=== PATIENT | male | born 1935 | race Caucasian/White ===

== ENCOUNTER → 2017-10-31 09:50 | Outpatient (CLI) | payer MEDICARE, OTHER, SELFPAY ==
[2017-10-31 12:06] LABS: Color, Urine Yellow (Yellow); Glucose, Dipstick Normal (Normal); Ketone-Dipstick 5 mg/dl (Negative); Leukocyte Esterase-Dipstick 25 /ul (Negative); Nitrite-Dipstick Negative (Negative); Occult Blood-Urine 10 /ul (Negative); Protein-Dipstick 30 mg/dl (Negative); Urine Clarity Clear (Clear); Urine Urobilinogen 1 mg/dl (Normal)
[2017-10-31 12:08] LABS: Urine Bilirubin Dipstick 1 mg/dL (Negative)
[2017-10-31 12:15] LABS: Protein, Urine (Random) 39.7 mg/dL (<11.9); Protein:Creat Ratio 133 mg/g CRE (0-200)
[2017-10-31 12:22] LABS: Absolute Lymphocyte Count 1.19 X10^3/ul (0.83-4.51); Absolute Neutrophil Count 6.4 X10^3/uL (2.0-7.7); Basophil# 0.05 X10^3/uL; Basophil% 0.5 % (0-1); Eosinophil# 0.28 X10^3/uL; Hematocrit 43.3 % (40-54); Hemoglobin 13.6 g/dl (13.0-16.5); Lymphocyte # 1.19 X10^3/ul (4.0); Lymphocyte % 12.9 % (19-41); Mean Corp Hgb Conc 31.4 g/gl (32-36); Mean Corpuscular Hgb 31.4 pg (27.0-32.0); Mean Platelet Vol. 11.6 fl (6.2-12.0); Monocyte# 1.24 X10^3/uL; Monocyte% 13.5 % (0-10); Neutrophil # 6.43 X10^3/uL (2.7-7.7); Neutrophil % 69.9 % (47-70); Platelet Count 221 K/mm3 (150-450); RBC Distribution Width SD 47.2 fl (35.1-43.9); Red Blood Count 4.33 M/mm3 (4.6-6.2); White Blood Count 9.2 K/mm3 (4.4-11.0)
[2017-10-31 12:32] LABS: POSITIVE COUNT NO; POSITIVE DIFFERENTIAL NO; POSITIVE MORPHOLOGY NO
[2017-10-31 12:40] LABS: AST(SGOT) 20 U/L (15-37); Alanine Aminotransfer ALT/SGPT 20 U/L (16-61); Albumin, Serum 3.8 g/dL (3.2-5.0); Alkaline Phosphatase 159 U/L (45-117); Anion Gap 9 (5-15); BUN 30 mg/dL (7-18); BUN/Creat Ratio 16.8 RATIO (10-20); CRP 5.75 mg/L (0.0-3.0); Calcium,Total 8.9 mg/dL (8.5-10.1); Chloride 111 mmol/L (98-107); Creatinine, Serum 1.79 mg/dL (0.70-1.30); EST Glomerular Filtration Rate 39 mL/min (>60); Est Glom Filt Rate - Afr Amer 47 mL/min (>60); Globulin 3.8 g/dL (2.2-4.2); Glucose 99 mg/dL (74-106); Potassium 4.1 mmol/L (3.5-5.1); Protein, Total 7.6 g/dL (6.4-8.2); Sodium Level 146 mmol/L (136-145)
[2017-11-01 04:09] LABS: Complement C3 133 mg/dL (82-167)
[2017-11-01 11:16] LABS: HEPATITIS B SURFACE AG Negative (Negative); Hep B Surface Antibodies Non Reactive (.); Hep C Antibodies <0.1 s/co ratio (0.0-0.9)
[2017-11-01 14:07] LABS: Anti-Centromere B Ab <0.2 AI (0.0-0.9); Anti-Jo <0.2 AI (0.0-0.9); Anti-Scleroderma-70 AB <0.2 AI (0.0-0.9); RNP Ab <0.2 AI (0.0-0.9); SJOGREN'S Anti-SS-A test 0.5 AI (0.0-0.9); SJOGREN'S Anti-SS-B test < 0.2 AI (0.0-0.9); Smith Ab 0.2 AI (0.0-0.9)
[2017-11-02 12:36] LABS: ANTINUCLEAR ANTIBODIES DIRECT Negative (Negative); Anti-dsDNA Ab 1 IU/mL (0-9)
== END ==
PROVIDERS: Family Provider Family Medicine; PCP Family Medicine; Visit Provider Internal Medicine Rheumatology
DX: M06.4 Inflammatory polyarthropathy (principal); R76.8 Other specified abnormal immunological findings in serum; K21.9 Gastro-esophageal reflux disease without esophagitis; M51.37 Other intervertebral disc degeneration, lumbosacral region; I10 Essential (primary) hypertension; E78.5 Hyperlipidemia, unspecified; I25.10 Atherosclerotic heart disease of native coronary artery without angina pectoris; N40.1 Benign prostatic hyperplasia with lower urinary tract symptoms; C61 Malignant neoplasm of prostate
CPT/HCPCS: 36415; 80053; 81002; 82570; 84156; 85025; 86038; 86140; 86160; 86225; 86235; 86706; 86803; 87340

== ENCOUNTER → 2018-06-24 15:38 | Outpatient (CLI) | payer MEDICARE, OTHER, SELFPAY ==
[2018-06-24 18:00] LABS: Absolute Lymphocyte Count 1.83 X10^3/ul (0.83-4.51); Absolute Neutrophil Count 7.7 X10^3/uL (2.0-7.7); Basophil# 0.06 X10^3/uL; Basophil% 0.5 % (0-1); Eosinophil# 0.35 X10^3/uL; Hematocrit 41.8 % (40-54); Hemoglobin 13.1 g/dl (13.0-16.5); Lymphocyte # 1.83 X10^3/ul (4.0); Lymphocyte % 15.9 % (19-41); Mean Corp Hgb Conc 31.3 g/gl (32-36); Mean Corpuscular Hgb 31.4 pg (27.0-32.0); Mean Corpuscular Volume 100.2 fL (80-94); Mean Platelet Vol. 11.9 fl (6.2-12.0); Monocyte# 1.58 X10^3/uL; Monocyte% 13.7 % (0-10); Neutrophil # 7.65 X10^3/uL (2.7-7.7); Neutrophil % 66.6 % (47-70); Platelet Count 208 K/mm3 (150-450); RBC Distribution Width CV 12.4 % (11.6-14.6); RBC Distribution Width SD 44.9 fl (35.1-43.9); Red Blood Count 4.17 M/mm3 (4.6-6.2); White Blood Count 11.5 K/mm3 (4.4-11.0)
[2018-06-24 18:01] LABS: Differential Indicated SCAN CRITERIA MET; POSITIVE COUNT NO; POSITIVE DIFFERENTIAL YES; POSITIVE MORPHOLOGY NO
[2018-06-24 18:23] LABS: Differential Comment SCANNED
[2018-06-24 18:30] LABS: ALB/GLOB Ratio 1.1 RATIO (0.9-2.4); AST(SGOT) 17 U/L (15-37); Alanine Aminotransfer ALT/SGPT 22 U/L (16-61); Albumin, Serum 3.8 g/dL (3.2-5.0); Alkaline Phosphatase 162 U/L (45-117); Anion Gap 8 (5-15); BUN 40 mg/dL (7-18); BUN/Creat Ratio 21.4 RATIO (10-20); Calcium,Total 8.9 mg/dL (8.5-10.1); Chloride 111 mmol/L (98-107); Creatinine, Serum 1.87 mg/dL (0.70-1.30); EST Glomerular Filtration Rate 37 mL/min (>60); Est Glom Filt Rate - Afr Amer 45 mL/min (>60); Globulin 3.6 g/dL (2.2-4.2); Glucose 105 mg/dL (74-106); Potassium 4.5 mmol/L (3.5-5.1); Protein, Total 7.4 g/dL (6.4-8.2); Sodium Level 146 mmol/L (136-145)
--- OUTSIDE RECORDS SUMMARY | 2018-08-27 03:47 | XMS RPT_ITS | Summary of Care ---
:1935 Author Organization [facility] Address [address] [id number] Care Team Providers Name Role Phone Kolton Graham MD Primary Care Provider Reason for Referral Evaluate and Treat (Routine) Status Reason Specialty Diagnoses / Referred By Referred To Procedures Contact Contact Closed Specialty Neurosurgery Diagnoses Back pain, unspecified back location, unspecified back pain laterality, unspecified chronicity Kolton Graham Services David, MD Dionysios, MD Required/Patient [address] [phone] Phone: Fax: Reason for Visit Reason Comments Back Pain Had lumbar surgery a year ago in August. States that his lower back pain does cause issues with pain in bilateral feet. States that the issues with his feet started after his surgery. Rates his current back pain at a 4/10. Evaluate and Treat (Routine) Status Reason Specialty Diagnoses / Referred By Referred To Procedures Contact Contact Closed Specialty Neurosurgery Diagnoses Back pain, unspecified back location, unspecified back pain laterality, unspecified chronicity Kolton Graham Services David, MD Dionysios, MD Required/Patient [address] [place] [phone] Phone: Fax: Encounter Details Date Type Department Care Team Description 06/12/2018 Office Visit [facility] Klironomos, Back pain, Neurological MD Lani unspecified back Physicians [address] location, unspecified [address] [place], [place] back pain laterality, Medical Office [id number] unspecified Building [phone] [place] [address] Allergies Active Allergy Reactions Severity Noted Date Comments Chlorhexidine Gluconate as of this encounter Medications Prescription Sig. Disp. Refills Start Date End Date Status metoprolol succinate Take 50 mg by Active (TOPROL-XL) 50 MG 24 mouth. hr tablet atorvastatin Take 40 mg by Active (LIPITOR) 40 MG mouth daily . tablet lisinopril-hydrochlor Take 1 tablet Active othiazide by mouth daily. (PRINZIDE,ZESTORETIC) 20-12.5 mg per tablet aspirin 81 MG EC Take 81 mg by Active tablet mouth daily . omeprazole (PRILOSEC) Take 20 mg by Active 20 MG capsule mouth. gabapentin Take 300 mg by Active (NEURONTIN) 300 MG mouth 2 (two) capsule times a day . lisinopril Take 40 mg by Active (PRINIVIL,ZESTRIL) 20 mouth daily . MG tablet amLODIPine (NORVASC) Take 10 mg by Active 5 MG tablet mouth daily . furosemide (LASIX) 40 Take 40 mg by Active MG tablet mouth daily . predniSONE Take 5 mg by 11 09/22/2017 06/12/2018 Discontinued (DELTASONE) 1 MG mouth 5 (five) tablet times a day. as of this encounter Active Problems Problem Noted Date Coronary artery disease involving coronary bypass graft of [place] heart 11/21/2015 without angina pectoris Last Assessment & Plan: Saphenous vein graft to the OM, saphenous vein graft to the right coronary, LAD with only mild disease so not grafted October 2008. Recent stress test negative (June 2017), no ischemia, no complaints of chest pain, continue aspirin, atorvastatin and blood pressure control. Essential hypertension with goal blood pressure less than 130/80 11/21/2015 Last Assessment & Plan: Mildly elevated today but he states typically it is well-controlled on Toprol-XL 50 mg, lisinopril Hydrochlorothiazide 20/12.5 daily Dyslipidemia 11/21/2015 Last Assessment & Plan: Continue atorvastatin with target LDL of 70. Social History Tobacco Use Types Packs/Day Years Used Date Never Smoker Smokeless Tobacco: Never Used Alcohol Use Drinks/Week oz/Week Comments No 0 Standard drinks or equivalent 0.0 Sex Assigned at Date Recorded Not on file as of this encounter Last Filed Vital Signs Vital Sign Reading Time Taken Blood Pressure 151/76 06/12/2018 1:31 PM EST Pulse 75 06/12/2018 1:31 PM EST Temperature 36.5 ??C (97.7 ??F) 06/12/2018 1:31 PM EST Respiratory Rate 16 06/12/2018 1:31 PM EST Oxygen Saturation - - Inhaled Oxygen Concentration - - Weight 76.2 kg (168 lb) 06/12/2018 1:31 PM EST Height 172.7 cm (5' 8) 06/12/2018 1:31 PM EST Body Mass Index 25.54 06/12/2018 1:31 PM EST in this encounter Progress Notes Lani Cook MD - 06/12/2018 2:53 PM ESTFormatting of this note may be different from the original. Subjective Merrill King is a 82 y.o. male. HPI: He had a lumbar fusion surgery a year ago in [place] with Dr. Malone, who he mentions has now moved to [place]. The patient is here for follow up after his surgery and he has had a lumbar xray. He mentions that he has much less pain now when compared with preop. He does mention some foot pains/numbness. He rates his pain level at a 4/10. PAST MEDICAL HISTORY: Past Medical History: Diagnosis Date ??? Arthritis ??? GERD (gastroesophageal reflux disease) ??? Heart disease ??? Hyperlipidemia ??? Hypertension SURGICAL HISTORY: Past Surgical History: Procedure Laterality Date ??? BACK SURGERY ??? CARDIAC CATHETERIZATION Left 10/22/2008 EF 60%, PTCA of RCA Mid, IABP Inserted ??? CORONARY ARTERY BYPASS GRAFT SOCIAL HISTORY : Social History Social History ??? Marital status: Spouse name: N/A ??? Number of children: N/A ??? Years of education: N/A Occupational History ??? Not on file. Social History Main Topics ??? Smoking status: Never Smoker ??? Smokeless tobacco: Never Used ??? Alcohol use No ??? Drug use: No ??? Sexual activity: Not on file Other Topics Concern ??? Not on file Social History Narrative ??? No narrative on file MEDICATIONS: Current Outpatient Prescriptions Medication Sig Dispense Refill ??? amLODIPine (NORVASC) 5 MG tablet Take 10 mg by mouth daily . ??? aspirin 81 MG EC tablet Take 81 mg by mouth daily . ??? atorvastatin (LIPITOR) 40 MG tablet Take 40 mg by mouth daily . ??? furosemide (LASIX) 40 MG tablet Take 40 mg by mouth daily . ??? gabapentin (NEURONTIN) 300 MG capsule Take 300 mg by mouth 2 (two) times a day . ??? lisinopril (PRINIVIL,ZESTRIL) 20 MG tablet Take 40 mg by mouth daily . ??? metoprolol succinate (TOPROL-XL) 50 MG 24 hr tablet Take 50 mg by mouth. ??? omeprazole (PRILOSEC) 20 MG capsule Take 20 mg by mouth. ??? lisinopril-hydrochlorothiazide (PRINZIDE,ZESTORETIC) 20-12.5 mg per tablet Take 1 tablet by mouth daily. No current facility-administered medications for this visit. ALLERGIES: Allergies Allergen Reactions ??? Chlorhexidine Gluconate REVIEW of SYSTEMS: Genitourinary: Positive for frequency. Musculoskeletal: Positive for back pain. Neurological: Positive for headaches. 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, he has normal lumbar flexion, his incision is well-healed, he has only a mild tenderness to lumbar palpation, normal motor, sensory and reflex exam, straight leg raising sign negative, gait is normal, no abnormal reflexes STUDY REVIEW: DATA REVIEW: Lumbar xray shows that he's had an L3-5 fusion done Assessment/Plan: MEDICAL DECISION-MAKING AND SUMMARY: He is doing well since his surgery, will f/u as needed Diagnoses and all orders for this visit: Back pain, unspecified back location, unspecified back pain laterality, unspecified chronicity Johanna Sheppard MA - 06/12/2018 1:53 PM ESTReview of Systems Genitourinary: Positive for frequency. Musculoskeletal: Positive for back pain. Neurological: Positive for headaches. in this encounter Plan of Treatment Health Maintenance Due Date Last Done Comments TETANUS EVERY 10 YR 1935 ZOSTER VACCINES (1 of 2) 08/15/1987 PNEUMOCOCCAL VACCINE AGE 65+ (1 of 2 - PCV13) 2002 Kae Fall Risk Assessment 2002 SEQUENTIAL INFLUENZA VACCINE (#1) 2018 as of this encounter Visit Diagnoses Diagnosis Back pain, unspecified back location, unspecified back pain laterality, unspecified chronicity
--- OUTSIDE RECORDS SUMMARY | 2018-08-27 03:48 | XMS RPT_ITS ---
:1935 Author Organization [facility] Support Name Relationship Address Phone RICHARD KING JR Unavailable Unavailable + R Unavailable Unavailable Unavailable VIOLET, GARDUNO Unavailable Unavailable + JR Unavailable Unavailable + RICHARD KING Unavailable Unavailable + KING KEILALexi Unavailable Unavailable + ANNALISA Unavailable Unavailable + KING BARREN Unavailable Unavailable + VIOLET, GARDUNO Unavailable Unavailable + JR Unavailable Unavailable + VIOLET, GARDUNO Unavailable Unavailable + JR, Unavailable Unavailable + VIOLET, GARDUNO Unavailable Unavailable + JR, Unavailable Unavailable + VIOLET, GARDUNO Unavailable Unavailable + JR, Unavailable Unavailable + VIOLET, GARDUNO Unavailable Unavailable + JR, Unavailable Unavailable + VIOLET, GARDUNO Unavailable Unavailable + JR, Unavailable Unavailable + VIOLET, GARDUNO Unavailable Unavailable + JR, Unavailable Unavailable + VIOLET, GARDUNO Unavailable Unavailable + JR, Unavailable Unavailable + VIOLET, GARDUNO Unavailable Unavailable + JR, Unavailable Unavailable + KING Unavailable Unavailable + ANNALISA KEILALexi Unavailable Unavailable + VIOLET, GARDUNO Unavailable Unavailable + JR, Unavailable Unavailable + RICHARD KING JR Unavailable Unavailable + [place] [address] R Unavailable Unavailable Unavailable RICHARD KING JR Unavailable Unavailable + RICHARD KING JR Unavailable Unavailable + RICHARD KING Unavailable Unavailable + GRACY KING Unavailable Unavailable + Care Team Providers Name Role Phone Sonia Caal Attending Unavailable Sonia Caal Referring Unavailable GLADYS, CALVIN Primary Care Unavailable Sonia Caal Attending Unavailable Sonia Caal Referring Unavailable STENRUBIO, CALVIN Primary Care Unavailable CHERRY RAMOS Attending Unavailable CALVIN DUMONT Referring Unavailable KURT ROMERO (OD) Attending Unavailable KURT ROMERO (OD) Referring Unavailable CHERRY RAMOS Attending Unavailable CALVIN DUMONT Referring Unavailable CHERRY RAMOS Attending Unavailable CALVIN DUMONT Referring Unavailable CHERRY RAMOS Attending Unavailable CHERRY RAMOS Referring Unavailable RYLEE HOOD Attending Unavailable KURT ROMERO (OD) Referring Unavailable KURT ROMERO (OD) Attending Unavailable KURT ROMERO (OD) Referring Unavailable KURT ROMERO (OD) Attending Unavailable KURT ROMERO (OD) Referring Unavailable MD Cherry Ramos Admitting Unavailable MD Cherry Ramos Attending Unavailable MD Cherry Ramos Referring Unavailable STENCELCALVIN Primary Care Unavailable MD Cherry Ramos Admitting Unavailable MD Cherry Ramos Attending Unavailable MD Cherry Ramos Referring Unavailable Viktor, Jaelyn Consulting Unavailable STENCEL, CALVIN D Primary Care Unavailable Viktor, AGPCNP Jaelyn Consulting Unavailable Viktor, Jaelyn Consulting Unavailable Viktor, Jaelyn Consulting Unavailable Viktor, Jaelyn Consulting Unavailable Viktor, Jaelyn Consulting Unavailable Viktor, Jaelyn Consulting Unavailable Viktor, Jaelyn Consulting Unavailable Viktor, Jaelyn Consulting Unavailable Viktor, Jaelyn Consulting Unavailable Cherry Ramos Admitting Unavailable Cherry Ramos Attending Unavailable Stencel, Calvin Primary Care Unavailable StencelCalvin Attending Unavailable Stencel, Calvin Primary Care Unavailable Danis Gutierrez Admitting Unavailable Danis Gutierrez Attending Unavailable [place], Nayan Consulting Unavailable Stencel, Calvin Primary Care Unavailable Danis Gutierrez Admitting Unavailable GutierrezDanis Attending Unavailable [place], Care Consulting Unavailable Stencel, Calvin Primary Care Unavailable Max, Charlie Garcia Attending Unavailable Stencel, Calvin Primary Care Unavailable Max, Charlie W Admitting Unavailable Max, Charlie W Attending Unavailable Stencel, Calvin Primary Care Unavailable Stencel, Calvin Admitting Unavailable Stencel, Calvin Attending Unavailable Stencel, Calvin Primary Care Unavailable Dowell, Dmitri Admitting Unavailable Dowell, Dmitri Attending Unavailable Dowell, Dmitri Referring Unavailable Stencel, Calvin Primary Care Unavailable Max, Charlie Garcia Attending Unavailable Stencel, Calvin Primary Care Unavailable Stencel, Calvin Admitting Unavailable Stencel, Calvin Attending Unavailable Stencel, Calvin Primary Care Unavailable Stencel, Calvin Attending Unavailable Stencel, Calvin Primary Care Unavailable Stencel, Calvin Attending Unavailable Stencel, Calvin Primary Care Unavailable Newbill, Manjinder Iqbal Admitting Unavailable Newbill, Manjinder Iqbal Attending Unavailable Stencel, Calvin Primary Care Unavailable Stencel, Calvin Attending Unavailable Stencel, Calvin Primary Care Unavailable Li, Theo Admitting Unavailable Li, Theo Attending Unavailable Stencel, Calvin Primary Care Unavailable Jeremy LokeshAlton Admitting Unavailable Jeremy LokeshAlton Attending Unavailable Stencel, Calvin Primary Care Unavailable Gutierrez, Danis Admitting Unavailable Gutierrez, Danis Attending Unavailable [facility], [facility] Unavailable Gutierrez, Danis Admitting Unavailable Gutierrez, Danis Attending Unavailable Gutierrez, [facility] Unavailable Max, Charlie Garcia Attending Unavailable Gutierrez, [facility] Unavailable Gutierrez, Danis Admitting Unavailable Gutierrez, Danis Attending Unavailable Gutierrez, [place] Primary Care Unavailable Stencel, Calvin Admitting Unavailable Stencel, Calvin Attending Unavailable Gutierrez, [facility] [place] Primary Care Unavailable Max, Charlie Garcia Admitting Unavailable Max, Charlie Garcia Attending Unavailable Stencel, Calvin Primary Care Unavailable Stencel, Calvin Admitting Unavailable Stencel, Calvin Attending Unavailable Stencel, Calvin Primary Care Unavailable Stencel, Calvin Attending Unavailable Stencel, Calvin Primary Care Unavailable Max, Charlie Garcia Admitting Unavailable Max, Charlie Garcia Attending Unavailable Stencel, Calvin Primary Care Unavailable Stencel, Calvin Attending Unavailable Stencel, Calvin Primary Care Unavailable Newbill, Manjinder Iqbal Admitting Unavailable Newbill, Manjinder Iqbal Attending Unavailable Stencel, Calvin Primary Care Unavailable Vellanki, Sonia Admitting Unavailable Vellanki, Sonia Attending Unavailable Stencel, Calvin Consulting Unavailable Stencel, Calvin Primary Care Unavailable Stencel, Calvin Attending Unavailable Stencel, Calvin Primary Care Unavailable Vellanki, Sonia Admitting Unavailable Vellanki, Sonia Attending Unavailable Stencel, Calvin Primary Care Unavailable Stencel, Calvin Admitting Unavailable Stencel, Calvin Attending Unavailable Stencel, Calvin Primary Care Unavailable Stencel, Calvin Attending Unavailable Stencel, Calvin Primary Care Unavailable Max, Charlie Garcia Attending Unavailable Gutierrez, Danis Primary Care Unavailable Max, Charlie Garcia Admitting Unavailable Max, Charlie Garcia Attending Unavailable Stencel, Calvin Primary Care Unavailable Stencel, Calvin Attending Unavailable Stencel, Calvin Primary Care Unavailable Stencel, Calvin Attending Unavailable Stencel, Calvin Primary Care Unavailable Stencel, Calvin Admitting Unavailable Stencel, Calvin Attending Unavailable Stencel, Calvin Primary Care Unavailable Stencel, Calvin Attending Unavailable Stencel, Calvin Primary Care Unavailable Stencel, Calvin Attending Unavailable Stencel, Calvin Primary Care Unavailable Stencel, Calvin Attending Unavailable Stencel, Calvin Primary Care Unavailable Max, Charlie Garcia Attending Unavailable Stencel, Calvin Primary Care Unavailable Stencel, Calvin Attending Unavailable Stencel, Calvin Primary Care Unavailable DOWELLDMITRI Admitting Unavailable STENCEL, CALVIN DELACRUZ Referring Unavailable STENCEL, CALVIN DELACRUZ Primary Care Unavailable DOWELLDMITRI Castellon Attending Unavailable STENCEL, CALVIN DELACRUZ Primary Care Unavailable KLIRONOMOS, DIONYSIOS Attending Unavailable STENCEL, CALVIN DELACRUZ Primary Care Unavailable KLIRONOMOS, TUYETNYALYSSIA Attending Unavailable STENCEL, CALVIN DELACRUZ Referring Unavailable STENCEL, CALVIN DELACRUZ Primary Care Unavailable PROBLEMS PROBLEMS DATE TYPE CONDITION / CODE ATTENDING STATUS SOURCE 06/24/2018 Unknown M06.4 - Inflammatory Vellanki, Active [place] polyarthropathy / [facility] M06.4(ICD-10) Hospital Repository 06/24/2018 Unknown R76.8 - Other Vellanki, Active [place] specified abnormal [facility] immunological Hospital findings in serum / Repository R76.8(ICD-10) 06/24/2018 Unknown K21.9 - Vellanki, Active [place] Gastro-esophageal [facility] reflux disease Hospital without esophagitis Repository / K21.9(ICD-10) 06/24/2018 Unknown 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, 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, Hospital lumbosacral region / Repository M51.37(ICD-10) 06/24/2018 Unknown I10 - Essential Vellanki, Active [place] (primary) [facility] hypertension / Hospital I10(ICD-10) Repository 06/24/2018 Unknown E78.5 - Vellanki, Active [place] Hyperlipidemia, [facility] unspecified / Hospital E78.5(ICD-10) Repository 06/24/2018 Unknown 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, 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 / I25.10(ICD-10) 06/24/2018 Unknown N40.1 - Benign Vellanki, Active [place] prostatic [facility] hyperplasia with Hospital lower urinary tract Repository symptoms / N40.1(ICD-10) 06/24/2018 Unknown Z79.899 - Other long Vellanki, Active [place] term (current) drug [facility] therapy / Hospital Z79.899(ICD-10) Repository 06/24/2018 Unknown C61 - Malignant Vellanki, 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 [facility] / C61(ICD-10) Hospital Repository 06/12/2018 Admitting Dorsalgia, KLIRONOMOS, Active [facility] diagnosis unspecified / DIONYSIOS Three M54.9(ICD-10) Repository 11/28/2017 Admitting Unknown / DOWELL, DMITRI [facility] diagnosis UNK(Unknown) CIERA Three Repository 07/04/2017 Admitting 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 / I25.810(ICD-10) 07/04/2017 Admitting Encounter for NA [facility] diagnosis preprocedural Three cardiovascular Repository examination / Z01.810(ICD-10) PROCEDURES PROCEDURES No Procedure Records FoundRESULTS RESULTS CBC W/DIFF, AUTOMATED Collected: 06/24/2018 Status: F Source: [facility] TYPE CODE TESTS RESULT OUT OF RANGE REFERENCE UNITS LAB L100.1000 4.4-11.0 K/mm3 High WBC 11.5 LAB L100.1200 4.6-6.2 M/mm3 Low RBC 4.17 LAB L100.1300 13.0-16.5 g/dl Normal HGB 13.1 LAB L100.1400 40-54 % Normal HCT 41.8 LAB L100.1500 80-94 fL High MCV 100.2 LAB L100.1600 27.0-32.0 pg Normal MCH 31.4 LAB L100.1700 32-36 g/gl Low MCHC 31.3 LAB L100.1810 11.6-14.6 % Normal RDW CV 12.4 LAB L100.1820 35.1-43.9 fl High RDW SD 44.9 LAB L100.1900 150-450 K/mm3 Normal PLT 208 LAB L100.2000 6.2-12.0 fl Normal MPV 11.9 LAB L100.2100 47-70 % Normal NEUT% 66.6 LAB L100.2200 19-41 % Low LY% 15.9 LAB L100.2300 0-10 % High MONO% 13.7 LAB L100.2400 0-5 % Normal EO% 3.0 LAB L100.2500 0-1 % Normal BASO% 0.5 LAB L100.2550 0.0-0.9 % Normal IM GRAN % 0.300 Result Comment: IG% - Immature Granulocytes (promyelocytes, myelocytes and metamyelocytes) > 1% indicates that a LEFT SHIFT is Present. LAB L100.2620 2.0-7.7 X10 3/uL Normal Absolute Neut 7.7 LAB L100.2720 0.83-4.51 X10 3/ul Normal Absolute Lymph 1.83 LAB L100.4500 Normal SMEAR COMMENT SCANNED Result Comment: AUTO DIFF OK Performed By: #### L100.0100 #### [facility] [address] [place], [address] COMPREHENSIVE METABOLIC Collected: 06/24/2018 Status: F [facility] REPOSITORY TYPE CODE TESTS RESULT OUT OF RANGE REFERENCE UNITS LAB L501.0100 74-106 mg/dL Normal GLU 105 Result Comment: Fasting Glucose result from 100 to 125 mg/dL suggests IMPAIRED HOMEOSTASIS per A.D.A. criteria. Please note revised GLUCOSE reference range effective 2017. LAB L501.1000 7-18 mg/dL High BUN 40 LAB L501.1100 0.70-1.30 mg/dL High CREAT,SERUM 1.87 Result Comment: The validity of the calculated GFR AND GFRAA in patients over 70 years has not been determined. Clinical correlation is essential. LAB L501.1110 >60 mL/min Low EST GFR 37 Result Comment: Non- GFR Calc LAB L501.1115 >60 mL/min Low EST GFR - AA 45 Result Comment: GFR Calc LAB L501.1300 10-20 RATIO High BUN/CRE 21.4 LAB L501.1500 6.4-8.2 g/dL T Normal PROT 7.4 LAB L501.1800 3.2-5.0 g/dL Normal ALB 3.8 LAB L501.1950 2.2-4.2 g/dL Normal GLOB 3.6 LAB L501.2000 0.9-2.4 RATIO Normal A/G 1.1 LAB L501.2200 8.5-10.1 mg/dL CA Normal 8.9 LAB L501.4100 15-37 U/L Normal AST 17 LAB L501.4305 45-117 U/L High ALK P 162 LAB L501.4405 16-61 U/L Normal ALT 22 LAB L501.4600 0.20-1.00 mg/dL High T BILI 1.10 LAB L501.5300 136-145 mmol/L High NA 146 LAB L501.5600 3.5-5.1 mmol/L K Normal 4.5 LAB L501.5900 98-107 mmol/L High CL 111 LAB L501.6100 21.0-32.0 mmol/L Normal CO2 27.0 LAB L501.6200 5-15 Normal GAP 8 Performed By: #### L500.4050 #### [facility] [place], [address] [facility] Collected: 06/19/2018 Status: F Source: [place] 8:26 AM [facility] REPOSITORY TYPE CODE TESTS RESULT OUT OF RANGE REFERENCE UNITS LAB 97479510(L 70-99 mg/dL OINC) High Glucose Lvl 134 LAB 60132063(L 6-23 mg/dL OINC) High BUN 35 LAB 8424232(LO 0.5-1.3 mg/dL INC) High Creatinine 1.9 LAB 76881067(L 5.4-30.0 ratio OINC) Normal BUN/Creat Ratio 18.4 LAB 76878445(L 8.6-10.3 mg/dL OINC) Calcium Normal Lvl 9.5 LAB 32035983(L 136-145 mEq/L OINC) Sodium Normal Lvl 143 LAB 95714067(L 3.5-5.3 mEq/L OINC) Normal Potassium Lvl 4.7 LAB 16097180(L 98-107 mEq/L OINC) Chloride Normal 107 LAB 58601085(L 21.0-32.0 mEq/L OINC) CO2 Normal 29.0 LAB 44145183(L 10-20 mEq/L OINC) AGAP Normal 12 Performed By: #### [id number] #### [facility] [employer] [address] [id number] EGFR Collected: 06/19/2018 Status: F Source: [place] 8:26 AM [facility] REPOSITORY Order Comment: Order added by Discern Expert. TYPE CODE TESTS RESULT OUT OF RANGE REFERENCE UNITS LAB 60193754(LO mL/min/1.73 INC) m2 Normal eGFR 34 LAB 02472775(LO mL/min/1.73 INC) m2 Normal eGFR AA 42 Performed By: #### [id number] #### [facility] [employer] [address] [id number] CBC W/ AUTO DIFF Collected: 05/29/2018 Status: F Source: [place] 5:20 AM [facility] REPOSITORY TYPE CODE TESTS RESULT OUT OF RANGE REFERENCE UNITS LAB 96638762(L 3.6-11.0 E3/mcL OINC) Normal WBC 8.2 LAB 92327884(L 3.90-6.10 E6/mcL OINC) Normal RBC 4.22 LAB 54210623(L 13.5-18.0 G/DL OINC) Normal Hgb 13.7 LAB 31137059(L 42.0-52.0 % OINC) Low Hct 41.6 LAB 18394153(L 11.5-14.5 % OINC) Normal RDW 14.0 LAB 14639700(L 27.0-31.0 pg OINC) High MCH 32.4 LAB 27563331(L 33.0-37.0 G/DL OINC) Low MCHC 32.9 LAB 99575158(L 78.0-100.0 fL OINC) Normal MCV 98.5 LAB 98159188(L 7.4-11.0 fL OINC) Normal MPV 9.3 LAB 34417309(L 130-400 E3/mcL OINC) Normal Platelet 208 Performed By: #### [id number] #### [facility] [employer] [address] [place] [address] AUTO DIFF Collected: 05/29/2018 Status: F Source: [place] 5:20 AM [facility] REPOSITORY Order Comment: Order Added by Discern Expert. TYPE CODE TESTS RESULT OUT OF RANGE REFERENCE UNITS LAB 71045828(L 37.0-75.0 % OINC) Normal Neutro Auto 67.1 LAB 08913237(L 20.0-55.0 % OINC) Low Lymph Auto 16.4 LAB 01491511(L 0.0-10.0 % OINC) High [place] Auto 12.8 LAB 33458521(L 0.0-11.0 % OINC) Normal Eos Auto 2.6 LAB 41089592(L 0.0-2.0 % OINC) Normal Basophil Auto 1.1 LAB 53612865(L 1.4-6.5 E3/mcL OINC) Normal Neutro 5.5 Absolute LAB 44089087(L 1.2-3.4 E3/mcL OINC) Normal Lymph Absolute 1.3 LAB 80451381(L 0.0-0.7 E3/mcL OINC) High [place] Absolute 1.0 LAB 43943792(L 0.0-0.7 E3/mcL OINC) Normal Eos Absolute 0.2 LAB 30479280(L 0.0-0.2 E3/mcL OINC) Normal Basophil 0.1 Absolute Performed By: #### [id number] #### [facility] [id number] BMP Collected: 05/29/2018 Status: F Source: [place] 5:20 AM [facility] REPOSITORY TYPE CODE TESTS RESULT OUT OF RANGE REFERENCE UNITS LAB 09801564(L 70-99 mg/dL OINC) High Glucose Lvl 158 LAB 57076880(L 6-23 mg/dL OINC) BUN Normal 17 LAB 7530679(LO 0.5-1.3 mg/dL INC) High Creatinine 1.5 LAB 67538071(L 5.4-30.0 ratio OINC) Normal BUN/Creat Ratio 11.3 LAB 69696758(L 8.6-10.3 mg/dL OINC) Low Calcium Lvl 8.5 LAB 69625280(L 136-145 mEq/L OINC) Sodium Normal Lvl 141 LAB 10950170(L 3.5-5.3 mEq/L OINC) Normal Potassium Lvl 4.3 LAB 53291371(L 98-107 mEq/L OINC) High Chloride 108 LAB 51658900(L 21.0-32.0 mEq/L OINC) CO2 Normal 28.0 LAB 22322569(L 10-20 mEq/L OINC) AGAP Normal 10 Performed By: #### [id number] #### [facility] [place] [address] EGFR Collected: 05/29/2018 Status: F Source: [place] 5:20 AM [facility] REPOSITORY Order Comment: Order added by Discern Expert. TYPE CODE TESTS RESULT OUT OF RANGE REFERENCE UNITS LAB 63843196(LO mL/min/1.73 INC) m2 Normal eGFR 44 LAB 69785599(LO mL/min/1.73 INC) m2 Normal eGFR AA 53 Performed By: #### [id number] #### [facility] [employer] [address] [place], [place] [id number] CT SOFT TISSUE NECK Observed: 05/28/2018 Status: F Source: [place] W/ CONTRAST 8:07 AM [facility] REPOSITORY Exam Date/Time: 05/28/2018 08:46 EST Reason for Exam: Other (please specify) Report STUDY: CT Soft Tissue Neck w/ Contrast; 05/28/2018 8:46 am INDICATION: Other (please specify). COMPARISON: None. ACCESSION NUMBER(S): [id number] ORDERING CLINICIAN: Freddy Lynn TECHNIQUE: Following intravenous injection 90 cc Omnipaque [address] was performed from the skullbase to the thoracic inlet and multiplanar reconstructions were made. FINDINGS: *There is a bilobed structure in the left parapharyngeal space which measures approximately 2 cm by approximately 5 cm in size. There is layering of hyperdense fluid in the more medial component of the mass that measures approximately 1.5 cm in size best appreciated on axial 44/129. This may represent contrast material in a varix or pseudoaneurysm as well as hyperdense fluid containing protein or calcium. There is little or no enhancement to suggest neoplasm. Site of origin is unclear but does not appear to arise from carotid or jugular veins. *The visualized paranasal sinuses nasopharynx and oropharynx are unremarkable. *The major salivary glands are normal. *There is no measurable cervical lymphadenopathy. *The larynx and related cartilages are normal. *The thyroid gland is normal. *The thoracic inlet is normal. IMPRESSION: *There is a bilobed mass or cyst in the left parapharyngeal space. Consider pseudoaneurysm, varix, lymphangioma schwannoma. THIS EXAMINATION WAS INTERPRETED AT [facility] FINAL REPORT Dictated: 05/28/2018 9:12 am Suleiman Dillon MD Signed (Electronic Signature): 05/28/2018 9:12 am Signed by: Suleiman Dillon MD Technologist: ALYSE CBC W/ AUTO DIFF Collected: 05/28/2018 Status: F Source: [place] 4:30 AM [facility] REPOSITORY TYPE CODE TESTS RESULT OUT OF RANGE REFERENCE UNITS LAB 16722402(L 3.6-11.0 E3/mcL OINC) Normal WBC 8.4 LAB 73231733(L 3.90-6.10 E6/mcL OINC) Normal RBC 4.15 LAB 39397581(L 13.5-18.0 G/DL OINC) Normal Hgb 13.5 LAB 48048381(L 42.0-52.0 % OINC) Low Hct 40.8 LAB 92580419(L 11.5-14.5 % OINC) Normal RDW 13.8 LAB 10899081(L 27.0-31.0 pg OINC) High MCH 32.5 LAB 30708768(L 33.0-37.0 G/DL OINC) Normal MCHC 33.1 LAB 97215162(L 78.0-100.0 fL OINC) Normal MCV 98.2 LAB 08679203(L 7.4-11.0 fL OINC) Normal MPV 9.2 LAB 96780216(L 130-400 E3/mcL OINC) Normal Platelet 201 Performed By: #### [id number] #### [facility] [employer] [address] [place] [address] AUTO DIFF Collected: 05/28/2018 Status: F Source: [place] 4:30 AM [facility] REPOSITORY Order Comment: Order Added by Discern Expert. TYPE CODE TESTS RESULT OUT OF RANGE REFERENCE UNITS LAB 48700036(L 37.0-75.0 % OINC) Normal Neutro Auto 68.8 LAB 15417090(L 20.0-55.0 % OINC) Low Lymph Auto 17.0 LAB 11348298(L 0.0-10.0 % OINC) High [place] Auto 10.8 LAB 55060547(L 0.0-11.0 % OINC) Normal Eos Auto 2.6 LAB 12877467(L 0.0-2.0 % OINC) Normal Basophil Auto 0.8 LAB 67411697(L 1.4-6.5 E3/mcL OINC) Normal Neutro 5.7 Absolute LAB 78352281(L 1.2-3.4 E3/mcL OINC) Normal Lymph Absolute 1.4 LAB 52259749(L 0.0-0.7 E3/mcL OINC) High [place] Absolute 0.9 LAB 87373171(L 0.0-0.7 E3/mcL OINC) Normal Eos Absolute 0.2 LAB 69379404(L 0.0-0.2 E3/mcL OINC) Normal Basophil 0.1 Absolute Performed By: #### [id number] #### [facility] [address] [place] [address] BMP Collected: 05/28/2018 Status: F Source: [place] 4:30 AM [facility] REPOSITORY TYPE CODE TESTS RESULT OUT OF RANGE REFERENCE UNITS LAB 13205308(L 70-99 mg/dL OINC) High Glucose Lvl 115 LAB 18629192(L 6-23 mg/dL OINC) BUN Normal 17 LAB 1540116(LO 0.5-1.3 mg/dL INC) High Creatinine 1.5 LAB 95852251(L 5.4-30.0 ratio OINC) Normal BUN/Creat Ratio 11.3 LAB 89184991(L 8.6-10.3 mg/dL OINC) Calcium Normal Lvl 8.7 LAB 01617654(L 136-145 mEq/L OINC) Sodium Normal Lvl 142 LAB 32457286(L 3.5-5.3 mEq/L OINC) Normal Potassium Lvl 4.2 LAB 94602864(L 98-107 mEq/L OINC) High Chloride 109 LAB 34448647(L 21.0-32.0 mEq/L OINC) CO2 Normal 27.0 LAB 91893445(L 10-20 mEq/L OINC) AGAP Normal 10 Performed By: #### [id number] #### [facility] [address] [place] [address] EGFR Collected: 05/28/2018 Status: F Source: [place] 4:30 AM [facility] REPOSITORY Order Comment: Order added by Discern Expert. TYPE CODE TESTS RESULT OUT OF RANGE REFERENCE UNITS LAB 97422090(LO mL/min/1.73 INC) m2 Normal eGFR 46 LAB 95782777(LO mL/min/1.73 INC) m2 Normal eGFR AA 55 Performed By: #### [id number] #### [facility] [employer] [address] [place] [address] MRA HEAD W/O CONTRAST Observed: 05/27/2018 Status: F Source: [place] 10:05 AM [facility] REPOSITORY Exam Date/Time: 05/27/2018 10:24 EST Reason for Exam: Headache Report STUDY: MRI Brain w/o Contrast; MRA Head w/o Contrast; 05/27/2018 10:08 am; 05/27/2018 10:24 am INDICATION: Headache. Confusion, history of hypertension and prostate cancer. COMPARISON: CT head from 05/23/2018 ACCESSION NUMBER(S): [id number]; [id number] ORDERING CLINICIAN: Freddy Lynn TECHNIQUE: Axial T2, FLAIR, DWI and sagittal and coronal T1 weighted images of brain were acquired. Time of flight MRA images of the intracranial vasculature were obtained and reformatted into multiple projections. FINDINGS: MR BRAIN: Parenchyma: There is no diffusion restriction abnormality to suggest acute ischemia. There are several patchy and focal scattered areas of T2 and FLAIR hyperintense signal within bilateral periventricular and subcortical white matter which given patient's age likely reflect sequela of chronic small vessel ischemic change. There is no mass effect or midline shift. There is a punctate focus of hypointense signal with minimal blooming artifact within the right centrum semiovale region seen on gradient echo imaging which may reflect a punctate focus of calcification/mineralization versus a remote microhemorrhage with hemosiderin deposition. CSF Spaces: The ventricles, sulci and basal cisterns are diffusely prominent indicating mild diffuse cerebral volume loss. Paranasal Sinuses and Mastoids: Mild mucosal thickening is seen within bilateral maxillary sinuses. There is a superimposed small retention cyst within the right maxillary sinus with inspissated intrinsic contents. Small polypoidal foci of mucosal thickening are seen along the floor of left maxillary sinus. Minimal mucosal thickening is seen in scattered ethmoid air cells. There is a small amount of fluid signal within peripheral right mastoid air cells. There is a partially visualized lobulated mass within the left parapharyngeal space which demonstrates intrinsic fluid fluid levels with dependent hematocrit effect. The lesion measures 3.8 x 1.9 cm in cross-sectional dimension and approximately 3.2 cm in craniocaudal dimension. 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 There are degenerative changes within the cervical spine with hypertrophic changes at C1-C2 causing partial effacement of the ventral subarachnoid space without significant overall central canal stenosis. There is suggestion of severe narrowing of the spinal canal at C3-C4 with effacement of ventral and dorsal subarachnoid space on sagittal imaging with mild deformity of the cord contour. If clinically warranted, further evaluation with a dedicated MRI of cervical spine may be considered. MRA BRAIN: Anterior Circulation: There is mild narrowing of the supraclinoid left internal carotid artery as compared to contralateral side. There is narrowing of the left carotid terminus as compared to contralateral side which may be secondary to artifact versus atherosclerotic involvement. Bilateral A1 and A2 segments are diminutive in caliber. There is attenuation of flow signal within this region which is probably secondary to superimposed artifacts, however underlying atherosclerotic narrowing cannot be excluded. There is expected flow signal within bilateral proximal M1 segments. There is attenuation of flow signal within distal M1, M2 and M3 segments likely secondary to tortuosity of the vessels as seen on source images. Again superimposed areas of atherosclerotic narrowing cannot be excluded. Posterior Circulation: Bilateral intracranial vertebral arteries demonstrate expected flow signal as seen on source images. The basilar artery and proximal posterior cerebral arteries are unremarkable. IMPRESSION: MR BRAIN: No evidence of acute infarct, intracranial mass effect or may midline shift. Mild diffuse cerebral volume loss with nonspecific white matter changes, likely reflecting sequela of chronic small vessel ischemic disease. Partially visualized hemorrhagic neoplasm within the left parapharyngeal space may reflect a left parapharyngeal mass versus a neoplasm arising from the deep lobe of the parotid gland. Further evaluation with a contrast enhanced CT neck may be considered as clinically warranted. MRA HEAD: Mild narrowing of the supraclinoid left internal carotid artery as compared to contralateral side may be secondary to atherosclerotic involvement versus an artifact. There are several segmental areas of flow attenuation within the anterior circulation vessels as discussed which may be secondary to artifact although superimposed areas of atherosclerotic involvement are not excluded. The study was interpreted at [facility]. FINAL REPORT Dictated: 05/27/2018 11:18 am Cha Spears MD Signed (Electronic Signature): 05/27/2018 11:18 am Signed by: Cha Spears MD Technologist: [facility] MRI BRAIN W/O Observed: 05/27/2018 Status: F Source: [place] CONTRAST 9:35 AM [facility] REPOSITORY Exam Date/Time: 05/27/2018 10:08 EST Reason for Exam: Headache Report STUDY: MRI Brain w/o Contrast; MRA Head w/o Contrast; 05/27/2018 10:08 am; 05/27/2018 10:24 am INDICATION: Headache. Confusion, history of hypertension and prostate cancer. COMPARISON: CT head from 05/23/2018 ACCESSION NUMBER(S): [id number]; [id number] ORDERING CLINICIAN: Freddy Lynn TECHNIQUE: Axial T2, FLAIR, DWI and sagittal and coronal T1 weighted images of brain were acquired. Time of flight MRA images of the intracranial vasculature were obtained and reformatted into multiple projections. FINDINGS: MR BRAIN: Parenchyma: There is no diffusion restriction abnormality to suggest acute ischemia. There are several patchy and focal scattered areas of T2 and FLAIR hyperintense signal within bilateral periventricular and subcortical white matter which given patient's age likely reflect sequela of chronic small vessel ischemic change. There is no mass effect or midline shift. There is a punctate focus of hypointense signal with minimal blooming artifact within the right centrum semiovale region seen on gradient echo imaging which may reflect a punctate focus of calcification/mineralization versus a remote microhemorrhage with hemosiderin deposition. CSF Spaces: The ventricles, sulci and basal cisterns are diffusely prominent indicating mild diffuse cerebral volume loss. Paranasal Sinuses and Mastoids: Mild mucosal thickening is seen within bilateral maxillary sinuses. There is a superimposed small retention cyst within the right maxillary sinus with inspissated intrinsic contents. Small polypoidal foci of mucosal thickening are seen along the floor of left maxillary sinus. Minimal mucosal thickening is seen in scattered ethmoid air cells. There is a small amount of fluid signal within peripheral right mastoid air cells. There is a partially visualized lobulated mass within the left parapharyngeal space which demonstrates intrinsic fluid fluid levels with dependent hematocrit effect. The lesion measures 3.8 x 1.9 cm in cross-sectional dimension and approximately 3.2 cm in craniocaudal dimension. Exam Date/Time: 05/27/2018 10:08 EST Report The findings are concerning for a hemorrhagic neoplastic lesion within the parapharyngeal space or arising from the deep lobe of the parotid gland. There are degenerative changes within the cervical spine with hypertrophic changes at C1-C2 causing partial effacement of the ventral subarachnoid space without significant overall central canal stenosis. There is suggestion of severe narrowing of the spinal canal at C3-C4 with effacement of ventral and dorsal subarachnoid space on sagittal imaging with mild deformity of the cord contour. If clinically warranted, further evaluation with a dedicated MRI of cervical spine may be considered. MRA BRAIN: Anterior Circulation: There is mild narrowing of the supraclinoid left internal carotid artery as compared to contralateral side. There is narrowing of the left carotid terminus as compared to contralateral side which may be secondary to artifact versus atherosclerotic involvement. Bilateral A1 and A2 segments are diminutive in caliber. There is attenuation of flow signal within this region which is probably secondary to superimposed artifacts, however underlying atherosclerotic narrowing cannot be excluded. There is expected flow signal within bilateral proximal M1 segments. There is attenuation of flow signal within distal M1, M2 and M3 segments likely secondary to tortuosity of the vessels as seen on source images. Again superimposed areas of atherosclerotic narrowing cannot be excluded. Posterior Circulation: Bilateral intracranial vertebral arteries demonstrate expected flow signal as seen on source images. The basilar artery and proximal posterior cerebral arteries are unremarkable. IMPRESSION: MR BRAIN: No evidence of acute infarct, intracranial mass effect or may midline shift. Mild diffuse cerebral volume loss with nonspecific white matter changes, likely reflecting sequela of chronic small vessel ischemic disease. Partially visualized hemorrhagic neoplasm within the left parapharyngeal space may reflect a left parapharyngeal mass versus a neoplasm arising from the deep lobe of the parotid gland. Further evaluation with a contrast enhanced CT neck may be considered as clinically warranted. MRA HEAD: Mild narrowing of the supraclinoid left internal carotid artery as compared to contralateral side may be secondary to atherosclerotic involvement versus an artifact. There are several segmental areas of flow attenuation within the anterior circulation vessels as discussed which may be secondary to artifact although superimposed areas of atherosclerotic involvement are not excluded. The study was interpreted at [facility]. FINAL REPORT Dictated: 05/27/2018 11:18 am Cha Spears MD Signed (Electronic Signature): 05/27/2018 11:18 am Signed by: Cha Spears MD Technologist: RAÚL CBC W/ AUTO DIFF Collected: 05/27/2018 Status: F Source: [place] 5:02 AM [facility] REPOSITORY TYPE CODE TESTS RESULT OUT OF RANGE REFERENCE UNITS LAB 75151671(L 3.6-11.0 E3/mcL OINC) Normal WBC 7.5 LAB 16939612(L 3.90-6.10 E6/mcL OINC) Normal RBC 4.14 LAB 96335034(L 13.5-18.0 G/DL OINC) Low Hgb 13.4 LAB 14630127(L 42.0-52.0 % OINC) Low Hct 40.9 LAB 73678307(L 11.5-14.5 % OINC) Normal RDW 13.5 LAB [id number](L 27.0-31.0 pg OINC) High MCH 32.4 LAB 30654768(L 33.0-37.0 G/DL OINC) Low MCHC 32.7 LAB [id number](L 78.0-100.0 fL OINC) Normal MCV 98.9 LAB 46358674(L 7.4-11.0 fL OINC) Normal MPV 9.5 LAB [id number](L 130-400 E3/mcL OINC) Normal Platelet 187 Performed By: #### [id number] #### KEIRY [employer] [address] [place] [address] AUTO DIFF Collected: 05/27/2018 Status: F Source: [place] 5:02 AM [facility] REPOSITORY Order Comment: Order Added by Discern Expert. TYPE CODE TESTS RESULT OUT OF RANGE REFERENCE UNITS LAB 24653083(L 37.0-75.0 % OINC) Normal Neutro Auto 66.4 LAB 74013587(L 20.0-55.0 % OINC) Low Lymph Auto 16.9 LAB 67936346(L 0.0-10.0 % OINC) High [place] Auto 12.2 LAB 47509456(L 0.0-11.0 % OINC) Normal Eos Auto 3.8 LAB 40632764(L 0.0-2.0 % OINC) Normal Basophil Auto 0.7 LAB 56858066(L 1.4-6.5 E3/mcL OINC) Normal Neutro 5.0 Absolute LAB 11717149(L 1.2-3.4 E3/mcL OINC) Normal Lymph Absolute 1.3 LAB 13094229(L 0.0-0.7 E3/mcL OINC) High [place] Absolute 0.9 LAB 35841126(L 0.0-0.7 E3/mcL OINC) Normal Eos Absolute 0.3 LAB 30094360(L 0.0-0.2 E3/mcL OINC) Normal Basophil 0.1 Absolute Performed By: #### [id number] #### KEIRY Zimmerman [address] [place] [address] Collected: 05/27/2018 Status: F Source: [place] 5:02 AM [facility] REPOSITORY TYPE CODE TESTS RESULT OUT OF RANGE REFERENCE UNITS LAB 26683978(L 70-99 mg/dL OINC) High Glucose Lvl 114 LAB 52119996(L 6-23 mg/dL OINC) BUN Normal 19 LAB 5371253(LO 0.5-1.3 mg/dL INC) High Creatinine 1.4 LAB 01570934(L 5.4-30.0 ratio OINC) Normal BUN/Creat Ratio 13.6 LAB 98004536(L 8.6-10.3 mg/dL OINC) Calcium Normal Lvl 8.6 LAB 61120482(L 136-145 mEq/L OINC) Sodium Normal Lvl 142 LAB 53642465(L 3.5-5.3 mEq/L OINC) Normal Potassium Lvl 4.1 LAB 88636580(L 98-107 mEq/L OINC) High Chloride 112 LAB 46003784(L 21.0-32.0 mEq/L OINC) CO2 Normal 26.0 LAB 45113298(L 10-20 mEq/L OINC) Low AGAP 9 Performed By: #### [id number] #### KE[facility]Y [facility] [place] [id number] EGFR Collected: 05/27/2018 Status: F Source: [place] 5:02 AM [facility] REPOSITORY Order Comment: Order added by Discern Expert. TYPE CODE TESTS RESULT OUT OF RANGE REFERENCE UNITS LAB 61284718(LO mL/min/1.73 INC) m2 Normal eGFR 48 LAB 74587854(LO mL/min/1.73 INC) m2 Normal eGFR AA 58 Performed By: #### [id number] #### KEIRY [facility] [place] [address] CBC W/ AUTO DIFF Collected: 05/26/2018 Status: F Source: [place] 5:37 AM [facility] REPOSITORY TYPE CODE TESTS RESULT OUT OF RANGE REFERENCE UNITS LAB 21643005(L 3.6-11.0 E3/mcL OINC) Normal WBC 7.7 LAB 82374907(L 3.90-6.10 E6/mcL OINC) Normal RBC 4.15 LAB 51923413(L 13.5-18.0 G/DL OINC) Low Hgb 13.4 LAB 95753832(L 42.0-52.0 % OINC) Low Hct 40.9 LAB 68010067(L 11.5-14.5 % OINC) Normal RDW 13.8 LAB 96853162(L 27.0-31.0 pg OINC) High MCH 32.3 LAB 49755882(L 33.0-37.0 G/DL OINC) Low MCHC 32.8 LAB 08992400(L 78.0-100.0 fL OINC) Normal MCV 98.6 LAB 74304327(L 7.4-11.0 fL OINC) Normal MPV 9.7 LAB 69462617(L 130-400 E3/mcL OINC) Normal Platelet 172 Performed By: #### [id number] #### KEIRY [facility] [place] [id number] AUTO DIFF Collected: 05/26/2018 Status: F Source: [place] 5:37 AM [facility] REPOSITORY Order Comment: Order Added by Discern Expert. TYPE CODE TESTS RESULT OUT OF RANGE REFERENCE UNITS LAB 22222543(L 37.0-75.0 % OINC) Normal Neutro Auto 64.6 LAB 35722661(L 20.0-55.0 % OINC) Low Lymph Auto 18.9 LAB 72768166(L 0.0-10.0 % OINC) High [place] Auto 13.0 LAB 77212136(L 0.0-11.0 % OINC) Normal Eos Auto 2.8 LAB 26598858(L 0.0-2.0 % OINC) Normal Basophil Auto 0.7 LAB 01354207(L 1.4-6.5 E3/mcL OINC) Normal Neutro 5.0 Absolute LAB 40715292(L 1.2-3.4 E3/mcL OINC) Normal Lymph Absolute 1.5 LAB 92405374(L 0.0-0.7 E3/mcL OINC) High [place] Absolute 1.0 LAB 98670096(L 0.0-0.7 E3/mcL OINC) Normal Eos Absolute 0.2 LAB 74001051(L 0.0-0.2 E3/mcL OINC) Normal Basophil 0.1 Absolute Performed By: #### [id number] #### [facility] [place] [id number] BMP Collected: 05/26/2018 Status: F Source: [place] 5:37 AM [facility] REPOSITORY TYPE CODE TESTS RESULT OUT OF RANGE REFERENCE UNITS LAB 11892149(L 70-99 mg/dL OINC) High Glucose Lvl 111 LAB 26269066(L 6-23 mg/dL OINC) High BUN 25 LAB 4323195(LO 0.5-1.3 mg/dL INC) High Creatinine 1.8 LAB 66629449(L 5.4-30.0 ratio OINC) Normal BUN/Creat Ratio 13.9 LAB 17557939(L 8.6-10.3 mg/dL OINC) Low Calcium Lvl 8.5 LAB 68258322(L 136-145 mEq/L OINC) Sodium Normal Lvl 142 LAB 90501447(L 3.5-5.3 mEq/L OINC) Normal Potassium Lvl 3.7 LAB 02121949(L 98-107 mEq/L OINC) High Chloride 110 LAB 34846264(L 21.0-32.0 mEq/L OINC) CO2 Normal 28.0 LAB 76960348(L 10-20 mEq/L OINC) Low AGAP 8 Performed By: #### [id number] #### KEIRY [facility] [place] [address] EGFR Collected: 05/26/2018 Status: F Source: [place] 5:37 AM [facility] REPOSITORY Order Comment: Order added by Discern Expert. TYPE CODE TESTS RESULT OUT OF RANGE REFERENCE UNITS LAB 22984456(LO mL/min/1.73 INC) m2 Normal eGFR 38 LAB 11376165(LO mL/min/1.73 INC) m2 Normal eGFR AA 46 Performed By: #### [id number] #### KEIRY [employer] [address] [place] [address] U24 METANEPH Collected: 05/25/2018 Status: F Source: [place] 1:57 PM [facility] REPOSITORY TYPE CODE TESTS RESULT OUT OF REFERENCE UNITS RANGE LAB 56890442(L Undefined microgram/ OINC) L Ur Normetaneph Normal 586 LAB 37316530(L Undefined microgram/ OINC) L Ur Normal Metanephrine 201 LAB 88053526(L 45-290 microgram/ OINC) 24hr U24 Normal Metanephrine 80 Result Comment: (Hypertensive) >17 years 11 months: 35 - 460 Performed At: [facility] [id number] Juan Carlos Quinones MD Ph:[phone] LAB 29266233(LOINC) 82-500 microgram/24hr U24 Normal Normetaneph 234 Result Comment: (Hypertensive) >17 years 11 months: 110 - 1050 Performed By: #### [id number] #### KEIRY [employer] [facility] [place] [id number] CORTISOL LVL Collected: 05/24/2018 Status: F Source: [place] 5:41 AM [facility] REPOSITORY TYPE CODE TESTS RESULT OUT OF REFERENCE UNITS RANGE LAB 55394760(LO 6.7-22.6 microgram/d INC) Low L Cortisol Lvl 5.6 Performed By: #### [id number] #### KEIRY [employer] [address] [place] [address] ALDOSTERONE Collected: 05/24/2018 Status: F Source: [place] 5:41 AM [facility] REPOSITORY TYPE CODE TESTS RESULT OUT OF RANGE REFERENCE UNITS LAB 84929299(L 0.0-30.0 ng/dL OINC) Aldosterone Normal <1.0 Result Comment: This test was developed and its performance characteristics determined by [facility]. It has not been cleared or approved by the Food and Drug Administration. Performed At: [facility] [id number] Juan Carlos Quinones MD Ph:[phone] Performed By: #### [id number] #### KEIRY [employer] [address] [place] [address] UA COMPLETE Collected: 05/23/2018 Status: F Source: [place] 8:08 PM [facility] REPOSITORY TYPE CODE TESTS RESULT OUT OF RANGE REFERENCE UNITS LAB 04857106( Yellow LOINC) Normal UA Color Yellow LAB 74694947( Clear LOINC) Normal UA Clarity Clear LAB 68286455( Negative LOINC) Normal UA Glucose Negative LAB 55454057( Negative LOINC) Normal UA Bili Negative LAB 08776042( Negative LOINC) Normal UA Ketones Negative LAB 13245012( 1.003-1.030 LOINC) Normal UA Spec Grav 1.013 LAB 13606987( 4.6-8.0 LOINC) Normal UA pH 7.0 LAB 63278601( Negative LOINC) UA Protein Abnormal 2+ LAB 05543167( mg/dL LOINC) Normal UA Urobilinogen Negative Result Comment: Due to a manufacturing issue, low positive urobilinogen results may be fasely positive. Correlate with urine bilirubin and additional clinical/laboratory findings to assess the risk of hemolytic anemia or liver disease. If clinically indicated, repeat testing with an alternate method is available by contacting the laboratory within 24 hours. LAB 00874885(LOINC) Negative Normal UA Nitrite Negative LAB 92022200(LOINC) Negative Normal UA Blood Negative LAB 30355158(LOINC) Negative Normal UA Leuk Est Negative LAB 09429903(LOINC) 0-3 /HPF Abnormal UA RBC 5-10 LAB 09591867(LOINC) 0-5 /HPF Normal UA WBC 0-5 LAB 23331300(LOINC) None /HPF Abnormal UA Bacteria Trace Performed By: #### [id number] #### KEIRY Urinalysis [employer] [address] [place] [address] CT HEAD OR BRAIN W/O Observed: 05/23/2018 Status: F Source: [place] CONTRAST 7:00 PM [facility] REPOSITORY Exam Date/Time: 05/23/2018 19:08 EST Reason for Exam: Headache Report STUDY: CT Head or Brain w/o Contrast; 05/23/2018 7:08 pm INDICATION: Headache. COMPARISON: Prior exam is from 05/13/2018.. ACCESSION NUMBER(S): [id number] ORDERING CLINICIAN: María Elena Dexter TECHNIQUE: Routine axial images were obtained from the skull base through the vertex. Brain, subdural, and bone windows were reviewed. FINDINGS: INTRACRANIAL: Mild prominence of ventricles and sulci. Mild patchy white matter hypodensities in the deep periventricular regions.. No acute intracranial bleed, midline shift, or focal mass effect. No destructive bone lesion. No depressed skull fracture. Skullbase arterial calcifications in the carotid siphons and vertebral arteries. EXTRACRANIAL: Visualized paranasal sinuses and mastoid air cells were clear. 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 Mild volume loss. No acute intracranial bleed or focal mass effect. FINAL REPORT Dictated: 05/23/2018 8:01 pm Endy Dill MD Signed (Electronic Signature): 05/23/2018 8:01 pm Signed by: Endy Dill MD Technologist: SUNITHA STREETER Collected: 05/23/2018 Status: F Source: [place] 6:48 PM [facility] REPOSITORY TYPE CODE TESTS RESULT OUT OF RANGE REFERENCE UNITS LAB 17563909(L 70-99 mg/dL OINC) High Glucose Lvl 114 LAB 94556599(L 6-23 mg/dL OINC) BUN Normal 17 LAB 7990271(LO 0.5-1.3 mg/dL INC) Normal Creatinine 1.3 LAB 65134653(L 5.4-30.0 ratio OINC) Normal BUN/Creat Ratio 13.1 LAB 47800930(L 8.6-10.3 mg/dL OINC) Calcium Normal Lvl 8.9 LAB 19293135(L 136-145 mEq/L OINC) Sodium Normal Lvl 141 LAB 46168926(L 3.5-5.3 mEq/L OINC) Normal Potassium Lvl 3.6 LAB 85798260(L 98-107 mEq/L OINC) High Chloride 109 LAB 00828744(L 21.0-32.0 mEq/L OINC) CO2 Normal 26.0 LAB 52815394(L 10-20 mEq/L OINC) AGAP Normal 10 Performed By: #### [id number] #### KEIRY [facility] [place] [address] EGFR Collected: 05/23/2018 Status: F Source: [place] 6:48 [facility] REPOSITORY Order Comment: Order added by Discern Expert. TYPE CODE TESTS RESULT OUT OF RANGE REFERENCE UNITS LAB 21131153(LO mL/min/1.73 INC) m2 Normal eGFR 54 LAB 88448186(LO mL/min/1.73 INC) m2 Normal eGFR AA >60 Performed By: #### [id number] #### KEIRY [facility] [place] [address] CBC W/ AUTO DIFF Collected: 05/23/2018 Status: F Source: [place] 6:48 [facility] REPOSITORY TYPE CODE TESTS RESULT OUT OF RANGE REFERENCE UNITS LAB 32502456(L 3.6-11.0 E3/mcL OINC) Normal WBC 10.0 LAB 32459362(L 3.90-6.10 E6/mcL OINC) Normal RBC 4.51 LAB 31709161(L 13.5-18.0 G/DL OINC) Normal Hgb 14.5 LAB 84409925(L 42.0-52.0 % OINC) Normal Hct 44.3 LAB 79438550(L 11.5-14.5 % OINC) Normal RDW 13.8 LAB 23907883(L 27.0-31.0 pg OINC) High MCH 32.2 LAB 75388037(L 33.0-37.0 G/DL OINC) Low MCHC 32.7 LAB 02438370(L 78.0-100.0 fL OINC) Normal MCV 98.3 LAB 17893804(L 7.4-11.0 fL OINC) Normal MPV 9.2 LAB 70530599(L 130-400 E3/mcL OINC) Normal Platelet 168 Performed By: #### [id number] #### KE[facility]Y [facility] [place] [address] MANUAL DIFF Collected: 05/23/2018 Status: F Source: [place] 6:48 PM [facility] REPOSITORY Order Comment: Order Added by Discern Expert. TYPE CODE TESTS RESULT OUT OF RANGE REFERENCE UNITS LAB 74061432(L 37-75 % OINC) Normal Segs Man 68 LAB 78663529(L 0-1 OINC) Normal Band Man 1 LAB 79263293(L 14-48 % OINC) Normal Lymph Man 16 LAB 44890053(L 1-11 % OINC) Normal Monocyte Man 7 LAB 41744459(L 0-5 % OINC) Normal Eos Man 2 LAB 71700560(L 0-1 % OINC) Normal Basophil Man 0 LAB 50797588(L % OINC) Normal React Lymph 6 Man LAB 36094067(L OINC) Normal RBC Morph NORMAL Performed By: #### [id number] #### [place] [address] .MANUAL ABS Collected: 05/23/2018 Status: F Source: [place] 6:48 PM [facility] REPOSITORY Order Comment: Order Added by Discern Expert. TYPE CODE TESTS RESULT OUT OF RANGE REFERENCE UNITS LAB 84095650(L 1.4-6.5 10x3/ OINC) High Segs Abs Man 6.8 LAB 80001837(L 1.2-3.4 10x3/ OINC) Normal Lymph Abs Man 1.6 LAB 18529156(L 0.0-0.7 10x3/ OINC) Normal [place] Abs Man 0.7 LAB 56414805(L 0.0-0.5 10x3/ OINC) Normal Eos Abs Man 0.2 LAB 05494180(L 0.0-0.2 10x3/ OINC) Normal Basophil Abs 0.0 Man Performed By: #### [id number] #### KEIRY [employer] [address] [place] [address] TSH Collected: 05/23/2018 Status: F Source: [place] 6:48 PM [facility] REPOSITORY Order Comment: Please use the previously drawn blood sample if possible TYPE CODE TESTS RESULT OUT OF RANGE REFERENCE UNITS LAB 73731709(LO 0.30-5.60 mcIU/mL INC) Normal TSH 1.21 Performed By: #### [id number] #### KEIRY [employer] [address] [place], [place] [id number] CT HEAD OR BRAIN W/ + Observed: 05/13/2018 Status: F Source: [place] W/O CONTRAST 9:50 AM [facility] REPOSITORY Exam Date/Time: 05/13/2018 10:29 EST Reason for Exam: HEADACHE;Headache Report STUDY: CT Head or Brain w/ + w/o Contrast; 05/13/2018 10:29 am INDICATION: Headache. COMPARISON: None. ACCESSION NUMBER(S): [id number] ORDERING CLINICIAN: Calvin Dumont TECHNIQUE: Axial images were obtained through the head prior to and following the intravenous administration of 100 cc of Omnipaque 350. FINDINGS: There is atrophy resulting in prominence of the ventricles and sulci. There are areas of decreased attenuation throughout the white matter which are nonspecific but are commonly associated with small vessel ischemic disease. There is no mass effect or midline shift. No acute intracranial hemorrhage is identified. No extra-axial fluid collections are seen. No intraparenchymal mass lesions are identified. Following the intravenous administration of contrast, no abnormal enhancement is observed. No enhancing mass lesions are identified. Bone windows demonstrate no evidence of an acute calvarial fracture. IMPRESSION: No evidence of an acute intracranial process. FINAL REPORT Dictated: 05/13/2018 10:32 am Russell Maldonado MD Signed (Electronic Signature): 05/13/2018 10:32 am Signed by: Russell Maldonado MD Technologist: MARCELA CBC W/ AUTO DIFF Collected: 05/13/2018 Status: F Source: [place] 9:35 AM [facility] REPOSITORY TYPE CODE TESTS RESULT OUT OF RANGE REFERENCE UNITS LAB 47002592(L 3.6-11.0 E3/mcL OINC) Normal WBC 10.1 LAB 79542894(L 3.90-6.10 E6/mcL OINC) Normal RBC 4.54 LAB 59811237(L 13.5-18.0 G/DL OINC) Normal Hgb 14.6 LAB 09695093(L 42.0-52.0 % OINC) Normal Hct 45.6 LAB 57795831(L 11.5-14.5 % OINC) Normal RDW 14.3 LAB 17692256(L 27.0-31.0 pg OINC) High MCH 32.0 LAB 93576173(L 33.0-37.0 G/DL OINC) Low MCHC 31.9 LAB 22615672(L 78.0-100.0 fL OINC) High MCV 100.5 LAB 72621829(L 7.4-11.0 fL OINC) Normal MPV 10.2 LAB 31766512(L 130-400 E3/mcL OINC) Normal Platelet 158 Performed By: #### [id number] #### KEIRY [employer] [address] [place] [address] AUTO DIFF Collected: 05/13/2018 Status: F Source: [place] 9:35 AM [facility] REPOSITORY Order Comment: Order Added by Discern Expert. TYPE CODE TESTS RESULT OUT OF RANGE REFERENCE UNITS LAB 74184200(L 37.0-75.0 % OINC) High Neutro Auto 79.0 LAB 58044463(L 20.0-55.0 % OINC) Low Lymph Auto 11.1 LAB 10176968(L 0.0-10.0 % OINC) Normal [place] Auto 8.2 LAB 27632252(L 0.0-11.0 % OINC) Normal Eos Auto 1.2 LAB 51618709(L 0.0-2.0 % OINC) Normal Basophil Auto 0.5 LAB 31359933(L 1.4-6.5 E3/mcL OINC) High Neutro 8.0 Absolute LAB 32551915(L 1.2-3.4 E3/mcL OINC) Low Lymph Absolute 1.1 LAB 55713073(L 0.0-0.7 E3/mcL OINC) High [place] Absolute 0.8 LAB 83351209(L 0.0-0.7 E3/mcL OINC) Normal Eos Absolute 0.1 LAB 20429485(L 0.0-0.2 E3/mcL OINC) Normal Basophil 0.1 Absolute Performed By: #### [id number] #### [place] [address] CMP Collected: 05/13/2018 Status: F Source: [place] 9:35 AM [facility] REPOSITORY TYPE CODE TESTS RESULT OUT OF RANGE REFERENCE UNITS LAB 43814362(L 70-99 mg/dL OINC) High Glucose Lvl 140 LAB 92517181(L 6-23 mg/dL OINC) BUN Normal 13 LAB 6625394(LO 0.5-1.3 mg/dL INC) Normal Creatinine 1.2 LAB 72401218(L 8.6-10.3 mg/dL OINC) Calcium Normal Lvl 9.2 LAB 62606965(L 136-145 mEq/L OINC) Sodium Normal Lvl 144 LAB 83102182(L 3.5-5.3 mEq/L OINC) Normal Potassium Lvl 3.7 LAB 98025027(L 98-107 mEq/L OINC) High Chloride 110 LAB 92646361(L 21.0-32.0 mEq/L OINC) CO2 Normal 30.0 LAB 44852859(L 33-136 Int._Unit/ OINC) L Alk Phos Normal 127 LAB 31718438(L 0.00-1.20 mg/dL OINC) High Bili Total 1.43 LAB 62465680(L 3.4-5.0 gm/dL OINC) Albumin Normal Lvl 3.8 LAB 68205463(L 6.4-8.2 gm/dL OINC) Total Normal Protein 6.5 LAB 13105408(L 10-52 Int._Unit/ OINC) L ALT Normal 20 LAB 96936425(L 9-39 Int._Unit/ OINC) L AST Normal 23 LAB 98078990(L 5.4-30.0 ratio OINC) Normal BUN/Creat Ratio 10.8 LAB 53741702(L 10-20 mEq/L OINC) Low AGAP 8 LAB 37099365(L 2.0-4.0 G/DL OINC) Globulin Normal 3.0 LAB 94131787(L 1.1-1.9 ratio OINC) A/G Normal Ratio 1.4 Performed By: #### [id number] #### KEIRY [employer] [address] [place] [address] EGFR Collected: 05/13/2018 Status: F Source: [place] 9:35 AM [facility] REPOSITORY Order Comment: Order added by Discern Expert. TYPE CODE TESTS RESULT OUT OF RANGE REFERENCE UNITS LAB 59809255(LO mL/min/1.73 INC) m2 Normal eGFR 60 LAB 22032854(LO mL/min/1.73 INC) m2 Normal eGFR AA >60 Performed By: #### [id number] #### KEIRY [employer] [address] [place] [id number] LIPID PROFILE Collected: 05/13/2018 Status: F Source: [place] 9:35 AM [facility] REPOSITORY TYPE CODE TESTS RESULT OUT OF RANGE REFERENCE UNITS LAB 11201022(LO 0-199 mg/dL INC) Normal Chol 144 LAB 43129903(LO 40-60 mg/dL INC) Normal HDL 49 LAB 32847987(LO 0-130 mg/dL INC) Normal LDL 67 LAB 12919888(LO 0-149 mg/dL INC) Normal Trig 138 Result Comment: AGE DESIRABLE BORDERLINE HIGH 91 D - 9 Y 0 - 74 75 - 99 > 100 10 - 19 Y 0 - 89 90 - 129 > 130 20 - 24 Y 0 - 114 115 - 149 > 150 > 25 0 - 149 150 - 199 200 - 499 LAB 42013551(LOINC) 0-40 mg/dL Normal VLDL 28 Performed By: #### [id number] #### KEIRY [employer] [address] [place] [address] PSA TOTAL Collected: 05/13/2018 Status: F Source: [place] 9:33 AM [facility] REPOSITORY TYPE CODE TESTS RESULT OUT OF RANGE REFERENCE UNITS LAB 92333834(LO ng/mL INC) Normal PSA Total 6.24 Result Comment: AGE-SPECIFIC REFERENCE RANGES FOR SERUM PSA REFERENCE RANGE NG/ML AGE ASIANS BLACKS WHITE 40-49 0- 2 0-2 0-2.5 50-59 0- 3 0-4 0-3.5 60-69 0- 4 0-4.5 0-4.5 70-79 0- 5 0-5.5 0-6.5 PSA INCREASES WITH AGE, RACE, AND EJACULATION WITHIN 48 HRS. [facility] VOL24,NO.2, , PG.339 Performed By: #### [id number] #### [facility]Y [facility] [address] [place] [address] PSA TOTAL Collected: 05/11/2018 Status: F Source: [place] 9:26 AM [facility] REPOSITORY TYPE CODE TESTS RESULT OUT OF RANGE REFERENCE UNITS LAB 42779110(LO ng/mL INC) Normal PSA Total 7.19 Result Comment: AGE-SPECIFIC REFERENCE RANGES FOR SERUM PSA REFERENCE RANGE NG/ML AGE ASIANS BLACKS WHITE 40-49 0- 2 0-2 0-2.5 50-59 0- 3 0-4 0-3.5 60-69 0- 4 0-4.5 0-4.5 70-79 0- 5 0-5.5 0-6.5 PSA INCREASES WITH AGE, RACE, AND EJACULATION WITHIN 48 HRS. [facility] VOL24,NO.2, PG.339 Performed By: #### [id number] #### [facility]Y [facility] [address] [place] [address] PROGRESS Observed: 04/03/2018 Status: COMPLETED Source: [place] 4:24 PM [facility] [place] REPOSITORY HNO ID: [id number] Author: Kurt Romero Service: (none) Author Type: SWIMMING POOL SALESPERSON Type: Progress Notes Filed: 04/03/2018 4:26 PM Note Text: ASSESSMENT/PLAN: 1. Meibomian gland dysfunction (MGD) of upper and lower lids of both eyes - ICD9: 373.00, ICD10: H02.88A, H02.88B (primary diagnosis) Continue: Current Ophthalmic Meds erythromycin ophthalmic ointment (Taking) Use 1 application in both eyes daily at bedtime. 2. Punctate keratitis, bilateral - ICD9: 370.21, ICD10: H16.143 Continue: Systane Balance Artificial tears, 1 drop, three times a day, Both eyes. Kurt Romero, OD I have confirmed and edited as necessary the relevant ophthalmic history, review of systems, surgical history, and ophthalmological examination findings as obtained by the ophthalmic technical staff. I have seen and examined Richard King. I have discussed the examination findings, diagnosis, and treatment options with Richard King and/or his family. I have also reviewed and agree with the assessment and plan as stated above and agree with all its relevant components. I gave the patient the opportunity to ask questions about the findings, diagnosis, and treatment options. CMP Collected: 04/02/2018 Status: F Source: [place] 4:33 PM [facility] REPOSITORY TYPE CODE TESTS RESULT OUT OF RANGE REFERENCE UNITS LAB 32458165(L 10-20 mEq/L OINC) AGAP Normal 11 LAB 79841344(L 70-99 mg/dL OINC) Glucose Normal Lvl 83 LAB 41694626(L 6-23 mg/dL OINC) BUN Normal 16 LAB 2705779(LO 0.6-1.3 mg/dL INC) Normal Creatinine 1.3 LAB 67189650(L 8.6-10.3 mg/dL OINC) Low Calcium Lvl 8.5 LAB 24397480(L 136-145 mEq/L OINC) Sodium Normal Lvl 145 LAB 85559601(L 3.5-5.3 mEq/L OINC) Normal Potassium Lvl 3.8 LAB 90281422(L 98-107 mEq/L OINC) High Chloride 112 LAB 11026297(L 21.0-32.0 mEq/L OINC) CO2 Normal 26.0 LAB 26807137(L 33-136 Int._Unit/ OINC) L Alk Phos Normal 106 LAB 11687315(L 0.0-1.2 mg/dL OINC) Bili Normal Total 1.2 LAB 30306161(L 3.4-5.0 G/DL OINC) Albumin Normal Lvl 3.5 LAB 32609115(L 6.4-8.2 gm/dL OINC) Low Total Protein 6.0 LAB 70100999(L 10-52 Int._Unit/ OINC) L ALT Normal 14 LAB 76216898(L 9-39 Int._Unit/ OINC) L AST Normal 18 LAB 68412637(L 5.4-30.0 ratio OINC) Normal BUN/Creat Ratio 12.3 LAB 10653005(L 2.0-4.0 G/DL OINC) Globulin Normal 3.0 LAB 82557842(L 1.1-1.9 ratio OINC) A/G Normal Ratio 1.4 Performed By: #### [id number] #### KEIRY [address] [place] [address] EGFR Collected: 04/02/2018 Status: F Source: [place] 4:33 PM [facility] REPOSITORY Order Comment: Order added by Discern Expert. TYPE CODE TESTS RESULT OUT OF RANGE REFERENCE UNITS LAB 71433663(LO mL/min/1.73 INC) m2 Normal eGFR 54 LAB 29514940(LO mL/min/1.73 INC) m2 Normal eGFR AA >60 Performed By: #### [id number] #### KEIRY [facility] [address] [place] [address] PROGRESS Observed: 02/20/2018 Status: COMPLETED Source: [place] 4:19 PM [facility] REPOSITORY HNO ID: [id number] Author: Kurt (Od) Nick Service: (none) Author Type: SWIMMING POOL SALESPERSON Type: Progress Notes Filed: 02/20/2018 4:20 PM Note Text: ASSESSMENT/PLAN: 1. Meibomian gland dysfunction (MGD) of upper and lower lids of both eyes - ICD9: 373.00, ICD10: H02.89 (primary diagnosis) Begin: Current Ophthalmic Meds erythromycin ophthalmic ointment Use 1 application in both eyes daily at bedtime. 2. Punctate keratitis, bilateral - ICD9: 370.21, ICD10: H16.143 Continue: Systane Balance Artificial tears, 1 drop, three times a day, Both eyes. 3. Vitreous floaters of both eyes - ICD9: 379.24, ICD10: H43.393 Patient was given both written and verbal information on flashes and floaters. Patient was instructed to call the office ([phone]) immediately upon noticing flashes of light, increase in floaters, or changes in vision. Kurt Romero, DIANE I have confirmed and edited as necessary the relevant ophthalmic history, review of systems, surgical history, and ophthalmological examination findings as obtained by the ophthalmic technical staff. I have seen and examined Richard King. I have discussed the examination findings, diagnosis, and treatment options with Richard King and/or his family. I have also reviewed and agree with the assessment and plan as stated above and agree with all its relevant components. I gave the patient the opportunity to ask questions about the findings, diagnosis, and treatment options. PROGRESS Observed: 01/23/2018 Status: COMPLETED Source: [place] 3:57 PM [facility] REPOSIT[facility] HNO ID: [id number] Author: Kurt (Od) Nick Service: (none) Author Type: SWIMMING POOL SALESPERSON Type: Progress Notes Filed: 01/23/2018 3:58 PM Note Text: ASSESSMENT/PLAN: 1. Vitreous floaters of both eyes - ICD9: 379.24, ICD10: H43.393 (primary diagnosis) Patient was given both written and verbal information on flashes and floaters. Patient was instructed to call the office ([phone]) immediately upon noticing flashes of light, increase in floaters, or changes in vision. 2. Meibomian gland dysfunction (MGD) of upper and lower lids of both eyes - ICD9: 373.00, ICD10: H02.89 Begin: Systane Balance Artificial tears, 1 drop, three times a day, Both eyes. 3. Punctate keratitis, bilateral - ICD9: 370.21, ICD10: H16.143 Begin: Systane Balance Artificial tears, 1 drop, three times a day, Both eyes. 4. Combined forms of age-related cataract of both eyes - ICD9: 366.19, ICD10: H25.813 Not visually significant / Observe Kurt Nick, OD I have confirmed and edited as necessary the relevant ophthalmic history, review of systems, surgical history, and ophthalmological examination findings as obtained by the ophthalmic technical staff. I have seen and examined Richard King. I have discussed the examination findings, diagnosis, and treatment options with Richard King and/or his family. I have also reviewed and agree with the assessment and plan as stated above and agree with all its relevant components. I gave the patient the opportunity to ask questions about the findings, diagnosis, and treatment options. CMP Collected: 01/05/2018 Status: F Source: [place] 9:00 AM [facility] REPOSITORY TYPE CODE TESTS RESULT OUT OF RANGE REFERENCE UNITS LAB 61040318(L 70-99 mg/dL OINC) High Glucose Lvl 220 LAB 63380801(L 7-18 mg/dL OINC) High BUN 20 LAB 6580636(LO 0.5-1.3 mg/dL INC) Normal Creatinine 1.3 LAB 51697369(L 8.4-10.2 mg/dL OINC) Low Calcium Lvl 8.2 LAB 57991808(L 136-145 mEq/L OINC) Sodium Normal Lvl 138 LAB 39351810(L 3.5-5.1 mEq/L OINC) Normal Potassium Lvl 4.1 LAB 30446858(L 101-111 mmol/L OINC) Chloride Normal 106 LAB 99610586(L 24.0-30.0 mEq/L OINC) CO2 Normal 24.7 LAB 53915633(L 42-121 Int._Unit/ OINC) L Alk Phos Normal 84 LAB 14693355(L 0.2-1.0 mg/dL OINC) High Bili Total 1.8 LAB 52701438(L 3.2-5.0 G/DL OINC) Albumin Normal Lvl 3.6 LAB 91582785(L 6.4-8.3 G/DL OINC) Low Total Protein 6.2 LAB 59685654(L 10-40 OINC) ALT Normal 20 LAB 47226129(L 5-43 Int._Unit/ OINC) L AST Normal 23 LAB 59650816(L 5.4-30.0 ratio OINC) Normal BUN/Creat Ratio 15.4 LAB 41070005(L 1.1-1.9 ratio OINC) A/G Normal Ratio 1.4 Performed By: #### [id number] #### KEIRY [facility] [place] [address] EGFR Collected: 01/05/2018 Status: F Source: [place] 9:00 AM [facility] REPOSITORY Order Comment: Order added by Discern Expert. TYPE CODE TESTS RESULT OUT OF RANGE REFERENCE UNITS LAB 06959732(LO mL/min/1.73 INC) m2 Normal eGFR 53 LAB 05029254(LO mL/min/1.73 INC) m2 Normal eGFR AA >60 Performed By: #### [id number] #### KEIRY [employer] [address] [place] [address] PSA TOTAL Collected: 11/17/2017 Status: F Source: [place] 8:05 AM [facility] REPOSITORY TYPE CODE TESTS RESULT OUT OF RANGE REFERENCE UNITS LAB 75178079(LO ng/mL INC) Normal PSA Total 5.23 Result Comment: AGE-SPECIFIC REFERENCE RANGES FOR SERUM PSA REFERENCE RANGE NG/ML AGE ASIANS BLACKS WHITE 40-49 0- 2 0-2 0-2.5 50-59 0- 3 0-4 0-3.5 60-69 0- 4 0-4.5 0-4.5 70-79 0- 5 0-5.5 0-6.5 PSA INCREASES WITH AGE, RACE, AND EJACULATION WITHIN 48 HRS. [facility] VOL24,NO.2, , PG.339 Performed By: #### [id number] #### KEIRY [employer] [address] [place], [place] [address] URINALYSIS, ROUTINE Collected: 10/31/2017 Status: F Source: [place] (DIPSTICK) 10:27 AM [facility] REPOSITORY Order Comment: PT CAME BACK WITH SPECIMEN How was Urine Obtained? CLEAN CATCH TYPE CODE TESTS RESULT OUT OF RANGE REFERENCE UNITS LAB L400.3000 Yellow COLOR Normal Yellow LAB L400.3050 Clear Normal CLARITY Clear LAB L400.3200 Normal mg/dl Normal GLUCOSE, UR Normal LAB L400.3300 Negative mg/dL High BILIRUBIN URINE 1 Result Comment: COLOR OF URINE MAY AFFECT DIPSTICK RESULTS. LAB L400.3400 Negative mg/dl High KETONE UR 5 LAB L400.3465 1.002-1.030 Normal SP.GR. DIPSTX 1.020 LAB L400.3550 5.0 - 8.0 pH Normal UR 5.0 LAB L400.3600 Negative mg/dl High PROT DIPSTX 30 LAB L400.3700 Normal mg/dl High UROBILI 1 LAB L400.3750 Negative Normal NITRITE UR Negative LAB L400.3780 Negative /ul High OCCULT 10 BLOOD-UR LAB L400.3800 Negative /ul High LEUK ESTERASE 25 Performed By: #### L400.2010 #### [facility] [address] [place], [place], [address] PROTEIN+CREATININE Collected: Status: F Source: [place] RATIO,URINE 10/31/2017 10:27 AM [facility] REPOSITORY Order Comment: PT CAME BACK WITH SPECIMEN TYPE CODE TESTS RESULT OUT OF RANGE REFERENCE UNITS LAB L501.1200 NO RANGE EST. mg/dL Normal UR CREAT 299.00 LAB L501.1930 <11.9 mg/dL High 39.7 PROTEIN,UR.R AN. LAB L501.1940 0-200 mg/g CRE Normal PROT:CRE 133 RATIO Performed By: #### L501.0900 #### [facility] [address] [place], [place], [id number] CBC W/DIFF, AUTOMATED Collected: 10/31/2017 Status: F Source: [place] 10:00 AM [facility] REPOSITORY TYPE CODE TESTS RESULT OUT OF RANGE REFERENCE UNITS LAB L100.1000 4.4-11.0 K/mm3 Normal WBC 9.2 LAB L100.1200 4.6-6.2 M/mm3 Low RBC 4.33 LAB L100.1300 13.0-16.5 g/dl Normal HGB 13.6 LAB L100.1400 40-54 % Normal HCT 43.3 LAB L100.1500 80-94 fL High MCV 100.0 LAB L100.1600 27.0-32.0 pg Normal MCH 31.4 LAB L100.1700 32-36 g/gl Low MCHC 31.4 LAB L100.1810 11.6-14.6 % Normal RDW CV 13.0 LAB L100.1820 35.1-43.9 fl High RDW SD 47.2 LAB L100.1900 150-450 K/mm3 Normal PLT 221 LAB L100.2000 6.2-12.0 fl Normal MPV 11.6 LAB L100.2100 47-70 % Normal NEUT% 69.9 LAB L100.2200 19-41 % Low LY% 12.9 LAB L100.2300 0-10 % High MONO% 13.5 LAB L100.2400 0-5 % Normal EO% 3.0 LAB L100.2500 0-1 % Normal BASO% 0.5 LAB L100.2550 0.0-0.9 % Normal IM GRAN % 0.200 Result Comment: IG% - Immature Granulocytes (promyelocytes, myelocytes and metamyelocytes) > 1% indicates that a LEFT SHIFT is Present. LAB L100.2620 2.0-7.7 X10 3/uL Normal Absolute Neut 6.4 LAB L100.2720 0.83-4.51 X10 3/ul Normal Absolute Lymph 1.19 Performed By: #### L100.0100 #### [facility] [address] [place], [place], [address] COMPREHENSIVE METABOLIC Collected: 10/31/2017 Status: F Source: [facility] 10:00 AM [facility] REPOSITORY TYPE CODE TESTS RESULT OUT OF RANGE REFERENCE UNITS LAB L501.0100 74-106 mg/dL Normal GLU 99 Result Comment: Please note revised GLUCOSE reference range effective 2017. LAB L501.1000 7-18 mg/dL High BUN 30 LAB L501.1100 0.70-1.30 mg/dL High CREAT,SERUM 1.79 Result Comment: The validity of the calculated GFR AND GFRAA in patients over 70 years has not been determined. Clinical correlation is essential. LAB L501.1110 >60 mL/min Low EST GFR 39 Result Comment: Non- GFR Calc LAB L501.1115 >60 mL/min Low EST GFR - AA 47 Result Comment: GFR Calc LAB L501.1300 10-20 RATIO Normal BUN/CRE 16.8 LAB L501.1500 6.4-8.2 g/dL T Normal PROT 7.6 LAB L501.1800 3.2-5.0 g/dL Normal ALB 3.8 LAB L501.1950 2.2-4.2 g/dL Normal GLOB 3.8 LAB L501.2000 0.9-2.4 RATIO Normal A/G 1.0 LAB L501.2200 8.5-10.1 mg/dL CA Normal 8.9 LAB L501.4100 15-37 U/L Normal AST 20 LAB L501.4305 45-117 U/L High ALK P 159 LAB L501.4405 16-61 U/L Normal ALT 20 LAB L501.4600 0.20-1.00 mg/dL T Normal BILI 0.90 LAB L501.5300 136-145 mmol/L High NA 146 LAB L501.5600 3.5-5.1 mmol/L K Normal 4.1 LAB L501.5900 98-107 mmol/L High CL 111 LAB L501.6100 21.0-32.0 mmol/L Normal CO2 26.0 LAB L501.6200 5-15 Normal GAP 9 Performed By: #### L500.4050, L501.6710 #### [facility] [address] [place], [address] CRP Collected: 10/31/2017 Status: F Source: [place] 10:00 AM [facility] REPOSITORY TYPE CODE TESTS RESULT OUT OF RANGE REFERENCE UNITS LAB L501.6710 0.0-3.0 mg/L High 5.75 C-REACTIVE PROT Result Comment: C-Reactive Protein (CRP) provides useful information for the diagnosis, therapy and monitoring of inflammatory processes and associated diseases. For the evaluation of Relative Risk for Cardiovascular Disease, a High Sensitivity CRP (HSCRP) should be ordered. Performed By: #### L500.4050, L501.6710 #### [facility] [address] [place], [address] HEPATITIS B SURFACE Collected: 10/31/2017 Status: F Source: [place] AG 10:00 AM [facility] REPOSITORY TYPE CODE TESTS RESULT OUT OF RANGE REFERENCE UNITS LAB L3100.0400 Negative Normal HB Negative SURF AG Result Comment: Performed at: [facility] [address] [id number] Manager Mission: Edwin Fernando PhD, Phone: [phone] Performed By: #### L3100.0390, L3100.0528, L3100.0625, L3100.5700, L3100.5800 #### [facility] (refer to report for specific site) refer to report for address and phone number HEP B SURFACE Collected: 10/31/2017 Status: F Source: [place] ANTIBODIES 10:00 AM [facility] REPOSITORY TYPE CODE TESTS RESULT OUT OF RANGE REFERENCE UNITS LAB L3100.0528 . Normal Hep B Non Reactive Lois AB Result Comment: Non Reactive: Inconsistent with immunity, less than 10 mIU/mL Reactive: Consistent with immunity, greater than 9.9 mIU/mL Performed By: #### L3100.0390, L3100.0528, L3100.0625, L3100.5700, L3100.5800 #### [facility] (refer to report for specific site) refer to report for address and phone number HEPATITIS C ANTIBODIES Collected: 10/31/2017 Status: F Source: [place] 10:00 AM [facility] REPOSITORY TYPE CODE TESTS RESULT OUT OF RANGE REFERENCE UNITS LAB L3100.0650 0.0-0.9 s/co ratio Normal HEP C AB <0.1 Result Comment: Negative: < 0.8 Indeterminate: 0.8 - 0.9 Positive: > 0.9 The CDC recommends that a positive HCV antibody result be followed up with a HCV Nucleic Acid Amplification test (950348). Performed By: #### L3100.0390, L3100.0528, L3100.0625, L3100.5700, L3100.5800 #### [facility] (refer to report for specific site) refer to report for address and phone number COMPLEMENT C3 Collected: 10/31/2017 Status: F Source: [place] 10:00 AM [facility] REPOSITORY TYPE CODE TESTS RESULT OUT OF RANGE REFERENCE UNITS LAB L3100.5700 82-167 mg/dL Normal COMP C3 133 Performed By: #### L3100.0390, L3100.0528, L3100.0625, L3100.5700, L3100.5800 #### [facility] (refer to report for specific site) refer to report for address and phone number COMPLEMENT C4 Collected: 10/31/2017 Status: F Source: [place] 10:00 AM [facility] REPOSITORY TYPE CODE TESTS RESULT OUT OF RANGE REFERENCE UNITS LAB L3100.5800 14-44 mg/dL Normal COMP C4 20 Performed By: #### L3100.0390, L3100.0528, L3100.0625, L3100.5700, L3100.5800 #### [facility] (refer to report for specific site) refer to report for address and phone number ANTINUCLEAR ANTIBODIES Collected: 10/31/2017 Status: F Source: [place] DIRECT 10:00 AM [facility] REPOSITORY TYPE CODE TESTS RESULT OUT OF RANGE REFERENCE UNITS LAB L3100.5475 Negative Normal Negative GT-DIRECT Result Comment: Performed at: - [facility] [id number] [place], [place] [id number] Manager Mission: Edwin Fernando PhD, Phone: [phone] Performed By: #### L3100.5475, L3100.5500, L3100.9100, L3410.0500, L3410.0700, L3410.1110, L3410.4010 #### [facility] (refer to report for specific site) refer to report for address and phone number ANTI-DSDNA AB Collected: 10/31/2017 Status: F Source: [place] 10:00 AM [facility] REPOSITORY TYPE CODE TESTS RESULT OUT OF RANGE REFERENCE UNITS LAB L3100.5500 0-9 IU/mL Normal dsDNA AB 1 Result Comment: Negative <5 Equivocal 5 - 9 Positive >9 Performed By: #### L3100.5475, L3100.5500, L3100.9100, L3410.0500, L3410.0700, L3410.1110, L3410.4010 #### [facility] (refer to report for specific site) refer to report for address and phone number SJOGREN'S ANTIBODIES Collected: 10/31/2017 Status: F Source: [place] A/B 10:00 AM [facility] REPOSITORY TYPE CODE TESTS RESULT OUT OF RANGE REFERENCE UNITS LAB L3100.9200 0.0-0.9 AI Normal Anti-SS-A 0.5 LAB L3100.9300 0.0-0.9 AI Normal Anti-SS-B < 0.2 Performed By: #### L3100.5475, L3100.5500, L3100.9100, L3410.0500, L3410.0700, L3410.1110, L3410.4010 #### [facility] (refer to report for specific site) refer to report for address and phone number ANTI-NURY Collected: 10/31/2017 Status: F Source: [place] 10:00 AM [facility] REPOSITORY TYPE CODE TESTS RESULT OUT OF RANGE REFERENCE UNITS LAB L3410.0500 0.0-0.9 AI Normal ANTI-NURY <0.2 Performed By: #### L3100.5475, L3100.5500, L3100.9100, L3410.0500, L3410.0700, L3410.1110, L3410.4010 #### [facility] (refer to report for specific site) refer to report for address and phone number [id number] AB Collected: Status: F Source: [place] 10/31/2017 10:00 AM [facility] REPOSITORY TYPE CODE TESTS RESULT OUT OF RANGE REFERENCE UNITS LAB L3410.0700 0.0-0.9 AI Normal ANTISCLER <0.2 Performed By: #### L3100.5475, L3100.5500, L3100.9100, L3410.0500, L3410.0700, L3410.1110, L3410.4010 #### [facility] (refer to report for specific site) refer to report for address and phone number ANTIEXTRACTABLE NUG AG Collected: 10/31/2017 Status: F Source: [place] 10:00 AM [facility] REPOSITORY TYPE CODE TESTS RESULT OUT OF RANGE REFERENCE UNITS LAB L3410.1200 0.0-0.9 AI Normal WIRE FRAME LAMPSHADE MAKER Ab <0.2 LAB L3410.1300 0.0-0.9 AI Normal MALDONADO Ab 0.2 Performed By: #### L3100.5475, L3100.5500, L3100.9100, L3410.0500, L3410.0700, L3410.1110, L3410.4010 #### [facility] (refer to report for specific site) refer to report for address and phone number ANTI-CENTROMERE B AB Collected: 10/31/2017 Status: F Source: [place] 10:00 AM [facility] REPOSITORY TYPE CODE TESTS RESULT OUT OF RANGE REFERENCE UNITS LAB L3410.4010 0.0-0.9 AI Normal ANTI-CENT <0.2 B Performed By: #### L3100.5475, L3100.5500, L3100.9100, L3410.0500, L3410.0700, L3410.1110, L3410.4010 #### [facility] (refer to report for specific site) refer to report for address and phone number CNOV Observed: 10/09/2017 Status: COMPLETED Source: [place] 2:20 PM [facility] REPOSITORY Office Visit (ROSE MARIE) RICHARD KING ([id number]) 1935 M Date Time Provider Department 10/09/17 2:20 PM CHERRY RAMOS During your visit today, we recorded the following information about you: Pulse Respiration Blood pressure Weight 84/minute 20/minute 149/68 74.8 kg Height 1.727 m Cherry Ramos 10/09/2017 2:20 PM Signed SPINE SURGERY ESTABLISHED DATE OF SERVICE: 10/09/2017 DATE OF LAST VISIT: 08/28/2017 PCP: Calvin Dumont REFERRING PROVIDER: [place] [id number] SUBJECTIVE Richard King is a 82 year old male presenting with his older son who is a power of title attorney and also an title attorney.. He drove a dump truck. CHIEF COMPLAINT: Status post L3-5 laminectomy with instrumented fusion and incidental durotomy repair on August 06, 2017 HISTORY OF PRESENT ILLNESS PRECIPITATING EVENT: None DURATION OF SYMPTOMS: June 2016. Worsening since March 2017 The patient returns for his second postop visit. He is overall quite pleased surgical outcome. He has minor ache in the lower back and in his feet. Pain is only 1/10. 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 The patient initially presented with bilateral buttock pain radiates down posteriorly to the both thighs and anteriorly as well and into the proximal aspect of both calves and shins. Pain is achy and numbing at 9-10/10. He feels a quality life is no longer manageable and would like to have something done definitively. He is older son has a power of title attorney who is also an title attorney. PAIN EVALUATION 10/09/2017 Frequency: Continuous Intervention: Medication;Reposition;Relaxation;Positioning;Rocking/holding Pain Radiation:Resolved Aggravating Factors: Not applicable Alleviating FactorsAleve Pain Ratio: Not applicable DERMATOMAL DISTRIBUTION: Not applicable AMBULATORY STATUS: 100 yards initially. He is able to walk as far as he wants without any difficulty. STANDING UPRIGHT: 10-20 minutes initially. Much greater since the surgery. FUNCTIONAL STATUS: Walk indoors, such as around the house (1.75 METs) Do light work around the house, such as dusting or washing dishes (2.70 METs) Take care of self, that is eating, dressing, bathing, using the toilet (2.75 METs) Do moderate work around the house such as vacuuming, sweeping floors, or carrying in groceries (3.50 METs) Do yardwork, such as raking leaves, weeding,or pushing a power mower (4.50 METs) Climb a flight of stairs or walk up a hill (5.50 METs) PREVIOUS CONSERVATIVE TREATMENTS: Only the first PENELOPE helped. The last [address] Juarez. PT done in 2016 did not help all that much. PREVIOUS SPINAL SURGERY: #1 L3-5 laminectomy with instrumented fusion and durotomy repair on August 06, 2017 PED RED FLAGS No No-Significant Injury to Spine YES-Use of Steroids for Prolonged Duration No-Loss of Bowel/Bladder Control, Genital/Anal Numbness No-Recent Use of Intravenous (IV) Drugs No-Difficulty Keeping Balance when Walking No-Progressive Weakness in Arms/Legs No-History of Any Type of Cancer YES-Unable to Find Position of Comfort No-Pain at Night that Disturbs Sleep No-Recent Elevated Temp with Unknown Cause No-Diagnosed with Osteoporosis No-Unintentional Weight Loss or Gain He was told he had some cancer does not know exactly where. *PED (Patient Entered Data) osteoporosis flag will display for females 55 years or older and males 75 years or older. 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, Both Eyes Arthritis Elevated Cholesterol Gerd (Gastroesophageal Reflux Disease) Heart Attack (Hcc) Hypertension Aspirin Long-Term Use PAST MEDICAL HISTORY Diagnosis Date - Arthritis - Aspirin long-term use - Combined form of age-related cataract, both eyes 05/30/2016 - Elevated cholesterol - GERD (gastroesophageal reflux disease) - Heart attack (HCC) 2008 - Hypertension - Posterior vitreous detachment of right eye 05/30/2016 - Vitreous floaters of both eyes 05/30/2016 PAST SURGICAL HISTORY Procedure Laterality Date - HEART SURGERY HX 2008 double bypass - LAMINEC/FACETECT/FORAMIN,LUMBAR 08/06/2017 L2-5 LAMI /PSFI L3-5 FAMILY HISTORY Problem Relation Age of Onset - Hypertension Mother - Diabetes Mother - Hypertension Father Social History Marital status: Spouse name: Years of education: Number of children: 4 Occupational History Occupation Employer Comment retired but workin* Social History Main Topics Smoking status: Never Smoker Smokeless tobacco: Never Used Alcohol use: No Drug use: No ALLERGIES No Known Allergies MEDICATIONS: lisinopril (ZESTRIL, PRINIVIL) 10 mg tablet Back Brace misc QuickDraw aspirin 325 mg tablet Take 325 mg by mouth once daily. Holding 5 days pre op atorvastatin (LIPITOR) 20 mg tablet Take 20 mg by mouth once daily. metoprolol succinate ER (TOPROL XL) 50 mg 24 hr tablet Take 50 mg by mouth once daily. omeprazole (PRILOSEC) 20 mg capsule Take 20 mg by mouth once daily. REVIEW OF SYSTEMS: Review of Systems Constitutional Negative for Fevers, Night Sweats, Weight Gain, Weight Loss and Fatigue Eyes Negative for Change in vison not corrected by glasses and Vision loss or change Hent Negative for Hearing Loss, Difficulty Swallowing, Tinnitus and Recent change in speech or voice Cardiovascular Negative for Chest Pain, Lightheadedness and Leg pain with walking Respiratory Negative for SOB at rest, SOB with exertion, Cough, Wheezing and Snoring GI Negative for Blood in Stool, Abdominal Pain, Diarrhea, Constipation, Nausea/Vomiting and Heartburn Negative for Urgency, Impotence, Incontinence and Sexual Dysfunction Endocrine Negative for Heat Intolerance, Excessive Thirst and Menstrual Cycle Irregularities Musculoskeletal Negative for Back Pain, Joint Swelling, Stiff Joints and Muscle Pain Integumentary Negative for Rashes, Itching, Other Lesions and Hair Changes Heme/Lymph Negative for Prolonged Bleeding, Easy Bruising and Swelling of Arm or Leg Allergy/Immunologic Negative for Nasal Congestion and Swollen Nodes Neurologic Negative for Memory Problems, Headache, Numbness/Tingling, Weakness, Double Vision, Trouble Swallowing and Slurred Speech Psychiatric Negative for Stress or Conflicts, Depression, Anxiety, Irritability, Hallucinations and Delusions Patient's Review of Systems has been reviewed with the patient and updated as appropriate. OBJECTIVE: PHYSICAL EXAM BP 149/68 Pulse 84 Resp 20 Ht 172.7 cm (5' 8) Wt 74.8 kg (165 lb) BMI 25.09 kg/m? GENERAL APPEARANCE: Well nourished, well developed, and no apparent distress. NEURO PSYCH: Patient oriented to person, place, and time. Mood pleasant. Benign affect. THE FOLLOWING IS THE SUMMARY OF THE PREVIOUS EXAMINATION. REPEATED AND OR ADDITIONAL EXAMINATION IS IN BOLD PRINT. CARDIOVASCULAR: Palpable 2+ pedal pulses. No edema noted. No varicosities. SKIN: Head, neck, trunk, and extremities dry, intact and without lesions. Well-healed midline lumbar incision. No evidence of drainage or erythema. No evidence of fluid collection LYMPHATICS: No palpable nodes in cervical or axillae areas. Groin exam deferred. MUSCULOSKELETAL VISUAL INSPECTION CERVICAL: WNL with full active range of motion THORACIC: Slightly more prominent right side thoracic region LUMBAR: Slightly more prominent right side lumbar region. For flexion to 30? causes posterior thigh and calf pain on the left PALPATION: SPINOUS PROCESS: No pain. PARASPINALS: No pain. MUSCLE BULK: Normal and symmetrical in the upper AND lower extremities. MUSCLE TONE: Normal. MOTOR: 5/5 in all muscle groups of the lower extremities. Previous exceptions were the following; bilateral ADF and EHL 4/5 compared to initial exam that demonstrated the following exceptions: hip flexors 4, knee extension and flexion 4, ankle dorsiflexion 4, right EHL 4 left is 4+. SENSORY: Normal sensory exam GAIT: Normal. Difficulty with heel and toe REFLEXES: +2 to bilateral lower extremities in both regions except for absent left patella. PROPRIOCEPTION: Not tested. LONG TRACT SIGNS: No clonus. No Hoffmans. STRAIGHT LEG TEST: Ipsilateral: Negative. Contralateral: Negative. L'HERMITTES SIGN: Not tested. SPURLING'S TEST: Not tested. EXTREMITIES: No gross deformity or laxity with normal range of motion without pain except for gross palsy of the right upper extremity and hand with atrophy of the hand PELVIS: No hip irritability STATION: stable. ADDITIONAL LONG TRACT SIGNS: Babinski: absent Escape sign: Not performed ADDITIONAL EXAMINATION: not performed Ky Signs: not performed KP: Diminished OAARS report was reviewed. Gabapentin in June 2017 MEDICAL RECORDS Reviewed at the index visit: Left L3 and L4 transforaminal lumbar epidural steroid injections by Dr. Juarez on May 05, 2016 Left L3 and L4 transforaminal lumbar epidural steroid injections by Dr. Juarez performed on December 01, 2016 Left L4 and L5 transforaminal lumbar epidural steroid ejections by Dr. Juarez performed on March 06, 2017 Progress note dated June 06, 2017 regarding lumbar stenosis with neurogenic claudication NEURO TESTS: None DATA REVIEW Imaging and outside records reviewed and findings are as follows THE STUDIES REVIEWED AT THIS VISIT ARE HIGHLIGHTED IN BOLD PRINT. [facility] Lumbar x-rays ?3 views. August 27, 2017. Stable L3-5 laminectomy with instrumented fusion. Slight correction of left L3-4 disc space collapse along with reduction of L4-5 spondylolisthesis. Lumbar x-rays. Complete with bending views. June 12, 2017. L3-4 this space collapse on the left. L4 translated slightly to the left of L5. Left L4-5 disc space narrowing. Degenerative disc changes with disc degeneration L3-5 with severe collapsed disc space L5-S1. L4-5 degenerative spondylosis and measuring 7 mm with forward flexion that reduces to 5 mm in extension Atherosclerosis the vascular structures of the aorta. Lumbar MRI scan. June 12, 2017. Severe stenosis L3-4 and severe stenosis L4-5 with facet widening and canal down to 6 mm. L4-5 spondylolisthesis that appears be reduced compared to lumbar x-rays. Mild stenosis L3-4 ASSESSMENT/PLAN IMPRESSION: (Z98.1) S/P laminectomy with spinal fusion (primary encounter diagnosis) (I10) Essential hypertension (M19.90) Arthritis (E78.00) Elevated cholesterol (H25.813) Combined form of age-related cataract, both eyes (Z79.82) Aspirin long-term use (K21.9) Gastroesophageal reflux disease without esophagitis (I21.4) Non-ST elevation (NSTEMI) myocardial infarction (HCC) #1 status post L3-5 lumbar laminectomy with instrumented fusion and incidental durotomy repair on August 06, 2017 Patient is doing quite well. 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 I cautioned him against this doing a too prematurely. I would prefer the rates full 3 months. Letter was written to align to go back to work full duty as tolerated as of November 05, 2017. He seems agreeable to this recommendation. He would not be unreasonable for him to go back and limited basis with less rigorous job but it appears that there may not be such an option. The patient was given the option of going to one of my colleagues due to anticipated closure of spine program locally in this hospital by November 2017. The patient will be referred to a spine surgeon within the [facility] system for further follow up. He will be scheduled to follow up with Dr. Cahndra Monroy in 1 year from the operation with updated x-rays. Richard King has a condition that requires further workup. 1. Consults: Dr. Chandra Monroy with updated lumbar x-rays in 1 year 2. Follow up: PRN SIGNATURE: Cherry Ramos MD PATIENT NAME: Richard King DATE: October 09, 2017 TIME: 2:04 PM PAGER: Referring Provider: CHERRY RAMOS [[id number]] Allergies As of Date: 10/09/2017 (No Known Allergies) Date Reviewed: 10/09/2017 Reviewed by: Calvin Guevara LPN - Fully Assessed Reason for Visit: Established Patient [175] Cmt: s/p 3/5 L2-5 LAMI /PSFI L3-5 Reason For Visit History Recorded Primary Visit Diagnosis:S/P laminectomy with spinal fusion [Z98.1] Other Visit Diagnoses:Essential hypertension [I10] Arthritis [M19.90] Elevated cholesterol [E78.00] Combined form of age-related cataract, both eyes [H25.813] Aspirin long-term use [Z79.82] Gastroesophageal reflux disease without esophagitis [K21.9] Non-ST elevation (NSTEMI) myocardial infarction (HCC) [I21.4] Prescriptions as of 10/09/2017 Sig: LISINOPRIL 10 MG TABLET BACK BRACE QuickDraw ASPIRIN 325 MG TABLET Take 325 mg by mouth once micaela* ATORVASTATIN 20 MG TABLET Take 20 mg by mouth once geovanna* METOPROLOL SUCCINATE ER 50 MG* Take 50 mg by mouth once geovanna* OMEPRAZOLE 20 MG CAPSULE,BRETT* Take 20 mg by mouth once geovanna* Problem List As Of Date 10/09/2017 Noted Resolved Posterior vitreous detachment of right eye [H43*INVALID FOR* Vitreous floaters of both eyes [H43.393] INVALID FOR* Combined form of age-related cataract, both eye*INVALID FOR* Arthritis [M19.90] INVALID FOR* Elevated cholesterol [E78.00] INVALID FOR* GERD (gastroesophageal reflux disease) [K21.9] INVALID FOR* Heart attack (HCC) [I21.9] INVALID FOR* Hypertension [I10] INVALID FOR* Aspirin long-term use [Z79.82] Disposition: Return if symptoms worsen or fail to improve. Follow-up and Disposition History Recorded Letter Text Cherry Ramos M.D. Spine Surgery [address] [facility], [place] [address] Appt: [phone] 10/09/2017 To Whom it May Concern: This is to certify that Richard King was seen at our office for medical care. He may return to full duty on November 05, 2017. If you have any questions please feel free to call. Thank you. Cherry Ramos MD Encounter Status:Closed by CHERRY RAMOS MD on 10/09/17 PROGRESS Observed: 10/09/2017 Status: COMPLETED Source: [place] 2:01 PM [facility] [place] REPOSITORY HNO ID: [id number] Author: Cherry Ramos Service: (none) Author Type: Physician Type: Progress Notes Filed: 10/09/2017 2:20 PM Note Text: SPINE SURGERY ESTABLISHED DATE OF SERVICE: 10/09/2017 DATE OF LAST VISIT: 08/28/2017 PCP: Calvin Dumont REFERRING PROVIDER: AARON JUAREZ [address] [place] [address] [id number] SUBJECTIVE Richard King is a 82 year old male presenting with his older son who is a power of title attorney and also an title attorney.. He drove a dump truck. CHIEF COMPLAINT: Status post L3-5 laminectomy with instrumented fusion and incidental durotomy repair on August 06, 2017 HISTORY OF PRESENT ILLNESS PRECIPITATING EVENT: None DURATION OF SYMPTOMS: June 2016. Worsening since March 2017 The patient returns for his second postop visit. He is overall quite pleased surgical outcome. He has minor ache in the lower back and in his feet. Pain is only 1/10. 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 The patient initially presented with bilateral buttock pain radiates down posteriorly to the both thighs and anteriorly as well and into the proximal aspect of both calves and shins. Pain is achy and numbing at 9-10/10. He feels a quality life is no longer manageable and would like to have something done definitively. He is older son has a power of title attorney who is also an title attorney. PAIN EVALUATION 10/09/2017 Frequency: Continuous Intervention: Medication;Reposition;Relaxation;Positioning;Rocking/holding Pain Radiation:Resolved Aggravating Factors: Not applicable Alleviating FactorsAleve Pain Ratio: Not applicable DERMATOMAL DISTRIBUTION: Not applicable AMBULATORY STATUS: 100 yards initially. He is able to walk as far as he wants without any difficulty. STANDING UPRIGHT: 10-20 minutes initially. Much greater since the surgery. FUNCTIONAL STATUS: Walk indoors, such as around the house (1.75 METs) Do light work around the house, such as dusting or washing dishes (2.70 METs) Take care of self, that is eating, dressing, bathing, using the toilet (2.75 METs) Do moderate work around the house such as vacuuming, sweeping floors, or carrying in groceries (3.50 METs) Do yardwork, such as raking leaves, weeding,or pushing a power mower (4.50 METs) Climb a flight of stairs or walk up a hill (5.50 METs) PREVIOUS CONSERVATIVE TREATMENTS: Only the first PENELOPE helped. The last [address] Juarez. PT done in 2016 did not help all that much. PREVIOUS SPINAL SURGERY: #1 L3-5 laminectomy with instrumented fusion and durotomy repair on August 06, 2017 PED RED FLAGS No No-Significant Injury to Spine YES-Use of Steroids for Prolonged Duration No-Loss of Bowel/Bladder Control, Genital/Anal Numbness No-Recent Use of Intravenous (IV) Drugs No-Difficulty Keeping Balance when Walking No-Progressive Weakness in Arms/Legs No-History of Any Type of Cancer YES-Unable to Find Position of Comfort No-Pain at Night that Disturbs Sleep No-Recent Elevated Temp with Unknown Cause No-Diagnosed with Osteoporosis No-Unintentional Weight Loss or Gain He was told he had some cancer does not know exactly where. *PED (Patient Entered Data) osteoporosis flag will display for females 55 years or older and males 75 years or older. 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, Both Eyes Arthritis Elevated Cholesterol Gerd (Gastroesophageal Reflux Disease) Heart Attack (Hcc) Hypertension Aspirin Long-Term Use PAST MEDICAL HISTORY Diagnosis Date - Arthritis - Aspirin long-term use - Combined form of age-related cataract, both eyes 05/30/2016 - Elevated cholesterol - GERD (gastroesophageal reflux disease) - Heart attack (HCC) 2008 - Hypertension - Posterior vitreous detachment of right eye 05/30/2016 - Vitreous floaters of both eyes 05/30/2016 PAST SURGICAL HISTORY Procedure Laterality Date - HEART SURGERY HX 2008 double bypass - LAMINEC/FACETECT/FORAMIN,LUMBAR 08/06/2017 L2-5 LAMI /PSFI L3-5 FAMILY HISTORY Problem Relation Age of Onset - Hypertension Mother - Diabetes Mother - Hypertension Father Social History Marital status: Spouse name: Years of education: Number of children: 4 Occupational History Occupation Employer Comment retired but workin* Social History Main Topics Smoking status: Never Smoker Smokeless tobacco: Never Used Alcohol use: No Drug use: No ALLERGIES No Known Allergies MEDICATIONS: lisinopril (ZESTRIL, PRINIVIL) 10 mg tablet Back Brace misc QuickDraw aspirin 325 mg tablet Take 325 mg by mouth once daily. Holding 5 days pre op atorvastatin (LIPITOR) 20 mg tablet Take 20 mg by mouth once daily. metoprolol succinate ER (TOPROL XL) 50 mg 24 hr tablet Take 50 mg by mouth once daily. omeprazole (PRILOSEC) 20 mg capsule Take 20 mg by mouth once daily. REVIEW OF SYSTEMS: Review of Systems Constitutional Negative for Fevers, Night Sweats, Weight Gain, Weight Loss and Fatigue Eyes Negative for Change in vison not corrected by glasses and Vision loss or change Hent Negative for Hearing Loss, Difficulty Swallowing, Tinnitus and Recent change in speech or voice Cardiovascular Negative for Chest Pain, Lightheadedness and Leg pain with walking Respiratory Negative for SOB at rest, SOB with exertion, Cough, Wheezing and Snoring GI Negative for Blood in Stool, Abdominal Pain, Diarrhea, Constipation, Nausea/Vomiting and Heartburn Negative for Urgency, Impotence, Incontinence and Sexual Dysfunction Endocrine Negative for Heat Intolerance, Excessive Thirst and Menstrual Cycle Irregularities Musculoskeletal Negative for Back Pain, Joint Swelling, Stiff Joints and Muscle Pain Integumentary Negative for Rashes, Itching, Other Lesions and Hair Changes Heme/Lymph Negative for Prolonged Bleeding, Easy Bruising and Swelling of Arm or Leg Allergy/Immunologic Negative for Nasal Congestion and Swollen Nodes Neurologic Negative for Memory Problems, Headache, Numbness/Tingling, Weakness, Double Vision, Trouble Swallowing and Slurred Speech Psychiatric Negative for Stress or Conflicts, Depression, Anxiety, Irritability, Hallucinations and Delusions Patient's Review of Systems has been reviewed with the patient and updated as appropriate. OBJECTIVE: PHYSICAL EXAM BP 149/68 Pulse 84 Resp 20 Ht 172.7 cm (5' 8) Wt 74.8 kg (165 lb) BMI 25.09 kg/m? GENERAL APPEARANCE: Well nourished, well developed, and no apparent distress. NEURO PSYCH: Patient oriented to person, place, and time. Mood pleasant. Benign affect. THE FOLLOWING IS THE SUMMARY OF THE PREVIOUS EXAMINATION. REPEATED AND OR ADDITIONAL EXAMINATION IS IN BOLD PRINT. CARDIOVASCULAR: Palpable 2+ pedal pulses. No edema noted. No varicosities. SKIN: Head, neck, trunk, and extremities dry, intact and without lesions. Well-healed midline lumbar incision. No evidence of drainage or erythema. No evidence of fluid collection LYMPHATICS: No palpable nodes in cervical or axillae areas. Groin exam deferred. MUSCULOSKELETAL VISUAL INSPECTION CERVICAL: WNL with full active range of motion THORACIC: Slightly more prominent right side thoracic region LUMBAR: Slightly more prominent right side lumbar region. For flexion to 30? causes posterior thigh and calf pain on the left PALPATION: SPINOUS PROCESS: No pain. PARASPINALS: No pain. MUSCLE BULK: Normal and symmetrical in the upper AND lower extremities. MUSCLE TONE: Normal. MOTOR: 5/5 in all muscle groups of the lower extremities. Previous exceptions were the following; bilateral ADF and EHL 4/5 compared to initial exam that demonstrated the following exceptions: hip flexors 4, knee extension and flexion 4, ankle dorsiflexion 4, right EHL 4 left is 4+. SENSORY: Normal sensory exam GAIT: Normal. Difficulty with heel and toe REFLEXES: +2 to bilateral lower extremities in both regions except for absent left patella. PROPRIOCEPTION: Not tested. LONG TRACT SIGNS: No clonus. No Hoffmans. STRAIGHT LEG TEST: Ipsilateral: Negative. Contralateral: Negative. L'HERMITTES SIGN: Not tested. SPURLING'S TEST: Not tested. EXTREMITIES: No gross deformity or laxity with normal range of motion without pain except for gross palsy of the right upper extremity and hand with atrophy of the hand PELVIS: No hip irritability STATION: stable. ADDITIONAL LONG TRACT SIGNS: Babinski: absent Escape sign: Not performed ADDITIONAL EXAMINATION: not performed Ky Signs: not performed KP: Diminished OAARS report was reviewed. Gabapentin in June 2017 MEDICAL RECORDS Reviewed at the index visit: Left L3 and L4 transforaminal lumbar epidural steroid injections by Dr. Juarez on May 05, 2016 Left L3 and L4 transforaminal lumbar epidural steroid injections by Dr. Juarez performed on December 01, 2016 Left L4 and L5 transforaminal lumbar epidural steroid ejections by Dr. Juarez performed on March 06, 2017 Progress note dated June 06, 2017 regarding lumbar stenosis with neurogenic claudication NEURO TESTS: None DATA REVIEW Imaging and outside records reviewed and findings are as follows THE STUDIES REVIEWED AT THIS VISIT ARE HIGHLIGHTED IN BOLD PRINT. [facility] Lumbar x-rays ?3 views. August 27, 2017. Stable L3-5 laminectomy with instrumented fusion. Slight correction of left L3-4 disc space collapse along with reduction of L4-5 spondylolisthesis. Lumbar x-rays. Complete with bending views. June 12, 2017. L3-4 this space collapse on the left. L4 translated slightly to the left of L5. Left L4-5 disc space narrowing. Degenerative disc changes with disc degeneration L3-5 with severe collapsed disc space L5-S1. L4-5 degenerative spondylosis and measuring 7 mm with forward flexion that reduces to 5 mm in extension Atherosclerosis the vascular structures of the aorta. Lumbar MRI scan. June 12, 2017. Severe stenosis L3-4 and severe stenosis L4-5 with facet widening and canal down to 6 mm. L4-5 spondylolisthesis that appears be reduced compared to lumbar x-rays. Mild stenosis L3-4 ASSESSMENT/PLAN IMPRESSION: (Z98.1) S/P laminectomy with spinal fusion (primary encounter diagnosis) (I10) Essential hypertension (M19.90) Arthritis (E78.00) Elevated cholesterol (H25.813) Combined form of age-related cataract, both eyes (Z79.82) Aspirin long-term use (K21.9) Gastroesophageal reflux disease without esophagitis (I21.4) Non-ST elevation (NSTEMI) myocardial infarction (HCC) #1 status post L3-5 lumbar laminectomy with instrumented fusion and incidental durotomy repair on August 06, 2017 Patient is doing quite well. 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 I cautioned him against this doing a too prematurely. I would prefer the rates full 3 months. Letter was written to align to go back to work full duty as tolerated as of November 05, 2017. He seems agreeable to this recommendation. He would not be unreasonable for him to go back and limited basis with less rigorous job but it appears that there may not be such an option. The patient was given the option of going to one of my colleagues due to anticipated closure of spine program locally in this hospital by November 2017. The patient will be referred to a spine surgeon within the [facility] system for further follow up. He will be scheduled to follow up with Dr. Chandra Monroy in 1 year from the operation with updated x-rays. Richard King has a condition that requires further workup. 1. Consults: Dr. Chandra Monroy with updated lumbar x-rays in 1 year 2. Follow up: PRN SIGNATURE: Cherry Ramos MD PATIENT NAME: Richard King DATE: October 09, 2017 TIME: 2:04 PM PAGER: CBC W/ AUTO DIFF Collected: 09/17/2017 Status: F Source: [place] 9:33 AM [facility] REPOSITORY TYPE CODE TESTS RESULT OUT OF RANGE REFERENCE UNITS LAB [id number](L 3.6-11.0 E3/mcL OINC) High WBC 13.8 LAB [id number](L 3.90-6.10 E6/mcL OINC) Low RBC 3.69 LAB [id number](L 13.5-18.0 G/DL OINC) Low Hgb 11.9 LAB [id number](L 42.0-52.0 % OINC) Low Hct 36.3 LAB 97199825(L 11.5-14.5 % OINC) Normal RDW 13.2 LAB [id number](L 27.0-31.0 pg OINC) High MCH 32.1 LAB 16083461(L 33.0-37.0 G/DL OINC) Low MCHC 32.6 LAB [id number](L 78.0-100.0 fL OINC) Normal MCV 98.4 LAB [id number](L 7.4-11.0 fL OINC) Normal MPV 9.2 LAB [id number](L 130-400 E3/mcL OINC) Normal Platelet 237 Performed By: #### [id number] #### KEIRY [employer] [address] [place] [address] AUTO DIFF Collected: 09/17/2017 Status: F Source: [place] 9:33 AM [facility] REPOSITORY Order Comment: Order Added by Discern Expert. TYPE CODE TESTS RESULT OUT OF RANGE REFERENCE UNITS LAB [id number](L 37.0-75.0 % OINC) Normal Neutro Auto 69.3 LAB [id number](L 20.0-55.0 % OINC) Low Lymph Auto 18.9 LAB [id number](L 0.0-10.0 % OINC) Normal [place] Auto 10.0 LAB 00019895(L 0.0-11.0 % OINC) Normal Eos Auto 1.1 LAB 06290110(L 0.0-2.0 % OINC) Normal Basophil Auto 0.7 LAB [id number](L 1.4-6.5 E3/mcL OINC) High Neutro 9.6 Absolute LAB 02163439(L 1.2-3.4 E3/mcL OINC) Normal Lymph Absolute 2.6 LAB 81721189(L 0.0-0.7 E3/mcL OINC) High [place] Absolute 1.4 LAB 01858980(L 0.0-0.7 E3/mcL OINC) Normal Eos Absolute 0.1 LAB [id number](L 0.0-0.2 E3/mcL OINC) Normal Basophil 0.1 Absolute Performed By: #### [id number] #### KEIRY Zimmerman [address] [place] [address] CMP Collected: 09/17/2017 Status: F Source: [place] 9:33 AM [facility] REPOSITORY TYPE CODE TESTS RESULT OUT OF RANGE REFERENCE UNITS LAB [id number](L 70-99 mg/dL OINC) High Glucose Lvl 126 LAB [id number](L 8.4-10.2 mg/dL OINC) Calcium Normal Lvl 8.5 LAB 58001894(L 136-145 mEq/L OINC) Sodium Normal Lvl 140 LAB [id number](L 3.5-5.1 mEq/L OINC) Low Potassium Lvl 3.3 LAB [id number](L 98-107 mEq/L OINC) Chloride Normal 106 LAB [id number](L 24.0-30.0 mEq/L OINC) CO2 Normal 26.0 LAB [id number](L 7-18 mg/dL OINC) High BUN 24 LAB [id number](LO 0.6-1.3 mg/dL INC) Normal Creatinine 1.3 LAB [id number](L 42-121 Int._Unit/ OINC) L Alk Phos Normal 121 LAB 90343243(L 0.2-1.0 mg/dL OINC) High Bili Total 1.2 LAB [id number](L 3.2-5.0 G/DL OINC) Albumin Normal Lvl 3.5 LAB [id number](L 6.4-8.3 G/DL OINC) Total Normal Protein 6.6 LAB 54070916(L 10-40 Int._Unit/ OINC) L ALT Normal 14 LAB [id number](L 10-42 Int._Unit/ OINC) L AST Normal 20 LAB [id number](L 5.4-30.0 ratio OINC) Normal BUN/Creat Ratio 18.5 LAB [id number](L 2.0-4.0 G/DL OINC) Globulin Normal 3.1 LAB [id number](L 1.1-1.9 ratio OINC) A/G Normal Ratio 1.1 Performed By: #### [id number] #### KEIRY [employer] [address] [place] [address] LAB MISCELLANEOUS Collected: 09/17/2017 Status: F Source: [place] 9:33 AM [facility] REPOSITORY Order Comment: Anti CCP [id number] TYPE CODE TESTS RESULT OUT OF RANGE REFERENCE UNITS LAB [id number](LO INC) Normal Test Name [id number] LAB [id number](LO INC) Normal Status See Ref Lab Report Performed By: #### [id number] #### KEIRY [employer] Subsection [address] [place] [address] LAB MISCELLANEOUS Collected: 09/17/2017 Status: F Source: [place] 9:33 AM [facility] REPOSITORY Order Comment: GT CPT 20792 TYPE CODE TESTS RESULT OUT OF RANGE REFERENCE UNITS LAB [id number](LO INC) Normal Test Name [id number] LAB [id number](LO INC) Normal Status See Ref Lab Report Performed By: #### [id number] #### KEIRY [employer]section [address] [place] [address] SED RATE AUTOMATED Collected: 09/17/2017 Status: F Source: [place] 9:33 AM [facility] REPOSITORY TYPE CODE TESTS RESULT OUT OF RANGE REFERENCE UNITS LAB [id number](L mm/hr OINC) Sed Normal Rate Automated 12 Result Comment: AGE-SPECIFIC REFERENCE RANGES FOR SEDIMENTATION RATE AUTOMATED REFERENCE RANGE - MM/HR AGE MEN WOMEN 0-2 0-2 - PUBERTY 3-13 3-13 PUBERTY - 50 YRS 0-15 0-20 > 50 YRS 0-20 0-30 Performed By: #### [id number] #### KEIRY Hematology Manual [address] [place] [address] EGFR Collected: 09/17/2017 Status: F Source: [place] 9:33 AM [facility] REPOSITORY Order Comment: Order added by Discern Expert. TYPE CODE TESTS RESULT OUT OF RANGE REFERENCE UNITS LAB [id number](LO mL/min/1.73 INC) m2 Normal eGFR 53 LAB [id number](LO mL/min/1.73 INC) m2 Normal eGFR AA >60 Performed By: #### [id number] #### [place] [address] LIPID PROFILE Collected: 09/17/2017 Status: F Source: [place] 9:33 AM [facility] REPOSITORY TYPE CODE TESTS RESULT OUT OF RANGE REFERENCE UNITS LAB [id number](LO 50-200 mg/dL INC) Normal Chol 127 Result Comment: TOTAL CHOLEESTEROL: <200 NORMAL 200 - 239 BORDERLINE HIGH >240 HIGH LAB 20317001(LOINC) >=41 mg/dL Normal HDL 44 LAB [id number](LOINC) 0-130 mg/dL Normal LDL 57 Result Comment: <100 OPTIMAL 100-129 NEAR / ABOVE OPTIMAL 130-159 BORDERLINE HIGH 160-189 HIGH >190 VERY HIGH CALC LDL NOT VALID WHEN TRIGLYCERIDE IS >400 MG/DL LAB [id number](LOINC) 35-150 mg/dL Normal Trig 128 Result Comment: <150 NORMAL 150-199 BORDERLINE HIGH 200-499 HIGH >500 VERY HIGH LAB [id number](LOINC) Normal VLDL 26 Performed By: #### [id number] #### KEIRY [employer] [address] [place] [address] CRP Collected: 09/17/2017 Status: F Source: [place] 9:33 AM [facility] REPOSITORY TYPE CODE TESTS RESULT OUT OF RANGE REFERENCE UNITS LAB [id number](LO 0.00-0.75 mg/dL INC) Normal CRP <0.50 Performed By: #### [id number] #### KEIRY [facility] [address] [place] [address] RF QUANT Collected: 09/17/2017 Status: F Source: [place] 9:33 AM [facility] REPOSITORY TYPE CODE TESTS RESULT OUT OF RANGE REFERENCE UNITS LAB [id number](LO 0.0-13.9 Internation INC) al_Unit/mL Normal RA Latex <10.0 Turbid Result Comment: Performed At: [facility] [place] [address] [place], [place] [id number] Kassie Pineda PhD Ph:[phone] Performed By: #### [id number] #### KEIRY [employer] [address] [address] CNOV Observed: 08/28/2017 Status: COMPLETED Source: [place] 2:[address] [facility] REPOSITORY Office Visit ([facility]) RICHARD KING ([id number]) 1935 M Date Time Provider Department 08/28/17 2:50 PM CHERRY RAMOS During your visit today, we recorded the following information about you: Pulse Respiration Blood pressure Weight 82/minute 20/minute 127/82 74.8 kg Height 1.727 m Cherry Ramos MD 08/29/2017 4:46 PM Signed SPINE SURGERY ESTABLISHED DATE OF SERVICE: 08/29/2017 DATE OF LAST VISIT: 07/27/2017 PCP: Calvin Dumont REFERRING PROVIDER: AARON JUAREZ Dr [facility] [id number] SUBJECTIVE Richard King is a 82 year old male presenting with his older son who is a power of title attorney and also an title attorney.. He drove a dump truck. CHIEF COMPLAINT: Status post L3-5 laminectomy with instrumented fusion and incidental durotomy repair on August 06, 2017 HISTORY OF PRESENT ILLNESS PRECIPITATING EVENT: None DURATION OF SYMPTOMS: June 2016. Worsening since March 2017 The patient returns for his first postoperative visit. He has some lower back pain with still persistent numbness and ache in his legs but much less than before. It is only 1/10. Bending aggravates the pain relieved by sitting. He is essentially pain-free. The patient initially presented with bilateral buttock pain radiates down posteriorly to the both thighs and anteriorly as well and into the proximal aspect of both calves and shins. Pain is achy and numbing at 9-10/10. He feels a quality life is no longer manageable and would like to have something done definitively. He is older son has a power of title attorney who is also an title attorney. PAIN EVALUATION 08/28/2017 Pain Score: 1 Pain Location: Back-Lower Description: Aching Duration Amount of Time: 1.5 Duration Units: Years Frequency: Continuous Intervention: Medication;Reposition;Relaxation;Pillow support;Positioning Pain Radiation:Minimal aches down his legs which are much less severe than before Aggravating Factors: See above Alleviating Factors: See above Pain Ratio: Not applicable DERMATOMAL DISTRIBUTION: Not applicable AMBULATORY STATUS: 100 yards initially. He is able to walk as far as he wants without any difficulty. STANDING UPRIGHT: 10-20 minutes initially. Much greater since the surgery. FUNCTIONAL STATUS: Walk indoors, such as around the house (1.75 METs) Do light work around the house, such as dusting or washing dishes (2.70 METs) Take care of self, that is eating, dressing, bathing, using the toilet (2.75 METs) Do moderate work around the house such as vacuuming, sweeping floors, or carrying in groceries (3.50 METs) Do yardwork, such as raking leaves, weeding,or pushing a power mower (4.50 METs) Climb a flight of stairs or walk up a hill (5.50 METs) PREVIOUS CONSERVATIVE TREATMENTS: Only the first PENELOPE helped. The last [address] Juarez. PT done in 2016 did not help all that much. PREVIOUS SPINAL SURGERY: #1 L3-5 laminectomy with instrumented fusion and durotomy repair on August 06, 2017 PED RED FLAGS No No-Significant Injury to Spine YES-Use of Steroids for Prolonged Duration No-Loss of Bowel/Bladder Control, Genital/Anal Numbness No-Recent Use of Intravenous (IV) Drugs No-Difficulty Keeping Balance when Walking No-Progressive Weakness in Arms/Legs No-History of Any Type of Cancer YES-Unable to Find Position of Comfort No-Pain at Night that Disturbs Sleep No-Recent Elevated Temp with Unknown Cause No-Diagnosed with Osteoporosis No-Unintentional Weight Loss or Gain He was told he had some cancer does not know exactly where. *PED (Patient Entered Data) osteoporosis flag will display for females 55 years or older and males 75 years or older. 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, Both Eyes Arthritis Elevated Cholesterol Gerd (Gastroesophageal Reflux Disease) Heart Attack (Hcc) Hypertension Aspirin Long-Term Use PAST MEDICAL HISTORY Diagnosis Date - Arthritis - Aspirin long-term use - Combined form of age-related cataract, both eyes 05/30/2016 - Elevated cholesterol - GERD (gastroesophageal reflux disease) - Heart attack (HCC) 2008 - Hypertension - Posterior vitreous detachment of right eye 05/30/2016 - Vitreous floaters of both eyes 05/30/2016 PAST SURGICAL HISTORY Procedure Laterality Date - HEART SURGERY HX 2009 double bypass - LAMINEC/FACETECT/FORAMIN,LUMBAR 08/06/2017 L2-5 LAMI /PSFI L3-5 FAMILY HISTORY Problem Relation Age of Onset - Hypertension Mother - Diabetes Mother - Hypertension Father Social History Marital status: Spouse name: Years of education: Number of children: 4 Occupational History Occupation Employer Comment retired but workin* Social History Main Topics Smoking status: Never Smoker Smokeless status: Never Used Alcohol use: No Drug use: No ALLERGIES No Known Allergies MEDICATIONS: lisinopril (ZESTRIL, PRINIVIL) 10 mg tablet Back Brace [facility] [place] [place] QuickDraw aspirin 325 mg tablet Take 325 mg by mouth once daily. Holding 5 days pre op atorvastatin (LIPITOR) 20 mg tablet Take 20 mg by mouth once daily. metoprolol succinate ER (TOPROL XL) 50 mg 24 hr tablet Take 50 mg by mouth once daily. omeprazole (PRILOSEC) 20 mg capsule Take 20 mg by mouth once daily. REVIEW OF SYSTEMS: Review of Systems Constitutional Negative for Fevers, Night Sweats, Weight Gain, Weight Loss and Fatigue Eyes Negative for Change in vison not corrected by glasses and Vision loss or change Hent Negative for Hearing Loss, Difficulty Swallowing, Tinnitus and Recent change in speech or voice Cardiovascular Negative for Chest Pain, Lightheadedness and Leg pain with walking Respiratory Negative for SOB at rest, SOB with exertion, Cough, Wheezing and Snoring GI Negative for Blood in Stool, Abdominal Pain, Diarrhea, Constipation, Nausea/Vomiting and Heartburn Negative for Urgency, Impotence, Incontinence and Sexual Dysfunction Endocrine Negative for Heat Intolerance, Excessive Thirst and Menstrual Cycle Irregularities Musculoskeletal Positive for Stiff Joints Negative for Back Pain, Joint Swelling and Muscle Pain Integumentary Negative for Rashes, Itching, Other Lesions and Hair Changes Heme/Lymph Positive for Swelling of Arm or Leg Negative for Prolonged Bleeding and Easy Bruising Allergy/Immunologic Negative for Nasal Congestion and Swollen Nodes Neurologic Positive for Headache Negative for Memory Problems, Numbness/Tingling, Weakness, Double Vision, Trouble Swallowing and Slurred Speech Psychiatric Negative for Stress or Conflicts, Depression, Anxiety, Irritability, Hallucinations and Delusions Patient's Review of Systems has been reviewed with the patient and updated as appropriate. OBJECTIVE: PHYSICAL EXAM BP 127/82 Pulse 82 Resp 20 Ht 172.7 cm (5' 8ANDquot;) Wt 74.8 kg (165 lb) BMI 25.09 kg/m2 GENERAL APPEARANCE: Well nourished, well developed, and no apparent distress. NEURO PSYCH: Patient oriented to person, place, and time. Mood pleasant. Benign affect. THE FOLLOWING IS THE SUMMARY OF THE PREVIOUS EXAMINATION. REPEATED AND OR ADDITIONAL EXAMINATION IS IN BOLD PRINT. CARDIOVASCULAR: Palpable 2+ pedal pulses. No edema noted. No varicosities. SKIN: Head, neck, trunk, and extremities dry, intact and without lesions. Well-healed midline lumbar incision. No evidence of drainage or erythema. No evidence of fluid collection LYMPHATICS: No palpable nodes in cervical or axillae areas. Groin exam deferred. MUSCULOSKELETAL VISUAL INSPECTION CERVICAL: WNL with full active range of motion THORACIC: Slightly more prominent right side thoracic region LUMBAR: Slightly more prominent right side lumbar region. For flexion to 30? causes posterior thigh and calf pain on the left PALPATION: SPINOUS PROCESS: No pain. PARASPINALS: No pain. MUSCLE BULK: Normal and symmetrical in the upper ANDamp; lower extremities. MUSCLE TONE: Normal. MOTOR: 5/5 in all muscle groups of the lower extremities. Previous exceptions were the following; bilateral ADF and EHL 4/5 compared to initial exam that demonstrated the following exceptions: hip flexors 4, knee extension and flexion 4, ankle dorsiflexion 4, right EHL 4 left is 4+. SENSORY: Normal sensory exam GAIT: Normal. Difficulty with heel and toe REFLEXES: +2 to bilateral lower extremities in both regions except for absent left patella. PROPRIOCEPTION: Not tested. LONG TRACT SIGNS: No clonus. No Hoffmans. STRAIGHT LEG TEST: Ipsilateral: Negative. Contralateral: Negative. L'HERMITTES SIGN: Not tested. SPURLING'S TEST: Not tested. EXTREMITIES: No gross deformity or laxity with normal range of motion without pain except for gross palsy of the right upper extremity and hand with atrophy of the hand PELVIS: No hip irritability STATION: stable. ADDITIONAL LONG TRACT SIGNS: Babinski: absent Escape sign: Not performed ADDITIONAL EXAMINATION: not performed Ky Signs: not performed KP: Diminished OAARS report was reviewed. Gabapentin in June 2017 MEDICAL RECORDS Reviewed at the index visit: Left L3 and L4 transforaminal lumbar epidural steroid injections by Dr. Juarez on May 05, 2016 Left L3 and L4 transforaminal lumbar epidural steroid injections by Dr. Juarez performed on December 01, 2016 Left L4 and L5 transforaminal lumbar epidural steroid ejections by Dr. Juarez performed on March 06, 2017 Progress note dated June 06, 2017 regarding lumbar stenosis with neurogenic claudication NEURO TESTS: None DATA REVIEW Imaging and outside records reviewed and findings are as follows THE STUDIES REVIEWED AT THIS VISIT ARE HIGHLIGHTED IN BOLD PRINT. [facility] Lumbar x-rays ?3 views. August 27, 2017. Stable L3-5 laminectomy with instrumented fusion. Slight correction of left L3-4 disc space collapse along with reduction of L4-5 spondylolisthesis. Lumbar x-rays. Complete with bending views. June 12, 2017. L3-4 this space collapse on the left. L4 translated slightly to the left of L5. Left L4-5 disc space narrowing. Degenerative disc changes with disc degeneration L3-5 with severe collapsed disc space L5-S1. L4-5 degenerative spondylosis and measuring 7 mm with forward flexion that reduces to 5 mm in extension Atherosclerosis the vascular structures of the aorta. Lumbar MRI scan. June 12, 2017. Severe stenosis L3-4 and severe stenosis L4-5 with facet widening and canal down to 6 mm. L4-5 spondylolisthesis that appears be reduced compared to lumbar x-rays. Mild stenosis L3-4 ASSESSMENT/PLAN IMPRESSION: (Z98.1) S/P laminectomy with spinal fusion (primary encounter diagnosis) (I10) Essential hypertension (M19.90) Arthritis (E78.00) Elevated cholesterol (H25.813) Combined form of age-related cataract, both eyes (Z79.82) Aspirin long-term use (K21.9) Gastroesophageal reflux disease without esophagitis #1 status post L3-5 lumbar laminectomy with instrumented fusion and incidental durotomy repair on August 06, 2017 Patient is doing quite well. He is able to walk and stand as long as he wants to. There is no evidence of ongoing CSF. Since he is doing well, not sure of the need for physical therapy. He and his son agree. Richard King has a condition that requires further workup. 1. Imaging: Lumbar X-Ray 2. Consults: Dr. Chandra Monroy for 1 year follow-up with x-rays 3. Follow up: 6 weeks SIGNATURE: Cherry Ramos MD PATIENT NAME: Richard King DATE: August 29, 2017 TIME: 3:59 PM PAGER: Referring Provider: CALVIN DUMONT [[id number]] Allergies As of Date: 08/28/2017 (No Known Allergies) Date Reviewed: 08/28/2017 Reviewed by: Cherry Ramos - Fully Assessed Reason for Visit: Post Op [174] Cmt: 08/06/17 L2-5 LAMI /PSFI L3-5 Reason For Visit History Recorded Primary Visit Diagnosis:S/P laminectomy with spinal fusion [Z98.1] Other Visit Diagnoses:Essential hypertension [I10] Arthritis [M19.90] Elevated cholesterol [E78.00] Combined form of age-related cataract, both eyes [H25.813] Aspirin long-term use [Z79.82] Gastroesophageal reflux disease without esophagitis [K21.9] Order(s):CONSULT TO SPINE SURGERY [[id number]] Order #: [id number]: 1 XR LUMBAR LIMITED 2V AP/LAT [[id number]] Order #: [id number] FUTURE Prescriptions as of 08/28/2017 Sig: LISINOPRIL 10 MG TABLET BACK BRACE QuickDraw ASPIRIN 325 MG TABLET Take 325 mg by mouth once micaela* ATORVASTATIN 20 MG TABLET Take 20 mg by mouth once geovanna* METOPROLOL SUCCINATE ER 50 MG* Take 50 mg by mouth once geovanna* OMEPRAZOLE 20 MG CAPSULE,BRETT* Take 20 mg by mouth once geovanna* Medication notes this encounter LISINOPRIL 10 MG TABLET >> Calvin Guevara LPN 08/28/2017 2:06 PM >> CALVIN GUEVARA LPN Aug 28, 2017 2:06 PM Received from: External Pharmacy Problem List As Of Date 08/28/2017 Noted Resolved Posterior vitreous detachment of right eye [H43*INVALID FOR* Vitreous floaters of both eyes [H43.393] INVALID FOR* Combined form of age-related cataract, both eye*INVALID FOR* Arthritis [M19.90] INVALID FOR* Elevated cholesterol [E78.00] INVALID FOR* GERD (gastroesophageal reflux disease) [K21.9] INVALID FOR* Heart attack (HCC) [I21.9] INVALID FOR* Hypertension [I10] INVALID FOR* Aspirin long-term use [Z79.82] Medications Discontinued During This Encounter gabapentin (NEURONTIN) 100 mg capsule 0 06/05/2017 08/28/2017 Class: Historical Med Sig: Disc: Reason for discontinue is not on file. lisinopril-hydrochlorothiazide (PRIN* 03/07/2016 08/28/2017 Class: Historical Med Route: ORAL Sig: Take 1 tablet by mouth once daily. Disc: Reason for discontinue is not on file. meloxicam (MOBIC) 7.5 mg tablet 04/11/2016 08/28/2017 Class: Historical Med Route: ORAL Sig: Take 7.5 mg by mouth once daily. Holding 5 days pre op Disc: Reason for discontinue is not on file. predniSONE (DELTASONE) 1 mg tablet 05/20/2016 08/28/2017 Class: Historical Med Route: ORAL Sig: Take 1 mg by mouth three times daily. Disc: Reason for discontinue is not on file. Disposition: Return in about 6 weeks (around 10/09/2017). Follow-up and Disposition History Recorded Encounter Status:Closed by CHERRY RAMOS MD on 08/29/17 PROGRESS Observed: 08/28/2017 Status: COMPLETED Source: [place] 2:44 PM [facility] [place] REPOSITORY HNO ID: [id number] Author: Cherry Ramos Service: (none) Author Type: Physician Type: Progress Notes Filed: 08/29/2017 4:46 PM Note Text: SPINE SURGERY ESTABLISHED DATE OF SERVICE: 08/29/2017 DATE OF LAST VISIT: 07/27/2017 PCP: Calvin Dumont REFERRING PROVIDER: [place] [id number] SUBJECTIVE Richard King is a 82 year old male presenting with his older son who is a power of title attorney and also an title attorney.. He drove a dump truck. CHIEF COMPLAINT: Status post L3-5 laminectomy with instrumented fusion and incidental durotomy repair on August 06, 2017 HISTORY OF PRESENT ILLNESS PRECIPITATING EVENT: None DURATION OF SYMPTOMS: June 2016. Worsening since March 2017 The patient returns for his first postoperative visit. He has some lower back pain with still persistent numbness and ache in his legs but much less than before. It is only 1/10. Bending aggravates the pain relieved by sitting. He is essentially pain-free. The patient initially presented with bilateral buttock pain radiates down posteriorly to the both thighs and anteriorly as well and into the proximal aspect of both calves and shins. Pain is achy and numbing at 9-10/10. He feels a quality life is no longer manageable and would like to have something done definitively. He is older son has a power of title attorney who is also an title attorney. PAIN EVALUATION 08/28/2017 Pain Score: 1 Pain Location: Back-Lower Description: Aching Duration Amount of Time: 1.5 Duration Units: Years Frequency: Continuous Intervention: Medication;Reposition;Relaxation;Pillow support;Positioning Pain Radiation:Minimal aches down his legs which are much less severe than before Aggravating Factors: See above Alleviating Factors: See above Pain Ratio: Not applicable DERMATOMAL DISTRIBUTION: Not applicable AMBULATORY STATUS: 100 yards initially. He is able to walk as far as he wants without any difficulty. STANDING UPRIGHT: 10-20 minutes initially. Much greater since the surgery. FUNCTIONAL STATUS: Walk indoors, such as around the house (1.75 METs) Do light work around the house, such as dusting or washing dishes (2.70 METs) Take care of self, that is eating, dressing, bathing, using the toilet (2.75 METs) Do moderate work around the house such as vacuuming, sweeping floors, or carrying in groceries (3.50 METs) Do yardwork, such as raking leaves, weeding,or pushing a power mower (4.50 METs) Climb a flight of stairs or walk up a hill (5.50 METs) PREVIOUS CONSERVATIVE TREATMENTS: Only the first PENELOPE helped. The last [address] Juarez. PT done in 2016 did not help all that much. PREVIOUS SPINAL SURGERY: #1 L3-5 laminectomy with instrumented fusion and durotomy repair on August 06, 2017 PED RED FLAGS No No-Significant Injury to Spine YES-Use of Steroids for Prolonged Duration No-Loss of Bowel/Bladder Control, Genital/Anal Numbness No-Recent Use of Intravenous (IV) Drugs No-Difficulty Keeping Balance when Walking No-Progressive Weakness in Arms/Legs No-History of Any Type of Cancer YES-Unable to Find Position of Comfort No-Pain at Night that Disturbs Sleep No-Recent Elevated Temp with Unknown Cause No-Diagnosed with Osteoporosis No-Unintentional Weight Loss or Gain He was told he had some cancer does not know exactly where. *PED (Patient Entered Data) osteoporosis flag will display for females 55 years or older and males 75 years or older. 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, Both Eyes Arthritis Elevated Cholesterol Gerd (Gastroesophageal Reflux Disease) Heart Attack (Hcc) Hypertension Aspirin Long-Term Use PAST MEDICAL HISTORY Diagnosis Date - Arthritis - Aspirin long-term use - Combined form of age-related cataract, both eyes 05/30/2016 - Elevated cholesterol - GERD (gastroesophageal reflux disease) - Heart attack (HCC) 2008 - Hypertension - Posterior vitreous detachment of right eye 05/30/2016 - Vitreous floaters of both eyes 05/30/2016 PAST SURGICAL HISTORY Procedure Laterality Date - HEART SURGERY HX 2008 double bypass - LAMINEC/FACETECT/FORAMIN,LUMBAR 08/06/2017 L2-5 LAMI /PSFI L3-5 FAMILY HISTORY Problem Relation Age of Onset - Hypertension Mother - Diabetes Mother - Hypertension Father Social History Marital status: Spouse name: Years of education: Number of children: 4 Occupational History Occupation Employer Comment retired but workin* Social History Main Topics Smoking status: Never Smoker Smokeless status: Never Used Alcohol use: No Drug use: No ALLERGIES No Known Allergies MEDICATIONS: lisinopril (ZESTRIL, PRINIVIL) 10 mg tablet Back Brace misc QuickDraw aspirin 325 mg tablet Take 325 mg by mouth once daily. Holding 5 days pre op atorvastatin (LIPITOR) 20 mg tablet Take 20 mg by mouth once daily. metoprolol succinate ER (TOPROL XL) 50 mg 24 hr tablet Take 50 mg by mouth once daily. omeprazole (PRILOSEC) 20 mg capsule Take 20 mg by mouth once daily. REVIEW OF SYSTEMS: Review of Systems Constitutional Negative for Fevers, Night Sweats, Weight Gain, Weight Loss and Fatigue Eyes Negative for Change in vison not corrected by glasses and Vision loss or change Hent Negative for Hearing Loss, Difficulty Swallowing, Tinnitus and Recent change in speech or voice Cardiovascular Negative for Chest Pain, Lightheadedness and Leg pain with walking Respiratory Negative for SOB at rest, SOB with exertion, Cough, Wheezing and Snoring GI Negative for Blood in Stool, Abdominal Pain, Diarrhea, Constipation, Nausea/Vomiting and Heartburn Negative for Urgency, Impotence, Incontinence and Sexual Dysfunction Endocrine Negative for Heat Intolerance, Excessive Thirst and Menstrual Cycle Irregularities Musculoskeletal Positive for Stiff Joints Negative for Back Pain, Joint Swelling and Muscle Pain Integumentary Negative for Rashes, Itching, Other Lesions and Hair Changes Heme/Lymph Positive for Swelling of Arm or Leg Negative for Prolonged Bleeding and Easy Bruising Allergy/Immunologic Negative for Nasal Congestion and Swollen Nodes Neurologic Positive for Headache Negative for Memory Problems, Numbness/Tingling, Weakness, Double Vision, Trouble Swallowing and Slurred Speech Psychiatric Negative for Stress or Conflicts, Depression, Anxiety, Irritability, Hallucinations and Delusions Patient's Review of Systems has been reviewed with the patient and updated as appropriate. OBJECTIVE: PHYSICAL EXAM BP 127/82 Pulse 82 Resp 20 Ht 172.7 cm (5' 8) Wt 74.8 kg (165 lb) BMI 25.09 kg/m2 GENERAL APPEARANCE: Well nourished, well developed, and no apparent distress. NEURO PSYCH: Patient oriented to person, place, and time. Mood pleasant. Benign affect. THE FOLLOWING IS THE SUMMARY OF THE PREVIOUS EXAMINATION. REPEATED AND OR ADDITIONAL EXAMINATION IS IN BOLD PRINT. CARDIOVASCULAR: Palpable 2+ pedal pulses. No edema noted. No varicosities. SKIN: Head, neck, trunk, and extremities dry, intact and without lesions. Well-healed midline lumbar incision. No evidence of drainage or erythema. No evidence of fluid collection LYMPHATICS: No palpable nodes in cervical or axillae areas. Groin exam deferred. MUSCULOSKELETAL VISUAL INSPECTION CERVICAL: WNL with full active range of motion THORACIC: Slightly more prominent right side thoracic region LUMBAR: Slightly more prominent right side lumbar region. For flexion to 30? causes posterior thigh and calf pain on the left PALPATION: SPINOUS PROCESS: No pain. PARASPINALS: No pain. MUSCLE BULK: Normal and symmetrical in the upper AND lower extremities. MUSCLE TONE: Normal. MOTOR: 5/5 in all muscle groups of the lower extremities. Previous exceptions were the following; bilateral ADF and EHL 4/5 compared to initial exam that demonstrated the following exceptions: hip flexors 4, knee extension and flexion 4, ankle dorsiflexion 4, right EHL 4 left is 4+. SENSORY: Normal sensory exam GAIT: Normal. Difficulty with heel and toe REFLEXES: +2 to bilateral lower extremities in both regions except for absent left patella. PROPRIOCEPTION: Not tested. LONG TRACT SIGNS: No clonus. No Hoffmans. STRAIGHT LEG TEST: Ipsilateral: Negative. Contralateral: Negative. L'HERMITTES SIGN: Not tested. SPURLING'S TEST: Not tested. EXTREMITIES: No gross deformity or laxity with normal range of motion without pain except for gross palsy of the right upper extremity and hand with atrophy of the hand PELVIS: No hip irritability STATION: stable. ADDITIONAL LONG TRACT SIGNS: Babinski: absent Escape sign: Not performed ADDITIONAL EXAMINATION: not performed [place] Signs: not performed KP: Diminished OAARS report was reviewed. Gabapentin in June 2017 MEDICAL RECORDS Reviewed at the index visit: Left L3 and L4 transforaminal lumbar epidural steroid injections by Dr. Juarez on May 05, 2016 Left L3 and L4 transforaminal lumbar epidural steroid injections by Dr. Juarez performed on December 01, 2016 Left L4 and L5 transforaminal lumbar epidural steroid ejections by Dr. Juarez performed on March 06, 2017 Progress note dated June 06, 2017 regarding lumbar stenosis with neurogenic claudication NEURO TESTS: None DATA REVIEW Imaging and outside records reviewed and findings are as follows THE STUDIES REVIEWED AT THIS VISIT ARE HIGHLIGHTED IN BOLD PRINT. [facility] Lumbar x-rays ?3 views. August 27, 2017. Stable L3-5 laminectomy with instrumented fusion. Slight correction of left L3-4 disc space collapse along with reduction of L4-5 spondylolisthesis. Lumbar x-rays. Complete with bending views. June 12, 2017. L3-4 this space collapse on the left. L4 translated slightly to the left of L5. Left L4-5 disc space narrowing. Degenerative disc changes with disc degeneration L3-5 with severe collapsed disc space L5-S1. L4-5 degenerative spondylosis and measuring 7 mm with forward flexion that reduces to 5 mm in extension Atherosclerosis the vascular structures of the aorta. Lumbar MRI scan. June 12, 2017. Severe stenosis L3-4 and severe stenosis L4-5 with facet widening and canal down to 6 mm. L4-5 spondylolisthesis that appears be reduced compared to lumbar x-rays. Mild stenosis L3-4 ASSESSMENT/PLAN IMPRESSION: (Z98.1) S/P laminectomy with spinal fusion (primary encounter diagnosis) (I10) Essential hypertension (M19.90) Arthritis (E78.00) Elevated cholesterol (H25.813) Combined form of age-related cataract, both eyes (Z79.82) Aspirin long-term use (K21.9) Gastroesophageal reflux disease without esophagitis #1 status post L3-5 lumbar laminectomy with instrumented fusion and incidental durotomy repair on August 06, 2017 Patient is doing quite well. He is able to walk and stand as long as he wants to. There is no evidence of ongoing CSF. Since he is doing well, not sure of the need for physical therapy. He and his son agree. Richard King has a condition that requires further workup. 1. Imaging: Lumbar X-Ray 2. Consults: Dr. Chandra Monroy for 1 year follow-up with x-rays 3. Follow up: 6 weeks SIGNATURE: Cherry Ramos MD PATIENT NAME: Richard King DATE: August 29, 2017 TIME: 3:59 PM PAGER: XR SPINE LUMBOSACRAL 2 Observed: 08/27/2017 Status: F Source: [facility] 3 VIEWS 10:33 AM [facility] REPOSITORY Exam Date/Time: 08/27/2017 10:39 EDT Reason for Exam: s/p laminectomy w/spinal fusion Report LUMBAR SPINE-3 VIEWS HISTORY: Laminectomy and spinal fusion. FINDINGS: Laminectomy defects are present, at the L3 and L4 vertebral bodies. Posterior spinal fusion is seen at L3, L4, and L5 levels, with bilateral pedicle screws and intervening rods between the pedicle screws. There is narrowing of the L3-L4, L4-L5 and L5-S1 intervertebral discs. A spondylolisthesis is seen, at L4-L5 of about 4 mm which compares to 7 mm on the preoperative study. IMPRESSION: Posterior spinal fusion. Multilevel degenerative disc disease. Status post laminectomy. FINAL REPORT Dictated: 08/27/2017 4:21 pm Joshua Robbins MD Signed (Electronic Signature): 08/27/2017 4:21 pm Signed by: Joshua Robbins MD Technologist: MELA CR-XR SPINE LUMBOSACRAL Observed: 08/27/2017 Status: F Source: [place] 2 OR 3 VIEWS IMPORT 12:00 AM [facility] REPOSITORY Images were obtained outside of [facility] [id number] Collected: 08/22/2017 Status: F Source: [place] 7:31 AM [facility] REPOSITORY TYPE CODE TESTS RESULT OUT OF RANGE REFERENCE UNITS LAB [id number](L 70-99 mg/dL OINC) High Glucose Lvl 109 LAB [id number](L 7-18 mg/dL OINC) High BUN 20 LAB [id number](LO 0.6-1.3 mg/dL INC) High Creatinine 1.4 LAB [id number](L 5.4-30.0 ratio OINC) Normal BUN/Creat Ratio 14.3 LAB [id number](L 8.4-10.2 mg/dL OINC) Calcium Normal Lvl 8.7 LAB [id number](L 136-145 mEq/L OINC) Sodium Normal Lvl 136 LAB [id number](L 3.5-5.1 mEq/L OINC) Normal Potassium Lvl 4.2 LAB [id number](L 98-107 mEq/L OINC) Chloride Normal 103 LAB [id number](L 24.0-30.0 mEq/L OINC) CO2 Normal 26.0 Performed By: #### [id number] #### KEIRY [facility] [address] [place] [address] EGFR Collected: 08/22/2017 Status: F Source: [place] 7:31 AM [facility] REPOSITORY Order Comment: Order added by Discern Expert. TYPE CODE TESTS RESULT OUT OF RANGE REFERENCE UNITS LAB [id number](LO mL/min/1.73 INC) m2 Normal eGFR 49 LAB [id number](LO mL/min/1.73 INC) m2 Normal eGFR AA 59 Performed By: #### [id number] #### KEIRY [facility] [address] [id number] HOSP Observed: 08/17/2017 Status: COMPLETED Source: [place] 12:00 AM [facility] REPOSITORY Patient:Richard King MRN: <[id number]> Height:5' 8[self report ht/wt[(1.727 m) Weight:165 lb (74.844 kg) Outpatient Medications as of 08/20/17: Back Brace misc gabapentin (NEURONTIN) 100 mg capsule aspirin 325 mg tablet atorvastatin (LIPITOR) 20 mg tablet lisinopril-hydrochlorothiazide (PRINZIDE,ZESTORETIC) 20-12.5 mg per tablet meloxicam (MOBIC) 7.5 mg tablet metoprolol succinate ER (TOPROL XL) 50 mg 24 hr tablet omeprazole (PRILOSEC) 20 mg capsule predniSONE (DELTASONE) 1 mg tablet Admission/Clinic Administered Medications as of 08/20/17: Patient has no admission medications. Problem List: Posterior vitreous detachment of right eye [H43.811] Vitreous floaters of both eyes [H43.393] Combined form of age-related cataract, both eyes [H25.813] Arthritis [M19.90] Elevated cholesterol [E78.00] GERD (gastroesophageal reflux disease) [K21.9] Heart attack (HCC) [I21.9] Hypertension [I10] Aspirin long-term use [Z79.82] Allergies: No Known Allergies Date Verified:07/27/17 Lab Values No results within the last 30 days for the following basenames: K,HCT Progress Notes (SHUBHAM DENTON ): Cherry Ramos MD 08/03/2017 3:07 PM Signed Preoperative Phone Call: August 03, 2017 at 3:06 pm The patient was called regarding the surgery on his cell phone #[phone] instead of the home member that he gave me at the preop visit. He could not be reached at that number. A voice mail was left asked him to call us back for any questions regarding the operation. The patient did not have any questions. The patient is prepared to undergo the operation. The patient appreciated the call. Progress Notes (SHUBHAM DENTON ): Cherry Ramos MD 07/27/2017 3:02 PM Signed SPINE SURGERY ESTABLISHED DATE OF SERVICE: 07/27/2017 DATE OF LAST VISIT: 07/11/2017 PCP: Calvin Dumont REFERRING PROVIDER: [place] [id number] SUBJECTIVE Richard King is a 81 year old male presenting with his older son who is a power of title attorney and also an title attorney.. He drives a dump truck. CHIEF COMPLAINT: Bilateral buttock and radiating bilateral thigh pain into the posterior aspect of both calves and shins HISTORY OF PRESENT ILLNESS PRECIPITATING EVENT: None DURATION OF SYMPTOMS: June 2016. Worsening since March 2017 The patient presents for preoperative appointment. His predominant pain in his lower back to radiate circumferentially down to both legs down to the shins anteriorly into the back of these posteriorly. Pain is achy and numbing at 9/10. Walking aggravates pain relieved by taking prednisone. The patient initially presented with bilateral buttock pain radiates down posteriorly to the both thighs and anteriorly as well and into the proximal aspect of both calves and shins. Pain is achy and numbing at 9-10/10. He feels a quality life is no longer manageable and would like to have something done definitively. He is older son has a power of title attorney who is also an title attorney. PAIN EVALUATION 07/27/2017 Pain Score: 9 Pain Location: Back-Lower Description: Aching;Numbness Duration Amount of Time: 1.5 Duration Units: Years Frequency: Continuous Intervention: Medication;Reposition;Relaxation;Pillow support;Positioning Pain Radiation: Buttocks To circumferentially down to both knees and into the proximal calves and shins Aggravating Factors: Standing, Walking Alleviating Factors: Sitting, Prednisone Pain Ratio: Pain in the leg(s) is greater than in the back DERMATOMAL DISTRIBUTION: Right: L4 and L5 Left: L4 and L5 AMBULATORY STATUS: 100 yards STANDING UPRIGHT: 10-20 minutes FUNCTIONAL STATUS: Walk indoors, such as around the house (1.75 METs) Do light work around the house, such as dusting or washing dishes (2.70 METs) Take care of self, that is eating, dressing, bathing, using the toilet (2.75 METs) Do moderate work around the house such as vacuuming, sweeping floors, or carrying in groceries (3.50 METs) Do yardwork, such as raking leaves, weeding,or pushing a power mower (4.50 METs) Climb a flight of stairs or walk up a hill (5.50 METs) PREVIOUS CONSERVATIVE TREATMENTS: Only the first PNEELOPE helped. The last [address] Juarez. PT done in 2016 did not help all that much. PREVIOUS SPINAL SURGERY: None PED RED FLAGS No No-Significant Injury to Spine YES-Use of Steroids for Prolonged Duration No-Loss of Bowel/Bladder Control, Genital/Anal Numbness No-Recent Use of Intravenous (IV) Drugs No-Difficulty Keeping Balance when Walking No-Progressive Weakness in Arms/Legs No-History of Any Type of Cancer YES-Unable to Find Position of Comfort No-Pain at Night that Disturbs Sleep No-Recent Elevated Temp with Unknown Cause No-Diagnosed with Osteoporosis No-Unintentional Weight Loss or Gain He was told he had some cancer does not know exactly where. *PED (Patient Entered Data) osteoporosis flag will display for females 55 years or older and males 75 years or older. 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, Both Eyes Arthritis Elevated Cholesterol Gerd (Gastroesophageal Reflux Disease) Heart Attack Hypertension Aspirin Long-Term Use PAST MEDICAL HISTORY Diagnosis Date - Arthritis - Aspirin long-term use - Combined form of age-related cataract, both eyes 05/30/2016 - Elevated cholesterol - GERD (gastroesophageal reflux disease) - Heart attack 2008 - Hypertension - Posterior vitreous detachment of right eye 05/30/2016 - Vitreous floaters of both eyes 05/30/2016 PAST SURGICAL HISTORY Procedure Laterality Date - HEART SURGERY HX 2009 double bypass FAMILY HISTORY Problem Relation Age of Onset - Hypertension Mother - Diabetes Mother - Hypertension Father Social History Marital status: Spouse name: Years of education: Number of children: 4 Occupational History Occupation Employer Comment retired but workin* Social History Main Topics Smoking status: Never Smoker Smokeless status: Never Used Alcohol use: No Drug use: No ALLERGIES No Known Allergies MEDICATIONS: aspirin 325 mg tablet Take 325 mg by mouth once daily. Holding 5 days pre op atorvastatin (LIPITOR) 20 mg tablet Take 20 mg by mouth once daily. lisinopril-hydrochlorothiazide (PRINZIDE,ZESTORETIC) 20-12.5 mg per tablet Take 1 tablet by mouth once daily. meloxicam (MOBIC) 7.5 mg tablet Take 7.5 mg by mouth once daily. Holding 5 days pre op metoprolol succinate ER (TOPROL XL) 50 mg 24 hr tablet Take 50 mg by mouth once daily. omeprazole (PRILOSEC) 20 mg capsule Take 20 mg by mouth once daily. predniSONE (DELTASONE) 1 mg tablet Take 1 mg by mouth three times daily. Back Brace misc QuickDraw gabapentin (NEURONTIN) 100 mg capsule REVIEW OF SYSTEMS: Review of Systems Constitutional Negative for Fevers, Night Sweats, Weight Gain, Weight Loss and Fatigue Eyes Negative for Change in vison not corrected by glasses and Vision loss or change Hent Negative for Hearing Loss, Difficulty Swallowing, Tinnitus and Recent change in speech or voice Cardiovascular Positive for Leg pain with walking Negative for Chest Pain and Lightheadedness Respiratory Negative for SOB at rest, SOB with exertion, Cough, Wheezing and Snoring GI Negative for Blood in Stool, Abdominal Pain, Diarrhea, Constipation, Nausea/Vomiting and Heartburn Negative for Urgency, Impotence, Incontinence and Sexual Dysfunction Endocrine Negative for Heat Intolerance, Excessive Thirst and Menstrual Cycle Irregularities Musculoskeletal Positive for Back Pain Negative for Joint Swelling, Stiff Joints and Muscle Pain Integumentary Negative for Rashes, Itching, Other Lesions and Hair Changes Heme/Lymph Negative for Prolonged Bleeding, Easy Bruising and Swelling of Arm or Leg Allergy/Immunologic Negative for Nasal Congestion and Swollen Nodes Neurologic Negative for Memory Problems, Headache, Numbness/Tingling, Weakness, Double Vision, Trouble Swallowing and Slurred Speech Psychiatric Negative for Stress or Conflicts, Depression, Anxiety, Irritability, Hallucinations and Delusions Patient's Review of Systems has been reviewed with the patient and updated as appropriate. OBJECTIVE: PHYSICAL EXAM BP 156/70 Pulse 79 Resp 20 Ht 172.7 cm (5' 8) Wt 74.8 kg (165 lb) BMI 25.09 kg/m2 GENERAL APPEARANCE: Well nourished, well developed, and no apparent distress. NEURO PSYCH: Patient oriented to person, place, and time. Mood pleasant. Benign affect. HEENT: Atraumatic and normocephalic cranium. Pupils equally round and reactive to light. Oropharynx clear. Upper denture Neck: Supple Chest: Clear to auscultation bilaterally Cardiac: Regular rhythm and rate Abdomen: Soft, nondistended and nontender Extremities: No gross deformities THE FOLLOWING IS THE SUMMARY OF THE PREVIOUS EXAMINATION. REPEATED AND OR ADDITIONAL EXAMINATION IS IN BOLD PRINT. CARDIOVASCULAR: Palpable 2+ pedal pulses. No edema noted. No varicosities. SKIN: Head, neck, trunk, and extremities dry, intact and without lesions. LYMPHATICS: No palpable nodes in cervical or axillae areas. Groin exam deferred. MUSCULOSKELETAL VISUAL INSPECTION CERVICAL: WNL with full active range of motion THORACIC: Slightly more prominent right side thoracic region LUMBAR: Slightly more prominent right side lumbar region. For flexion to 30? causes posterior thigh and calf pain on the left PALPATION: SPINOUS PROCESS: No pain. PARASPINALS: No pain. MUSCLE BULK: Normal and symmetrical in the upper AND lower extremities. MUSCLE TONE: Normal. MOTOR: 5/5 in all muscle groups of the lower extremities with exception of bilateral ADF and EHL 4/5 compared to initial exam that demonstrated the following exceptions: hip flexors 4, knee extension and flexion 4, ankle dorsiflexion 4, right EHL 4 left is 4+. SENSORY: Normal sensory exam GAIT: Normal. Difficulty with heel and toe REFLEXES: +2 to bilateral lower extremities in both regions except for absent left patella. PROPRIOCEPTION: Not tested. LONG TRACT SIGNS: No clonus. No Hoffmans. STRAIGHT LEG TEST: Ipsilateral: Negative. Contralateral: Negative. L'HERMITTES SIGN: Not tested. SPURLING'S TEST: Not tested. EXTREMITIES: No gross deformity or laxity with normal range of motion without pain except for gross palsy of the right upper extremity and hand with atrophy of the hand PELVIS: No hip irritability STATION: stable. ADDITIONAL LONG TRACT SIGNS: Babinski: absent Escape sign: Not performed ADDITIONAL EXAMINATION: not performed [place] Signs: not performed KP: Diminished OAARS report was reviewed. Gabapentin in June 2017 MEDICAL RECORDS Reviewed at the index visit: Left L3 and L4 transforaminal lumbar epidural steroid injections by Dr. Juarez on May 05, 2016 Left L3 and L4 transforaminal lumbar epidural steroid injections by Dr. Juarez performed on December 01, 2016 Left L4 and L5 transforaminal lumbar epidural steroid ejections by Dr. Juarez performed on March 06, 2017 Progress note dated June 06, 2017 regarding lumbar stenosis with neurogenic claudication NEURO TESTS: None DATA REVIEW Imaging and outside records reviewed and findings are as follows THE STUDIES REVIEWED AT THIS VISIT ARE HIGHLIGHTED IN BOLD PRINT. [facility] Lumbar x-rays. Complete with bending views. June 12, 2017. L3-4 this space collapse on the left. L4 translated slightly to the left of L5. Left L4-5 disc space narrowing. Degenerative disc changes with disc degeneration L3-5 with severe collapsed disc space L5-S1. L4-5 degenerative spondylosis and measuring 7 mm with forward flexion that reduces to 5 mm in extension Atherosclerosis the vascular structures of the aorta. Lumbar MRI scan. June 12, 2017. Severe stenosis L3-4 and severe stenosis L4-5 with facet widening and canal down to 6 mm. L4-5 spondylolisthesis that appears be reduced compared to lumbar x-rays. Mild stenosis L3-4 ASSESSMENT/PLAN IMPRESSION: (Z98.1) S/P laminectomy with spinal fusion (primary encounter diagnosis) (M48.062) Lumbar stenosis with neurogenic claudication (M43.10) Degenerative spondylolisthesis (I10) Essential hypertension (M19.90) Arthritis (I21.4) Non-ST elevation (NSTEMI) myocardial infarction (HCC) (E78.00) Elevated cholesterol (H25.813) Combined form of age-related cataract, both eyes (Z79.82) Aspirin long-term use #1 L3-4 and L4-5 lumbar stenosis with claudication and lower extremity weakness, degenerative spondylosis L4-5 with facet widening, coronary disease, status post myocardial infarction with subsequent coronary artery bypass graft in 2008 Diagnoses and treatment options were discussed. Based on failure of previous conservative treatments, he would be a reasonable candidate for L3-5 laminectomy with fusion. We talked at length about involving L2-3. I am concerned about the potential adjacent level degeneration which may occur out earlier based on adding fusion to L3-L5. His son and the patient talked at length about the possibility of adjacent level degeneration and his active status. He would like to have the L2 level also included. Therefore the consent was modified to L2-L5 lumbar laminectomy and fusion. Risks and complications of the lumbar laminectomy surgery were discussed including but limited to bleeding, infection, damage to nerves, soft tissue, vessels, deep venous thrombosis, pulmonary embolus, heart attack, stroke, , nerve and cord injury, paralysis, worsening pain, paresthesias, weakness, durotomy, pseudarthrosis or non-union, adjacent segment disease, failure or malpositioning of the instrumentation, need for further surgery, and persistent back pain. The patient was given the option of going to one of my colleagues due to anticipated closure of spine program locally in this hospital by November 2017. The patient prefers to proceed with surgery locally and will arrange follow-up's as needed with other [facility] surgeons. Cardiology consultation the patient is an acceptable candidate for upcoming surgical procedure. He should stay on his. Procedure blood pressure control agents. He may hold his antiplatelet therapy for 5-7 days prior to surgery. #2 coronary artery disease, status post myocardial infarction, status post coronary artery bypass graft Cardiac consultation was was completed with acceptable risk. Decrease antiplatelet therapy 5- days before the surgery. #3 family situation His son who has the power of title attorney was present throughout the office visit today. #4 postop delirium A known common complication in the perioperative period for the geriatric patient is delirium. It can increase the length of the hospital stay as as well as morbidity and mortality. Richard King is clinically indicated and wishes to pursue Lumbar Decompression with Fusion at L2-5. Clinical Indications for Spinal Fusion: Spondylolisthesis: Grade 2 with 4-10mm of slip The risks, benefits, and anticipated outcomes of the procedure/treatment/test, the alternatives to the procedure/treatment/test and their risks and benefits, and the roles and tasks of the personnel to be involved were discussed with the patient or the patient?s personal personal service representative. The patient has elected to schedule surgery at this time or intends to call the office with a surgical date. Shared decision making occurred while obtaining informed consent. 1. Imaging: Lumbar X-Ray 2. Consults: Physical Therapy Home health. Pain medication prescription to be determined at the hospital. 3. Follow up: Postop SIGNATURE: Cherry Ramos MD PATIENT NAME: Richard King DATE: July 27, 2017 TIME: 2:36 PM PAGER: CODING SUMMARY. Observed: 08/11/2017 Status: F Source: [facility] 2:54 PM [facility] REPOSITORY CODING DATE: 08/11/2017 FINAL [facility] STATUS: SNF w/ Medicare Cert PAYOR: Medicare Grouper: 460 MS-DRG Spinal fusion except cervical w/o CARE HOME Low Trim 0 High Trim 999 304 APR-DRG DORSAL & LUMBAR FUSION PROC EXCEPT FOR CURVATURE OF BACK Severity of Illness Minor Risk of Mortality Minor ADMIT DX: M48.062 Spinal stenosis, lumbar region with neurogenic claudication REASON FOR VISIT DX: FINAL DX: PRINCIPAL: M48.062 Y Spinal stenosis, lumbar region with neurogenic claudication SECONDARY: M43.16 Y Spondylolisthesis, lumbar region M19.90 Y Unspecified osteoarthritis, unspecified site I25.2 1 Old myocardial infarction E78.00 Y Pure hypercholesterolemia, unspecified H25.813 Y Combined forms of age-related cataract, bilateral D64.9 N Anemia, unspecified N18.9 Y Chronic kidney disease, unspecified I12.9 Y Hypertensive chronic kidney disease with stage 1 through stage 4 chronic kidney disease, or unspecified chronic kidney disease K21.9 Y Gastro-esophageal reflux disease without esophagitis Z79.82 1 correction (current) use of aspirin Z79.52 1 correction (current) use of systemic steroids PROCEDURES DOCTOR NAME DATE [id number] Fusion of 2 or more Lumbar Faisal RASHID, Cherry Torres 08/06/2017 Vertebral Joints with Interbody Fusion Device, Posterior Approach, Anterior Column, Open Approach [id number] Release Lumbar Nerve, Carol Ramos MD, Cherry Torres 08/06/2017 Approach [id number] Release Lumbar Nerve, Carol Ramos MD, Cherry Torres 08/06/2017 Approach [id number] Release Lumbar Nerve, Carol Ramos MD, Cherry Torres 08/06/2017 Approach [id number] Repair Spinal Meninges, Carol Ramos MD, Cherry Torres 08/06/2017 Approach NOTE: The code number assigned matches the documented diagnosis and / or procedure in the patient's chart. However, the narrative phrase printed from the coding software may appear abbreviated, or result in slightly different terminology. Coded By: Beatrice Pettit Date Saved: 08/11/2017 02:54 pm BMP Collected: 08/11/2017 Status: F Source: [facility] 5:00 AM [facility] REPOSITORY TYPE CODE TESTS RESULT OUT OF RANGE REFERENCE UNITS LAB [id number](L 70-99 mg/dL OINC) High Glucose Lvl 117 LAB [id number](L 8.4-10.2 mg/dL OINC) Calcium Normal Lvl 8.5 LAB [id number](L 136-145 mEq/L OINC) Sodium Normal Lvl 139 LAB [id number](L 3.5-5.1 mEq/L OINC) Normal Potassium Lvl 4.0 LAB [id number](L 98-107 mEq/L OINC) Chloride Normal 104 LAB [id number](L 24.0-30.0 mEq/L OINC) CO2 Normal 27.3 LAB [id number](L 7-18 mg/dL OINC) High BUN 32 LAB 1387227(LO 0.6-1.3 mg/dL INC) High Creatinine 1.4 LAB [id number](L 5.4-30.0 ratio OINC) Normal BUN/Creat Ratio 22.9 Performed By: #### [id number] #### KEIRY [facility] [address] [place] [address] EGFR Collected: 08/11/2017 Status: F Source: [facility] 5:00 AM [facility] REPOSITORY Order Comment: Order added by Discern Expert. TYPE CODE TESTS RESULT OUT OF RANGE REFERENCE UNITS LAB [id number](LO mL/min/1.73 INC) m2 Normal eGFR 49 LAB [id number](LO mL/min/1.73 INC) m2 Normal eGFR AA 59 Performed By: #### [id number] #### KEIRY [facility] [address] [place] [address] INPATIENT PATIENT Observed: 08/09/2017 Status: C Source: [facility] SUMMARY 11:16 AM [facility] REPOSITORY [address] [address] Patient Discharge Instructions PERSON INFORMATION Name: RICHARD KING Date of : 1935 12:00 AM Current Date: 08/09/17 11:15:59 PHYSICIANS Admitting Physician: Cherry Ramos MD Primary Care Physician: CALVIN DUMONT MD PCP Comment: Discharge Diagnosis: 1:Lumbar stenosis with neurogenic claudication; 2:Anemia; 3:Elevated serum creatinine; Acid reflux; Aspirin long-term use; Benign essential hypertension; Degenerative spondylolisthe sis; Heart attack; High blood pressure; High cholesterol; S/P laminectomy with spinal fusion; Steroid dependent for adrenal supression Condition at Discharge: Improved RICHARD KING has been given the following list of follow- up instructions, prescriptions, and patient education materials: PATIENT FOLLOW-UP INFORMATION Diet: Regular Discharge Activity: Ambulate as tolerated Discharge Restrictions: No driving Wound Care Instructions: Remove dressing as instructed Remove Your Dressing In 3 Days Call Your Doctor For: Persistent or heavy bleeding, Temperature above 101.5 degrees, Redness, swelling, or pus at operative site, Severe pain at the operative site, Persistent vomiting IF UNABLE TO CONTACT YOUR PHYSICIAN AND YOU FEEL IT IS AN EMERGENCY, GO TO THE NEAREST EMERGENCY ROOM OR CALL 911 Home Treatment: Devices/Equipment: Special Services: Additional Instructions: please continue the Prednisone taper as it is written on a prescrption Primary Care Physician to provide the following pending test results: None Follow up: With: Address: When: Cherry Ramos [address] [place] [address] Business (1) 08/28/17 02:50:00 Comments: lumbar x-rays to be done prior to the office visit With: Address: When: CALVIN JIMÉNEZRUBIO [address] [place] [address] [phone] Business (1) Comments: Call for any problems or concerns. In the event that this physician does not participate in your insurance network, please consult with your insurance company to find a nearby participating provider. Comment: ANNALISA Carrasco RICHARD L, have received the attached patient education materials/instructions and have verbalized understanding: Patient Signature Date Clinican/Nurse Signature Date HERE ARE THE MEDICATION CHANGES THAT OCCURRED DURING YOUR HOSPITAL STAY New Medications Printed Prescriptions acetaminophen-oxycodone (Percocet 325 mg-5 mg Tab) 1-2 tab(s) Oral q4-6hr prn not to exceed 12 tablets/day; as needed for pain. Refills: 0. Last Dose: Next Dose: Misc Prescription (DME) 0. DME to be provided as needed for the circled item(s): rolling walker, elevated toilet seat, shower seat. Refills: 0. Last Dose: Next Dose: Misc Prescription (Repeat BMP on 08/11/2017) 0. Dx. Elevated Cr Results to covering MD at [facility]. Refills: 0. Last Dose: Next Dose: Medications to Continue Taking That Have Changed Other Medications START: hydrochlorothiazide-lisinopril (hydrochlorothiazide- lisinopril 12.5 mg-20 mg Tab) 1 Tabs By Mouth every day. HOLD THIS MEDICATION UNTIL REPEAT LABS ARE REVIEWED BY JOSE A RASHID ON 08/11/17 TO DETERMINE WHEN TO RESUME. Last Dose: Next Dose: STOP: hydrochlorothiazide-lisinopril (hydrochlorothiazide- lisinopril 12.5 mg-20 mg Tab) 1 Tabs By Mouth every day. Medications to Continue with No Changes Printed Prescriptions predniSONE (predniSONE 1 mg Tab) prednisone 5 mg orally every 8 hours x 2 doses on 08/06/17, 2.5 mg orally every 8 hours x 3 doses on 08/07/17, then 1 mg orally every 8 hours x 3 doses on 08/08/17 with food or milk. Refills: 0. Last Dose: Next Dose: Other Medications aspirin (aspirin 325 mg Oral EC Tab) 1 Tabs By Mouth every day. Last Dose: Next Dose: atorvastatin (atorvastatin 20 mg Tab) 1 Tabs By Mouth every day. Last Dose: Next Dose: metoprolol (metoprolol 50 mg ER Tab) 1 Tabs By Mouth every day. Last Dose: Next Dose: omeprazole (omeprazole 20 mg Cap-DR) 1 Capsules By Mouth every day. Last Dose: Next Dose: predniSONE (predniSONE 1 mg Tab) 1 Tabs By Mouth 3 times a day. Last Dose: Next Dose: No Longer Take the Following Medications meloxicam (meloxicam 7.5 mg Tab) 1 Tabs By Mouth every day. Comment: MEDICATION LIST PROVIDED FOR YOU IS A LIST OF YOUR CURRENT MEDICATIONS. PLEASE CARRY THIS WITH YOU AT ALL TIMES. acetaminophen-oxycodone (Percocet 325 mg-5 mg Tab) 1-2 tab(s) Oral q4-6hr prn not to exceed 12 tablets/day; as needed for pain. Refills: 0. aspirin (aspirin 325 mg Oral EC Tab) 1 Tabs By Mouth every day. atorvastatin (atorvastatin 20 mg Tab) 1 Tabs By Mouth every day. hydrochlorothiazide-lisinopril (hydrochlorothiazide-lisinopril 12.5 mg-20 mg Tab) 1 Tabs By Mouth every day. HOLD THIS MEDICATION UNTIL REPEAT LABS ARE REVIEWED BY COVERING MD ON 08/11/17 TO DETERMINE WHEN TO RESUME. metoprolol (metoprolol 50 mg ER Tab) 1 Tabs By Mouth every day. [facility] Prescription (DME) 0. DME to be provided as needed for the circled item(s): rolling walker, elevated toilet seat, shower seat. Refills: 0. Misc Prescription (Repeat BMP on 08/11/2017) 0. Dx. Elevated Cr Results to covering MD at [facility]. Refills: 0. omeprazole (omeprazole 20 mg Cap-DR) 1 Capsules By Mouth every day. predniSONE (predniSONE 1 mg Tab) 1 Tabs By Mouth 3 times a day. predniSONE (predniSONE 1 mg Tab) prednisone 5 mg orally every 8 hours x 2 doses on 08/06/17, 2.5 mg orally every 8 hours x 3 doses on 08/07/17, then 1 mg orally every 8 hours x 3 doses on 08/08/17 with food or milk. Refills: 0. Pharmacy Information: Other: [facility] Comment: PATIENT EDUCATION INFORMATION Instructions: Spinal Fusion Spinal fusion is a procedure to make 2 or more of the bones in your spinal column (vertebrae ) grow together (fuse ). This procedure stops movement between the vertebrae and can relieve pain and prevent deformity. Spinal fusion is used to treat the following conditions: ? Fractures of the spine. ? Herniated disk (the spongy material [cartilage ] between the vertebrae). ? Abnormal curvatures of the spine, such as scoliosis or kyphosis. ? A weak or an unstable spine, caused by infections or tumor. RISKS AND COMPLICATIONS Complications associated with spinal fusion are rare, but they can occur. Possible complications include: ? Bleeding. ? Infection near the incision. ? Nerve damage. Signs of nerve damage are back pain, pain in one or both legs, weakness, or numbness. ? Spinal fluid leakage. ? Blood clot in your leg, which can move to your lungs. ? Difficulty controlling urination or bowel movements. BEFORE THE PROCEDURE ? A medical evaluation will be done. This will include a physical exam, blood tests, and imaging exams. ? You will talk with an anesthesiologist. This is the person who will be in charge of the anesthesia during the procedure. Spinal fusion usually requires that you are asleep during the procedure (general anesthesia ). ? You will need to stop taking certain medicines, particularly those associated with an increased risk of bleeding. Ask your caregiver about changing or stopping your regular medicines. ? If you smoke, you will need to stop at least 2 weeks before the procedure. Smoking can slow down the healing process, especially fusion of the vertebrae, and increase the risk of complications. ? Do not eat or drink anything for at least 8 hours before the procedure. PROCEDURE A cut (incision ) is made over the vertebrae that will be fused. The back muscles are from the vertebrae. If you are having this procedure to treat a herniated disk, the disc material pressing on the nerve root is removed (decompression ). The area where the disk is removed is then filled with extra bone. Bone from another part of your body (autogenous bone ) or bone from a bone donor (allog raft bone ) may be used. The extra bone promotes fusion between the vertebrae. Sometimes, specific medicines are added to the fusion area to promote bone healing. In most cases, screws and rods or metal plates will be used to attach the vertebrae to stabilize them while they fuse. AFTER THE PROCEDURE ? You will stay in a recovery area until the anesthesia has worn off. Your blood pressure and pulse will be checked frequently. ? You will be given antibiotics to prevent infection. ? You may continue to receive fluids through an intravenous (IV) tube while you are still in the hospital. ? Pain after surgery is normal. You will be given pain medicine. ? You will be taught how to move correctly and how to stand and walk. While in bed, you will be instructed to turn frequently, using a log rolling technique, in which the entire body is moved without twisting the back. Document Released: 02/17/2004 Document Revised: 08/12/2012 Document Reviewed: 08/03/2011 ExitCare? Patient Information ?2013 [employer]. Lumbar Laminectomy Care After You have had a laminectomy (entire lamina removed) as a treatment for your back problem. This procedure involves removal of bone to relieve pressure on nerve roots. The time spent in surgery depends on the findings found in surgery and what is necessary to correct the problems. HOME CARE INSTRUCTIONS ? Check the cut (incision ) made by the surgeon twice a day for signs of infection. Some signs may include a foul smelling, greenish or yellowish discharge from the wound, increased pain, or increased redness over the operative (incision) site. There may also be an opening of the incision, flu-like symptoms, or a temperature above 101.5? F (38.6? C). ? Change your bandages in about 24 to 36 hours following surgery, or as directed. ? You may shower once the bandage is removed, or as directed. Avoid bathtubs, swimming pools, and hot tubs for three weeks or until your incision has healed completely. If you have stitches or anthony, they may be removed 2 to 3 weeks after surgery, or as directed by your doctor. ? Follow your doctor's instructions as to safe activities, exercises, and physical therapy. ? Weight reduction may be helpful if you are overweight. ? Daily exercise is helpful to prevent the return of problems. Walking is permitted. You may use a treadmill without an incline. Cut down on activities and exercise if you have discomfort. You may also go up and down stairs as much as you can tolerate. ? DO NOT lift anything heavier than 10 to 15 lbs. Avoid bending or twisting at the waist. Always bend your knees. ? Maintain strength and range of motion as instructed. ? Do not drive for 2 to 3 weeks, or as directed by your doctor. You may be a passenger for 20 to 30 minute trips. Laying back in the passenger seat may be more comfortable for you. ? Limit your sitting to 20 to 30 minute intervals. You should lie down or walk in between sitting periods. There are no limitations for sitting in a recliner chair. ? Only take upui-nkc-yghnydw or prescription medicines for pain, discomfort, or fever as directed by your caregiver. SEEK MEDICAL CARE IF: ? There is increased bleeding (more than a small spot) from the wound. ? You notice redness, swelling, or increasing pain in the wound. ? Pus is coming from wound. ? An unexplained oral temperature above 102? F (38.9? C) develops. ? You notice a foul smell coming from the wound or dressing. ? You have increasing pain in your wound. SEEK IMMEDIATE MEDICAL CARE IF: ? You develop a rash. ? You have difficulty breathing. ? You have any allergic problems. Document Released: 04/24/2005 Document Revised: 08/12/2012 Document Reviewed: 05/21/2006 ExitCare? Patient Information ?[address] [employer] Ramos?s Discharge Instructions, version 2 Follow the instructions marked only with [ x ] [ X ] Follow up in days___3__weeks when discharged from rehab center [ X ] Follow-up x-rays are needed. If discharged to home, then please have the following x-rays performed prior to the first office visit. If discharged to an extended care facility, long term or rehab, please have the facility perfo rm the following x-rays to be done prior to the first office visit. [ ] Follow x-rays are not needed [ X ] Activities: No lifting over 10 pounds, no twisting, bending or stooping [ ] Collar [ ] Corset [ X ] brace to be worn [ X ] when out of bed [ ] at all times. [ X ] No driving until further notice. [ X ] Shower allowed on post-operative day # __3___. [ X ] No bathing or swimming until further notice. [ X ] Dressing changes as needed after showering using 4x4 gauze and tape after __3___ days. [ X ] Anti-embolic hoses to be worn until normal activity is resumed or up to 3 weeks. [ X ] Avoid impact loading or jarring activities. [ X ] Resume all home medications unless otherwise instructed not to. [ X ] If spinal fusion has been done, then avoid taking anti-inflammatory medications. [ ] Take over the counter anti-inflammatory medication as directed. [ X ] Narcotic prescription(s) given. [ ] Narcotic prescription(s) not needed or indicated. [ X ] Discharge patient to [ ] home [ ] with home health care if qualifies [ X ] extended care facility or long term or [ X ] rehab. [ X ] Call [phone] for any questions related to spine issues only. [ X ] Schedule outpatient physical therapy in days weeks_X____when the home health care is completed. Medication Leaflets: Thank you for choosing [facility] INPATIENT CLINICAL Observed: 08/09/2017 Status: C Source: [facility] SUMMARY 11:15 AM [facility] REPOSITORY [address] [address] Clinical Summary Person Information: Name: RICHARD KING Age: 81 Years : 1935 12:00 AM Sex: Male PCP: CALVIN DUMONT MD Marital Status: Phone: [phone] Race: White Ethnicity: Non- or Language: Yakut Visit Id: Visit Reason: LUMBAR SPINAL STENOSOS L3-4, L4-5 SPONDYLOLITHESIS Speciality: Acuity: Enc Type: Inpatient Med Service: Surgery Arrival: 08/06/2017 5:53 AM Discharge: Dispo Type: Address: [address] [place] [address] [address] [place] [address] [phone] Provider Notes: Patient: RICHARD KING Age: 81 years Sex: Male : 1935 Associated Diagnoses: None Author: Cherry Ramos MD Discharge Information Discharge Summary Information: Admit Date/Time: 08/06/17 05:53 Discharge Date/Time: 08/09/17 09:42 Admitting Physician: Cherry Ramos MD Referring Physician for Admission: Cherry Ramos MD Consulting Physicians: Jaelyn Hylton Admitting Diagnoses: Discharge Diagnoses: S/p lumbar laminectomy L2-5 with fusion L3-5 Anemia, unspecified Other specified abnormal findings of blood chemistry Arthrodesis status Gastro-esophageal reflux disease without esophagitis 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 Essential (primary) hypertension Spondylolisthesis, site unspecified Spinal stenosis, lumbar region with neurogenic claudication Acute myocardial infarction, unspecified Pure hypercholesterolemia, unspecified Essential (primary) hypertension Prescription and Home Meds: Misc Prescription (DME) 0, DME to be provided as needed for the circled item(s): rolling walker, elevated toilet seat, shower seat aspirin (aspirin 325 mg Oral EC Tab) 325 mg, 1 tab(s), Oral, Daily atorvastatin (atorvastatin 20 mg Tab) 20 mg, 1 tab(s), Oral, Daily, 0 Refill(s) hydrochlorothiazide-lisinopril (hydrochlorothiazide-lisinopril 12.5 mg-20 mg Tab) 1 tab(s), Oral, Daily metoprolol (metoprolol 50 mg ER Tab) 50 mg, 1 tab(s), Oral, Daily omeprazole (omeprazole 20 mg Cap-DR) 20 mg, 1 cap(s), Oral, Daily predniSONE (predniSONE 1 mg Tab) 1 mg, 1 tab(s), Oral, TID predniSONE (predniSONE 1 mg Tab) See Instructions, prednisone 5 mg orally every 8 hours x 2 doses on 08/06/17, 2.5 mg orally every 8 hours x 3 doses on 08/07/17, then 1 mg orally every 8 hours x 3 doses on 08/08/17 with food or milk, 30 tab(s), 0 Refill(s) Discharge Summary Information: Admitted 08/06/2017, Discharged 08/09/2017. Admitting physician: Cherry Ramos MD Consulting physician: Viktor GUO, Deborah Christy [facility], Rachael. Admitting diagnosis: Acid reflux (KMX69-WE K21.9, Discharge, Nursing), High blood pressure (WFB76-AI I10, Discharge, Nursing), High cholesterol (NEW29-JS E78.00, Discharge, Nursing), Heart attack ( [id number]-GS I21.9, Discharge, Nursing), Lumbar stenosis with neurogenic claudication (KKP26-KW M48.062, Discharge, Medical), Degenerative spondylolisthesis (ICD10- CM M43.10, Discharge, Medical), Benign ess ential hypertension (XBP47-JV I10, Discharge, Medical), Aspirin long-term use (ICD10- CM Z79.82, Discharge, Medical), Steroid dependent for adrenal supression (ICD10- CM Z79.52, Discharge, Medical), Anemi a (MCQ15-SN D64.9, Discharge, Medical), Elevated serum creatinine (UDP14-BM R79.89, Discharge, Medical). Operations and procedures: L2-5 laminectomy and L3-5 fusion. Results Review 36hr Labs 08/09 07:58 eGFR AA 44 L eGFR 37 L Sodium Lvl 138 Potassium Lvl 4.0 Chloride 104 CO2 30 AGAP 8 BUN/Creat Ratio 17 Glucose Lvl 128 Creatinine 1.8 H BUN 30 H Calcium Lvl 8.2 L Neutro Auto 70.3 Eos Auto 1.4 Basophil Auto 0.4 Neutro Absolute 7.0 Lymph Absolute 1.3 Eos Absolute 0.1 Basophil Absolu 0.0 Lymph Auto 13.1 L [place] Auto 14.8 H [place] Absolute 1.5 H WBC 9.9 RDW 12.8 MCH 34.0 MCHC 34.5 MCV 98.7 MPV 9.0 Platelet 202.0 Hct 33.5 L Hgb 11.5 L RBC 3.4 L 08/08 08:20 eGFR 39 L eGFR AA 47 L BUN/Creat Ratio 15 Sodium Lvl 136 Potassium Lvl 4.0 Chloride 101 CO2 29 AGAP 10 Glucose Lvl 141 Creatinine 1.7 H BUN 26 H Calcium Lvl 8.0 L 08/08 06:09 Hct 33.2 L Hgb 11.3 L Physical Examination Vitals Signs (last 24 hrs) Last Charted Minimum Maximum Temp 36.6 (AUG 09:24) 36.5 (AUG 08:14) 37.1 (AUG 08:33) Heart Rate 80 (AUG 09 08:53) 80 (AUG 08 20:14) 86 (AUG 09:42) Resp Rate 14 (AUG 09:) L 12 (AUG 08:33) 14 (AUG 09:) SBP 126 (AUG 09:24) 94 (AUG 08 15:55) H 145 (AUG 09:42) DBP 70 (AUG 09:) L 54 (AUG 09:42) 70 (AUG 09:) MAP 89 (AUG 09:) 76 (AUG 08 15:55) 90 (AUG 08:14) SpO2 92 (AUG 09:24) 92 (AUG 09:24) 96 (AUG 08:33) awake and allert incision intact no gross LE deficit dressing dry Hospital Course Hospital Course Admitted from: from home. Length of stay: days 3. Assessment/Plan 1. 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 baseline. -Trend labs -Will give 250ml bolus today and reassess level in AM. HTN -Currently normotensive -Hold HCTZ-Lisinopril today resume in AM. -Utilize Hydralazine prn for SBP >160 History NV-stable -Continue Metoprolol HLD -Continue Statin Chronic Pain -Hold Prednisone -Surgical services to determine resumption History right hand contracture - defect. DVT Prophylaxis: SCD/ambulation Discharge Plan Discharge Summary Plan Discharge Status: improved. Discharge instructions given: to patient. Discharge disposition: [facility]. Prescriptions: continue same medications. Diagnosis: 1:Lumbar stenosis with neurogenic claudication; 2:Anemia; 3:Elevated serum creatinine; Acid reflux; Aspirin long-term use; Benign essential hypertension; Degenerative spondylolisthesis; Heart attack; Hi gh blood pressure; High cholesterol; S/P laminectomy with spinal fusion; Steroid dependent for adrenal supression Problems No Problems Documented Smoking Status: Functional Status: Sensory Deficits: History of Falls: Mobility Assistance Prior to Admission: ADLs: Independent Current Level of Assistance for Self-Care/Mobility: Cognitive Status: Allergies Chlorhexidine Gluconate (Burning) Measurements: Height: Weight: 75.7 kg Blood Pressure: 105 mmHg / 63 mmHg BMI: Procedures Laminectomy (08/06/2017) Immunizations No Immunizations Documented This Visit Final Med List: acetaminophen-oxycodone (Percocet 325 mg-5 mg Tab) 1-2 tab(s) Oral q4-6hr prn not to exceed 12 tablets/day; as needed for pain. Refills: 0. aspirin (aspirin 325 mg Oral EC Tab) 1 Tabs By Mouth every day. atorvastatin (atorvastatin 20 mg Tab) 1 Tabs By Mouth every day. hydrochlorothiazide-lisinopril (hydrochlorothiazide-lisinopril 12.5 mg-20 mg Tab) 1 Tabs By Mouth every day. HOLD THIS MEDICATION UNTIL REPEAT LABS ARE REVIEWED BY COVERING MD ON 08/11/17 TO DETERMINE WHEN TO RESUME. metoprolol (metoprolol 50 mg ER Tab) 1 Tabs By Mouth every day. Misc Prescription (DME) 0. DME to be provided as needed for the circled item(s): rolling walker, elevated toilet seat, shower seat. Refills: 0. Misc Prescription (Repeat BMP on 08/11/2017) 0. Dx. Elevated Cr Results to covering MD at [facility]. Refills: 0. omeprazole (omeprazole 20 mg Cap-DR) 1 Capsules By Mouth every day. predniSONE (predniSONE 1 mg Tab) 1 Tabs By Mouth 3 times a day. predniSONE (predniSONE 1 mg Tab) prednisone 5 mg orally every 8 hours x 2 doses on 08/06/17, 2.5 mg orally every 8 hours x 3 doses on 08/07/17, then 1 mg orally every 8 hours x 3 doses on 08/08/17 with food or milk. Refills: 0. Care Team Members: Attending Physician: Cherry Ramos MD Consulting Physician: Jaelyn Hylton Referring Physician: Cherry Ramos MD Follow up: With: Address: When: Cherry Ramos [address] [place] [id number] Business (1) 08/28/17 02:50:00 Comments: lumbar x-rays to be done prior to the office visit With: Address: When: CALVIN DUMONT [address] [place], [place] [phone] Business (1) Comments: Call for any problems or concerns. Patient Education Information: Faisal Spinal Fusion (FTDMOORE); Faisal Lumbar Laminectomy, Care After (FTDMOORE); Faisal 2, Discharge Instructions 08-31-13 (FTDMOORE) (FTDMOORE) PROGRESS NOTE-PHYSICIAN Observed: 08/09/2017 Status: F Source: [facility] 10:[facility] AM [facility] REPOSITORY Subjective Pleasant and cooperative, patient states he slept better last night, pain is well controlled on current regimen. He is eating and drinking is normal. No abdominal complaints. Is passing flatus. Mary ent denies chest pain/pressure, or palpitations, shortness of breath, nausea/vomiting or paresthesias. Educated on use of oral pain regimen for continuous control of pain level, importance of incentive spirometer ?10 per hour while awake and review of bowel regimen to avoid constipation in the posto perative period. Patient verbalized understanding of all information provided and demonstrated use of incentive spirometry. Plan of care reviewed with patient who denies any further questions or concerns at this time. Review of Systems Constitutional: no fever, no chills, no sweats, no weakness Skin: no Jaundice, no rash, no lesions, nopetechiae ENMT: no ear pain, no sore throat, no congestion, no hoarseness Respiratory: no shortness of breath, no cough, no orthopnea, no wheezing Cardiovascular: no chest pain, no palpitations, no edema Gastrointestinal: no nausea, no vomiting, no diarrhea, no GI bleeding Genitourinary: no dysuria, no hematuria, no discharge, no pain Musculoskeletal: no back pain, no trauma, rt hand deformity - chronic Neurologic: no headache, no dizziness, no numbness, no weakness Psychiatric: no sleeping problems, no irritability, no mood swings/depression. Heme/Lymph: no bleeding tendency, no bruising tendency, no petechiae, no swollen nodes Allergy/Immunologic: no seasonal allergies, no food allergies, no recurrent infections, no impaired immunity Additional ROS info: Except as noted in the above Review of Systems and in the History of Present Illness all other systems have been reviewed and are negative or noncontributory. Objective Vitals & Measurements T: 36.6 ?C (Oral) TMIN: 36.5 ?C (Oral) TMAX: 37.1 ?C (Oral) HR: 80(Apical) RR: 14 BP: 126/70 SpO2: 92% Intake & Output This visit (24 hour periods starting at 07:00) 08/09/17 * 08/08/17 08/07/17 Total Summary Intake mL -- -- 560 Output mL -- 475 1,270 Fluid Balance -- -475 -710 Intake (1) Oral Intake mL -- -- 560 Total -- -- 560 Output (3) Other: Davol Back Lumbar mL -- -- 45 Urine Catheter mL -- -- 1,225 Urine Voided mL -- 475 -- Total -- 475 1,270 Counts (0) * This column has not completed the indicated time period. Physical Exam General: alert, no acute distress Skin: warm, dryNot intact, sugical incision clean dry and intact?managed per surgical services Head: no trauma, normocephalic Neck: Trachea midline, no adenopathy, no tenderness Eye: normal conjunctiva, sclera clear ENMT: TM's clear, oral mucosa moist, no pharyngeal erythema or exudate Cardiovascular: regular rate and rhythm, normal peripheral perfusion Respiratory: Lungs CTA, respirations non labored Chest wall: no deformity. Gastrointestinal: soft, non distended, no tenderness, no guarding. Back: No tenderness, Normal ROM, Normal alignment. Extremities: no deformity, no trauma Neurological: oriented x 4, LOC appropriate for age, CN II-XII intact, motor strength equal & normal bilaterally, sensation equal & normal bilaterally, speech normal Psychiatric: cooperative, affect appropriate for age, normal judgement, normal psychiatric thoughts. Lab Results WBC: 9.9 E9/L (08/09/17 07:58:00) RBC: 3.4 E12/L Low (08/09/17 07:58:00) Hgb: 11.5 gm/dL Low (08/09/17 07:58:00) Hct: 33.5 % Low (08/09/17 07:58:00) MCV: 98.7 fL (08/09/17 07:58:00) MCH: 34 pg (08/09/17 07:58:00) MCHC: 34.5 gm/dL (08/09/17 07:58:00) RDW: 12.8 % (08/09/17 07:58:00) Platelet: 202 E9/L (08/09/17 07:58:00) MPV: 9 fL (08/09/17 07:58:00) Neutro Auto: 70.3 % (08/09/17 07:58:00) Lymph Auto: 13.1 % Low (08/09/17 07:58:00) [place] Auto: 14.8 % High (08/09/17 07:58:00) Eos Auto: 1.4 % (08/09/17 07:58:00) Basophil Auto: 0.4 % (08/09/17 07:58:00) Neutro Absolute: 7 E9/L (08/09/17 07:58:00) Lymph Absolute: 1.3 E9/L (08/09/17 07:58:00) [place] Absolute: 1.5 E9/L High (08/09/17 07:58:00) Eos Absolute: 0.1 E9/L (08/09/17 07:58:00) Basophil Absolute: 0 E9/L (08/09/17 07:58:00) Glucose Lvl: 128 mg/dL (08/09/17 07:58:00) BUN: 30 mg/dL High (08/09/17 07:58:00) Creatinine: 1.8 mg/dL High (08/09/17 07:58:00) eGFR: 37 mL/min/1.73 m2 Low (08/09/17 07:58:00) eGFR AA: 44 mL/min/1.73 m2 Low (03/08/18 07:58:00) BUN/Creat Ratio: 17 (08/09/17 07:58:00) Sodium Lvl: 138 mmol/L (08/09/17 07:58:00) Potassium Lvl: 4 mmol/L (08/09/17 07:58:00) Chloride: 104 mmol/L (08/09/17 07:58:00) CO2: 30 mmol/L (08/09/17 07:58:00) AGAP: 8 mEq/L (08/09/17 07:58:00) Calcium Lvl: 8.2 mg/dL Low (08/09/17 07:58:00) Assessment/Plan Lumbar stenosis with neurogenic claudication status post L2-5 lumbar laminectomy POD # 3 secondary to lumbar stenosis performed and managed by Dr.Don Ramos -PT/OT-to eval, treat -recommending SNF -Pain management -per surgical services -Education: Oral pain medication regimen, incentive spirometry while awake and bowel regimen to avoid constipation -Thank you for the opportunity to assist in the management of your patient 2. Anemia -Stable, no acute blood loss noted -Trend CBC daily Ordered: Automated Diff Basic Metabolic Panel CBC w/ Auto Diff eGFR 3. Elevated serum creatinine -I spoke with David at patient's PCP office Dr. Quispe and creatinine range is 1.5?1.7 ranging from 2016 through 2017 after review of labs with her -IV fluids d/c as patient is taking PO very well today -Recommend continuing to hold HCTZ/lisinopril until repeat labs are reviewed by covering MD -Dr. Navarro with plan to repeat BMP in 2 days with results to covering MD at [facility] SN[facility] -Discussed with Dr. 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 services, continue SCDs, sheila blanchee, early ambulation Disposition: Discharge will be determined from orthospine standpoint. Case reviewed and discussed with Dr. Ponce who is in agreement with current treatment plan, will discuss and review plan of care with Dr. Navarro once the hospital perfect bind machine operator is able to reach him. I spoke with Julia at Dr. Lozada office with update of need for repeat lab testing and holding of HCTZ/lisinopril and she states that she will pass information onto him and will ask that he call me back when he is finished with a procedure. This report was transcribed using voice recognition software. Every effort was made to ensure accuracy, however, inadvertently computerized agent broker mistakes may be present. Problem List/Past Medical History Ongoing No qualifying data Historical No qualifying data Medications Inpatient Al hydroxide/Mg hydroxide/simethicone 200 mg-200 mg-20 mg/5 mL oral suspension, 30 mL, Oral, q6hr, PRN aspirin 325 mg Oral EC Tab, 325 mg= 1 tab(s), Oral, Daily atorvastatin 20 mg Tab, 20 mg= 1 tab(s), Oral, Bedtime Colace 100 mg Cap, 100 mg= 1 cap(s), Oral, BID D5/0.45% NaCl w/20 KCl 1000 mL Soln-IV 1,000 mL, 1000 mL, IV Dilaudid 2 mg Injection, 1 mg= 0.5 mL, IV Push, q4hr, PRN Dilaudid 2 mg Injection, 2 mg= 1 mL, IV Push, q4hr, PRN Dilaudid 2 mg Injection, 1.5 mg= 0.75 mL, IV Push, q4hr, PRN Lactated Ringers IV Gilda 1000 mL 1,000 mL, 1000 mL, IV lactulose 20 g/30 mL Oral Syrup, 20 gram= 30 mL, Oral, Daily, PRN metoprolol 50 mg ER Tab, 50 mg= 1 tab(s), Oral, Daily Pepcid 20 mg Tab, 20 mg= 1 tab(s), Oral, BID Percocet 325 mg-5 mg Tab, 1 tab(s), Oral, q4hr, PRN Percocet 325 mg-5 mg Tab, 2 tab(s), Oral, q4hr, PRN predniSONE, 1 mg= 1 tab(s), Oral, q8hr Senokot 8.6 mg Tab, 17.2 mg= 2 tab(s), Oral, Daily, PRN Tylenol 325 mg Tab, 650 mg= 2 tab(s), Oral, q4hr, PRN Tylenol with Codeine 300 mg-30 mg Tab, 1 tab(s), Oral, q4hr, PRN Tylenol with Codeine 300 mg-30 mg Tab, 2 tab(s), Oral, q4hr, PRN Ultram 50 mg Tab, 100 mg= 2 tab(s), Oral, q4hr, PRN Ultram 50 mg Tab, 50 mg= 1 tab(s), Oral, q4hr, PRN Vitamin B Complex with C, Folic Acid, and Iron oral tablet, 150 mg= 1 cap(s), Oral, Daily Zofran 4 mg/2 mL Injection, 4 mg= 2 mL, IV Push, q6hr, PRN Home aspirin 325 mg Oral EC Tab, 325 mg= 1 tab(s), Oral, Daily atorvastatin 20 mg Tab, 20 mg= 1 tab(s), Oral, Daily DME, 0 hydrochlorothiazide-lisinopril 12.5 mg-20 mg Tab, 1 tab(s), Oral, Daily metoprolol 50 mg ER Tab, 50 mg= 1 tab(s), Oral, Daily omeprazole 20 mg Cap-DR, 20 mg= 1 cap(s), Oral, Daily Percocet 325 mg-5 mg Tab, See Instructions, PRN predniSONE 1 mg Tab, 1 mg= 1 tab(s), Oral, TID predniSONE 1 mg Tab, See Instructions Repeat BMP on 08/11/2017, 0 Result Comment: Electronically Signed By: Rachael Griffin\.br\Date and Time Signed: 08/09/17 10:17 EST\.br\Electronically Co-Signed By: Rachael Griffin\.br\Date and Time Co-Signed: 08/09/17 10:22 EST\.br\Electronically Co-Signed By: Alma Delia Ponce MD\.br\Date and Time Co-Signed: 08/09/17 10:26 EST INTERDISCIPLINARY NOTE - Observed: 08/09/2017 Status: F Source: [facility] 9:56 AM [facility] REPOSITORY Spoke to Rachael MATUTE and Dr. Ramos who aware of plan for discharge to [facility] today. Spoke to pt. who is aware and denies needs for me to contact his family stating no I already spoke to my son. DISCHARGE SUMMARY Observed: 08/09/2017 Status: F Source: [facility] 9:42 AM [facility] REPOSITORY Patient: RICHARD KING Age: 81 years Sex: Male : 1935 Associated Diagnoses: None Author: Cherry Ramos MD Discharge Information Discharge Summary Information: Admit Date/Time: 08/06/17 05:53 Discharge Date/Time: 08/09/17 09:42 Admitting Physician: Cherry Ramos MD Referring Physician for Admission: Cherry Ramos MD Consulting Physicians: Jaelyn Hylton Admitting Diagnoses: Discharge Diagnoses: S/p lumbar laminectomy L2-5 with fusion L3-5 Anemia, unspecified Other specified abnormal findings of blood chemistry Arthrodesis status Gastro-esophageal reflux disease without esophagitis correction (current) use of systemic steroids correction (current) use of aspirin Essential (primary) hypertension Spondylolisthesis, site unspecified Spinal stenosis, lumbar region with neurogenic claudication Acute myocardial infarction, unspecified Pure hypercholesterolemia, unspecified Essential (primary) hypertension Prescription and Home Meds: Misc Prescription (DME) 0, DME to be provided as needed for the circled item(s): rolling walker, elevated toilet seat, shower seat aspirin (aspirin 325 mg Oral EC Tab) 325 mg, 1 tab(s), Oral, Daily atorvastatin (atorvastatin 20 mg Tab) 20 mg, 1 tab(s), Oral, Daily, 0 Refill(s) hydrochlorothiazide-lisinopril (hydrochlorothiazide-lisinopril 12.5 mg-20 mg Tab) 1 tab(s), Oral, Daily metoprolol (metoprolol 50 mg ER Tab) 50 mg, 1 tab(s), Oral, Daily omeprazole (omeprazole 20 mg Cap-DR) 20 mg, 1 cap(s), Oral, Daily predniSONE (predniSONE 1 mg Tab) 1 mg, 1 tab(s), Oral, TID predniSONE (predniSONE 1 mg Tab) See Instructions, prednisone 5 mg orally every 8 hours x 2 doses on 08/06/17, 2.5 mg orally every 8 hours x 3 doses on 08/07/17, then 1 mg orally every 8 hours x 3 doses on 08/08/17 with food or milk, 30 tab(s), 0 Refill(s) Discharge Summary Information: Admitted 08/06/2017, Discharged 08/09/2017. Admitting physician: Cherry Ramos MD Consulting physician: Jaelyn Hylton Osborn AGACNP-BC, Renee. Admitting diagnosis: Acid reflux (VMZ97-LG K21.9, Discharge, Nursing), High blood pressure (VDQ46-KD I10, Discharge, Nursing), High cholesterol (DAV28-CI E78.00, Discharge, Nursing), Heart attack ( MCO29-RP I21.9, Discharge, Nursing), Lumbar stenosis with neurogenic claudication (SIW85-KP M48.062, Discharge, Medical), Degenerative spondylolisthesis (ICD10- CM M43.10, Discharge, Medical), Benign ess ential hypertension (BVC37-TN I10, Discharge, Medical), Aspirin long-term use (ICD10- CM Z79.82, Discharge, Medical), Steroid dependent for adrenal supression (ICD10- CM Z79.52, Discharge, Medical), Anemi a (NMS35-SC D64.9, Discharge, Medical), Elevated serum creatinine (HVB78-NL R79.89, Discharge, Medical). Operations and procedures: L2-5 laminectomy and L3-5 fusion. Results Review 36hr Labs 08/09 07:58 eGFR AA 44 L eGFR 37 L Sodium Lvl 138 Potassium Lvl 4.0 Chloride 104 CO2 30 AGAP 8 BUN/Creat Ratio 17 Glucose Lvl 128 Creatinine 1.8 H BUN 30 H Calcium Lvl 8.2 L Neutro Auto 70.3 Eos Auto 1.4 Basophil Auto 0.4 Neutro Absolute 7.0 Lymph Absolute 1.3 Eos Absolute 0.1 Basophil Absolu 0.0 Lymph Auto 13.1 L [place] Auto 14.8 H [place] Absolute 1.5 H WBC 9.9 RDW 12.8 MCH 34.0 MCHC 34.5 MCV 98.7 MPV 9.0 Platelet 202.0 Hct 33.5 L Hgb 11.5 L RBC 3.4 L 08/08 08:20 eGFR 39 L eGFR AA 47 L BUN/Creat Ratio 15 Sodium Lvl 136 Potassium Lvl 4.0 Chloride 101 CO2 29 AGAP 10 Glucose Lvl 141 Creatinine 1.7 H BUN 26 H Calcium Lvl 8.0 L 08/08 06:09 Hct 33.2 L Hgb 11.3 L Physical Examination Vitals Signs (last 24 hrs) Last Charted Minimum Maximum Temp 36.6 (AUG 09:24) 36.5 (AUG 08 20:14) 37.1 (AUG 08:33) Heart Rate 80 (AUG 09 08:53) 80 (AUG 08 20:14) 86 (AUG 09:42) Resp Rate 14 (AUG 09:) L 12 (AUG 08:33) 14 (AUG 09:24) SBP 126 (AUG 09:) 94 (AUG 08 15:55) H 145 (AUG 09:42) DBP 70 (AUG 09:) L 54 (AUG 09:42) 70 (AUG 09:) MAP 89 (AUG 09:) 76 (AUG 08 15:55) 90 (AUG 08:14) SpO2 92 (AUG 09:) 92 (AUG 09:24) 96 (AUG 08:33) awake and allert incision intact no gross LE deficit dressing dry Hospital Course Hospital Course Admitted from: from home. Length of stay: days 3. Assessment/Plan 1. 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 baseline. -Trend labs -Will give 250ml bolus today and reassess level in AM. HTN -Currently normotensive -Hold HCTZ-Lisinopril today resume in AM. -Utilize Hydralazine prn for SBP >160 History NV-stable -Continue Metoprolol HLD -Continue Statin Chronic Pain -Hold Prednisone -Surgical services to determine resumption History right hand contracture - defect. DVT Prophylaxis: SCD/ambulation Discharge Plan Discharge Summary Plan Discharge Status: improved. Discharge instructions given: to patient. Discharge disposition: discharge [facility]. Prescriptions: continue same medications. Result Comment: Electronically Signed By: Cherry Ramos MD\.br\Date and Time Signed: 08/09/17 09:47 EST PROGRESS NOTE-PHYSICIAN Observed: 08/09/2017 Status: F Source: [facility] 8:55 AM [facility] REPOSITORY Patient: RICHARD KING Age: 81 years Sex: Male : 1935 Associated Diagnoses: None Author: Cherry Ramos MD Subjective comfotable except for incisional pain no leg pain no headache Objective Intake and Output Fluid Balance Primitives 08/09/2017 05:01 EST Urine Output Initial Not Done: Not Appropriate at this Time (Not Done) Urine Output Initial Not Done: Not Appropriate at this Time (Not Done) 08/09/2017 05:00 EST Urine Voided 300 mL 08/09/2017 01:00 EST Urine Voided 175 mL Vitals Signs (last 24 hrs) Last Charted Minimum Maximum Temp 36.6 (AUG 09 07:24) 36.5 (AUG 08 20:14) 37.1 (AUG 08 11:33) Heart Rate 80 (AUG 09 08:53) 80 (AUG 08 20:14) 86 (AUG 09 01:42) Resp Rate L 12 (AUG 08 15:55) L 12 (AUG 08 11:33) L 12 (AUG 08 11:33) SBP 126 (AUG 09 07:24) 94 (AUG 08 15:55) H 145 (AUG 09:42) DBP 70 (AUG 09 07:24) L 54 (AUG 09 01:42) 70 (AUG 09 07:24) MAP 89 (AUG 09 07:24) 76 (AUG 08 15:55) 90 (AUG 08 20:14) SpO2 92 (AUG 09 07:24) 92 (AUG 09 07:24) 96 (AUG 08 11:33) awake and allert incision intact no gross LE deficit dressing dry Results Review 36hr Labs 08/09 07:58 Neutro Auto 70.3 Eos Auto 1.4 Basophil Auto 0.4 Neutro Absolute 7.0 Lymph Absolute 1.3 Eos Absolute 0.1 Basophil Absolu 0.0 Lymph Auto 13.1 L [place] Auto 14.8 H [place] Absolute 1.5 H WBC 9.9 RDW 12.8 MCH 34.0 MCHC 34.5 MCV 98.7 MPV 9.0 Platelet 202.0 Hct 33.5 L Hgb 11.5 L RBC 3.4 L 03/ 08:20 eGFR 39 L eGFR AA 47 L BUN/Creat Ratio 15 Sodium Lvl 136 Potassium Lvl 4.0 Chloride 101 CO2 29 AGAP 10 Glucose Lvl 141 Creatinine 1.7 H BUN 26 H Calcium Lvl 8.0 L 08/08 06:09 Hct 33.2 L Hgb 11.3 L CM Discharge Needs II Discharge Activities : Pt. from home with support and transportation on dc. Pt. would like to dc to [facility]. Therapy to see. Referral made to [facility] accepts. Stevenson ROWELL, Jamia - 08/08/2017 14:37 EST Benefits Admission Medicare Message Provided : Yes Date Admission IM Provided : 08/06/2017 EST Long-Term/Rehabilitation Benefits : [facility] 08/2017 Stevenson ROWELL, Jamia - 08/08/2017 14:37 EST [facility], Maggie - 08/08/2017 11:29 EST PT Subjective Information Subjective Information : Patient with c/o 6/10 incision pain at back but reports old pain in buttocks and LE's is much improved Impression and Plan s/p L2-5 lami with PSF L3-5, dural repair stable no evidence of CSF leak discussed with hospitalist rehab today Result Comment: Electronically Signed By: Faisal RASHID, Cherry Torres\.br\Date and Time Signed: 08/09/17 09:41 EST CBC W/ AUTO DIFF Collected: 08/09/2017 Status: F Source: [facility] 7:58 AM [facility] REPOSITORY TYPE CODE TESTS RESULT OUT OF REFERENCE UNITS RANGE LAB 79039-4(LO 4.0-11.0 E9/L INC) LEUKOCYTES Normal 9.9 LAB 789-8(LOIN 4.3-5.9 E12/L C) Low ERYTHROCYTES:NCNC: 3.4 PT:BLD:QN:AUTOMATE D COUNT LAB 718-7(LOIN 13.5-17.5 gm/dL C) Low HEMOGLOBIN:MCNC:PT 11.5 :BLD:QN: LAB 4544-3(FILEMON 37.7-49.0 % NC) Low HEMATOCRIT:VFR:PT: 33.5 BLD:QN:AUTOMATED COUNT LAB 788-0(LOIN 10.9-14.2 % C) ERYTHROCYTE Normal DISTRIBUTION 12.8 WIDTH:RATIO:PT:RBC :QN:AUTOMATED COUNT LAB 785-6(LOIN 27.0-34.0 pg C) ERYTHROCYTE Normal MEAN CORPUSCULAR 34.0 HEMOGLOBIN:ENTMASS :PT:RBC:QN:AUTOMAT ED COUNT LAB 786-4(LOIN 31.4-39.3 gm/dL C) ERYTHROCYTE Normal MEAN CORPUSCULAR 34.5 HEMOGLOBIN CONCENTRATION:MCNC :PT:RBC:QN:AUTOMAT ED COUNT LAB 787-2(LOIN 80.0-100.0 fL C) ERYTHROCYTE Normal MEAN CORPUSCULAR 98.7 VOLUME:ENTVOL:PT:R BC:QN:AUTOMATED COUNT LAB 87578-2(LO 6.4-10.8 fL INC) PLATELET MEAN Normal VOLUME:ENTVOL:PT:B 9.0 LD:QN:AUTOMATED COUNT LAB 777-3(LOIN 150.0-500.0 E9/L C) Normal PLATELETS:NCNC:PT: 202.0 BLD:QN:AUTOMATED COUNT Performed By: #### [id number], [id number], [id number], [id number] #### [facility] [address] [place] [address] AUTO DIFF Collected: 08/09/2017 Status: F Source: [facility] 7:58 AM [facility] REPOSITORY Order Comment: Order Added by Discern Expert. TYPE CODE TESTS RESULT OUT OF RANGE REFERENCE UNITS LAB 751-8(LOINC 36.0-75.0 % ) Normal 70.3 NEUTROPHILS: NCNC:PT:BLD: QN:AUTOMATED COUNT LAB 731-0(LOINC 14.0-50.0 % ) Low 13.1 LYMPHOCYTES: NCNC:PT:BLD: QN:AUTOMATED COUNT LAB 742-7(LOINC 4.0-14.0 % ) High 14.8 MONOCYTES:NC NC:PT:BLD:QN :AUTOMATED COUNT LAB 711-2(LOINC 0.0-8.0 % ) Normal 1.4 EOSINOPHILS: NCNC:PT:BLD: QN:AUTOMATED COUNT LAB 704-7(LOINC 0.0-2.0 % ) Normal 0.4 BASOPHILS:NC NC:PT:BLD:QN :AUTOMATED COUNT LAB 58147-2(FILEMON 2.0-7.5 E9/L NC) Normal 7.0 NEUTROPHILS/ LEUKOCYTES:N FR.DF:PT:BLD :QN:AUTOMATE D COUNT LAB 36997-0(FILEMON 1.0-4.0 E9/L NC) Normal 1.3 LYMPHOCYTES/ LEUKOCYTES:N FR.DF:PT:BLD :QN:AUTOMATE D COUNT LAB 16038-3(FILEMON 0.2-1.0 E9/L NC) High 1.5 MONOCYTES/LE UKOCYTES:NFR .DF:PT:BLD:Q N:AUTOMATED COUNT LAB 88362-4(FILEMON 0.0-0.5 E9/L NC) Normal 0.1 EOSINOPHILS/ LEUKOCYTES:N FR.DF:PT:BLD :QN:AUTOMATE D COUNT LAB 47949-9(FILEMON 0.0-0.2 E9/L NC) Normal 0.0 BASOPHILS/LE UKOCYTES:NFR .DF:PT:BLD:Q N:AUTOMATED COUNT Performed By: #### [id number], [id number] #### [facility] [address] [place] [id number] [facility] Collected: 08/09/2017 Status: F Source: [facility] 7:58 AM [facility]ENTER REPOSITORY TYPE CODE TESTS RESULT OUT OF RANGE REFERENCE UNITS LAB 2339-0(LOIN 55-199 mg/dL C) Normal 128 GLUCOSE:MCNC :PT:BLD:QN: Result Comment: If this glucose result represents a fasting glucose, interpretation should refer to the following reference range: 55-99 mg/dL LAB 3094-0(LOINC) 5-21 mg/dL UREA NITROGEN:MCNC:PT:SER/PLAS:QN: High 30 LAB 2160-0(LOINC) 0.5-1.3 mg/dL CREATININE:MCNC:PT:SER/PLAS:QN: High 1.8 LAB 3097-3(LOINC) 10-20 No Units UREA NITROGEN/CREATININE:MRTO:PT:SER/ Normal PLAS:QN: 17 LAB 85179-1(LOINC) 8.9-11. mg/dL 1 CALCIUM:MCNC:PT:SER/PLAS:QN: Low 8.2 LAB 2951-2(LOINC) 135-145 mmol/L SODIUM:SCNC:PT:SER/PLAS:QN: Normal 138 LAB 2823-3(LOINC) 3.5-5.3 mmol/L POTASSIUM:SCNC:PT:SER/PLAS:QN: Normal 4.0 LAB 2075-0(LOINC) 101-111 mmol/L CHLORIDE:SCNC:PT:SER/PLAS:QN: Normal 104 LAB 2028-9(LOINC) 21-31 mmol/L CARBON DIOXIDE:SCNC:PT:SER/PLAS:QN: Normal 30 LAB 17863-3(LOINC) 6-16 mEq/L ANION GAP:SCNC:PT:SER/PLAS:QN: Normal 8 Performed By: #### [id number] #### [facility] [address] [place] [address] EGFR Collected: 08/09/2017 Status: F Source: [facility] 7:58 AM MEDICAL CENTER REPOSITORY Order Comment: Order added by Discern Expert. TYPE CODE TESTS RESULT OUT OF REFERENCE UNITS RANGE LAB 48570-1(LO >=59 mL/min/1.73 INC) Low m2 GLOMERULAR 37 FILTRATION RATE/1.73 SQ M.PREDICTED.NON BLACK:ARVRAT:PT: SER/PLAS:QN:CREA TININE-BASED FORMULA (MDRD) Result Comment: Chronic kidney disease could be indicated at eGFR's of less than 60 mL/min/1.73m2. Kidney failure is indicated at less than 15 mL/min/1.73m2. LAB 85420-8(LOINC) GLOMERULAR >=59 mL/min/1.73 FILTRATION RATE/1.73 SQ m2 M.PREDICTED.BLACK:ARVRAT:PT:SER/PLAS:QN:CREATININE-BASED FORMULA (MDRD) Low 44 Result Comment: eGFR is race adjusted. AA=. Performed By: #### [id number], [id number], [id number] #### [facility] [address] [place] [address] PROGRESS NOTE-PHYSICIAN Observed: 08/08/2017 Status: F Source: [facility] 11:43 AM [facility] REPOSITORY Subjective Doing well this morning. Denies chest pain or SOB this morning. Is eating and drinking well. Expelling flatus but no bowel movement. Objective Vitals & Measurements T: 37.1 ?C (Oral) TMIN: 36.8 ?C (Oral) TMAX: 37.1 ?C (Oral) HR: 82(Monitored) RR: 12 BP: 103/65 SpO2: 96% Intake & Output This visit (24 hour periods starting at 07:00) 08/08/17 * 08/07/17 08/06/17 Total Summary Intake mL -- 560 2,893.06 Output mL -- 1,270 2,160 Fluid Balance -- -710 733.06 Intake (16) Dextrose 5% with 0.45% NaCl and KCl 20 mEq/l 1,000 mL mL -- -- 510 Lactated Ringers Injection mL -- -- 1,300 Lactated Ringers Injection 1,000 mL mL -- -- 300 Oral Intake mL -- 560 640 cefazolin mL -- -- 100 dexamethasone mL -- -- 1 ephedrine mL -- -- 0.8 fentanyl mL -- -- 1 hydromorphone mL -- -- 1.7 lidocaine mL -- -- 2.5 midazolam mL -- -- 2 ondansetron mL -- -- 8 phenylephrine mL -- -- 0.06 propofol mL -- -- 15 rocuronium mL -- -- 5 succinylcholine mL -- -- 6 Total -- 560 2,893.06 Output (5) EBL Surgery mL -- -- 400 Emesis mL -- -- 1,380 Other: Davol Back Lumbar mL -- 45 25 Urine Catheter mL -- 1,225 155 Urine Count mL -- -- 200 Total -- 1,270 2,160 Counts (2) Emesis mL -- -- 1,380 Urine Count mL -- -- 200 * This column has not completed the indicated time period. Physical Exam General: Alert and oriented, No acute distress. Appearance: Calm, Obese. Behavior: Appropriate, Cooperative. Skin: Normal for ethnicity. Eye: Pupils are equal, round and reactive to light, Extraocular movements are intact, Normal conjunctiva. HENT: Normocephalic, Normal hearing, Oral mucosa is moist. Neck: Supple, Non-tender. Respiratory: Lungs are clear to auscultation, Respirations are non-labored, Symmetrical chest wall expansion. Cardiovascular: Normal rate, Good pulses equal in all extremities. Gastrointestinal: Soft, Non-tender, Normal bowel sounds. Genitourinary: No inguinal tenderness. Musculoskeletal Mobility/ gait: walker. Upper extremity exam: hand (right, contracture). Spine/torso exam: lumbar pain. Neurologic: Alert, Oriented, Cranial Nerves II-XII are grossly intact. Orientation: Oriented X 4. Cognition and Speech: Oriented, Speech clear and coherent. Psychiatric: Cooperative, Appropriate mood & affect. Integumentary: Warm, Dry, [place]. Integumentary exam: Lumbar incision and dressing managed by surgical services.. Lab Results Hgb: 11.3 gm/dL Low (08/08/17 06:09:00) Hct: 33.2 % Low (08/08/17 06:09:00) Glucose Lvl: 141 mg/dL (08/08/17 08:20:00) BUN: 26 mg/dL High (08/08/17 08:20:00) Creatinine: 1.7 mg/dL High (08/08/17 08:20:00) eGFR: 39 mL/min/1.73 m2 Low (08/08/17 08:20:00) eGFR AA: 47 mL/min/1.73 m2 Low (08/08/17 08:20:00) BUN/Creat Ratio: 15 (08/08/17 08:20:00) Sodium Lvl: 136 mmol/L (08/08/17 08:20:00) Potassium Lvl: 4 mmol/L (08/08/17 08:20:00) Chloride: 101 mmol/L (08/08/17 08:20:00) CO2: 29 mmol/L (08/08/17 08:20:00) AGAP: 10 mEq/L (08/08/17 08:20:00) Calcium Lvl: 8 mg/dL Low (08/08/17 08:20:00) Assessment/Plan 1. 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 baseline. -Trend labs -Will give 250ml bolus today and reassess level in AM. HTN -Currently normotensive -Hold HCTZ-Lisinopril today resume in AM. -Utilize Hydralazine prn for SBP >160 History NV-stable -Continue Metoprolol HLD -Continue Statin Chronic Pain -Hold Prednisone -Surgical services to determine resumption History right hand contracture - defect. DVT Prophylaxis: SCD/ambulation Disposition: Pt inpatient status with discharge planning in progress. Case reviewed and discussed with . Problem List/Past Medical History Ongoing No qualifying data Historical No qualifying data Medications Inpatient Al hydroxide/Mg hydroxide/simethicone 200 mg-200 mg-20 mg/5 mL oral suspension, 30 mL, Oral, q6hr, PRN aspirin 325 mg Oral EC Tab, 325 mg= 1 tab(s), Oral, Daily atorvastatin 20 mg Tab, 20 mg= 1 tab(s), Oral, Bedtime Colace 100 mg Cap, 100 mg= 1 cap(s), Oral, BID D5/0.45% NaCl w/20 KCl 1000 mL Soln-IV 1,000 mL, 1000 mL, IV Dilaudid 2 mg Injection, 1 mg= 0.5 mL, IV Push, q4hr, PRN Dilaudid 2 mg Injection, 2 mg= 1 mL, IV Push, q4hr, PRN Dilaudid 2 mg Injection, 1.5 mg= 0.75 mL, IV Push, q4hr, PRN Lactated Ringers IV Gilda 1000 mL 1,000 mL, 1000 mL, IV lactulose 20 g/30 mL Oral Syrup, 20 gram= 30 mL, Oral, Daily, PRN metoprolol 50 mg ER Tab, 50 mg= 1 tab(s), Oral, Daily Pepcid 20 mg Tab, 20 mg= 1 tab(s), Oral, BID Percocet 325 mg-5 mg Tab, 1 tab(s), Oral, q4hr, PRN Percocet 325 mg-5 mg Tab, 2 tab(s), Oral, q4hr, PRN predniSONE, 1 mg= 1 tab(s), Oral, q8hr predniSONE, 2.5 mg= 0.5 tab(s), Oral, q8hr Senokot 8.6 mg Tab, 17.2 mg= 2 tab(s), Oral, Daily, PRN Tylenol 325 mg Tab, 650 mg= 2 tab(s), Oral, q4hr, PRN Tylenol with Codeine 300 mg-30 mg Tab, 1 tab(s), Oral, q4hr, PRN Tylenol with Codeine 300 mg-30 mg Tab, 2 tab(s), Oral, q4hr, PRN Ultram 50 mg Tab, 100 mg= 2 tab(s), Oral, q4hr, PRN Ultram 50 mg Tab, 50 mg= 1 tab(s), Oral, q4hr, PRN Vitamin B Complex with C, Folic Acid, and Iron oral tablet, 150 mg= 1 cap(s), Oral, Daily Zofran 4 mg/2 mL Injection, 4 mg= 2 mL, IV Push, q6hr, PRN Home aspirin 325 mg Oral EC Tab, 325 mg= 1 tab(s), Oral, Daily atorvastatin 20 mg Tab, 20 mg= 1 tab(s), Oral, Daily DME, 0 hydrochlorothiazide-lisinopril 12.5 mg-20 mg Tab, 1 tab(s), Oral, Daily meloxicam 7.5 mg Tab, 7.5 mg= 1 tab(s), Oral, Daily metoprolol 50 mg ER Tab, 50 mg= 1 tab(s), Oral, Daily omeprazole 20 mg Cap-DR, 20 mg= 1 cap(s), Oral, Daily predniSONE 1 mg Tab, 1 mg= 1 tab(s), Oral, TID predniSONE 1 mg Tab, See Instructions Result Comment: Electronically Signed By: Jaelyn Hylton\.br\Date and Time Signed: 08/08/17 11:47 EST\.br\Electronically Co-Signed By: Alma Delia Ponce MD\.br\Date and Time Co-Signed: 08/08/17 13:22 EST INTERDISCIPLINARY NOTE - Observed: 08/08/2017 Status: C Source[facility] 10:19 AM [facility] Spoke to Fabiola RABBIT DRESSER who anticipates discharge to SNF tomorrow. Spoke to pt. and family who are aware of pending acceptance from [place] for discharge tomorrow. Pt. denies further needs. Pt. accepted, Sindi RN aware and will update patient to advise it is for semi private room on and then they will move him to private room on the . BMP Collected: 08/08/2017 Status: F Source: [facility] 8:20 AM [facility] TYPE CODE TESTS RESULT OUT OF RANGE REFERENCE UNITS LAB 2339-0(LOIN 55-199 mg/dL C) Normal 141 GLUCOSE:MCNC :PT:BLD:QN: Result Comment: If this glucose result represents a fasting glucose, interpretation should refer to the following reference range: 55-99 mg/dL LAB 3094-0(LOINC) 5-21 mg/dL UREA NITROGEN:MCNC:PT:SER/PLAS:QN: High 26 LAB 2160-0(LOINC) 0.5-1.3 mg/dL CREATININE:MCNC:PT:SER/PLAS:QN: High 1.7 LAB 3097-3(LOINC) 10-20 No Units UREA NITROGEN/CREATININE:MRTO:PT:SER/ Normal PLAS:QN: 15 LAB 53067-3(LOINC) 8.9-11. mg/dL 1 CALCIUM:MCNC:PT:SER/PLAS:QN: Low 8.0 LAB 2951-2(LOINC) 135-145 mmol/L SODIUM:SCNC:PT:SER/PLAS:QN: Normal 136 LAB 2823-3(LOINC) 3.5-5.3 mmol/L POTASSIUM:SCNC:PT:SER/PLAS:QN: Normal 4.0 LAB 2075-0(LOINC) 101-111 mmol/L CHLORIDE:SCNC:PT:SER/PLAS:QN: Normal 101 LAB 2028-9(LOINC) 21-31 mmol/L CARBON DIOXIDE:SCNC:PT:SER/PLAS:QN: Normal 29 LAB 50452-6(LOINC) 6-16 mEq/L ANION GAP:SCNC:PT:SER/PLAS:QN: Normal 10 Performed By: #### [id number], [id number] #### [facility] [address] [place] [address] EGFR Collected: 08/08/2017 Status: F Source: [facility] 8:20 AM [facility] REPOSITORY Order Comment: Order added by Discern Expert. TYPE CODE TESTS RESULT OUT OF REFERENCE UNITS RANGE LAB 07506-7(LO >=59 mL/min/1.73 INC) Low m2 GLOMERULAR 39 FILTRATION RATE/1.73 SQ M.PREDICTED.NON BLACK:ARVRAT:PT: SER/PLAS:QN:CREA TININE-BASED FORMULA (MDRD) Result Comment: Chronic kidney disease could be indicated at eGFR's of less than 60 mL/min/1.73m2. Kidney failure is indicated at less than 15 mL/min/1.73m2. LAB 47960-0(LOINC) GLOMERULAR >=59 mL/min/1.73 FILTRATION RATE/1.73 SQ m2 M.PREDICTED.BLACK:ARVRAT:PT:SER/PLAS:QN:CREATININE-BASED FORMULA (MDRD) Low 47 Result Comment: eGFR is race adjusted. AA=. Performed By: #### [id number], [id number] #### [facility] [address] [place] [address] PROGRESS NOTE-PHYSICIAN Observed: 08/08/2017 Status: C Source: [facility] 6:46 AM [facility] REPOSITORY Patient: RICHARD KING Age: 81 years Sex: Male : 1935 Associated Diagnoses: None Author: Cherry Ramos MD Subjective incisional pain walked twice no pain in the legs no headache Objective Intake and Output Fluid Balance Primitives 08/08/2017 03:31 EST Urine Output Initial Not Done: patient has keller catheter (Not Done) 08/07/2017 23:29 EST Urine Output Initial Not Done: patient has keller catheter (Not Done) 08/07/2017 22:00 EST Oral Intake 150 mL 08/07/2017 19:58 EST Urine Output Initial Not Done: not addressed by previous staff (Not Done) Urine Output Initial Not Done: patient has keller catheter (Not Done) 08/07/2017 18:00 EST Oral Intake 200 mL Urine Catheter 550 mL Other: Davol Back Lumbar Surgical Drain, Tube Output: 20 mL 08/07/2017 10:00 EST Oral Intake 210 mL 08/07/2017 05:00 EST Other: Davol Back Lumbar Surgical Drain, Tube Output: 25 mL 08/07/2017 03:02 EST Urine Output Initial Not Done: patient has keller catheter (Not Done) Vitals Signs (last 24 hrs) Last Charted Minimum Maximum Temp 36.9 (AUG 08 02:20) 36.8 (AUG 07 07:29) 36.9 (AUG 07:33) Heart Rate 86 (AUG 08 02:20) 85 (AUG 07:33) 91 (AUG 07:29) Resp Rate 18 (AUG 08 02:20) 16 (AUG 07 15:31) 20 (AUG 07:) SBP 120 (AUG 08 02:20) 108 (AUG 07:) 128 (AUG 07:) DBP 73 (AUG 08 02:20) 66 (AUG 07 19:00) 75 (AUG 07:29) MAP 81 (AUG 07:) 81 (AUG 07:) 93 (AUG 07:29) SpO2 91 (AUG 08 02:20) 91 (AUG 08 02:20) 96 (AUG 07 19:00) Documented vital signs awake and alert dressing stained consistent with sanguinous seeping incision intact improved LE neuro status Results Review 36hr Labs 08/08 06:09 Hgb 11.3 L Hct 33.2 L 08/07 05:38 eGFR AA 51 L eGFR 42 L Creatinine 1.6 H BUN 24 H Calcium Lvl 8.1 L Sodium Lvl 139 Potassium Lvl 4.3 Chloride 103 CO2 29 AGAP 11 BUN/Creat Ratio 15 Glucose Lvl 199 Hct 35.9 L Hgb 11.9 L Impression and Plan s/p L2-5 lami, PSF L3-5 with dural repain no evidence of CSF neuro improved anticipate rehab in am discussed with hospitalist PT recommendation Assessment PT Impairments or Limitations : Ambulation deficits, Bed mobility deficits, HEP deficits, Strength deficits, Transfer deficits Barriers to Safe Discharge PT : Limited family support, Time since onset PT Treatment Recommendations : 6 clicks Am-PAC . Due to patient living alone, recommend skilled rehab. Will see daily Chayito Pack, PT - 08/07/2017 11:49 EST Plan PT Frequency Rehab : Daily PT Duration Rehab : 1-2 weeks PT Anticipated Treatments, Needs : Bed mobility training, Gait training, Patient education, Therapeutic exercises, Transfer training PT Plan/Goals Established w Pt/Caregiver : Yes patient feels well no headache dressing intact PT recommends rehab in am Result Comment: Electronically Signed By: Faisal RASHID, Cherry Torres\.br\Date and Time Signed: 08/08/17 15:10 EST HEMOGLOBIN Collected: 08/08/2017 Status: F Source: [facility] 6:09 AM [facility] REPOSITORY TYPE CODE TESTS RESULT OUT OF RANGE REFERENCE UNITS LAB 718-7(LOINC 13.5-17.5 gm/dL ) Low 11.3 HEMOGLOBIN:M CNC:PT:BLD:Q N: Performed By: #### [id number] #### [facility] [address] [place] [address] HEMATOCRIT Collected: 08/08/2017 Status: F Source: [facility] 6:09 AM [facility] REPOSITORY TYPE CODE TESTS RESULT OUT OF RANGE REFERENCE UNITS LAB 4544-3(LOIN 37.7-49.0 % C) Low 33.2 HEMATOCRIT:V FR:PT:BLD:QN :AUTOMATED COUNT Performed By: #### [id number], [id number] #### [facility] [address] [place] [address] INTERDISCIPLINARY NOTE - OT Observed: 08/07/2017 Status: F Source: [facility] 1:02 PM [facility] RE[facility] Pt scored 1624 on AM-PAC ADL during OT evaluation. Recommend discharge to SNF at this time due to level of assistance required for ADL and mobility tasks, decreased knowledge of L-spine precautions, pt is at a high risk of falls, and pt has limited support at home. OT to follow daily. INTERDISCIPLINARY NOTE - PT Observed: 08/07/2017 Status: F Source: [facility] 12:07 PM [facility] Initial PT eval completed. 6 clicks Am-PAC . Due to patient living alone, recommend skilled rehab. Will see daily PROGRESS NOTE-PHYSICIAN Observed: 08/07/2017 Status: F Source: [facility] 11:43 AM [facility] Subjective Doing well this morning. States pain is controlled with current pain regimine. Has not worked with PT yet; Is eating and drinking well. Is using incentive spirometry and denies chest pain or SOB; is expelling flatus but no BM yet. Review of Systems General: Alert and oriented, No acute distress. Appearance: Calm, Obese. Behavior: Appropriate, Cooperative. Skin: Normal for ethnicity. Eye: Pupils are equal, round and reactive to light, Extraocular movements are intact, Normal conjunctiva. HENT: Normocephalic, Normal hearing, Oral mucosa is moist. Neck: Supple, Non-tender. Respiratory: Lungs are clear to auscultation, Respirations are non-labored, Symmetrical chest wall expansion. Cardiovascular: Normal rate, Good pulses equal in all extremities. Gastrointestinal: Soft, Non-tender, Normal bowel sounds. Genitourinary: No inguinal tenderness. Musculoskeletal Mobility/ gait: Pending PT evaluation and recommendations.. Upper extremity exam: hand (right, contracture). Spine/torso exam: lumbar pain. Neurologic: Alert, Oriented, Cranial Nerves II-XII are grossly intact. Orientation: Oriented X 4. Cognition and Speech: Oriented, Speech clear and coherent. Psychiatric: Cooperative, Appropriate mood & affect. Integumentary: Warm, Dry, [place]. Integumentary exam: Lumbar incision and dressing managed by surgical services.. Objective Vitals & Measurements T: 36.9 ?C (Oral) TMIN: 36.0 ?C (Temporal Artery) TMAX: 37 ?C (Oral) HR: 85(Monitored) RR: 20 BP: 117/69 SpO2: 92% WT: 75.7 kg Intake & Output This visit (24 hour periods starting at 07:00) 08/07/17 * 08/06/17 08/05/17 Total Summary Intake mL 210 2,893.06 -- Output mL -- 2,160 -- Fluid Balance 210 733.06 -- Intake (16) Dextrose 5% with 0.45% NaCl and KCl 20 mEq/l 1,000 mL mL -- 510 -- Lactated Ringers Injection mL -- 1,300 -- Lactated Ringers Injection 1,000 mL mL -- 300 -- Oral Intake mL 210 640 -- cefazolin mL -- 100 -- dexamethasone mL -- 1 -- ephedrine mL -- 0.8 -- fentanyl mL -- 1 -- hydromorphone mL -- 1.7 -- lidocaine mL -- 2.5 -- midazolam mL -- 2 -- ondansetron mL -- 8 -- phenylephrine mL -- 0.06 -- propofol mL -- 15 -- rocuronium mL -- 5 -- succinylcholine mL -- 6 -- Total 210 2,893.06 -- Output (5) EBL Surgery mL -- 400 -- Emesis mL -- 1,380 -- Other: Davol Back Lumbar mL -- 25 -- Urine Catheter mL -- 155 -- Urine Count mL -- 200 -- Total -- 2,160 -- Counts (2) Emesis mL -- 1,380 -- Urine Count mL -- 200 -- * This column has not completed the indicated time period. Lab Results Hgb: 11.9 gm/dL Low (08/07/17 05:38:00) Hct: 35.9 % Low (08/07/17 05:38:00) Glucose Lvl: 199 mg/dL (08/07/17 05:38:00) BUN: 24 mg/dL High (08/07/17 05:38:00) Creatinine: 1.6 mg/dL High (08/07/17 05:38:00) eGFR: 42 mL/min/1.73 m2 Low (08/07/17 05:38:00) eGFR AA: 51 mL/min/1.73 m2 Low (08/07/17 05:38:00) BUN/Creat Ratio: 15 (08/07/17 05:38:00) Sodium Lvl: 139 mmol/L (08/07/17 05:38:00) Potassium Lvl: 4.3 mmol/L (08/07/17 05:38:00) Chloride: 103 mmol/L (08/07/17 05:38:00) CO2: 29 mmol/L (08/07/17 05:38:00) AGAP: 11 mEq/L (08/07/17 05:38:00) Calcium Lvl: 8.1 mg/dL Low (08/07/17 05:38:00) Assessment/Plan 81-year-old male with past medical history significant for NV, hyperlipidemia, hypertension, chronic back pain: Patient is status post L2-5 lumbar laminectomy secondary to lumbar stenosis. Procedure performed on 08/06/[address] Cherry Ramos. PLAN: 1. Lumbar stenosis with neurogenic claudication Status post L2-5 lumbar laminectomy POD # 01 secondary to lumbar stenosis performed by Dr.Don Ramos Managed by Dr.Don Ramos PT/OT-to eval, treat and make recommendations. 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 HTN -Currently normotensive -Hold HCTZ-Lisinopril today resume in AM. -Utilize Hydralazine prn for SBP >160 History NV-stable -Continue Metoprolol HLD -Continue Statin Chronic Pain -Hold Prednisone -Surgical services to determine resumption History right hand contracture - defect. DVT Prophylaxis: SCD/ambulation Disposition: Pt inpatient status with discharge planning in progress. Case reviewed and discussed with . Problem List/Past Medical History Ongoing No qualifying data Historical No qualifying data Medications Inpatient Al hydroxide/Mg hydroxide/simethicone 200 mg-200 mg-20 mg/5 mL oral suspension, 30 mL, Oral, q6hr, PRN aspirin 325 mg Oral EC Tab, 325 mg= 1 tab(s), Oral, Daily atorvastatin 20 mg Tab, 20 mg= 1 tab(s), Oral, Bedtime Colace 100 mg Cap, 100 mg= 1 cap(s), Oral, BID D5/0.45% NaCl w/20 KCl 1000 mL Soln-IV 1,000 mL, 1000 mL, IV Dilaudid 2 mg Injection, 1 mg= 0.5 mL, IV Push, q4hr, PRN Dilaudid 2 mg Injection, 2 mg= 1 mL, IV Push, q4hr, PRN Dilaudid 2 mg Injection, 1.5 mg= 0.75 mL, IV Push, q4hr, PRN Lactated Ringers IV Gilda 1000 mL 1,000 mL, 1000 mL, IV lactulose 20 g/30 mL Oral Syrup, 20 gram= 30 mL, Oral, Daily, PRN metoprolol 50 mg ER Tab, 50 mg= 1 tab(s), Oral, Daily Pepcid 20 mg Tab, 20 mg= 1 tab(s), Oral, BID Percocet 325 mg-5 mg Tab, 1 tab(s), Oral, q4hr, PRN Percocet 325 mg-5 mg Tab, 2 tab(s), Oral, q4hr, PRN predniSONE, 1 mg= 1 tab(s), Oral, q8hr predniSONE, 5 mg= 1 tab(s), Oral, q8hr predniSONE, 2.5 mg= 0.5 tab(s), Oral, q8hr Senokot 8.6 mg Tab, 17.2 mg= 2 tab(s), Oral, Daily, PRN Tylenol 325 mg Tab, 650 mg= 2 tab(s), Oral, q4hr, PRN Tylenol with Codeine 300 mg-30 mg Tab, 1 tab(s), Oral, q4hr, PRN Tylenol with Codeine 300 mg-30 mg Tab, 2 tab(s), Oral, q4hr, PRN Ultram 50 mg Tab, 100 mg= 2 tab(s), Oral, q4hr, PRN Ultram 50 mg Tab, 50 mg= 1 tab(s), Oral, q4hr, PRN Vitamin B Complex with C, Folic Acid, and Iron oral tablet, 150 mg= 1 cap(s), Oral, Daily Zofran 4 mg/2 mL Injection, 4 mg= 2 mL, IV Push, q6hr, PRN Home aspirin 325 mg Oral EC Tab, 325 mg= 1 tab(s), Oral, Daily atorvastatin 20 mg Tab, 20 mg= 1 tab(s), Oral, Daily DME, 0 hydrochlorothiazide-lisinopril 12.5 mg-20 mg Tab, 1 tab(s), Oral, Daily meloxicam 7.5 mg Tab, 7.5 mg= 1 tab(s), Oral, Daily metoprolol 50 mg ER Tab, 50 mg= 1 tab(s), Oral, Daily omeprazole 20 mg Cap-DR, 20 mg= 1 cap(s), Oral, Daily predniSONE 1 mg Tab, 1 mg= 1 tab(s), Oral, TID predniSONE 1 mg Tab, See Instructions Result Comment: Electronically Signed By: Jaelyn Hylton\.br\Date and Time Signed: 08/07/17 11:49 EST\.br\Electronically Co-Signed By: Alma Delia Ponce MD\.br\Date and Time Co-Signed: 08/07/17 13:35 EST ANESTHESIA CONSULTATION Observed: 08/07/2017 Status: F Source: [facility] 10:45 AM [facility] Patient: RICHARD KING Age: 81 years Sex: Male : 1935 Associated Diagnoses: None Author: Rosales Montero Jr., DO Postoperative Information Post Operative Note: Post Anesthesia Care Unit. Anesthetic utilized: General, Monitored anesthesia care. Health Status Allergies: Allergic Reactions (Selected) Severity Not Documented Chlorhexidine Gluconate- Burning. Current medications: (Selected) Prescriptions Prescribed DME: DME, DME to be provided as needed for the circled item(s): rolling walker, elevated toilet seat, shower seat, Print Requisition, Supply Percocet 325 mg-5 mg Tab: See Instructions, for pain, 56 tab(s), Refill(s) 0, 1-2 tab(s) Oral q4-6hr prn not to exceed 12 tablets/day Repeat BMP on 08/11/2017: Repeat BMP on 08/11/2017, Dx. Elevated Cr Results to jose a RASHID at [facility], Print Requisition, Supply predniSONE 1 mg Tab: See Instructions, prednisone 5 mg orally every 8 hours x 2 doses on 08/06/17, 2.5 mg orally every 8 hours x 3 doses on 08/07/17, then 1 mg orally every 8 hours x 3 doses on 08/08/17 with food or milk, # 30 tab(s), Refills(s) 0 Documented Medications Documented aspirin 325 mg Oral EC Tab: 325 mg = 1 tab(s), Oral, Daily, Prophylaxis atorvastatin 20 mg Tab: 20 mg = 1 tab(s), Oral, Daily, Refills(s) 0, High cholesterol hydrochlorothiazide-lisinopril 12.5 mg-20 mg Tab: 1 tab(s), Oral, Daily, HOLD THIS MEDICATION UNTIL REPEAT LABS ARE REVIEWED BY JOSE A RASHID ON 08/11/17 TO DETERMINE WHEN TO RESUME, High blood pressure metoprolol 50 mg ER Tab: 50 mg = 1 tab(s), Oral, Daily, High blood pressure omeprazole 20 mg Cap-DR: 20 mg = 1 cap(s), Oral, Daily, Control of stomach acid predniSONE 1 mg Tab: 1 mg = 1 tab(s), Oral, TID, Pain Problem list: All Problems At risk for falls / SNOMED CT 486782247 / Possible Problem added when Risk for Falls Careplan was initiated. Acid reflux / SNOMED CT 991233654 / Confirmed High cholesterol / SNOMED CT 00512548 / Confirmed High blood pressure / SNOMED CT 8252819669 / Confirmed Impaired skin integrity / SNOMED CT 34275892 / Confirmed Problem added on documentation of skin impairments. Heart attack / SNOMED CT 73999262 / Confirmed Physical Examination Intake and Output Denies significant n/v and is tolerating p.o. No qualifying data available Respiratory: Adequate air exchange with restorationism of preoperative function.. Cardiovascular: Cardiovascular function is stable and has returned to preoperative levels.. Neurologic: Pt has returned to preoperative baseline.. Review / Management Condition: Stable. Assessment Anesthetic outcome No anesthetic complications noted. Plan Transfer/ Discharge: Patient can be discharged from PACU when criteria met. Condition good. INTERDISCIPLINARY NOTE - Observed: 08/07/2017 Status: F Source[facility] 10:33 AM [facility] REPOSITORY Spoke to [facility] who states pt. has a dermal tear and will be staying and might not be able to work with therapy right away. I spoke to pt. with family in room and we discussed working with therapy when he is medically able to and that he would not discharge prior to 08/09. pt. denies further needs. PROGRESS NOTE-PHYSICIAN Observed: 08/07/2017 Status: F Source: [facility] 8:59 AM [facility] REPOSITORY Patient: RICHARD KING Age: 81 years Sex: Male : 1935 Associated Diagnoses: None Author: Cherry Ramos MD Subjective patient with minimal right proximal thigh pain to touch no headache Objective Intake and Output Fluid Balance Primitives 08/07/2017 05:00 EST Other: Davol Back Lumbar Surgical Drain, Tube Output: 25 mL 08/07/2017 03:02 EST Urine Output Initial Not Done: patient has keller catheter (Not Done) Vitals Signs (last 24 hrs) Last Charted Minimum Maximum Temp 36.8 (AUG 07:29) L 36.0 (AUG 06 12:14) 37 (AUG 07:25) Heart Rate 90 (AUG 07 08:23) 53 (AUG 06 09:50) 91 (AUG 07:29) Resp Rate 20 (AUG 07:) 7 (AUG 06 12:20) 24 (AUG 06 12:10) SBP 128 (AUG 07:) 80 (AUG 06 09:24) 134 (AUG 06 13:03) DBP 75 (AUG 07:) L 49 (AUG 06 12:20) 77 (AUG 07:25) MAP 93 (AUG 07:) 77 (AUG 06 19:56) 94 (AUG 06 13:03) SpO2 93 (AUG 07:) 91 (AUG 07:25) 100 (AUG 06 09:35) awake and alert improved LE neuro status sanguinous drainge in the hemovac Results Review 36hr Labs 08/07 05:38 eGFR AA 51 L eGFR 42 L Creatinine 1.6 H BUN 24 H Calcium Lvl 8.1 L Sodium Lvl 139 Potassium Lvl 4.3 Chloride 103 CO2 29 AGAP 11 BUN/Creat Ratio 15 Glucose Lvl 199 Hct 35.9 L Hgb 11.9 L 03 11:28 Size 1 X 1 IN Size 70 MM Size 6.5 X 44 MM 08/06 08:30 UA Color Yellow UA Clarity Clear UA Spec Grav 1.010 UA pH 5.5 UA Protein Negative UA Glucose Negative UA Ketones Negative UA Bili Negative UA Nitrite Negative UA Leuk Est Negative UA Urobilinogen 0.2 UA WBC 0-5 UA RBC 0-3 UA Squam Epithe 0-2 UA Mucous Trace UA Renal Epi 0-2 UA Blood Trace UA Spec Desc Keller 08/06 06:29 ABO/Rh O NEG ABSC Gel Interp Negative Impression and Plan s/p L2-5 lami, L3-5 psf with dural repair stable no evidence of ongoing CSF issues out of bed today and ambulate may dc keller if he can manage the urinal initiate PT/OT discussed with hospitalist Result Comment: Electronically Signed By: Faisal RASHID, Cherry Allen\Date and Time Signed: 08/07/17 09:16 EST HEMOGLOBIN Collected: 08/07/2017 Status: F Source: [employer] 5:38 AM [facility] REPOSITORY TYPE CODE TESTS RESULT OUT OF RANGE REFERENCE UNITS LAB 718-7(LOINC 13.5-17.5 gm/dL ) Low 11.9 HEMOGLOBIN:M CNC:PT:BLD:Q N: Performed By: #### [id number], [id number] #### [facility] [address] [place] [address] HEMATOCRIT Collected: 08/07/2017 Status: F Source: [employer] 5:38 AM [facility] REPOSITORY TYPE CODE TESTS RESULT OUT OF RANGE REFERENCE UNITS LAB 4544-3(LOIN 37.7-49.0 % C) Low 35.9 HEMATOCRIT:V FR:PT:BLD:QN :AUTOMATED COUNT Performed By: #### [id number], [id number], [id number], [id number] #### [facility] [address] [place] [address] BMP Collected: 08/07/2017 Status: F Source: [employer] 5:38 AM [facility] REPOSITORY TYPE CODE TESTS RESULT OUT OF RANGE REFERENCE UNITS LAB 2339-0(LOIN 55-199 mg/dL C) Normal 199 GLUCOSE:MCNC :PT:BLD:QN: Result Comment: If this glucose result represents a fasting glucose, interpretation should refer to the following reference range: 55-99 mg/dL LAB 3094-0(LOINC) 5-21 mg/dL UREA NITROGEN:MCNC:PT:SER/PLAS:QN: High 24 LAB 2160-0(LOINC) 0.5-1.3 mg/dL CREATININE:MCNC:PT:SER/PLAS:QN: High 1.6 LAB 3097-3(LOINC) 10-20 No Units UREA NITROGEN/CREATININE:MRTO:PT:SER/ Normal PLAS:QN: 15 LAB 95826-8(LOINC) 8.9-11. mg/dL 1 CALCIUM:MCNC:PT:SER/PLAS:QN: Low 8.1 LAB 2951-2(LOINC) 135-145 mmol/L SODIUM:SCNC:PT:SER/PLAS:QN: Normal 139 LAB 2823-3(LOINC) 3.5-5.3 mmol/L POTASSIUM:SCNC:PT:SER/PLAS:QN: Normal 4.3 LAB 2075-0(LOINC) 101-111 mmol/L CHLORIDE:SCNC:PT:SER/PLAS:QN: Normal 103 LAB 2028-9(LOINC) 21-31 mmol/L CARBON DIOXIDE:SCNC:PT:SER/PLAS:QN: Normal 29 LAB 96828-8(LOINC) 6-16 mEq/L ANION GAP:SCNC:PT:SER/PLAS:QN: Normal 11 Performed By: #### [id number], [id number] #### [facility] [address] [place] [address] EGFR Collected: 08/07/2017 Status: F Source: [employer] 5:38 AM [facility] REPOSITORY Order Comment: Order added by Discern Expert. TYPE CODE TESTS RESULT OUT OF REFERENCE UNITS RANGE LAB 37424-8(LO >=59 mL/min/1.73 INC) Low m2 GLOMERULAR 42 FILTRATION RATE/1.73 SQ M.PREDICTED.NON BLACK:ARVRAT:PT: SER/PLAS:QN:CREA TININE-BASED FORMULA (MDRD) Result Comment: Chronic kidney disease could be indicated at eGFR's of less than 60 mL/min/1.73m2. Kidney failure is indicated at less than 15 mL/min/1.73m2. LAB 68090-6(LOINC) GLOMERULAR >=59 mL/min/1.73 FILTRATION RATE/1.73 SQ m2 M.PREDICTED.BLACK:ARVRAT:PT:SER/PLAS:QN:CREATININE-BASED FORMULA (MDRD) Low 51 Result Comment: eGFR is race adjusted. AA=. Performed By: #### [id number], [id number] #### [facility] [address] [place] [address] CONSULTATION NOTE Observed: 08/06/2017 Status: F Source: [employer] 3:35 PM [facility] Patient: RICHARD KING Age: 81 years Sex: Male : 1935 Associated Diagnoses: None Author: Jaelyn Hylton Basic Information Accompanied by: Family member. Source of history: Self. Referral source: Cherry Ramos MD History limitation: None. Chief Complaint Lumbar stenosis. History of Present Illness 81-year-old male with past medical history significant for NV, hyperlipidemia, hypertension, chronic back pain: Patient is status post L2-5 lumbar laminectomy secondary to lumbar stenosis. Pro cedure performed on 08/06/[address] Cherry Ramos. Review of Systems Constitutional: Negative. Eye: Negative. Ear/Nose/Mouth/Throat: Negative. Respiratory: No shortness of breath, No cough, No wheezing. Cardiovascular: Negative. Gastrointestinal: No nausea, No vomiting, No diarrhea, No constipation Last bowel movement: Today. Genitourinary: Negative. Hematology/Lymphatics: Negative. Musculoskeletal: Joint pain. Back pain: In the lower region. Integumentary: Negative. Neurologic: Alert and oriented X4, Numbness, Tingling. Psychiatric: Anxiety, No depression. Health Status Allergies: Allergic Reactions (Selected) Severity Not Documented Chlorhexidine Gluconate- Burning. Current medications: Medications (26) Active Scheduled: (10) atorvastatin 20 mg Tab [F] 20 mg 1 tab(s), Oral, Bedtime ceFAZolin 2 gram 50 mL, IV Piggyback, q8hr docusate sodium 100 mg Cap [F] 100 mg 1 cap(s), Oral, BID famotidine 20 mg Tab [F] 20 mg 1 tab(s), Oral, BID hydrochlorothiazide-lisinopril 12.5 mg-20 mg Tab [F] 1 tab(s), Oral, Daily metoprolol 50 mg ER Tab [F] 50 mg 1 tab(s), Oral, Daily Niferex 150 Forte) multivitamin with iron Vitamin B Complex with C, Folic Acid and Iron Cap [F] 150 mg 1 cap(s), Oral, Daily predniSONE 1 mg Tab [F] 1 mg 1 tab(s), Oral, q8hrFT predniSONE 5 mg Tab [F] 5 mg 1 tab(s), Oral, q8hr predniSONE 5 mg Tab [F] 2.5 mg 0.5 tab(s), Oral, q8hrFT Continuous: (2) Dextrose 5% with 0.45% NaCl and KCl 20 mEq/l 1,000 mL 1,000 mL, IV, 70 mL/hr Lactated Ringers 1,000 mL 1,000 mL, IV, 150 mL/hr PRN: (14) acetaminophen 325 mg Tab UD [F] 650 mg 2 tab(s), Oral, q4hr acetaminophen-codeine 300 mg-30 mg Tab [F] 1 tab(s), Oral, q4hr acetaminophen-codeine 300 mg-30 mg Tab [F] 2 tab(s), Oral, q4hr acetaminophen-oxycodone 325 mg-5 mg Tab [F] 1 tab(s), Oral, q4hr acetaminophen-oxycodone 325 mg-5 mg Tab [F] 2 tab(s), Oral, q4hr Al hydroxide/Mg hydroxide/simethicone 200 mg-200 mg-20 mg/5 mL Oral Susp 30 mL [F] 30 mL, Oral, q6hr HYDROmorphone 2 mg/mL Inj [F] 1 mg 0.5 mL, IV Push, q4hr HYDROmorphone 2 mg/mL Inj [F] 1.5 mg 0.75 mL, IV Push, q4hr HYDROmorphone 2 mg/mL Inj [F] 2 mg 1 mL, IV Push, q4hr lactulose Oral Syrup 20 gm/30 mL [F] 20 gram 30 mL, Oral, Daily ondansetron 2 mg/mL Inj [F] 4 mg 2 mL, IV Push, q6hr senna 8.6 mg Tab [F] 17.2 mg 2 tab(s), Oral, Daily traMADOL 50 mg Tab [F] 50 mg 1 tab(s), Oral, q4hr traMADOL 50 mg Tab [F] 100 mg 2 tab(s), Oral, q4hr Problem list: All Problems Heart attack / SNOMED CT 64638679 / Confirmed High cholesterol / SNOMED CT 87826386 / Confirmed High blood pressure / SNOMED CT 9596390722 / Confirmed Acid reflux / SNOMED CT 745150315 / Confirmed Histories Past Medical History: No active or resolved past medical history items have been selected or recorded. Family History: Procedure history: Open heart surgery ([id number]). Comments: 07/25/2017 12:09 - Martina RN, Essence 2009 Social History Social & Psychosocial Habits Alcohol 08/06/2017 Risk Assessment: Denies Alcohol Use Substance Abuse 08/06/2017 Risk Assessment: Denies Substance Abuse Tobacco 08/06/2017 Risk Assessment: Denies Tobacco Use . Physical Examination Vitals Signs (last 24 hrs) Last Charted Minimum Maximum Temp 36.4 (AUG 06 13:03) L 36.0 (AUG 06 12:14) 36.4 (AUG 06 06:14) Heart Rate 75 (AUG 06 14:48) 53 (AUG 06 09:50) 86 (AUG 06 12:14) Resp Rate 16 (AUG 06 14:48) 7 (AUG 06 12:20) 24 (AUG 06 12:10) SBP 114 (AUG 06 14:48) 80 (AUG 06 07:40) H 171 (AUG 06 06:16) DBP 74 (AUG 06 14:48) L 49 (AUG 06 12:20) 87 (AUG 06 06:16) MAP 87 (AUG 06 14:48) 87 (AUG 06 14:48) 115 (AUG 06 06:16) SpO2 94 (AUG 06 15:15) 94 (AUG 06 14:48) 100 (AUG 06 07:40) General: Alert and oriented, No acute distress. Appearance: Calm, Obese. Behavior: Appropriate, Cooperative. Skin: Normal for ethnicity. Eye: Pupils are equal, round and reactive to light, Extraocular movements are intact, Normal conjunctiva. HENT: Normocephalic, Normal hearing, Oral mucosa is moist. Neck: Supple, Non-tender. Respiratory: Lungs are clear to auscultation, Respirations are non-labored, Symmetrical chest wall expansion. Cardiovascular: Normal rate, Good pulses equal in all extremities. Gastrointestinal: Soft, Non-tender, Normal bowel sounds. Genitourinary: No inguinal tenderness. Musculoskeletal Mobility/ gait: Pending PT evaluation and recommendations.. Upper extremity exam: hand (right, contracture, nodule). Spine/torso exam: lumbar pain. Neurologic: Alert, Oriented, Cranial Nerves II-XII are grossly intact. Orientation: Oriented X 4. Cognition and Speech: Oriented, Speech clear and coherent. Psychiatric: Cooperative, Appropriate mood & affect. Integumentary: Warm, Dry, [place]. Integumentary exam: Lumbar incision and dressing managed by surgical services.. Health Maintenance Flu and pneumonia vaccinations as appropriate. Review / Management Results review: No qualifying data available, Lab results 08/06/2017 08:30 EST UA Spec Desc Keller UA Color Yellow UA Clarity Clear UA Spec Grav 1.010 UA pH 5.5 UA Protein Negative UA Glucose Negative UA Ketones Negative UA Bili Negative UA Blood Trace UA Nitrite Negative UA Urobilinogen 0.2 EU/dL UA Leuk Est Negative UA RBC 0-3 /HPF UA Squam Epithelial 0-2 /HPF UA Renal Epi 0-2 UA WBC 0-5 /HPF UA Mucous Trace 08/06/2017 06:29 EST ABO/Rh Interp O NEG ABSC Gel Interp Negative . Documentation reviewed: Case discussed with: Alma Delia Ponce MD. Impression and Plan Course: Progressing as expected. 81-year-old male with past medical history significant for NV, hyperlipidemia, hypertension, chronic back pain: Patient is status post L2-5 lumbar laminectomy secondary to lumbar stenosis. Pro cedure performed on 08/06/[address] Cherry Ramos. PLAN: Status post L2-5 lumbar laminectomy POD # 0 secondary to lumbar stenosis performed by Dr.Don Ramos Managed by Dr.Don Ramos PT/OT-to eval, treat and make recommendations. Pain management -per surgical services Education: Oral pain medication regimen, incentive spirometry while awake and bowel regimen to avoid constipation Thank you for the opportunity to assist in the management of your patient HTN -Hold HCTZ-Lisinopril today -Utilize Hydralazine prn for SBP >160 History NV-stable -Continue Metoprolol HLD -Continue Statin Chronic Pain -Hold Prednisone -Surgical services to determine resumption History right hand contracture - defect. DVT Prophylaxis: SCD/ambulation Disposition: Pt inpatient status with discharge planning in progress. Education and Follow-up: Counseled: Patient, Regarding diagnosis, Regarding treatment, Regarding medications. Professional Services 17 minutes. Result Comment: Electronically Signed By: Jaelyn Hylton\.whit\Date and Time Signed: 08/06/17 15:42 EST\.br\Electronically Co-Signed By: Abdullahi Hyltonbr\Date and Time Co-Signed: 08/06/17 15:44 EST\.br\Electronically Co-Signed By: Rosario RASHID, Alma Delia\.br\Date and Time Co-Signed: 08/07/17 13:36 EST INTERDISCIPLINARY NOTE - Observed: 08/06/2017 Status: F Source: [facility] 2:43 PM [facility] REPOSITORY Spoke to pt. who would like to discharge to [facility] on dc. Family present and state they can transport and that they have already spoken to [facility] and pt. is all set to discharge there. Therapy to see. PROGRESS NOTE-PHYSICIAN Observed: 08/06/2017 Status: F Source: [facility] 12:42 PM [facility] RE[facility] Patient: RICHARD KING Age: 81 years Sex: Male : 1935 Associated Diagnoses: None Author: Faisal RASHID, Cherry Torres Subjective no headache or leg pain Objective Intake and Output Fluid Balance Primitives 08/06/2017 11:30 EST Urine Count 25 mL EBL Surgery 300 mL 08/06/2017 10:45 EST Urine Count 100 mL EBL Surgery 100 mL 08/06/2017 09:15 EST Urine Count 75 mL Vitals Signs (last 24 hrs) Last Charted Minimum Maximum Temp L 36.0 (AUG 06 12:14) L 36.0 (AUG 06 12:14) 36.4 (AUG 06 06:14) Heart Rate 85 (AUG 06 12:30) 53 (AUG 06 09:50) 86 (AUG 06 12:14) Resp Rate 10 (AUG 06 12:30) 7 (AUG 06 12:20) 24 (AUG 06 12:10) SBP 124 (AUG 06 12:30) 80 (AUG 06 07:40) H 171 (AUG 06 06:16) DBP 64 (AUG 06 12:30) L 49 (AUG 06 12:20) 87 (AUG 06 06:16) MAP 107 (AUG 06 07:21) 102 (AUG 06 06:14) 115 (AUG 06 06:16) SpO2 97 (AUG 06 12:30) 97 (AUG 06 07:35) 100 (AUG 06 07:40) awake and alert no gross LE neuro deficit improved adf and ehl Impression and Plan s/p L2-5 lami, PSFI L3-5 stable dural repair bedrest overnight discussed with family Result Comment: Electronically Signed By: Cherry Ramos MD\.br\Date and Time Signed: 08/06/17 12:42 EST OPERATIVE REPORT Observed: 08/06/2017 Status: F Source: [facility] 12:26 PM [facility] RE[facility] Patient: RICHARD KING Age: 81 years Sex: Male : 1935 Associated Diagnoses: None Author: Cherry Rmaos MD Postoperative Information Date/ Time: 08/06/17 12:05:00 Preoperative Diagnosis: Acid reflux (IEO10-TT K21.9, Working, Nursing), Steroid dependent for adrenal supression (RBE36-DO Z79.52, Working, Medical), High blood pressure (YGJ51-IS I10, Working, Nursing ), High cholesterol (TIK15-IU E78.00, Working, Nursing), Heart attack (MBU45-CH I21.9, Working, Nursing), Lumbar stenosis with neurogenic claudication (FNP26-RX M48.062, Working, Medical), Degenerative spondylolisthesis (VPE56-AZ M43.10, Working, Medical), Benign essential hypertension (CMB37-CX I10, Working, Medical), Aspirin long-term use (NOU88-MR Z79.82, Working, Medical), LSS L2-5 with spondy L4-5. Postoperative Diagnosis: same. Performed by: Cherry Ramos MD. Geological Technical Officer: Snow RN, CNOR, Loreta Wiley. Prosthesis: MSD Solera 6.5 mm x 45 mm x 6 with blockers 4.75 mm x 70 mm rods x 2 flowseal duragen. . Estimated Blood Loss: 400 ml, DO NOT AGREE WITH THIS RESULT. Intake and Output: 1800cc LR UO = 200 cc. Complications: None. L2-3 lami L3-4 lami L4-5 lami PSF L3-4 PSF L4-5 PSI L3-5 local graft IONM OR scope dural repair near left L4 pedicle Anesthesia type: General, Fennig Robby brown tayla Rabasyuk Liben. Result Comment: Electronically Signed By: Cherry Ramos MD\.br\Date and Time Signed: 08/06/17 12:26 EST OPERATIVE REPORT Observed: 08/06/2017 Status: F Source: [facility] 12:11 PM [facility] REPOSIT[facility] Date of Surgery: 08/06/2017 SURGEON: Cherry Ramos M.D. PHYSICIAN SURGEON: EDIL Reynolds, JUDIE who was present and assisted throughout the entire case PREOPERATIVE DIAGNOSIS: 1. Lumbar stenosis with neurogenic claudication L2-L5 2. Degenerative spondylolisthesis at L4-5 3. Steroid dependency 4. Hypertension. 5. Hypercholesterolemia 6. History of heart attack 7. Long-term Aspirin usage 8. Acid reflux POSTOPERATIVE DIAGNOSIS: 1. Lumbar stenosis with neurogenic claudication L2-L5 2. Degenerative spondylolisthesis at L4-5 3. Steroid dependency 4. Hypertension 5. Hypercholesterolemia 6. History of heart attack 7. Long-term Aspirin usage 8. Acid reflux OPERATION: 1. L2-3 lumbar laminectomy, foraminotomy and facetectomy with decompression L3 nerve roots 2. Additional segment L3-4 lumbar laminectomy, foraminotomy and facetectomy with decompression of L4 nerve roots 3. Additional segment L4-5 lumbar laminectomy, with foraminotomy and facetectomy with decompression of L5 nerve roots 4. Posterior spinal fusion L3-4 5. Additional segment of posterior spinal fusion L4-5 6. Posterior segmental instrumentation L3-L5 spanning 3 vertebral segments 7. Local graft for the spinal fusion 8. Intraoperative neuromonitoring with all pedicle screw thresholds over 40 milliamps 9. Operating Room microscope 10. Dural repair near the left L4 pedicle ANESTHESIA: General ANESTHESIOLOGIST: A variety of anesthesiologists and journeyman operator assistant consisting of ARIA Juan, Rosales Montero Jr., D.O., ARIA Waggoner and journeyman operator assistant student Tayla Meredith and finally Solo Rodriguez Jr., D.O. COMPLICATIONS: None PACKS AND DRAINS: One Keller catheter and one Hemovac drain to the incision BLOOD LOSS: 400 cc that I do not agree with FLUIDS: 1800 cc of crystalloid URINE OUTPUT: 200 cc SPECIMENS: None IMPLANTS: [employer] Solera Pedicle screw 6.5 mm x 45 mm x6 with blockers, 4.75 mm x 7 mm rods x2, one unit of FLOSEAL hemostatic agent, DuraGen 1 x 1 COUNTS: Correct INDICATION: Mr. King is a pleasant 81 year old gentleman who initially presented with bilateral buttock pain that radiates down to the posterior aspect of both thighs anterior as well as into the proximal aspect of both calves and shins. This has been going on since June of 2016, worsening since March of 2017. He can barely walk 100 yards and his standing is limited to 10-20 minutes at most. He has tried epidural injections which only helped temporarily. Physical therapy did not help that much. Physical examination demonstrated 4/5 in all muscle groups of the lower extremities with the exception of bilateral ADF and EHL 4/5. Imaging studies demonstrated degenerative spondylosis at L4-5 with severe stenosis with facet effusion and severe stenosis at L3-4 with mild to moderate stenosis at L2-3. No gross instability noted. Based on the duration and manifestation of symptoms, patient elected to proceed with surgical intervention. He understood the complications of the operation including but not limited to consent and was willing to proceed. BODY OF REPORT: He was seen in ASU#5. Repeat examination demonstrated similar neurological findings. The surgery was explained to the patient, his son and his son's . Drawing was used to illustrate the proposed surgery. All questions were thoroughly answered. Bilateral thigh high TEDs and sequential compressive devices were placed in the holding room and he was taken to Operating Room #5. A time out was performed. After achieving adequate endotracheal anesthesia, Keller catheter was inserted. He was then placed prone onto Peter table. Attention was given to make sure bony prominences were fully padded. Antibiotics were intravenously administered. The back was shaved, prepped and draped in the usual sterile fashion using Betadine Preparation due to his Chlorhexidine allergy. Neuromonitoring leads were placed prior to the foot positioning and baseline was obtained. Then a midline incision was scored. This was infiltrated with 0.25% Marcaine x20 cc of Epinephrine. Subcutaneous tissue was dissected in line with the incision to expose the spinous processes. Cross table fluoroscopic images obtained with a Rodney clamp in the spinous process that is read as L4 spinous process by the radiologist. I agreed with the interpretation. Dissection was carried out in both cephalad and caudal fashion to visualize the L2 to the L5 spinous processes. Lateral dissection was done to exposure transverse process from L3-L5 in order to proceed with fusion. Manual testing demonstrated minimal motion at L4-5 and L3-4. A decision was made to proceed with instrument effusion based on the effusion of the L4-5 and facet widening and the spondylolisthesis present. Also the instrumentation would allow the left L3-4 disc space collapse to be distracted. The [employer] bone cutter was used to remove the inferior half of the L2 spinous process and down to the superior half of L5 spinous process. Then the microscope was brought in. TPS bur was used to make a trough for the laminectomy to be performed. The disc responded completely using a bone scalpel. The laminectomized bone was then removed from a cephalad to caudal fashion using manual traction along with a Douglas 4 dural separator. During this unroofing of the lamina, there was dense adhesion that was underneath the L4 lamina on the left. In doing so, the durotomy was encountered. This was packed off using cottonoid patties and it was addressed. On the left side, foraminotomy and facetectomy was done to decompress the L3, L4 and L5 nerve roots. Then the HS7 needle was used on a 5-0 Prolene suture to perform a durotomy repair. Water tight closure was performed. Then the right side was addressed. Similar foraminotomy and facetectomy were done on the right to decompress the L3, L4 and L5 nerve roots. Then the bur was used to decorticate the L3-L5 transverse processes. Then the bur was used to access to pedicles at L3, L4 and L5. The pedicled sounded using triggered electromyogram monitoring set at 60 milliamps without breakthrough. All readings were made and then the pedicles were tapped. Local morselized bone was placed over the lateral gutter on both sides after the bur was used to decorticate the L3-L5 transverse processes and intervening facets. Then the appropriate sized pedicle screw was inserted with good purchase. Trigger electromyogram of the pedicle screws demonstrated all readings over 40 milliamps. Then the appropriate size rods were secured using blockers and tightened to appropriate torque after the left L3-4 disc space was slightly distracted. Final motor evoked potential demonstrated no gross changes. Valsalva maneuver was done up to 40 cm of water which demonstrated no evidence of dural leak. For augmentation, the DuraGen sheet was placed over the repaired durotomy site. Because the consent epidural ooze was occurring due to decompression, FLOSEAL was used for hemostatic purpose. Medium Hemovac drain was placed deep into the incision and brought out through the left side. Thoracolumbar fascia was approximated using #1 Vicryl suture. This was following the antibiotic irrigation. Then the subcutaneous tissue was reirrigated with antibiotic solution. This was followed by application of 250 mg of Vancomycin Powder manually. Then the subcutaneous tissue layer was closed using 2-0 Vicryl suture. The skin was closed using 3-0 Vicryl in running fashion. This was followed by Steri-Strips, 4 x 4 followed by dressing and foam tape. Hemovac drain was placed to reservoir suction. The patient will be taken to Post-Anesthesia Care Unit for further monitoring prior to being transferred to the floor. PLAN: Discussion will be done with the family members and medical management will be provided by the hospitalist. I will continue to follow the patient during inpatient stay. It was noted that there was some discrepancy about the blood loss but provisionally it was read as 400 mL per anesthesia team. Cherry Ramos M.D. lkr Dictated: 08/06/2017 #[id number] Typed: 08/06/2017 #[id number] cc: Cherry Ramos M.D. *Calvin Dumont M.D. Result Comment: Electronically Signed By: Faisal RASHID, Cherry Torres\.br\Date and Time Signed: 08/06/17 16:31 EST XR SPINE SINGLE VIEW Observed: 08/06/2017 Status: F Source: [facility] 8:35 AM [facility] REPOSITORY Exam Date/Time: 08/06/2017 11:16 EST Reason for Exam: Back pain Report IMPRESSION: INTRAOPERATIVE IMAGES. CLINICAL HISTORY: Back pain. COMMENT: 3 limited scsvy-on-dpro C-arm images were obtained in the OR. There are bilateral interpedicular screws extending into the L3, L4, and L5 vertebra. Please refer to the fluoroscopy time/dose summary below. FINAL REPORT Dictated: 08/06/2017 2:31 pm Jeison Murillo M.D. Signed (Electronic Signature): 08/06/2017 2:31 pm Signed by: Jeison Murillo M.D. Transcribed by: VADIM Technologist: QAMAR Technical Comments Fluoro Time: 6.3 sec - 4.2 mGy UA WITH CULT REFLEX Collected: 08/06/2017 Status: F [facility]: [facility] 8:30 AM [facility] REPOSITORY TYPE CODE TESTS RESULT OUT OF RANGE REFERENCE UNITS LAB 81169595(L OINC) Normal UA Spec Desc Keller LAB 04792-0(LO Yellow INC) Normal COLOR:TYPE:PT:U YELLOW RINE:NOM:AUTO LAB 71847-5(LO Clear INC) Normal CLARITY:TYPE:PT CLEAR :URINE:NOM: LAB 5811-5(FILEMON 1.005-1.030 NC) Unknown SPECIFIC 1.010 GRAVITY:RDEN:PT :URINE:QN:TEST STRIP LAB 5803-2(FILEMON 5.0-9.0 NC) Unknown PH:LSCNC:PT:URI 5.5 NE:QN:TEST STRIP LAB 5804-0(FILEMON Negative NC) Normal PROTEIN:MCNC:PT NEGATIVE :URINE:QN:TEST STRIP LAB 5792-7(FILEMON Negative NC) Normal GLUCOSE:MCNC:PT NEGATIVE :URINE:QN:TEST STRIP LAB 5797-6(FILEMON Negative NC) Normal KETONES:MCNC:PT NEGATIVE :URINE:QN:TEST STRIP LAB 5770-3(FILEMON Negative NC) Normal BILIRUBIN:PRTHR NEGATIVE :PT:URINE:ORD:T EST STRIP LAB 5794-3(FILEMON Negative NC) Abnormal HEMOGLOBIN:PRTH TRACE R:PT:URINE:ORD: TEST STRIP LAB 5802-4(FILEMON Negative NC) Normal NITRITE:PRTHR:P NEGATIVE T:URINE:ORD:MARK T STRIP LAB 93282-4(LO Negative INC) Normal LEUKOCYTES:PRTH NEGATIVE R:PT:URINE:ORD: AUTOMATED LAB 95733-9(LO 0.0-1.0 EU/dL INC) Normal UROBILINOGEN:AC 0.2 NC:PT:URINE:QN: TEST STRIP LAB 5821-4(FILEMON 0-5 /HPF NC) Normal LEUKOCYTES:NAINA 0-5 C:PT:URINE SED:QN:MICROSCO PY.LIGHT.HPF LAB 31116-1(LO 0-2 /HPF INC) Normal EPITHELIAL 0-2 CELLS.SQUAMOUS: NARIC:PT:URINE SED:QN:MICROSCO PY.LIGHT.HPF LAB 82628-4(LO 0-3 /HPF INC) Normal LITHIUM.PLASMA/ 0-3 LITHIUM.RBC:MRT O:PT:BLD:QN: LAB 86955-1(LO 0-2 INC) Normal EPITHELIAL 0-2 CELLS.RENAL:LORETTA IC:PT:URINE SED:QN:MICROSCO PY.LIGHT.HPF LAB 8247-9(FILEMON NC) Normal MUCUS:PRTHR:PT: TRACE URINE SED:ORD:MICROSC OPY.LIGHT Performed By: #### [id number] #### [facility] [address] [place] [address] XR SPINE SINGLE VIEW Observed: 08/06/2017 Status: F Source: [facility] SPECIFY LEVEL 8:28 AM [facility] REPOSITORY Exam Date/Time: 08/06/2017 08:29 EST Reason for Exam: Degenerative disc disease Report IMPRESSION: INTRAOPERATIVE LOCALIZATION. CLINICAL HISTORY: Degenerative disc disease. COMMENT: A limited [id number] lateral C-arm image was obtained in the OR. The tip of the metallic surgical instrument projects on the L4 spinous process. FINAL REPORT Dictated: 08/06/2017 8:33 am Jeison Murillo M.D. Signed (Electronic Signature): 08/06/2017 8:33 am Signed by: Jeison Murillo M.D. Transcribed by: VADIM Technologist: QAMAR Technical Comments Fluoro Time: .47 mGy - 1.4 sec MAIN OR PREOPERATIVE Observed: 08/06/2017 Status: F Source: [facility] RECORD 8:18 AM [facility] REPOSITORY PreOp Document Type FT Summary Primary Physician: Cherry Ramos MD Finalized Date/Time: 08/06/17 09:16:15 Pt. Name: RICHARD KING/Sex: 1935 Male Med Rec #: [id number] Physician: Cherry Ramos MD Financial #: [id number] Pt. Type: A Room/Bed: AS10/02 Admit/Disch: 08/06/17 05:53:49 - Institution: Case Times PreOp FT Pre-Care Text: Verifies consent for planned procedure, identifies individual values and wishes concerning care, includes family members in perioperative teaching Entry 1 Patient Times. In Pre Surgery 08/06/17 06:00:00 Out Pre Surgery 08/06/17 07:32:00 Outcomes Met? Yes Last Modified By: Nora Quintana RN 08/06/17 09:16:08 Post-Care Text: The patient participates in decisions affecting his or her perioperative plan of care Finalized By: Nora Quintana RN Document Signatures Signed By: Nora Quintana RN 08/06/17 09:16 MAIN OR INTRAOPERATIVE Observed: 08/06/2017 Status: C Source: [facility] RECORD 8:18 AM [facility] REPOSITORY IntraOp Document Type FT Summary Primary Physician: Cherry Ramos MD Finalized Date/Time: 08/14/17 14:28:59 Pt. Name: RICHARD KING Rima KillianB./Sex: 1935 Male Med Rec #: [id number] Physician: Cherry Ramos MD Financial #: [id number] Pt. Type: I Room/Bed: [place] [address] Admit/Disch: 08/06/17 05:53:00 - 08/09/17 13:20:00 Institution: Case Times FT Entry 1 Patient Times In Room 08/06/17 07:34:00 Out Room 08/06/17 12:13:00 Procedure Times Start 08/06/17 08:18:00 Stop 08/06/17 12:05:00 Anesthesia Times Start 08/06/17 07:34:00 Stop 08/06/17 12:13:00 Last Modified By: Essence Wise CST 08/06/17 12:16:34 General Comments: 0833- dr murillo read xray and at L4 spinous process and dr ramos aware. - matheus rowell 0855- microscope brought to [facility]. - matheus rowell 1031- microscope taken from [facility]. Lexa sage rn 08/07/2017 Chart opened to review and send charges Ankit motel maid Case Attendance FT Entry 1 Entry 2 Entry 3 Case Attendee Margareth Gibson MD, Cherry Adamson RN, CNOR, Emperatriz Role Performed Anesthesiologist Surgeon - Primary DISTRICT SCOUT EXECUTIVE Geological Technical Officer Time In 08/06/17 07:34:00 08/06/17 07:39:00 08/06/17 07:34:00 Time Out 08/06/17 12:13:00 08/06/17 12:13:00 08/06/17 12:13:00 Procedure LUMBAR LAMINECTOMY LUMBAR LAMINECTOMY LUMBAR LAMINECTOMY POSS. FUSION(Left) POSS. FUSION(Left) POSS. FUSION(Left) Comments dr montero supervising - tayla james aa student present Last Modified By: Mariano RN, Nora Quintana RN, Nora Quintana RNNora 08/06/17 12:16:35 08/14/17 14:28:40 08/06/17 12:16:35 Entry 4 Entry 5 Entry 6 Case Attendee Mariano RN, Nora Tuttle ADMINISTRATIVE LIBRARY ASSISTANT, Meredith Cooley RT (R,M), Laya Role Performed Line Mover - Primary Scrub - Primary Hair And Makeup Designer Time In 08/06/17 07:34:00 08/06/17 07:34:00 08/06/17 08:22:00 Time Out 08/06/17 09:26:00 08/06/17 12:13:00 08/06/17 08:26:00 Procedure LUMBAR LAMINECTOMY LUMBAR LAMINECTOMY LUMBAR LAMINECTOMY POSS. FUSION(Left) POSS. FUSION(Left) POSS. FUSION(Left) Comments OUT OF ROOM FROM [facility] radiology [id number] student present and tech student present; scrubbed for procedure IN AND OUT OUT OF ROOM FROM NEEDED-FINAL OUT TIME [id number] OF 1113 Last Modified By: Mariano RN, Nora Quintana RN, Nora Quintana RNNora 08/06/17 12:16:35 08/06/17 12:16:35 08/06/17 12:16:35 Entry 7 Entry 8 Entry 9 Case Attendee Juaquin ZENG, Vignesh LOMBARDON, RN, Ady RN, Johanna Butler Role Performed Staff - Other Line Mover - Relief Line Mover - Relief Time In 08/06/17 07:34:00 08/06/17 08:37:00 08/06/17 09:23:00 Time Out 08/06/17 08:30:00 08/06/17 08:55:00 08/06/17 10:16:00 Procedure LUMBAR LAMINECTOMY LUMBAR LAMINECTOMY LUMBAR LAMINECTOMY POSS. FUSION(Left) POSS. FUSION(Left) POSS. FUSION(Left) Comments assist with positioning and setting up Last Modified By: Mariano RN, Nora Quintana RN, Nora Quintana RNNora 08/14/17 14:28:40 08/14/17 14:28:40 08/06/17 12:16:35 Entry 10 Entry 11 Entry 12 Case Attendee Mariano ROWELL, Nora Guy ADMINISTRATIVE LIBRARY ASSISTANT, Rosalie Patrick RN, Dasha Morgan Role Performed Line Mover - Primary Scrub - Relief Line Mover - Relief Time In 08/06/17 10:13:00 08/06/17 10:56:00 08/06/17 11:05:00 Time Out 08/06/17 12:13:00 08/06/17 11:51:00 08/06/17 11:50:00 Procedure LUMBAR LAMINECTOMY LUMBAR LAMINECTOMY LUMBAR LAMINECTOMY POSS. FUSION(Left) POSS. FUSION(Left) POSS. FUSION(Left) Comments OUT FOR LUNCH [id number] Last Modified By: Mariano RN, Nora Quintana RN, Nora Quintana RN, Nora Castellon 08/06/17 12:16:35 08/06/17 12:16:35 08/06/17 12:16:35 General Comments: ro whyte [facility] monitoring present for procedure. Lexa isaac [facility] present for procedure. Lexa sage rnreturned case inspector Protocols FT Pre-Care Text: Implements protective measures prior to operative or invasive procedure, confirms identity before the operative or invasive procedure, verifies operative procedure, surgical site, and laterality Entry 1 Procedure(s) LUMBAR LAMINECTOMY Patient Identity Birthday, Blood Band, POSS. FUSION(Left) Verified (select at ID Band Check, Patient least 2): Participation Consents / H and P Anesthesia Consent, Operative Site N/A Verified HandP, Surgery/Procedure Marking Verified Consent, Transfusion Consent Surgical Site Yes Laterality Verified n/a Verified Procedure Verified Yes Correct Patient Yes Position Verified Availability Equipment, Implant, Prep Dry n/a Verified (If Medication, X-ray Applicable) PreOp Antibiotic Yes Time Out Margareth Gibson, Given Participants Faisal RASHID, Snow Pal RN, CNOR, Mariano Awan RN, Marry Cruz CST, Meredith Fink Time Out Complete 08/06/17 07:39:00 Outcomes Met? Yes Last Modified By: Nora Quintana RN 08/06/17 09:00:15 Post-Care Text: The patient is free from signs and symptoms of injury caused by extraneous objects Allergy Information FT Pre-Care Text: Verifies allergies Entry 1 Allergies Reviewed? Yes Allergies Reviewed Self/Patient With Outcomes Met? Yes Last Modified By: Nora Quintana RN 08/06/17 09:01:35 Post-Care Text: The patient received appropriate medication(s) safely administered during the perioperative period Surgical Procedures FT Entry 1 Procedure Description Procedure LUMBAR LAMINECTOMY Modifiers Left POSS. FUSION Surgeon Description L2-5 LAMINECTOMY, L3-5 FUSION, AUTOGRAFT,INSTRUMENTATIO N AND DURA TEAR REPAIR Primary Procedure Yes Primary Surgeon Cherry Ramos MD Start 08/06/17 08:18:00 Stop 08/06/17 12:05:00 Anesthesia Type General Surgical Service Orthopedics Wound Class 1 - Clean Last Modified By: Nora Quintana RN 08/06/17 12:16:38 General Case Data FT Pre-Care Text: Classifies surgical wound, implements aseptic technique, initiates traffic control Entry 1 Case Information OR OR 5 FT Case Level Level 6 Wound Class 1 - Clean Specialty Orthopedics ASA Class 3 Preop Diagnosis LUMBAR SPINAL STENOSIS Postop Same As Preop Yes L3-4, 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 Yes SKIN INTACT Last Modified By: Nora Quintana RN 08/06/17 09:13:22 Post-Care Text: The patient is free from signs and symptoms of injury caused by extraneous objects General Comments: RIGHT WRIST CONTRACTION PRESENT. Lexa SAGE RN Patient Positioning FT Pre-Care Text: Identifies physical alterations that require additional precautions for procedure-specific positioning, verifies presence of prosthetics or corrective devices, positions the patient, evaluates the patient for signs and symptoms of injury as a result of positioning Entry 1 Procedure LUMBAR LAMINECTOMY Body Position Prone POSS. FUSION(Left) Feet Uncrossed? Yes Left Arm Position Extended on Padded Arm Board Right Arm Position Tucked and Padded at Left Leg Position Extended Side Right Leg Position Extended Positioning Device Peter Table, Safety Strap, Egg Crate Padding, Prone-View Headrest, Other/See Comments Press Points Checked Yes By Mariano ROWELL, Snow Cruz RN, CNOR, Loreta Wiley, Faisal RASHID, Juaquin Pal CST, Vignesh Outcomes Met? Yes Last Modified By: Nora Quintana RN 08/06/17 09:08:56 Post-Care Text: The patient is free from signs and symptoms of injury related to positioning General Comments: 0800- PATIENT POSITIONED PRONE ON OPEN FRAME PETER TABLE, PRONE VIEW HEADREST PLACED PER ANESTHESIA, LEFT ARM ON ARMBOARD WITH FOAM ARM CRADDLE PER SURGEON AND RIGHT ARM AT SIDE WITH FOAM ARM CRADDLE ON ARMBOARD WITH TOWELS UNDER SHOULDER FOR EXTRA SUPPORT PER SURGEON SECURED WITH TOWEL AND TAPE, KELLER DRAINING, AND NO PRESSURE ON SCRUTOM, KNEES ON EGG CRATE PADDING, PILLOW UNDER BILATERAL CALVES WITH NO PRESSURE ON TOES, SAFETY STRAP APPLIED ACROSS THIGHS. PRESSURE POINTS CHECKED, SURGEON AND ANESTHESIA VERIFIED POSITIONING PRIOR TO PROCEDURE. Lexa SAGE RN Patient Care Devices FT Pre-Care Text: Implements protective measures to prevent skin/ tissue injury due to thermal or mechanical sources Entry 1 Entry 2 Entry 3 Equipment Type BONE SCALPEL UNIT [F] C-ARM[F] CAUTERY UNIT[F] Equipment Number BOOM ROOM 5 Equipment Setting Outcomes Met? Yes Yes Yes Last Modified By: Mariano RN, Nora Quintana RN, Nora Hickman RN 08/06/17 09:10:24 08/06/17 09:10:24 08/06/17 09:10:24 Entry 4 Entry 5 Entry 6 Equipment Type HEADLIGHT[F] PETER TABLE [F] MICROSCOPE NEUROLOGY[F] Equipment Number Equipment Setting Outcomes Met? Yes Yes Yes Last Modified By: Mariano RN, Nora Quintana RN, Nora Hickman RN 08/06/17 09:10:24 08/06/17 09:10:24 08/06/17 09:10:24 Entry 7 Entry 8 Entry 9 Equipment Type MISTRAL FORCED AIR MONITOR CHARGE SURGERY SUCTION REGULATOR[F] WARMING SYSTEM UNIT[F] [F] Equipment Number M1 Equipment Setting Outcomes Met? Yes Yes Yes Last Modified By: Nora Quintana RN, RN, Nora Hickman RN 08/06/17 09:10:24 08/06/17 09:10:24 08/06/17 09:10:24 Entry 10 Entry 11 Entry 12 Equipment Type TPS POWER SYSTEM UNIT[F] VENA FLOW UNIT[F] BIS MONITOR[F] Equipment Number Equipment Setting Outcomes Met? Yes Yes Yes Last Modified By: Nora Quintana RN, RN, Nora Hickman RN 08/06/17 09:10:24 08/06/17 09:10:24 08/06/17 09:10:24 Post-Care Text: The patient is free from signs and symptoms of injury caused by extraneous objects Transport To OR FT Pre-Care Text: Transports according to individual needs. Evaluates for signs and symptoms of skin and tissue injury as a result of transfer or transport Entry 1 Via Cart By Nora Quintana RN Safety Precautions Side Rails Up Outcomes Met? Yes Last Modified By: Nora Quintana RN 08/06/17 09:10:44 Post-Care Text: The patient is free from signs and symptoms of injury related to transfer/transport Cautery FT Pre-Care Text: Implements protective measures to prevent injury due to electrical sources, and evaluates for signs and symptoms of electrical injury Entry 1 ESU Identification Equipment Number BOOM ROOM 5 ESU Settings Cut 25 Coag 25 Bipolar 25 ESU Grounding Pad Site Left Thigh Hair Removal Pad No Site Pre Pad Site Clear and Intact Post Pad Site Clear and Intact Condition Condition Grounding Pad Vignesh Reza CST Placed By Outcomes Met? Yes Last Modified By: Nora Quintana RN 08/06/17 09:11:05 Post-Care Text: The patient if free from signs and symptoms of electrical injury Counts Verification FT Pre-Care Text: Performs required counts Entry 1 Entry 2 Entry 3 Procedure(s) LUMBAR LAMINECTOMY LUMBAR LAMINECTOMY LUMBAR LAMINECTOMY POSS. FUSION(Left) POSS. FUSION(Left) POSS. FUSION(Left) Type Initial Closing Final Items Sponges, Sharps, Sponges, Sharps, Sponges, Sharps, Other/See Comments Other/See Comments Other/See Comments Status Correct Correct Correct Time 08/06/17 07:58:00 08/06/17 11:46:00 08/06/17 11:55:00 By Nora Quintana RN, Marry Quintana RNNora Farris Coy RN, Emily A, Roth ADMINISTRATIVE LIBRARY ASSISTANT, Meredith Fink RN, Marry Dixon ADMINISTRATIVE LIBRARY ASSISTANT, ADMINISTRATIVE LIBRARY ASSISTANT, Meredith Fink, Malena ZENG, Rosalie Danae Outcomes Met? Yes Yes Yes Last Modified By: Nora Quintana RN, RN, Emily A Coy RN, Emily A 08/06/17 09:11:40 08/06/17 14:01:24 08/06/17 14:01:24 Entry 4 Procedure(s) LUMBAR LAMINECTOMY POSS. FUSION(Left) Type Relief Items Sponges, Sharps, Other/See Comments Status Correct Time By Darnell ROWELL, Dasha Morgan, Malena ZENG, Rosalie Fink Outcomes Met? Yes Last Modified By: Nora Quintana RN 08/06/17 14:01:24 Post-Care Text: The patient is free from signs and symptoms of injury caused by extraneous objects Skin Prep FT Pre-Care Text: Performs skin preparations Entry 1 Procedure LUMBAR LAMINECTOMY Prep Area BACK POSS. FUSION(Left) Prep Agents Betadine Scrub and Solution Hair Removal Methods Clipper Site USED CLIPPERS ON BACK By Nora Quintana RN Outcomes Met? Yes Last Modified By: Nora Quintana RN 08/06/17 09:11:59 Post-Care Text: The patient is free from signs and symptoms of infection Departure From OR FT Pre-Care Text: Transports according to individual needs. Evaluates for signs and symptoms of skin and tissue injury as a result of transfer or transport. Entry 1 Via Patient Bed Safety Precautions Side Rails Up PostOp Destination PACU Transported By Nora Quintana RN Patient Status Stable Skin. Condition Intact, [place], Warm, and Description REDDENED AREA ON Dry, Other/See Comments BILATERAL LOWER ABDOMEN, BLANKCHEABLE AND SKIN INTACT Airway Maintenance Oxygen in Use? Yes Airway Device Nasal Cannula Flow Rate 4 L/min Outcomes Met? Yes Last Modified By: Nora Quintana RN 08/06/17 14:01:54 Post-Care Text: The patient is free from signs and symptoms of injury related to transfer/transport General Comments: REPORT GIVEN TO ASSEMBLER WATCH TRAIN. Lexa E.MARIANO ROWELL Dressing/Packing FT Pre-Care Text: Administers care to wound sites Entry 1 Type Dressing Items DRESSING STERI-STRIP 1/2 X 4 [[id number]][F] Site and Details BACK: steri strips, Outcomes Met? Yes mastisol, 4x4 and foam tape and STERI STRIP AROUND DRAIN AND FOAM TAPE Last Modified By: Nora Quintana RN 08/06/17 12:00:22 Post-Care Text: The patient is free from signs and symptoms of infection Medication Administration FT Pre-Care Text: Verifies allergies, administers prescribed medications and solutions, administers prescribed antibiotic therapy and immunizing agents as ordered, evaluates response to medications Administers prescribed medications and solutions Entry 1 Expiration Date Yes Outcomes Met? Yes Verified Last Modified By: Nora Quintana RN 08/06/17 09:13:29 Post-Care Text: The patient received appropriate medication(s) safely administered during the perioperative period For Zhang-Daggett please see scanned medication reconcilliation form for medications used at the field during the procedure. Communication FT Pre-Care Text: Maintains patient's dignity and privacy,and maintains patient confidentiality Entry 1 Communication Phone Communication By Nora Quintana RN Date and Time 08/06/17 08:26:00 Surgery Update CALL PLACED TO SURGERY WAITING AREA VOLUNTEER TO INFORM PATIENT FAMILY THAT SURGERY HAS STARTED AND PATIENT DOING WELL Outcomes Met? Yes Last Modified By: Nora Quintana RN 08/06/17 09:23:18 Post-Care Text: The patient's right to privacy is maintained Implant Log FT Pre-Care Text: Records devices implanted during the operative or invasive procedure Entry 1 Entry 2 Entry 3 Implant/Explant Implant Implant Implant Implant Identification Description DURAGEN PLUS 1 X 1 6.5 X 44 MM HANNAH SCREWS 70 MM SOLERA LISA [DP-1011][F] Serial Number [id number] Lot Number [id number] Meat Specialist FT-[employer] MEDTRONIC Catalog ?# DP-1011 [F] Size 1 X 1 IN 6.5 X 44 MM 70 MM Expiration Date 08/01/18 Usage Data Implant Site SPINE SPINE SPINE Quantity 1 6 2 Temperature Reconstitution Method Outcomes Met? Yes Yes Yes Last Modified By: Darnell ROWELL, Dasha Patrick RN, Dasha Coulter RN 08/06/17 11:28:38 08/06/17 11:28:38 08/06/17 11:28:38 Entry 4 Implant/Explant Implant Implant Identification Description SET SCREWS Serial Number [id number] Lot Number Meat Specialist MEDTRON[employer] Catalog ?# Size Expiration Date Usage Data Implant Site SPINE Quantity 6 Temperature Reconstitution Method Outcomes Met? Yes Last Modified By: Dasha Patrick RN 08/06/17 11:28:38 Post-Care Text: The patient is free from signs and symptoms of injury caused by extraneous objects Drains/Tubes FT Pre-Care Text: Administers care to invasive device sites Entry 1 Device Type DRAIN HEMOVAC WOUND Location SPINE DRAINAGE 10FR [[id number]][F] Quantity 1 Inserted By Cherry Ramos MD Present on Arrival? No Immediate DC? No DC'd at End of Case? No Outcomes Met? Yes Last Modified By: Dasha Patrick RN 08/06/17 11:31:47 Post-Care Text: The patient is free from signs and symptoms of infection Urinary Catheter Pre-Care Text: Patient is prepped using sterile technique. Entry 1 Urinary Catheter TRAY URINE JULIO CATH Present Upon Arrival No Inserted LF 16FR [[id number]][F] Insertion Date/Time 08/06/17 07:50:00 Urine Residual 150 Insertion Site Uretheral Urine CLEAR/YELLOW URINE Characteristics Inserted By Nora Quintana RN Outcomes Met? Yes Last Modified By: Nora Quintana RN 08/06/17 09:14:24 Post-Care Text: The patient is free from signs of trauma. Cultures and Specimens FT Pre-Care Text: Manages specimen handling and disposition Manages culture specimen collection Entry 1 Cultures Ordered Yes Culture Disposition Designated OR Area Culture Source URINE FROM KELLER Specimens Ordered Yes Specimen Disposition Designated OR Area Frozen Section Times Outcomes Met? Yes Last Modified By: Nora Quintana RN 08/06/17 11:46:45 Post-Care Text: The patient is free from signs and symptoms of injury caused by extraneous objects The patient is free from signs and symptoms of infection X-Rays and Images FT Pre-Care Text: Assess history of previous radiation exposure and implements protective measures Entry 1 X-Ray Type C-Arm Contrast Used? No Outcomes Met? Yes Last Modified By: Nora Quintana RN 08/06/17 09:14:50 Post-Care Text: The patient is free from signs and symptoms of radiation injury Temperature Control Entry 1 Temperature Control BLANKET MISTRAL AIR Quantity 1 Aid PLUS LOWER BODY [[id number]][F] Fluid/[place] Unit Mistral warming system Setting HIGH/43 Body Site Other, see comments Comments APPLIED TO POSTERIOR BILATERAL LOWER EXTREMITIES Last Modified By: Nora Quintana RN 08/06/17 09:15:31 Case Comments <None> Finalized By: Nora Quintana RN Document Signatures Signed By: Nora Quintana RN 08/06/17 12:17 Nora Quintana RN 08/06/17 14:01 Essence Wise CST 08/07/17 09:30 Nora Quintana RN 08/14/17 14:26 Nora Quintana RN 08/14/17 14:28 MAIN OR PACU I Observed: 08/06/2017 Status: F Source: [facility] RECORD 8:18 AM [facility] REPOSITORY PACU Phase I Document Type FT Summary Primary Physician: Cherry Ramos MD Finalized Date/Time: 08/06/17 13:53:38 Pt. Name: RICHARD KING/Sex: 1935 Male Med Rec #: [id number] Physician: Cherry Ramos MD Financial #: [id number] Pt. Type: A Room/Bed: [place] [address] Admit/Disch: 08/06/17 05:53:00 - Institution: Case Times PACU I FT Pre-Care Text: Identifies barriers to communication and implements measures to provide psychological support Develops individualized plan of care, and ensures continuity of care Maintains patient's dignity and privacy, and maintains patient confidentiality Identifies and reports philosophical, cultural, and spiritual beliefs and values Identifies individual values and wishes concerning care Implements aseptic technique, and administers prescribed antibiotic therapy and immunizing agents as ordered Evaluates postoperative tissue perfusion Implements thermoregulation measures, and monitors body temperature Evaluates postoperative respiratory status Evaluates postoperative cardiac status Evaluates postoperative neurological status Assesses pain control, collaborated in initiating patient-controlled analgesia and implements alternative methods of pain control Verifies allergies, administers prescribed medications and solutions, evaluates response to medications Entry 1 In PACU I 08/06/17 12:14:00 Discharge from PACU 08/06/17 12:50:00 I Outcomes Met? Yes Last Modified By: Yudy Gordon RN 08/06/17 13:53:13 Post-Care Text: The patient demonstrates knowledge of the expected response to the operative or invasive procedure The patient's care is consistent with the individualized perioperative plan of care The patient's right to privacy is maintained The patient's value system, lifestyle, ethnicity, and culture are considered, respected, and incorporated into the perioperative plan of care The patient participates in decisions affecting his or her perioperative plan of care The patient is free from signs and symptoms of infection The patient has wound/tissue perfusion consistent with or improved from baseline levels established preoperatively The patient is at or returning to normothermia at the conclusion of the immediate postoperative period The patient's respiratory function is consistent with or improved from baseline levels established preoperatively The patient's cardiovascular status is consistent with or improved from baseline levels established preoperatively The patient's cardiovascular status is consistent with or improved from baseline levels established preoperatively The patient demonstrates and/or reports adequate pain control throughout the perioperative period The patient received appropriate medication(s), safely administered during the perioperative period Acuity Level PACU I FT Entry 1 Start Time 08/06/17 12:14:00 Stop Time 08/06/17 12:50:00 Acuity Level Acuity Level I Last Modified By: Yudy Gordon RN 08/06/17 13:53:25 Finalized By: Yudy Gordon RN Document Signatures Signed By: Yudy Gordon RN 08/06/17 13:53 ANESTHESIA CONSULTATION Observed: 08/06/2017 Status: F Source: [facility] 7:25 [facility] REPOSIT[facility] Patient: RICHARD KING Age: 81 years Sex: Male : 1935 Associated Diagnoses: None Author: Rosales Montero Jr., DO Preoperative Information Anesthesia history: Patient History: Pt./ family denies any personal or family hx of problems/difficulties with anesthesia.. Re-eval prior to induction: Inital eval reviewed: No significant interval change, NPO 10 hours.. Review of Systems Constitutional: See nursing assessment.. Cardiovascular: Cardiac risk assessment performed. Pt. denies any significant change in their cv hx.. Respiratory: Pt. denies any signicant change in their respiratory status.. Neurologic: Pt. denies any acute neurological changes.. Health Status Allergies: Allergic Reactions (Selected) Severity Not Documented Chlorhexidine Gluconate- Burning., Allergies (1) Active Reaction Chlorhexidine Gluconate Burning Current medications: (Selected) Inpatient Medications Ordered Cefazolin 2 gram IVPB: 2 gram = 50 mL, Soln-IV, IV Piggyback, PREOP, Routine, Start date 08/06/17 6:00:00 EST, 50 mL/hr, Infuse over 1 hour(s) Lactated Ringers IV Gilda 1000 mL 1,000 mL: 1,000 mL, IV, 150 mL/hr, Routine, Start date 08/06/17 6:00:00 EST, 6.7 hour(s), Total volume (mL): 1,000 atorvastatin 20 mg Tab: 20 mg = 1 tab(s), Tab, Oral, Daily, Routine, Start date 08/06/17 9:00:00 EST hydrochlorothiazide-lisinopril 12.5 mg-20 mg Tab: 1 tab(s), Tab, Oral, Daily, Routine, Start date 08/06/17 9:00:00 EST metoprolol 50 mg ER Tab: 50 mg = 1 tab(s), Tab-ER, Oral, Daily, Routine, Start date 08/06/17 9:00:00 EST predniSONE 1 mg Tab: 1 mg = 1 tab(s), Tab, Oral, TID, Routine, Start date 08/06/17 8:00:00 EST Documented Medications Documented aspirin 325 mg Oral EC Tab: 325 mg = 1 tab(s), Oral, Daily, Prophylaxis atorvastatin 20 mg Tab: 20 mg = 1 tab(s), Oral, Daily, Refills(s) 0, High cholesterol hydrochlorothiazide-lisinopril 12.5 mg-20 mg Tab: 1 tab(s), Oral, Daily, High blood pressure meloxicam 7.5 mg Tab: 7.5 mg = 1 tab(s), Oral, Daily, Pain metoprolol 50 mg ER Tab: 50 mg = 1 tab(s), Oral, Daily, High blood pressure omeprazole 20 mg Cap-DR: 20 mg = 1 cap(s), Oral, Daily, Control of stomach acid predniSONE 1 mg Tab: 1 mg = 1 tab(s), Oral, TID, Pain, Medications (6) Active Scheduled: (5) atorvastatin 20 mg Tab [F] 20 mg 1 tab(s), Oral, Daily ceFAZolin 2 gram 50 mL, IV Piggyback, PREOP hydrochlorothiazide-lisinopril 12.5 mg-20 mg Tab [F] 1 tab(s), Oral, Daily metoprolol 50 mg ER Tab [F] 50 mg 1 tab(s), Oral, Daily predniSONE 1 mg Tab [F] 1 mg 1 tab(s), Oral, TID Continuous: (1) Lactated Ringers 1,000 mL 1,000 mL, IV, 150 mL/hr PRN: (0) Problem list: All Problems Acid reflux / SNOMED CT 257782129 / Confirmed High cholesterol / SNOMED CT 17080827 / Confirmed High blood pressure / SNOMED CT 6890025474 / Confirmed Heart attack / SNOMED CT 78993305 / Confirmed, Active Problems (4) Acid reflux Heart attack High blood pressure High cholesterol Histories Past Medical History: No active or resolved past medical history items have been selected or recorded. Family History: Procedure history: Open heart surgery ([id number]). Comments: 07/25/2017 12:09 - Essence Mack RN 2009 Social History Social & Psychosocial Habits No Data Available . Physical Examination Vital Signs 08/06/2017 07:22 EST Systolic Blood Pressure 156 mmHg HI Diastolic Blood Pressure 83 mmHg Blood Pressure Location Left arm 08/06/2017 07:21 EST Heart Rate Monitored 74 bpm Systolic Blood Pressure 159 mmHg HI Diastolic Blood Pressure 81 mmHg Mean Arterial Pressure, Monitered 107 mmHg 08/06/2017 07:21 EST Heart Rate Monitored 72 bpm Systolic Blood Pressure 156 mmHg HI Diastolic Blood Pressure 83 mmHg Blood Pressure Location Right arm Mean Arterial Pressure, Monitered 107 mmHg 08/06/2017 06:16 EST Heart Rate Monitored 79 bpm Systolic Blood Pressure 171 mmHg HI Diastolic Blood Pressure 87 mmHg Blood Pressure Location Left arm Mean Arterial Pressure, Monitered 115 mmHg SpO2 99 % BP/Pulse Patient Position Supine 08/06/2017 06:14 EST Temperature Oral 36.4 DegC Heart Rate Monitored 83 bpm Respiratory Rate 20 br/min Systolic Blood Pressure 161 mmHg HI Diastolic Blood Pressure 73 mmHg Blood Pressure Location Right arm Mean Arterial Pressure, Monitered 102 mmHg SpO2 99 % BP/Pulse Patient Position Supine 08/06/2017 06:14 EST Apical Heart Rate 64 bpm Vitals Signs (last 24 hrs) Last Charted Minimum Maximum Temp 36.4 (AUG 06 06:14) 36.4 (AUG 06 06:14) 36.4 (AUG 06:14) Heart Rate 74 (AUG 06 07:21) 64 (AUG 06 06:14) 83 (AUG 06 06:14) Resp Rate 20 (AUG 06 06:14) 20 (AUG 06 06:14) 20 (AUG 06 06:14) SBP H 156 (AUG 06:22) H 156 (AUG 06:) H 171 (AUG 06 06:16) DBP 83 (AUG 06:22) 73 (AUG 06 06:14) 87 (AUG 06 06:16) MAP 107 (AUG 06:) 102 (AUG 06:14) 115 (AUG 06 06:16) SpO2 99 (AUG 06:16) 99 (AUG 06 06:14) 99 (AUG 06 06:14) Pain assessment: Pain Assessment 08/06/2017 06:24 EST Pain Symptoms Self Report Yes, able to self report Primary Pain Location Buttock Primary Pain Laterality Bilateral Patient Preferred Pain Tool Numeric rating Numeric Pain Scale 4 Numeric Pain Score 4 08/06/2017 06:14 EST Preliminary Pain Scale 4 08/06/2017 06:14 EST Primary Pain Location Buttock Primary Pain Laterality Bilateral Numeric Pain Scale 4 . Airway: Normal oral/pharyngeal anatomy.. Mouth: Dentures ( Upper and lower dentures ). Respiratory: Adequate air exchange.. Cardiovascular: Adequate perfusion and function. Cardiac clearance done Review / Management Results review: No qualifying data available. Plan [place] [employer] (ASA) physical status classification: Class III. Anesthetic Preoperative Plan Anesthesia: General. . Anesthetic plan, risks, benefits, and alternatives discussed with the patient and/or family. Pt. and/or family present and agree to proceed as planned.. BLOOD BANK ID# Collected: 08/06/2017 Status: F Source: [facility] 6:29 AM [facility] TYPE CODE TESTS RESULT OUT OF RANGE REFERENCE UNITS LAB [id number]( INC) Unknown BBID# [id number] Performed By: #### [id number] #### [facility] [address] [place] [id number] ABO/RH Collected: 08/06/2017 Status: F Source: [place] 6:29 AM [facility] REPOSITORY TYPE CODE TESTS RESULT OUT OF RANGE REFERENCE UNITS LAB [id number](LO INC) Unknown ABO/Rh O NEG Performed By: #### [id number] #### [facility] Laboratory [address] [place] [address] ABO/RH HISTORY CHECK Collected: 08/06/2017 Status: F Source: [place] 6:29 AM [facility] REPOSITORY TYPE CODE TESTS RESULT OUT OF RANGE REFERENCE UNITS LAB [id number](L OINC) Normal ABO/Rh Verified Hx History Check Blood Type Performed By: #### [id number] #### [facility] [address] [place] [address] ABSC Collected: 08/06/2017 Status: F Source: [employer] 6:29 AM [facility] REPOSITORY TYPE CODE TESTS RESULT OUT OF RANGE REFERENCE UNITS LAB [id number](L OINC) Normal ABSC Gel Negative Interp Performed By: #### [id number] #### [facility] [address] [place] [address] OT-XR SPINE SINGLE Observed: 08/06/2017 Status: F Source: [facility] SPECIFY LEVEL 12:00 AM [facility] REPOSITORY Images were obtained outside of [facility] [id number] RF-XR SPINE SINGLE Observed: 08/06/2017 Status: F Source: [place] SPECIFY LEVEL 12:00 AM [facility] REPOSITORY Images were obtained outside of [facility] [id number] PROGRESS Observed: 08/03/2017 Status: COMPLETED Source: [place] 3:06 PM [facility] REPOSITORY HNO ID: [id number] Author: Cherry Ramos Service: (none) Author Type: Physician Type: Progress Notes Filed: 08/03/2017 3:07 PM Note Text: Preoperative Phone Call: August 03, 2017 at 3:06 pm The patient was called regarding the surgery on his cell phone #[phone] instead of the home member that he gave me at the preop visit. He could not be reached at that number. A voice mail was left asked him to call us back for any questions regarding the operation. The patient did not have any questions. The patient is prepared to undergo the operation. The patient appreciated the call. INTERDISCIPLINARY NOTE - Observed: 08/03/2017 Status: F Source: [facility] 10:56 AM [facility] REPOSITORY Patient contacted [facility] to advise that on discharge he would like to go to [facility] for rehab. HOSP Observed: 08/03/2017 Status: COMPLETED Source: [place] 12:00 AM [facility] REPOSITORY Patient Update (NEUSFT) RICHARD KING ([id number]) 1935 M Date Time Provider Department 08/03/17 CHERRY RAMOS During your visit today, we recorded the following information about you: Cherry Ramos MD 08/03/2017 3:07 PM Signed Preoperative Phone Call: August 03, 2017 at 3:06 pm The patient was called regarding the surgery on his cell phone #[phone] instead of the home member that he gave me at the preop visit. He could not be reached at that number. A voice mail was left asked him to call us back for any questions regarding the operation. The patient did not have any questions. The patient is prepared to undergo the operation. The patient appreciated the call. Allergies As of Date: 08/03/2017 (No Known Allergies) Date Reviewed: 07/27/2017 Reviewed by: Calvin Guevara LPN - Fully Assessed Reason for Visit: PreOp Call [[id number]] Prescriptions as of 08/03/2017 Sig: BACK BRACE QuickDraw GABAPENTIN 100 MG CAPSULE ASPIRIN 325 MG TABLET Take 325 mg by mouth once micaela* ATORVASTATIN 20 MG TABLET Take 20 mg by mouth once geovanna* LISINOPRIL 20 MG-HYDROCHLOROT* Take 1 tablet by mouth once d* MELOXICAM 7.5 MG TABLET Take 7.5 mg by mouth once micaela* METOPROLOL SUCCINATE ER 50 MG* Take 50 mg by mouth once geovanna* OMEPRAZOLE 20 MG CAPSULE,BRETT* Take 20 mg by mouth once geovanna* PREDNISONE 1 MG TABLET Take 1 mg by mouth three time* Problem List As Of Date 08/03/2017 Noted Resolved Posterior vitreous detachment of right eye [H43*INVALID FOR* Vitreous floaters of both eyes [H43.393] INVALID FOR* Combined form of age-related cataract, both eye*INVALID FOR* Arthritis [M19.90] INVALID FOR* Elevated cholesterol [E78.00] INVALID FOR* GERD (gastroesophageal reflux disease) [K21.9] INVALID FOR* Heart attack (HCC) [I21.9] INVALID FOR* Hypertension [I10] INVALID FOR* Aspirin long-term use [Z79.82] Encounter Status:Closed by CHERRY RAMOS MD on 08/03/17 PROGRESS Observed: 07/27/2017 Status: COMPLETED Source: [place] 2:35 PM [facility] [place] REPOSITORY HNO ID: [id number] Author: Cherry Ramos Service: (none) Author Type: Physician Type: Progress Notes Filed: 07/27/2017 3:02 PM Note Text: SPINE SURGERY ESTABLISHED DATE OF SERVICE: 07/27/2017 DATE OF LAST VISIT: 07/11/2017 PCP: Calvin Dumont REFERRING PROVIDER: [place] [address] [facility] Richard King is a 81 year old male presenting with his older son who is a power of title attorney and also an title attorney.. He drives a dump truck. CHIEF COMPLAINT: Bilateral buttock and radiating bilateral thigh pain into the posterior aspect of both calves and shins HISTORY OF PRESENT ILLNESS PRECIPITATING EVENT: None DURATION OF SYMPTOMS: June 2016. Worsening since March 2017 The patient presents for preoperative appointment. His predominant pain in his lower back to radiate circumferentially down to both legs down to the shins anteriorly into the back of these posteriorly. Pain is achy and numbing at 9/10. Walking aggravates pain relieved by taking prednisone. The patient initially presented with bilateral buttock pain radiates down posteriorly to the both thighs and anteriorly as well and into the proximal aspect of both calves and shins. Pain is achy and numbing at 9-10/10. He feels a quality life is no longer manageable and would like to have something done definitively. He is older son has a power of title attorney who is also an title attorney. PAIN EVALUATION 07/27/2017 Pain Score: 9 Pain Location: Back-Lower Description: Aching;Numbness Duration Amount of Time: 1.5 Duration Units: Years Frequency: Continuous Intervention: Medication;Reposition;Relaxation;Pillow support;Positioning Pain Radiation: Buttocks To circumferentially down to both knees and into the proximal calves and shins Aggravating Factors: Standing, Walking Alleviating Factors: Sitting, Prednisone Pain Ratio: Pain in the leg(s) is greater than in the back DERMATOMAL DISTRIBUTION: Right: L4 and L5 Left: L4 and L5 AMBULATORY STATUS: 100 yards STANDING UPRIGHT: 10-20 minutes FUNCTIONAL STATUS: Walk indoors, such as around the house (1.75 METs) Do light work around the house, such as dusting or washing dishes (2.70 METs) Take care of self, that is eating, dressing, bathing, using the toilet (2.75 METs) Do moderate work around the house such as vacuuming, sweeping floors, or carrying in groceries (3.50 METs) Do yardwork, such as raking leaves, weeding,or pushing a power mower (4.50 METs) Climb a flight of stairs or walk up a hill (5.50 METs) PREVIOUS CONSERVATIVE TREATMENTS: Only the first PENELOPE helped. The last [address] Juarez. PT done in 2016 did not help all that much. PREVIOUS SPINAL SURGERY: None PED RED FLAGS No No-Significant Injury to Spine YES-Use of Steroids for Prolonged Duration No-Loss of Bowel/Bladder Control, Genital/Anal Numbness No-Recent Use of Intravenous (IV) Drugs No-Difficulty Keeping Balance when Walking No-Progressive Weakness in Arms/Legs No-History of Any Type of Cancer YES-Unable to Find Position of Comfort No-Pain at Night that Disturbs Sleep No-Recent Elevated Temp with Unknown Cause No-Diagnosed with Osteoporosis No-Unintentional Weight Loss or Gain He was told he had some cancer does not know exactly where. *PED (Patient Entered Data) osteoporosis flag will display for females 55 years or older and males 75 years or older. 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, Both Eyes Arthritis Elevated Cholesterol Gerd (Gastroesophageal Reflux Disease) Heart Attack Hypertension Aspirin Long-Term Use PAST MEDICAL HISTORY Diagnosis Date - Arthritis - Aspirin long-term use - Combined form of age-related cataract, both eyes 05/30/2016 - Elevated cholesterol - GERD (gastroesophageal reflux disease) - Heart attack 2009 - Hypertension - Posterior vitreous detachment of right eye 05/30/2016 - Vitreous floaters of both eyes 05/30/2016 PAST SURGICAL HISTORY Procedure Laterality Date - HEART SURGERY HX 2009 double bypass FAMILY HISTORY Problem Relation Age of Onset - Hypertension Mother - Diabetes Mother - Hypertension Father Social History Marital status: Spouse name: Years of education: Number of children: 4 Occupational History Occupation Employer Comment retired but workin* Social History Main Topics Smoking status: Never Smoker Smokeless status: Never Used Alcohol use: No Drug use: No ALLERGIES No Known Allergies MEDICATIONS: aspirin 325 mg tablet Take 325 mg by mouth once daily. Holding 5 days pre op atorvastatin (LIPITOR) 20 mg tablet Take 20 mg by mouth once daily. lisinopril-hydrochlorothiazide (PRINZIDE,ZESTORETIC) 20-12.5 mg per tablet Take 1 tablet by mouth once daily. meloxicam (MOBIC) 7.5 mg tablet Take 7.5 mg by mouth once daily. Holding 5 days pre op metoprolol succinate ER (TOPROL XL) 50 mg 24 hr tablet Take 50 mg by mouth once daily. omeprazole (PRILOSEC) 20 mg capsule Take 20 mg by mouth once daily. predniSONE (DELTASONE) 1 mg tablet Take 1 mg by mouth three times daily. Back Brace misc QuickDraw gabapentin (NEURONTIN) 100 mg capsule REVIEW OF SYSTEMS: Review of Systems Constitutional Negative for Fevers, Night Sweats, Weight Gain, Weight Loss and Fatigue Eyes Negative for Change in vison not corrected by glasses and Vision loss or change Hent Negative for Hearing Loss, Difficulty Swallowing, Tinnitus and Recent change in speech or voice Cardiovascular Positive for Leg pain with walking Negative for Chest Pain and Lightheadedness Respiratory Negative for SOB at rest, SOB with exertion, Cough, Wheezing and Snoring GI Negative for Blood in Stool, Abdominal Pain, Diarrhea, Constipation, Nausea/Vomiting and Heartburn Negative for Urgency, Impotence, Incontinence and Sexual Dysfunction Endocrine Negative for Heat Intolerance, Excessive Thirst and Menstrual Cycle Irregularities Musculoskeletal Positive for Back Pain Negative for Joint Swelling, Stiff Joints and Muscle Pain Integumentary Negative for Rashes, Itching, Other Lesions and Hair Changes Heme/Lymph Negative for Prolonged Bleeding, Easy Bruising and Swelling of Arm or Leg Allergy/Immunologic Negative for Nasal Congestion and Swollen Nodes Neurologic Negative for Memory Problems, Headache, Numbness/Tingling, Weakness, Double Vision, Trouble Swallowing and Slurred Speech Psychiatric Negative for Stress or Conflicts, Depression, Anxiety, Irritability, Hallucinations and Delusions Patient's Review of Systems has been reviewed with the patient and updated as appropriate. OBJECTIVE: PHYSICAL EXAM BP 156/70 Pulse 79 Resp 20 Ht 172.7 cm (5' 8) Wt 74.8 kg (165 lb) BMI 25.09 kg/m2 GENERAL APPEARANCE: Well nourished, well developed, and no apparent distress. NEURO PSYCH: Patient oriented to person, place, and time. Mood pleasant. Benign affect. HEENT: Atraumatic and normocephalic cranium. Pupils equally round and reactive to light. Oropharynx clear. Upper denture Neck: Supple Chest: Clear to auscultation bilaterally Cardiac: Regular rhythm and rate Abdomen: Soft, nondistended and nontender Extremities: No gross deformities THE FOLLOWING IS THE SUMMARY OF THE PREVIOUS EXAMINATION. REPEATED AND OR ADDITIONAL EXAMINATION IS IN BOLD PRINT. CARDIOVASCULAR: Palpable 2+ pedal pulses. No edema noted. No varicosities. SKIN: Head, neck, trunk, and extremities dry, intact and without lesions. LYMPHATICS: No palpable nodes in cervical or axillae areas. Groin exam deferred. MUSCULOSKELETAL VISUAL INSPECTION CERVICAL: WNL with full active range of motion THORACIC: Slightly more prominent right side thoracic region LUMBAR: Slightly more prominent right side lumbar region. For flexion to 30? causes posterior thigh and calf pain on the left PALPATION: SPINOUS PROCESS: No pain. PARASPINALS: No pain. MUSCLE BULK: Normal and symmetrical in the upper AND lower extremities. MUSCLE TONE: Normal. MOTOR: 5/5 in all muscle groups of the lower extremities with exception of bilateral ADF and EHL 4/5 compared to initial exam that demonstrated the following exceptions: hip flexors 4, knee extension and flexion 4, ankle dorsiflexion 4, right EHL 4 left is 4+. SENSORY: Normal sensory exam GAIT: Normal. Difficulty with heel and toe REFLEXES: +2 to bilateral lower extremities in both regions except for absent left patella. PROPRIOCEPTION: Not tested. LONG TRACT SIGNS: No clonus. No Hoffmans. STRAIGHT LEG TEST: Ipsilateral: Negative. Contralateral: Negative. L'HERMITTES SIGN: Not tested. SPURLING'S TEST: Not tested. EXTREMITIES: No gross deformity or laxity with normal range of motion without pain except for gross palsy of the right upper extremity and hand with atrophy of the hand PELVIS: No hip irritability STATION: stable. ADDITIONAL LONG TRACT SIGNS: Babinski: absent Escape sign: Not performed ADDITIONAL EXAMINATION: not performed [place] Signs: not performed KP: Diminished OAARS report was reviewed. Gabapentin in June 2017 MEDICAL RECORDS Reviewed at the index visit: Left L3 and L4 transforaminal lumbar epidural steroid injections by Dr. Juarez on May 05, 2016 Left L3 and L4 transforaminal lumbar epidural steroid injections by Dr. Juarez performed on December 01, 2016 Left L4 and L5 transforaminal lumbar epidural steroid ejections by Dr. Juarez performed on March 06, 2017 Progress note dated June 06, 2017 regarding lumbar stenosis with neurogenic claudication NEURO TESTS: None DATA REVIEW Imaging and outside records reviewed and findings are as follows THE STUDIES REVIEWED AT THIS VISIT ARE HIGHLIGHTED IN BOLD PRINT. [facility] Lumbar x-rays. Complete with bending views. June 12, 2017. L3-4 this space collapse on the left. L4 translated slightly to the left of L5. Left L4-5 disc space narrowing. Degenerative disc changes with disc degeneration L3-5 with severe collapsed disc space L5-S1. L4-5 degenerative spondylosis and measuring 7 mm with forward flexion that reduces to 5 mm in extension Atherosclerosis the vascular structures of the aorta. Lumbar MRI scan. June 12, 2017. Severe stenosis L3-4 and severe stenosis L4-5 with facet widening and canal down to 6 mm. L4-5 spondylolisthesis that appears be reduced compared to lumbar x-rays. Mild stenosis L3-4 ASSESSMENT/PLAN IMPRESSION: (Z98.1) S/P laminectomy with spinal fusion (primary encounter diagnosis) (M48.062) Lumbar stenosis with neurogenic claudication (M43.10) Degenerative spondylolisthesis (I10) Essential hypertension (M19.90) Arthritis (I21.4) Non-ST elevation (NSTEMI) myocardial infarction (HCC) (E78.00) Elevated cholesterol (H25.813) Combined form of age-related cataract, both eyes (Z79.82) Aspirin long-term use #1 L3-4 and L4-5 lumbar stenosis with claudication and lower extremity weakness, degenerative spondylosis L4-5 with facet widening, coronary disease, status post myocardial infarction with subsequent coronary artery bypass graft in 2008 Diagnoses and treatment options were discussed. Based on failure of previous conservative treatments, he would be a reasonable candidate for L3-5 laminectomy with fusion. We talked at length about involving L2-3. I am concerned about the potential adjacent level degeneration which may occur out earlier based on adding fusion to L3-L5. His son and the patient talked at length about the possibility of adjacent level degeneration and his active status. He would like to have the L2 level also included. Therefore the consent was modified to L2-L5 lumbar laminectomy and fusion. Risks and complications of the lumbar laminectomy surgery were discussed including but limited to bleeding, infection, damage to nerves, soft tissue, vessels, deep venous thrombosis, pulmonary embolus, heart attack, stroke, , nerve and cord injury, paralysis, worsening pain, paresthesias, weakness, durotomy, pseudarthrosis or non-union, adjacent segment disease, failure or malpositioning of the instrumentation, need for further surgery, and persistent back pain. The patient was given the option of going to one of my colleagues due to anticipated closure of spine program locally in this hospital by November 2017. The patient prefers to proceed with surgery locally and will arrange follow-up's as needed with other [facility] surgeons. Cardiology consultation the patient is an acceptable candidate for upcoming surgical procedure. He should stay on his. Procedure blood pressure control agents. He may hold his antiplatelet therapy for 5-7 days prior to surgery. #2 coronary artery disease, status post myocardial infarction, status post coronary artery bypass graft Cardiac consultation was was completed with acceptable risk. Decrease antiplatelet therapy 5- days before the surgery. #3 family situation His son who has the power of title attorney was present throughout the office visit today. #4 postop delirium A known common complication in the perioperative period for the geriatric patient is delirium. It can increase the length of the hospital stay as as well as morbidity and mortality. Richard King is clinically indicated and wishes to pursue Lumbar Decompression with Fusion at L2-5. Clinical Indications for Spinal Fusion: Spondylolisthesis: Grade 2 with 4-10mm of slip The risks, benefits, and anticipated outcomes of the procedure/treatment/test, the alternatives to the procedure/treatment/test and their risks and benefits, and the roles and tasks of the personnel to be involved were discussed with the patient or the patient?s personal personal service representative. The patient has elected to schedule surgery at this time or intends to call the office with a surgical date. Shared decision making occurred while obtaining informed consent. 1. Imaging: Lumbar X-Ray 2. Consults: Physical Therapy Home health. Pain medication prescription to be determined at the hospital. 3. Follow up: Postop SIGNATURE: Cherry Ramos MD PATIENT NAME: Richard King DATE: July 27, 2017 TIME: 2:36 PM PAGER: PSA TOTAL Collected: 07/26/2017 Status: F Source: [place] 1:13 PM [facility] REPOSITORY TYPE CODE TESTS RESULT OUT OF RANGE REFERENCE UNITS LAB 22527321(LO ng/mL INC) Normal PSA Total 7.49 Result Comment: AGE-SPECIFIC REFERENCE RANGES FOR SERUM PSA REFERENCE RANGE NG/ML AGE ASIANS BLACKS WHITE 40-49 0- 2 0-2 0-2.5 50-59 0- 3 0-4 0-3.5 60-69 0- 4 0-4.5 0-4.5 70-79 0- 5 0-5.5 0-6.5 PSA INCREASES WITH AGE, RACE, AND EJACULATION WITHIN 48 HRS. [facility] VOL24,NO.2, , PG.339 Performed By: #### [id number] #### KEIRY [employer] [address] [place] [address] CODING SUMMARY. Observed: 07/26/2017 Status: F Source: [place] 9:11 AM [facility] REPOSITORY CODING DATE: 07/26/2017 FINAL [facility] STATUS: Home (Routine DC) PAYOR: Medicare APC DESCRIPTION 5521 Level 1 Imaging without Contrast ADMIT DX: REASON FOR VISIT DX: Z01.818 Encounter for other preprocedural examination FINAL DX: PRINCIPAL: Z01.818 Encounter for other preprocedural examination SECONDARY: PYMT PROC APC STAT DESCRIPTION DOCTOR NAME DATE NOTE: The code number assigned matches the documented diagnosis and / or procedure in the patient's chart. However, the narrative phrase printed from the coding software may appear abbreviated, or result in slightly different terminology. Coded By: Lucrecia Zhong Date Saved: 07/26/2017 09:11 am XR CHEST 2 VIEWS Observed: 07/25/2017 Status: F Source: [facility] [place] 2:31 PM [facility] REPOSITORY Exam Date/Time: 07/25/2017 14:38 EST Reason for Exam: PRE OP Report IMPRESSION: NO ACTIVE LUNG DISEASE. EXAM: XR Chest 2 Views CLINICAL HISTORY: Shortness of breath PRE OP COMPARISONS: None FINDINGS: Sternotomy suture wires intact. Heart size normal. Mediastinal shadows within normal limits. Slight undulation of the right hemidiaphragm most likely a normal variant. Minimal scarring suggested at the left base/pleural surface. No signs of pulmonary edema. FINAL REPORT Dictated: 07/25/2017 3:27 pm Georges Beach MD Signed (Electronic Signature): 07/25/2017 4:53 pm Signed by: Georges Beach MD Transcribed by: suze Technologist: ELIN INTERDISCIPLINARY NOTE - Observed: 07/25/2017 Status: C Source: [facility] 1:10 PM [facility] REPOSITORY Surgery:spine surgery Living Situation: alone children in the area for support. DME: will need FWW Anticipated plan: Pt will check with HH services in [place] Transportation: son Pharmacy:[facility] in [place] PCP:Dr. dumont Discussed anticipated d/c date, rounding, hospitalist program, PT/OT safe recommendations. [facility] would accept pt if he choses. CBC W/INDICES Collected: 07/25/2017 Status: F Source: [place] 11:47 AM [facility] REPOSITORY TYPE CODE TESTS RESULT OUT OF REFERENCE UNITS RANGE LAB 66532-7(LO 4.0-11.0 E9/L INC) LEUKOCYTES Normal 10.5 LAB 789-8(LOIN 4.3-5.9 E12/L C) Normal ERYTHROCYTES:NCNC: 4.5 PT:BLD:QN:AUTOMATE D COUNT LAB 718-7(LOIN 13.5-17.5 gm/dL C) Normal HEMOGLOBIN:MCNC:PT 15.4 :BLD:QN: LAB 4544-3(FILEMON 37.7-49.0 % NC) Normal HEMATOCRIT:VFR:PT: 45.1 BLD:QN:AUTOMATED COUNT LAB 788-0(LOIN 10.9-14.2 % C) ERYTHROCYTE Normal DISTRIBUTION 12.7 WIDTH:RATIO:PT:RBC :QN:AUTOMATED COUNT LAB 785-6(LOIN 27.0-34.0 pg C) ERYTHROCYTE High MEAN CORPUSCULAR 34.2 HEMOGLOBIN:ENTMASS :PT:RBC:QN:AUTOMAT ED COUNT LAB 786-4(LOIN 31.4-39.3 gm/dL C) ERYTHROCYTE Normal MEAN CORPUSCULAR 34.2 HEMOGLOBIN CONCENTRATION:MCNC :PT:RBC:QN:AUTOMAT ED COUNT LAB 787-2(LOIN 80.0-100.0 fL C) ERYTHROCYTE Normal MEAN CORPUSCULAR 100.0 VOLUME:ENTVOL:PT:R BC:QN:AUTOMATED COUNT LAB 86477-8(LO 6.4-10.8 fL INC) PLATELET MEAN Normal VOLUME:ENTVOL:PT:B 9.9 LD:QN:AUTOMATED COUNT LAB 777-3(LOIN 150.0-500.0 E9/L C) Normal PLATELETS:NCNC:PT: 184.0 BLD:QN:AUTOMATED COUNT Performed By: #### [id number], [id number], [id number], [id number], [id number], [id number] #### [facility] [address] [place] [address] GLUCOSE Collected: 07/25/2017 Status: F Source: [facility] [address] [place] [address] REPOSITORY TYPE CODE TESTS RESULT OUT OF RANGE REFERENCE UNITS LAB 2339-0(LOIN 55-199 mg/dL C) Normal 107 GLUCOSE:MCNC :PT:BLD:QN: Performed By: #### [id number], [id number], [id number], [id number], [id number], [id number] #### [facility] [address] [place] [address] BUN Collected: 07/25/2017 Status: F Source: [facility] 11:[address] [facility] REPOSITORY TYPE CODE TESTS RESULT OUT OF RANGE REFERENCE UNITS LAB 3094-0(LOIN 5-21 mg/dL C) High UREA 23 NITROGEN:MCN C:PT:SER/LAZARO S:QN: Performed By: #### [id number], [id number], [id number], [id number], [id number], [id number] #### [facility] [address] [place] [address] EGFR Collected: 07/25/2017 Status: F Source: [facility] 11:47 [facility] REPOSITORY Order Comment: Order added by Discern Expert. TYPE CODE TESTS RESULT OUT OF REFERENCE UNITS RANGE LAB 43988-9(LO >=59 mL/min/1.73 INC) Low m2 GLOMERULAR 39 FILTRATION RATE/1.73 SQ M.PREDICTED.NON BLACK:ARVRAT:PT: SER/PLAS:QN:CREA TININE-BASED FORMULA (MDRD) Result Comment: Chronic kidney disease could be indicated at eGFR's of less than 60 mL/min/1.73m2. Kidney failure is indicated at less than 15 mL/min/1.73m2. LAB 40102-5(LOINC) GLOMERULAR >=59 mL/min/1.73 FILTRATION RATE/1.73 SQ m2 M.PREDICTED.BLACK:ARVRAT:PT:SER/PLAS:QN:CREATININE-BASED FORMULA (MDRD) Low 47 Result Comment: eGFR is race adjusted. AA=. Performed By: #### [id number], [id number], [id number], [id number], [id number], [id number] #### [facility] [address] [place] [address] CREATININE Collected: 07/25/2017 Status: F Source: [facility] 11:47 [facility] REPOSITORY TYPE CODE TESTS RESULT OUT OF RANGE REFERENCE UNITS LAB 2160-0(LOIN 0.5-1.3 mg/dL C) High 1.7 CREATININE:M CNC:PT:SER/P LAS:QN: Performed By: #### [id number], [id number], [id number], [id number], [id number], [id number] #### [facility] [address] [place] [address] LYTES Collected: 07/25/2017 Status: F Source: [facility] 11:47 [facility] REPOSITORY TYPE CODE TESTS RESULT OUT OF RANGE REFERENCE UNITS LAB 2951-2(LOIN 135-145 mmol/L C) Normal SODIUM:SCNC:P 141 T:SER/PLAS:QN : LAB 2823-3(LOIN 3.5-5.3 mmol/L C) Normal POTASSIUM:SCN 3.9 C:PT:SER/PLAS :QN: LAB 2075-0(LOIN 101-111 mmol/L C) Normal CHLORIDE:SCNC 105 :PT:SER/PLAS: QN: LAB 8-9(LOIN 21-31 mmol/L C) Normal CARBON 28 DIOXIDE:SCNC: PT:SER/PLAS:Q N: LAB 34153-6(FILEMON 6-16 mEq/L NC) Normal ANION 12 GAP:SCNC:PT:S ER/PLAS:QN: Performed By: #### [id number], [id number], [id number], [id number], [id number], [id number] #### [facility] [address] [place] [address] ABO/RH RETYPE Collected: 07/25/2017 Status: F Source: [employer] [facility] 11:47 AM [facility] REPOSITORY TYPE CODE TESTS RESULT OUT OF RANGE REFERENCE UNITS LAB [id number]( INC) Unknown ABO/Rh O NEG Retype Interp Performed By: #### [id number] #### [facility] [address] [place] [address] Observed: 07/25/2017 Status: F Source: [employer] MRSA SCREEN 11:47 AM [facility] REPOSITORY Microbiology PROCEDURE: MRSA Screen [R1] SOURCE: Nasal BODY SITE: COLLECTED DATE/TIME: 07/25/2017 11:47 EST RECEIVED DATE/TIME: 07/25/2017 15:13 EST START DATE/TIME: 07/25/2017 15:14 EST FREE TEXT SOURCE: Jill Ewing DO, Rosales Montero Jr., DO, Rosales FINAL REPORTS Final Report [] Verified Date/Time: 07/27/2017 10:26 EST MRSA Negative. Performing Locations R1: This test was performed at: [facility], [address] [place] [address], [address] , Performed By: #### [id number] #### [facility] [address] [place] [address] PROGRESS Observed: 07/20/2017 Status: COMPLETED Source: [place] 1:46 PM [facility] REPOSITORY HNO ID: [id number] Author: Kurt (Od) Nick Service: (none) Author Type: SWIMMING POOL SALESPERSON Type: Progress Notes Filed: 07/20/2017 1:48 PM Note Text: ASSESSMENT/PLAN: 1. Combined form of age-related cataract, both eyes - ICD9: 366.19, ICD10: H25.813 (primary diagnosis) Not visually significant / Observe 2. Vitreous floaters of both eyes - ICD9: 379.24, ICD10: H43.393 Patient was given both written and verbal information on flashes and floaters. Patient was instructed to call the office ([phone]) immediately upon noticing flashes of light, increase in floaters, or changes in vision. 3. Posterior vitreous detachment of right eye - ICD9: 379.21, ICD10: H43.811 Please call the office ([phone]) immediately if you notice more flashes of light, a sudden increase in floaters, or a sudden change in vision. Kurt Romero, OD I have confirmed and edited as necessary the relevant ophthalmic history, review of systems, surgical history, and ophthalmological examination findings as obtained by the ophthalmic technical staff. I have seen and examined Richard King. I have discussed the examination findings, diagnosis, and treatment options with Richard King and/or his family. I have also reviewed and agree with the assessment and plan as stated above and agree with all its relevant components. I gave the patient the opportunity to ask questions about the findings, diagnosis, and treatment options. HGBA1C Collected: 07/13/2017 Status: F Source: [place] 3:11 PM [facility] REPOSITORY TYPE CODE TESTS RESULT OUT OF REFERENCE UNITS RANGE LAB [id number]( 4.0-6.3 % LOINC) High Hemoglobin A1c 6.8 Performed By: #### [id number] #### KEIRY Chemistry Manual Subsection [address] [place] [address] PROGRESS Observed: 07/13/2017 Status: COMPLETED Source: [place] 1:52 PM [facility] REPOSITORY HNO ID: [id number] Author: Cherry Ramos Service: (none) Author Type: Physician Type: Progress Notes Filed: 07/13/2017 1:52 PM Note Text: Prostate biopsy from 01/10/17 was negative. HOSP Observed: 07/13/2017 Status: COMPLETED Source: [place] 12:00 AM [facility] REPOSITORY Patient Update (NEUSFT) RICHARD KING ([id number]) 1935 M Date Time Provider Department 07/13/17 CHERRY RAMOS During your visit today, we recorded the following information about you: Cherry Ramos MD 07/13/2017 1:52 PM Signed Prostate biopsy from 01/10/17 was negative. Allergies As of Date: 07/13/2017 (No Known Allergies) Date Reviewed: 07/11/2017 Reviewed by: Calvin Guevara LPN - Fully Assessed Reason for Visit: Consult [173] Cmt: Urology Prescriptions as of 07/13/2017 Sig: BACK BRACE [employer] DICLOFENAC 1 % TOPICAL GEL APPLY TOPCIALLY 4 TIMES A DAY* GABAPENTIN 100 MG CAPSULE ASPIRIN 325 MG TABLET Take 325 mg by mouth once micaela* ATORVASTATIN 20 MG TABLET Take 20 mg by mouth once geovanna* LISINOPRIL 20 MG-HYDROCHLOROT* Take 1 tablet by mouth once d* MELOXICAM 7.5 MG TABLET Take 7.5 mg by mouth once micaela* METOPROLOL SUCCINATE ER 50 MG* Take 50 mg by mouth once geovanna* OMEPRAZOLE 20 MG CAPSULE,BRETT* Take 20 mg by mouth once geovanna* PREDNISONE 1 MG TABLET Take 1 mg by mouth twice geovanna* Problem List As Of Date 07/13/2017 Noted Resolved Posterior vitreous detachment of right eye [H43*INVALID FOR* Vitreous floaters of both eyes [H43.393] INVALID FOR* Combined form of age-related cataract, both eye*INVALID FOR* Arthritis [M19.90] INVALID FOR* Elevated cholesterol [E78.00] INVALID FOR* GERD (gastroesophageal reflux disease) [K21.9] INVALID FOR* Heart attack [I21.9] INVALID FOR* Hypertension [I10] INVALID FOR* Aspirin long-term use [Z79.82] Encounter Status:Closed by CHERRY RAMOS MD on 07/13/17 PROGRESS Observed: 07/11/2017 Status: COMPLETED Source: [place] 1:00 PM [facility] [place] REPOSITORY HNO ID: [id number] Author: Cherry Ramos Service: (none) Author Type: Physician Type: Progress Notes Filed: 07/11/2017 2:11 PM Note Text: SPINE SURGERY ESTABLISHED DATE OF SERVICE: 07/11/2017 DATE OF LAST VISIT: 06/25/2017 PCP: Calvin Dumont REFERRING PROVIDER: AARON JUAREZ [facility] [place] [address] SUBJECTIVE Richard King is a 81 year old male presenting with his older son who is a power of title attorney and also an title attorney.. He drives a dump truck. CHIEF COMPLAINT: Bilateral buttock and radiating bilateral thigh pain into the posterior aspect of both calves and shins HISTORY OF PRESENT ILLNESS PRECIPITATING EVENT: None DURATION OF SYMPTOMS: June 2016. Worsening since March 2017 The patient returns for follow-up. He has pain in bilateral buttocks that radiates down to the distal calves. Pain is achy and numbing in 9/10. Walking aggravates the pain relieved by prednisone. The patient initially presented with bilateral buttock pain radiates down posteriorly to the both thighs and anteriorly as well and into the proximal aspect of both calves and shins. Pain is achy and numbing at 9-10/10. He feels a quality life is no longer manageable and would like to have something done definitively. He is older son has a power of title attorney who is also an title attorney. PAIN EVALUATION 07/11/2017 Pain Score: 9 Pain Location: Back-Lower Description: Burning;Aching Duration Amount of Time: 1.5 Duration Units: Years Frequency: Continuous Intervention: Medication;Reposition;Relaxation;Pillow support;Positioning Pain Radiation: Buttocks To circumferentially down to both knees and into the proximal calves and shins Aggravating Factors: Standing, Walking Alleviating Factors: Sitting, Prednisone Pain Ratio: Pain in the leg(s) is greater than in the back DERMATOMAL DISTRIBUTION: Right: L4 and L5 Left: L4 and L5 AMBULATORY STATUS: 100 yards STANDING UPRIGHT: 10-20 minutes FUNCTIONAL STATUS: Walk indoors, such as around the house (1.75 METs) Do light work around the house, such as dusting or washing dishes (2.70 METs) Take care of self, that is eating, dressing, bathing, using the toilet (2.75 METs) Do moderate work around the house such as vacuuming, sweeping floors, or carrying in groceries (3.50 METs) Do yardwork, such as raking leaves, weeding,or pushing a power mower (4.50 METs) Climb a flight of stairs or walk up a hill (5.50 METs) PREVIOUS CONSERVATIVE TREATMENTS: Only the first PENELOPE helped. The last [address] Juarez. PT done in 2016 did not help all that much. PREVIOUS SPINAL SURGERY: None PED RED FLAGS No No-Significant Injury to Spine YES-Use of Steroids for Prolonged Duration No-Loss of Bowel/Bladder Control, Genital/Anal Numbness No-Recent Use of Intravenous (IV) Drugs No-Difficulty Keeping Balance when Walking No-Progressive Weakness in Arms/Legs No-History of Any Type of Cancer YES-Unable to Find Position of Comfort No-Pain at Night that Disturbs Sleep No-Recent Elevated Temp with Unknown Cause No-Diagnosed with Osteoporosis No-Unintentional Weight Loss or Gain He was told he had some cancer does not know exactly where. *PED (Patient Entered Data) osteoporosis flag will display for females 55 years or older and males 75 years or older. 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, Both Eyes Arthritis Elevated Cholesterol Gerd (Gastroesophageal Reflux Disease) Heart Attack Hypertension Aspirin Long-Term Use PAST MEDICAL HISTORY Diagnosis Date - Arthritis - Aspirin long-term use - Combined form of age-related cataract, both eyes 05/30/2016 - Elevated cholesterol - GERD (gastroesophageal reflux disease) - Heart attack 2008 - Hypertension - Posterior vitreous detachment of right eye 05/30/2016 - Vitreous floaters of both eyes 05/30/2016 PAST SURGICAL HISTORY Procedure Laterality Date - HEART SURGERY HX 2009 double bypass FAMILY HISTORY Problem Relation Age of Onset - Hypertension Mother - Diabetes Mother - Hypertension Father Social History Marital status: Spouse name: Years of education: Number of children: 4 Occupational History Occupation Employer Comment retired but workin* Social History Main Topics Smoking status: Never Smoker Smokeless status: Never Used Alcohol use: No Drug use: No ALLERGIES No Known Allergies MEDICATIONS: diclofenac sodium (VOLTAREN) 1 % topical gel APPLY TOPCIALLY 4 TIMES A DAY NEEDED FOR PAIN gabapentin (NEURONTIN) 100 mg capsule aspirin 325 mg tablet Take 325 mg by mouth once daily. atorvastatin (LIPITOR) 20 mg tablet Take 20 mg by mouth once daily. lisinopril-hydrochlorothiazide (PRINZIDE,ZESTORETIC) 20-12.5 mg per tablet Take 1 tablet by mouth once daily. meloxicam (MOBIC) 7.5 mg tablet Take 7.5 mg by mouth once daily. metoprolol succinate ER (TOPROL XL) 50 mg 24 hr tablet Take 50 mg by mouth once daily. omeprazole (PRILOSEC) 20 mg capsule Take 20 mg by mouth once daily. predniSONE (DELTASONE) 1 mg tablet Take 1 mg by mouth twice daily. Back Brace misc [employer] REVIEW OF SYSTEMS: Review of Systems Constitutional Negative for Fevers, Night Sweats, Weight Gain, Weight Loss and Fatigue Eyes Negative for Change in vison not corrected by glasses and Vision loss or change Hent Negative for Hearing Loss, Difficulty Swallowing, Tinnitus and Recent change in speech or voice Cardiovascular Positive for Leg pain with walking Negative for Chest Pain and Lightheadedness Respiratory Negative for SOB at rest, SOB with exertion, Cough, Wheezing and Snoring GI Negative for Blood in Stool, Abdominal Pain, Diarrhea, Constipation, Nausea/Vomiting and Heartburn Negative for Urgency, Impotence, Incontinence and Sexual Dysfunction Endocrine Negative for Heat Intolerance, Excessive Thirst and Menstrual Cycle Irregularities Musculoskeletal Positive for Back Pain Negative for Joint Swelling, Stiff Joints and Muscle Pain Integumentary Negative for Rashes, Itching, Other Lesions and Hair Changes Heme/Lymph Negative for Prolonged Bleeding, Easy Bruising and Swelling of Arm or Leg Allergy/Immunologic Negative for Nasal Congestion and Swollen Nodes Neurologic Negative for Memory Problems, Headache, Numbness/Tingling, Weakness, Double Vision, Trouble Swallowing and Slurred Speech Psychiatric Negative for Stress or Conflicts, Depression, Anxiety, Irritability, Hallucinations and Delusions Patient's Review of Systems has been reviewed with the patient and updated as appropriate. OBJECTIVE: PHYSICAL EXAM BP 154/61 Pulse 71 Resp 20 Ht 172.7 cm (5' 8) Wt 74.8 kg (165 lb) BMI 25.09 kg/m2 GENERAL APPEARANCE: Well nourished, well developed, and no apparent distress. NEURO PSYCH: Patient oriented to person, place, and time. Mood pleasant. Benign affect. THE FOLLOWING IS THE SUMMARY OF THE PREVIOUS EXAMINATION. REPEATED AND OR ADDITIONAL EXAMINATION IS IN BOLD PRINT. CARDIOVASCULAR: Palpable 2+ pedal pulses. No edema noted. No varicosities. SKIN: Head, neck, trunk, and extremities dry, intact and without lesions. LYMPHATICS: No palpable nodes in cervical or axillae areas. Groin exam deferred. MUSCULOSKELETAL VISUAL INSPECTION CERVICAL: WNL with full active range of motion THORACIC: Slightly more prominent right side thoracic region LUMBAR: Slightly more prominent right side lumbar region. For flexion to 30? causes posterior thigh and calf pain on the left PALPATION: SPINOUS PROCESS: No pain. PARASPINALS: No pain. MUSCLE BULK: Normal and symmetrical in the upper AND lower extremities. MUSCLE TONE: Normal. MOTOR: 5/5 in all muscle groups of the lower extremities with exception of hip flexors 4, knee extension and flexion 4, ankle dorsiflexion 4, right EHL 4 left is 4+. SENSORY: Normal sensory exam GAIT: Normal. Difficulty with heel and toe REFLEXES: +2 to bilateral lower extremities in both regions except for absent left patella. PROPRIOCEPTION: Not tested. LONG TRACT SIGNS: No clonus. No Hoffmans. STRAIGHT LEG TEST: Ipsilateral: Negative. Contralateral: Negative. L'HERMITTES SIGN: Not tested. SPURLING'S TEST: Not tested. EXTREMITIES: No gross deformity or laxity with normal range of motion without pain except for gross palsy of the right upper extremity and hand with atrophy of the hand PELVIS: No hip irritability STATION: stable. ADDITIONAL LONG TRACT SIGNS: Babinski: absent Escape sign: Not performed ADDITIONAL EXAMINATION: not performed Ky Signs: not performed KP: Diminished OAARS report was reviewed. Gabapentin in June 2017 MEDICAL RECORDS Reviewed at the index visit: Left L3 and L4 transforaminal lumbar epidural steroid injections by Dr. Juarez on May 05, 2016 Left L3 and L4 transforaminal lumbar epidural steroid injections by Dr. Juarez performed on December 01, 2016 Left L4 and L5 transforaminal lumbar epidural steroid ejections by Dr. Juarez performed on March 06, 2017 Progress note dated June 06, 2017 regarding lumbar stenosis with neurogenic claudication NEURO TESTS: None DATA REVIEW Imaging and outside records reviewed and findings are as follows THE STUDIES REVIEWED AT THIS VISIT ARE HIGHLIGHTED IN BOLD PRINT. [facility] Lumbar x-rays. Complete with bending views. June 12, 2017. L3-4 this space collapse on the left. L4 translated slightly to the left of L5. Left L4-5 disc space narrowing. Degenerative disc changes with disc degeneration L3-5 with severe collapsed disc space L5-S1. L4-5 degenerative spondylosis and measuring 7 mm with forward flexion that reduces to 5 mm in extension Atherosclerosis the vascular structures of the aorta. Lumbar MRI scan. June 12, 2017. Severe stenosis L3-4 and severe stenosis L4-5 with facet widening and canal down to 6 mm. L4-5 spondylolisthesis that appears be reduced compared to lumbar x-rays. Mild stenosis L3-4 ASSESSMENT/PLAN IMPRESSION: (M48.062) Lumbar stenosis with neurogenic claudication (primary encounter diagnosis) (I10) Essential hypertension (M19.90) Arthritis (I21.4) Non-ST elevation (NSTEMI) myocardial infarction (HCC) (K21.9) Gastroesophageal reflux disease without esophagitis (E78.00) Elevated cholesterol (H25.813) Combined form of age-related cataract, both eyes (M43.10) Degenerative spondylolisthesis #1 L3-4 and L4-5 lumbar stenosis with claudication and lower extremity weakness, degenerative spondylosis L4-5 with facet widening, coronary disease, status post myocardial infarction with subsequent coronary artery bypass graft in 2008 Diagnoses and treatment options were discussed. Based on failure of previous conservative treatments, he would be a reasonable candidate for L3-5 laminectomy with fusion. We talked at length about involving L2-3. I do not feel that it is significant enough at this time to consider to be included. Risks and complications of the lumbar laminectomy surgery were discussed including but limited to bleeding, infection, damage to nerves, soft tissue, vessels, deep venous thrombosis, pulmonary embolus, heart attack, stroke, , nerve and cord injury, paralysis, worsening pain, paresthesias, weakness, durotomy, pseudarthrosis or non-union, adjacent segment disease, failure or malpositioning of the instrumentation, need for further surgery, and persistent back pain. The patient was given the option of going to one of my colleagues due to anticipated closure of spine program locally in this hospital by November 2017. The patient prefers to proceed with surgery locally and will arrange follow-up's as needed with other [facility] surgeons. #2 coronary artery disease, status post myocardial infarction, status post coronary artery bypass graft Cardiac consultation was was completed with acceptable risk. Decrease antiplatelet therapy 5- days before the surgery. #3 family situation His son who has the power of title attorney was present throughout the office visit today. #4 postop delirium A known common complication in the perioperative period for the geriatric patient is delirium. It can increase the length of the hospital stay as as well as morbidity and mortality. Richard King is clinically indicated and wishes to pursue Lumbar Decompression with Fusion at L3-5. Clinical Indications for Spinal Fusion: Spondylolisthesis: Grade 1 with 4-10mm of slip The risks, benefits, and anticipated outcomes of the procedure/treatment/test, the alternatives to the procedure/treatment/test and their risks and benefits, and the roles and tasks of the personnel to be involved were discussed with the patient or the patient?s personal personal service representative. The patient has elected to schedule surgery at this time or intends to call the office with a surgical date. Shared decision making occurred while obtaining informed consent. 1. QuickDraw brace 2. Follow up: Preop SIGNATURE: Cherry Ramos MD PATIENT NAME: Richard King DATE: July 11, 2017 TIME: 1:00 PM PAGER: PROGRESS Observed: 07/10/2017 Status: COMPLETED Source: [place] 5:11 PM [facility] [facility] REPOSITORY HNO ID: [id number] Author: Cherry Ramos Service: (none) Author Type: Physician Type: Progress Notes Filed: 07/10/2017 5:11 PM Note Text: As of July 08, 2017, the patient is an acceptable candidate for upcoming surgical procedure. He should stay on his. Procedure blood pressure control agents. He may hold his antiplatelet therapy for 5-7 days prior to surgery. HOSP Observed: 07/10/2017 Status: COMPLETED Source: [place] 12:00 AM [facility] [facility] REPOSITORY Patient Update (NEUSFT) RICHARD KING ([id number]) 1935 M Date Time Provider Department 07/10/17 RAMOS, DON K NEUSFT During your visit today, we recorded the following information about you: Cherry Ramos MD 07/10/2017 5:11 PM Signed As of July 08, 2017, the patient is an acceptable candidate for upcoming surgical procedure. He should stay on his. Procedure blood pressure control agents. He may hold his antiplatelet therapy for 5-7 days prior to surgery. Allergies As of Date: 07/10/2017 (No Known Allergies) Date Reviewed: 06/25/2017 Reviewed by: Cherry Ramos - Fully Assessed Reason for Visit: Medical Clearance [1983] Cmt: Dr. Dmitri Morales, [facility] Heart [facility] Vascular Prescriptions as of 07/10/2017 Sig: DICLOFENAC 1 % TOPICAL GEL APPLY TOPCIALLY 4 TIMES A DAY* GABAPENTIN 100 MG CAPSULE PREDNISONE 10 MG TABLET TAKE 2 TABLETS BY MOUTH DAILY* ASPIRIN 325 MG TABLET Take 325 mg by mouth once micaela* ATORVASTATIN 20 MG TABLET Take 20 mg by mouth once geovanna* LISINOPRIL 20 MG-HYDROCHLOROT* Take 1 tablet by mouth once d* MELOXICAM 7.5 MG TABLET Take 7.5 mg by mouth once micaela* METOPROLOL SUCCINATE ER 50 MG* Take 50 mg by mouth once geovanna* OMEPRAZOLE 20 MG CAPSULE,BRETT* Take 20 mg by mouth once geovanna* PREDNISONE 1 MG TABLET Take 1 mg by mouth twice geovanna* Problem List As Of Date 07/10/2017 Noted Resolved Posterior vitreous detachment of right eye [H43*INVALID FOR* Vitreous floaters of both eyes [H43.393] INVALID FOR* Combined form of age-related cataract, both eye*INVALID FOR* Arthritis [M19.90] INVALID FOR* Elevated cholesterol [E78.00] INVALID FOR* GERD (gastroesophageal reflux disease) [K21.9] INVALID FOR* Heart attack [I21.9] INVALID FOR* Hypertension [I10] INVALID FOR* Aspirin long-term use [Z79.82] Encounter Status:Closed by CHERRY RAMOS MD on 07/10/17 NM MYOCARDIAL SPECT Observed: 07/04/2017 Status: F Source: [place] MULTI REST/STRESS 6:02 AM [facility] REPOSITORY Exam Date/Time: 07/04/2017 11:06 EST Reason for Exam: CAD PRE OP DOWELL ORD ELEUTERIO Report THREE PLANE SPECT MYOCARDIAL SCAN, LEFT VENTRICULAR EJECTION FRACTION, AND LEFT VENTRICLE WALL MOTION ANALYSIS: REASON FOR EXAM: CAD PRE OP. I25.810. Z01.810. COMPARISON: Myocardial perfusion scan 08/20/2013. FINDINGS: Myocardial perfusion scan was performed with 8.4 mCi resting and post Lexiscan stress 31 mCi.Tc-99m Sestamibi doses. Stress validity is dependent on degree of stress obtained. Left ventricular uptake is satisfactory with matching rest/stress images, without suggestion of post stress ischemia. SDS is 1. Post stress LVEF is 62%. Post stress ESV is 32 mL. Wall motion appears satisfactory and intact. IMPRESSION: No post stress ischemic pattern is identified. Satisfactory LVEF and wall motion. FINAL REPORT Dictated: 07/04/2017 2:19 pm Richard Partida DO Signed (Electronic Signature): 07/04/2017 2:19 pm Signed by: Richard Partida DO Technologist: TATIANA ALLERGIES ALLERGIES DATE TYPE / CODE NAME / CODE REACTION SEVERITY SOURCE DRUG CHLORHEXIDINE [facility] INGREDI/[id number]( GLUCONATE Three SNOMED CT) Repository Drug/[id number](SNO No Known Mandaeism MED CT) Medication [facility] Repository DR/[id number](SNOME No Known Allergies Zhang Bertin D CT) [facility] Repository Miscellaneous Chlorhexidine Zhang Daggett Allergy/104365833( Gluconate [facility] SNOMED [facility]) Repository Drug NO KNOWN ALLERGIES Lopez Class/571476974(SN Clinic Main OMED CT) [place] Repository Drug NO KNOWN ALLERGIES [facility] Class/287539699(SN Three OMED CT) Repository ENCOUNTERS ENCOUNTERS ADMIT/DISCHARGE ACCOUNT NUMBER ADMITTING ENCOUNTER LOCATION SOURCE CLASS 06/24/2018 [id number] Ambulatory [facility] ing:MTLAB Repository 06/20/2018/ [id number] Theo Valdez Ambulatory [place] [address] [facility] l[facility] CardiologyRoo System m: Room 3 Repository 06/19/2018/ [id number] Stencel, Ambulatory [address] ing:.[facility] Repository 06/19/2018 [id number] Ambulatory [address] [place] [address] Repository 06/12/2018/ [id number] Ambulatory Building:[place] [address] [facility] Three [facility] Repository 06/10/2018 [id number] Ambulatory [facility] Repository 06/10/2018/ [id number] Ambulatory Medical Mandaeism 019 Associates [facility] Repository 06/10/2018/ [id number] Manjinder Harrison Ambulatory Mandaeism Mandaeism 019 [place] ing:[facility] Mandaeism System Urgent Care Repository 06/05/2018 [id number] Ambulatory Medical [facility]oc Repository 05/30/2018 [id number] Ambulatory Building:[facility] Repository 05/28/2018 [id number] Ambulatory [address] [place] [address] Repository 05/27/2018 [id number] Ambulatory [address] [place] [address] Repository 05/23/2018/ [id number] [facility]patient Mandaeism Mandaeism 018 [facility] ing:[facility] 0310Bed: System 01 Repository 05/23/2018 [id number] Ambulatory [address] [place] [address] Repository 05/21/2018/ [id number] Gutierrez, Ambulatory Medical Mandaeism 018 [facility]: System Med Assoc Repository 05/20/2018/ [id number] Gutierrez, Ambulatory Medical Mandaeism 018 [facility]: System Med Assoc Repository 05/20/2018 [id number] Ambulatory [place] Mandaeism ield [facility] System ng:[facility] Repository 05/20/2018/ [id number] Ambulatory [place] Mandaeism 018 ield [facility] System ng:[facility]UA[facility] Repository Room: Room 3 05/17/2018/ [id number] Gutierrez, Ambulatory Medical [facility] 018 [facility] Med [facility]oc Repository 05/17/2018/ [id number] Gladys, Ambulatory Medical Mandaeism 018 [facility]: System Med Assoc Repository 05/13/2018/ [id number] Charlie Max Ambulatory Mandaeism Mandaeism 018 [facility] ing[facility] Repository 05/13/2018/ [id number] Gladys, Ambulatory [facility]ae[facility]18 [facility] ing:[facility] System Repository 05/13/2018/ [id number] Ambulatory Medical Mandaeism 018 [facility]oc Repository 05/13/2018 [id number] Ambulatory [address] [place] [address] Repository 05/13/2018 [id number] Ambulatory [address] [place] [address] Repository 05/11/2018/ [id number] Charlie Max Ambulatory Mandaeism Mandaeism 018 [facility] ing:[facility] Repository 05/11/2018 [id number] Ambulatory [address] [place] [address] Repository 04/29/2018 [id number] Ambulatory Medical [facility] System [facility]oc Repository 04/29/2018/ [id number] Ambulatory Medical [facility]ism 018 [facility] Repository 04/24/2018/ [id number] AbramKana nicolen Ambulatory [facility] Mandaeism 018 Rasheed :[facility] Repository 04/03/2018/ [id number] Ambulatory [place] 018 Clinic Main [place] Repository 04/02/2018/ [id number] Afua, Ambulatory Mandaeism Mandaeism 018 [facility] HospitalBuild Regional ing:[facility] Repository 04/02/2018 [id number] Ambulatory [facility]9 [facility] Repository 02/28/2018/ [id number] Ambulatory Medical Mandaeism 018 [facility] System Med Repository AssocRoom: Room 3 02/20/2018/ [id number] Ambulatory [place] 018 Clinic Main [place] Repository 02/13/2018/ [id number] Ambulatory [facility] Mandaeism 018 [facility] System ng:AMUAshland Repository 01/23/2018/ [id number] Ambulatory [place] 018 Clinic Main [place] Repository 01/16/2018/ [id number] Gladys, Ambulatory Mandaeism Mandaeism 018 [facility] ing:.[facility] Health System Repository 01/16/2018 [id number] Ambulatory 9509 [facility] Repository 01/05/2018/ [id number] Afua, Ambulatory Mandaeism Mandaeism 018 [facility] ing:[facility] Repository 01/05/2018 [id number] Ambulatory 9509 [facility] Repository 01/03/2018/ [id number] Ambulatory Medical Mandaeism 018 [facility]: System Med Repository AssocRoom: Room 3 11/28/2017/ [id number] Ambulatory Building:[address]HANCHRI[facility] Repository 11/26/2017/ [id number] Ambulatory [facility] Mandaeism 018 ie [facility] System ng:AMUA[facility] Repository Room: Room 1 11/17/2017/ [id number] [facility] Mandaeism Mandaeism 018 [facility] ing:[facility] Repository 11/17/2017 [id number] Ambulatory [address] [place] [address] Repository 10/31/2017 [id number] Ambulatory [facility] ing:[facility] Repository 10/25/2017/ [id number] Ambulatory Medical Mandaeism 018 [facility] System Med Repository AssocRoom: Room 2 10/11/2017/ [id number] Ambulatory Medical Mandaeism 018 [facility]: System Med Repository AssocRoom: Room 3 10/09/2017/ [id number] Ambulatory [place] 018 Clinic Main [place] Repository 09/20/2017/ [id number] Ambulatory Medical Mandaeism 018 [facility] System Med Assoc Repository 09/17/2017/ [id number] Stencel, Ambulatory Mandaeism Mandaeism 018 [facility] Regional ing:[facility] Repository 09/10/2017/ [id number] Ambulatory Medical Mandaeism 018 [facility] System Med Repository AssocRoom: Room 2 09/03/2017/ [id number] Ambulatory Medical Mandaeism 018 [facility] System Med Repository AssocRoom: Room 2 08/28/2017/ [id number] Ambulatory Medical Mandaeism 018 [facility] System Med Repository AssocRoom: Room 1 08/28/2017/ [id number] Ambulatory [address] Repository 08/27/2017/ [id number] [facility] [address] [facility] ing[facility] Repository 08/22/2017/ [id number] Gutierrez, Ambulatory Mandaeism Mandaeism 018 [facility] ing:[facility] Repository 08/11/2017/ [id number] Gutierrez, Ambulatory Mandaeism Mandaeism 018 [facility] Regional ing:[facility] System Repository 08/06/2017/ [id number] MD Cherry Ramos Inpatient [facility]MCBuilding: Vicente Denton 018 K Encounter 3NRoom: Medical P370Nhe: Center Repository 08/03/2017/ [id number] Ambulatory [place] Mandaeism 018 [facility] ng:[facility] Repository Room: Room 3 07/27/2017/ [id number] Ambulatory [address] Repository 07/26/2017/ [id number] Charlie Max Ambulatory Mandae[facility] [address] [facility] ing:[facility] System Repository 07/25/2017/ [id number] MD Cherry Ramos Ambulatory [facility]MCBuilding: Vicente Macdonaldus 018 K CD:[id number] Medical Center Repository 07/20/2017/02/16/2 [id number] Ambulatory [place] [facility]18 [facility] Repository 07/13/2017/ [id number] Stencel, Ambulatory [address] ing:[facility] Repository 07/11/2017/ [id number] Ambulatory [address] Repository 07/04/2017/ [id number] DMITRI DOWELL Ambulatory Building:[place] [address] CIERA OCVCOUTSIDELO Three CATION Repository 07/04/2017/ [id number] DowellDmitri castellon [address] ing:SH.[facility] Repository PAYERS PAYERS ENCOUNTER GUARANTOR PAYER SUBSCRIBER SOURCE 06/24/2018 L Primary L Randee [id number] TR Insurance:MEDICARE [place]OB: [address] PART A BPolicy Number: [id number] Hospital 14808Gvd: (228) [id number] Repository [phone] () Date:2018-06-24 06/24/2018 Secondary L [place] Insurance:HUMANA HAMILTONDOB: [facility] [id number] Hospital Number: Repository [id number] Date:3737-74-03CH [address] [place] [address]QY: 06/24/2018 Tertiary NOT GIVENUNK [place] Insurance:SELF PAY [facility] INSURANCENew [facility] Number: Effective Repository Date:2018-06-24 06/20/2018 L Primary Insurance:1500 L Mandaeism HAMILTONDOB: MEDICARE PRIMARYPolicy HAMILTONDOB: [facility] [id number] Number: Effective [id number] [address] Date:2018-06-20 - [address] Repository [address] [place] [address] [id number] [address]Krb: Name:CD:[id number]: [address] [address]EOILOHRQE, [place] () [address]PZ: (716) (HP) [phone] (WP) 06/20/2018 Secondary RICHARD Robledo Insurance:[address] [place], [place] [address]B: [facility] Number: [id number] System Effective [address] Repository Date:2018-06-20 - [address] [place] [address] [id number] [address]Trs: Name:CD:[id number] [address] [place] [address] (HP)Tel: 000) [phone]: (WP) [phone] 06/19/2018 L Primary L [facility]: Insurance:MedicarePoli HAMILTONDOB: [facility] cy Number: Effective [id number] [address] Date:2018-06-19 - [facility] Repository [address] [place] [address] [id number] [phone]: Name:CD:[id number] [address] [address]Yzi: [id number], [place] (HP) [id number]: ([phone]) (HP) 000-0000 (WP) 06/19/2018 Secondary RICHARD Robledo Insurance:[facility]: [facility] Number: Effective [id number] System Date:2018-06-19 - [address] Repository [id number] Name:CD:[id number] [address] [address]Hub: [address] [place] [address] [id number]: (800) (HP) [phone] (WP) 06/19/2018 L Primary L [facility]: Insurance:MedicarePoli HAMILTONDOB: [facility] cy Number: [id number] Repository [facility] [id number] [address] [place] [address] Date:Plan Name:Brittany Castellon [address] [place] [address] [id number]: [id number]: (HP) (HP) 06/19/2018 Secondary RICHARD Abarca Ruth Insurance:MedicarePoli [facility]: Hospitals cy Number: [id number] Repository [id number] [facility] Date:Plan Name:Brittany Porter [address] [place] [address] [phone]: (HP) 06/19/2018 Tertiary [facility] Insurance:[facility]Columbia Basin HospitalDOB: [facility] Number: [id number] Repository [id number] [facility] Date:Plan Name:[address] [phone]: (HP) 06/12/2018 Primary [facility]: Insurance:MEDICARESelect Medical Cleveland Clinic Rehabilitation Hospital, Edwin ShawB: [facility] Repository [id number] cy Number: [id number] [facility] [facility] [address] [id number] [facility] [address] [place] [address] Date:2031-74-50RPM[address] [address]Nwv: (419) PART A CLAIMSPO [address] [address]Gbw: (HP) [id number], [place] [id number] (HP) [address]MK: 06/12/2018 Secondary [facility] Insurance:MEDICAREPoli [facility]: Three Repository cy Number: [id number] [facility] Date:2089-72-39MZJ [address] PART A CLAIMSPO [address] [address]Ufz: (419) 21017SPCGYKZQZ, [place] [id number] (HP) [address]GY: 06/12/2018 Tertiary [facility] Insurance:HUMANSt. Peter's HospitalB: Three Repository Number: [id number] [facility] [address] Date:0642-89-84FH [address] [address]Jgj: ([phone]) [phone]: (HP) [phone] 06/10/2018 RICHARD Abarca Primary Insurance:1500 RICHARD Robledo [facility]: MEDICARE PRIMARYPolicy HAMILTONDOB: [facility] Number: Effective [id number] System [facility] Date:2018-06-10 - [facility] Repository [address] [place] [address] [id number] [address] [place] [address]Aox: Name:CD:[id number] O [address]Ajw: [address] (HP) [address]PS: ([phone]) (HP) [phone] (WP) 06/10/2018 Secondary L Mandaeism Insurance:1500 [facility]: [facility] Number: [id number] System Effective [facility] Repository Date:2018-06-[address] [place] [address] [id number] [address]Vro: Name:CD:[id number] [address] [place] [address] (HP)Tel: [phone]: (WP) [phone] 06/10/2018 L Primary Insurance:1500 RICHARD Robledo [facility]: MEDICARE PRIMARYPolicy HAMILTONDOB: [facility] Number: Effective [id number] System [facility] Date:2018-06-10 - [facility] Repository [address] [place] [address] [id number] [address] [place] [address]Afc: Name:CD:[id number] O [address]Lwf: [address] (HP) [address]RE: (866) (HP) 000-0000 (WP) 06/10/2018 Secondary L Mandaeism Insurance:1500 [facility]: [facility] Number: [id number] System Effective [facility] Repository Date:2018-06-10 - [address] [place] [address] [id number] [address]Cyq: Name:CD:[id number] [address] [place] [address] (HP)Tel: (758) [phone]: (WP) [phone] 06/10/2018 L Primary RICHARD Robledo [facility]B: Insurance:MedicareSelect Medical Cleveland Clinic Rehabilitation Hospital, Edwin ShawB: [facility] cy Number: Effective [id number] [address] Date:2018-06-10 - [address] Repository [address] [place] [address] [id number] [address] [place] [address]Qrx: Name:CD:[id number] [address] [address]Ewp: [id number], [place] (HP) [phone]: ([phone]) (HP) [phone] (WP) 06/10/2018 Secondary RICHARD Robledo Insurance:[facility]Mohansic [facility]: [facility] Number: Effective [id number] System Date:2018-06-10 - [address] Repository [id number] Name:CD:[id number] [address] [address]Ydz: [address] [place] [address] [phone]: ([phone]) (HP) [phone] (WP) 06/05/2018 L Primary RICHARD Robledo [facility]: Insurance:MedicarePoli HAMILTONDOB: [facility] cy Number: Effective [id number] [address] Date:2018-06-05 - [address] Repository [address] [place] [address] [id number] [address] [place] [address]Qby: Name:CD:[id number] [address] [address]Ram: [id number], [place] (HP) [phone]: [phone]) (HP) [phone] (WP) 06/05/2018 Secondary RICHARD Robledo Insurance:HUMANAPolicy [facility]: [facility] Health Number: Effective [id number] System Date:2018-06-05 - [facility] Repository [id number] Name:CD:[id number] [address] [address]Anp: [address] [place] [address] [phone]: ([phone]) (HP) [phone] (WP) 05/30/2018 L Primary L [facility]: Insurance:MEDICAREPoli HAMILTONDOB: [facility] Repository [id number] cy Number: [id number] [facility] [address] [id number] [facility] [place] [address] Date:9768-06-67GAP J15 [address] [place] [address] 10280Wkj: ([phone]) PART A CLAIMSPO [address] [address]Wwn: (HP) 68093IKYFHSUQZ, [place] [phone] (HP) [address]UG: 05/30/2018 Secondary L [facility] Insurance:COMMERCIALLouis [facility]: Three Repository licy Number: [id number] [facility] [address] Date:2015-06-[address] [place] [address] 2016-05-21 32457Slk: (HP) 05/30/2018 Tertiary L [facility] Insurance:HUMANAPolDetwiler Memorial HospitalB: Three Repository Number: [id number] [facility] Date:5449-35-40SX[address] [address]Scc: (352) [phone]: (HP) [phone] 05/28/2018 L Primary L [facility]: Insurance:MedicarePolCleveland Clinic [facility]: [facility] cy Number: [id number] [address] [id number] [address] [place] [address] Date:Plan Name:[facility] A [address] [place] [address] [id number]: [phone]: (HP) (HP) 05/28/2018 Secondary [facility] Insurance:MedicareSelect Medical Cleveland Clinic Rehabilitation Hospital, Edwin ShawB: Hospitals cy Number: [id number] Repository [id number] [facility] Date:Plan Name:[address] [id number]: (HP) 05/28/2018 Tertiary [facility] Insurance:ChoiceCare [facility]: [facility] Number: [id number] Repository [id number] [facility] Date:Plan Name:[address] [id number]: (HP) 05/27/2018 [facility] hospitalD[facility]: Insurance:MedicarePoli HAMILTONDOB: [facility] cy Number: [id number] [address] [id number] [facility] [address] [place] [address] Date:Plan Name:[facility] Centerre A [address] [place] [address] [id number]: [id number]: (HP) (HP) 05/27/2018 Secondary [facility] Insurance:MedicareSelect Medical Cleveland Clinic Rehabilitation Hospital, Edwin ShawB: Hospitals cy Number: [id number] Repository [id number] [facility] Date:Plan Name:[facility] B [address] [place] [address] [id number]: (HP) 05/27/2018 [facility] Insurance:ChoiceCare [facility]: [facility] Number: [id number] Repository [id number] [facility] Date:Plan Name:[address] [id number]: (HP) 05/23/2018 L [facility] RICHARD Abarca MandaeismUniversity Hospitals Lake West Medical CenterB: Insurance:MedicareWVUMedicine Barnes[facility]: [facility] cy Number: Effective [id number] System [address] Date:2018-05-23 - [facility] Repository [address] [place] [address] 2575-26-94Wpul [address] [place], [place] [address]Tel: Name:CD:[id number] [address] [address]Uql: [id number], [place] (HP) [phone]: (800) (HP) [phone] (WP) 05/23/2018 Secondary RICHARD Robledo Insurance:[facility]: [facility] Number: Effective [id number] System Date:2018-05-23 - [facility] Repository 8528-18-53Vpip [address] [place] [address] Name:CD:[id number] [address] [address]Oza: [id number] [place] [address] [phone]: (800) (HP) [phone] (WP) 05/23/2018 [facility] Insurance:MedicareWVUMedicine [facility]: [facility] cy Number: [id number] Repository [facility] [id number] [facility] [address] [place] [address] Date:Plan Name:[facility] Centersh[facility]ha A [address] [place] [address] [id number]: [id number]: (HP) (HP) 05/23/2018 Secondary [facility] Insurance:MedicarePolGreene County General HospitalB: Hospitals cy Number: [id number] Repository [id number] [address] Date:Plan Name:[facility] Centershikha Porter [address] [place] [address] [id number]: (HP) 05/23/2018 Tertiary [facility] Insurance:ChoiceStraith Hospital for Special SurgeryB: [facility] Number: [id number] Repository [id number] [facility] Date:Plan Name:[address] [id number]: (HP) 05/21/2018 RICHARD Abarca Primary Insurance:1500 RICHARD Robledo [facility]B: MEDICARE PRIMARYAmerican Academic Health Systemy [facility]: [facility] Number: Effective [id number] [address] Date:2018-05-20 - [address] Repository [address] [place] [address] 4947-86-64Etck [address] [place] [address]Oqv: Name:CD:[id number] O [address]Ehf: [address] [address]HNLHFXOJZ, [place] (HP) [phone]: (866) (HP) 000-0000 (WP) 05/21/2018 Secondary RICHARD Robledo Insurance:1500 [facility]: [facility] Number: [id number] System Effective [facility] Repository Date:2018-05-20 - [address] [place] [address] [id number] [address]Uzd: Name:CD:[id number] [address] [place] [address] (HP)Tel: 000) [phone]: (WP) [phone] 05/20/2018 RICHARD Abarca Primary Insurance:1500 RICHARD Robledo [facility]B: MEDICARE PRIMARYSt. Rita's Hospital: [facility] Number: Effective [id number] System [address] Date:2018-05-20 - [address] Repository [address] [place] [address] [id number] [address] [place] [address]Hjf: Name:CD:[id number] O [address]Nvi: [address] (HP) [address]ZV: (866) (HP) 000-0000 (WP) 05/20/2018 Secondary RICHARD Fuaritan Insurance:1500 [facility]: [facility] Number: [id number] System Effective [address] Repository Date:2018-05-20 - [address] [place] [address] [id number] [address]Ssn: Name:CD:[id number] [address] [place] [address] (HP)Tel: [phone]) [phone]: (WP) [phone] 05/20/2018 L Primary Insurance:1500 RICHARD Robledo [facility]B: MEDICARE PRIMARYPhoenix Indian Medical Centericy [facility]: [facility] Number: Effective [id number] [address] Date:2018-05-20 - [address] Repository [address] [place] [address] [id number] [address] [place] [address]Dxj: Name:CD:[id number] [address]Nki: [address] [place] [address] (HP) [phone]: (853) (HP) 000-0000 (WP) 05/20/2018 Secondary RICHARD Fuaritan Insurance:1500 [facility]: [facility] Number: [id number] System Effective [address] Repository Date:2018-05-[address] [place] [address] 4232-55-98Uyhs [address]Saw: Name:CD:[id number] [address] [place] [address] (HP)Tel: ([phone]) [phone]: (WP) [phone] 05/20/2018 L Primary Insurance:1500 RICHARD Robledo [facility]B: MEDICARE PRIMARYPhoenix Indian Medical Centericy [facility]: [facility] Number: Effective [id number] [address] Date:2017-11-26 - [address] Repository [address] [place] [address] [id number] [address] [place] [address]Ccv: Name:CD:[id number] O [address]Lkt: [address]FEBFXZODI, [place] (HP) [address]NK: (866) (HP) 000-0000 (WP) 05/20/2018 Secondary RICHARD Madrigaltan Insurance:1500 [facility]: [facility] Number: [id number] System Effective [facility] Repository Date:2017-11-26 - [address] [place] [address] 4967-94-15Kiif [address]Weu: Name:CD:[id number] [address] [place] [address] ()Tel: ([phone]) [phone]: (WP) [phone] 05/17/2018 L Primary Insurance:1500 RICHARD Robledo [facility]B: MEDICARE PRIMARYSt. Rita's Hospital: [facility] Number: Effective [id number] System [address] Date:2018-05-17 - [address] Repository [address] [place] [address] 9342-10-92VaigJames Ville [address]05[address]Tel: Name:CD:[id number] O [address]Atc: [address] [address]AWJCGXWSF, [place] (HP) [address]SY: (866) (HP) 000-0000 (WP) 05/17/2018 Secondary L Mandaeism Insurance:1500 [facility]: [facility] Number: [id number] System Effective [facility] Repository Date:2018-05-17 - [address] [place] [address] 5851-48-81Yovq [address]Ylr: Name:CD:[id number] O [address] [place] [address] ()Tel: ([phone]) [phone]: (WP) [phone] 05/17/2018 L Primary Insurance:1500 Rima FuMandaeism [facility]B: MEDICARE PRIMARYPolicy [facility]: [facility] Number: Effective [id number] [address] Date:2018-05-17 - [address] Repository [address] [place] [address] [id number] [address] [place] [address]Bsz: Name:CD:[id number] O [address]Qal: [address] [place] [address] (HP) [phone]: (866) (HP) 000-0000 (WP) 05/17/2018 Secondary RICHARD Robledo Insurance:1500 [facility]: [facility] H[facility]Car[facility] Number: [id number] System Effective [facility] Repository Date:2018-05-17 - [address] [place] [address] 6488-21-11Wqhz [address]Ehn: Name:CD:[id number] O [address] [place] [address] (HP)Tel: [phone]) [phone]: (WP) [phone] 05/13/2018 L Primary RICHARD Abarca MandaeismUniversity Hospitals Lake West Medical CenterB: Insurance:MedicarePoli [facility]: [facility] cy Number: Effective [id number] System [facility] Date:2018-05-13 - [facility] Rep[facility] [address] [place] [address] [id number] [address] [place] [address]Shq: Name:CD:[id number] [address] [address]Lpr: [id number] [place] [address] (HP) [phone]: (872) (HP) 000-0000 (WP) 05/13/2018 Secondary RICHARD Robledo Insurance:HUMANMary Washington Healthcarey [facility]: [facility] Number: Effective [id number] System Date:2018-05-13 - [address] Repository 3661-14-44Eghe [address] [place] [address] Name:CD:[id number] [address] [address]Wfh: [address] [place] [address] [phone]: (800) (HP) 000-0000 (WP) 05/13/2018 RICHARD Abarca Primary RICHARD Robledo [facility]: Insurance:MedicareWVUMedicine Barnesville Hospital: [facility] cy Number: Effective [id number] System [facility] Date:2018-05-13 - [facility] Repository [address] [place] [address] 0329-18-50Utgw [address] [place] [address]Jjc: Name:CD:[id number] [address] [address]Dje: [id number] [place] [address] (HP) [phone]: (800) (HP) 000-0000 (WP) 05/13/2018 Secondary RICHARD Robledo Insurance:HUMANAPoly [facility]: [facility] Number: Effective [id number] System Date:2018-05-13 - [facility] Repository [id number] [address] [place] [address] Name:CD:[id number] [address] [address]Nqr: [address] [place] [address] [phone]: (800) (HP) 000-0000 (WP) 05/13/2018 L Primary Insurance:1500 RICHARD Robledo [facility]: MEDICARE PRIMARYSt. Rita's Hospital: [facility] Number: Effective [id number] System [facility] Date:2018-05-13 - [facility] Repository [address] [place] [address] 7380-96-35Wydn [address] [place] [address]Shv: Name:CD:[id number] O [address]Tzf: [address] [address]CEZAJPJXU, [place] (HP) [address]WF: (866) (HP) 000-0000 (WP) 05/13/2018 Secondary [facility] Insurance:1500 [facility]: [facility] Number: [id number] System Effective [address] Repository Date:2018-05-[address] [place] [address] 4509-82-25Fptq [address]Cqm: Name:CD:[id number] [address] [place] [address] (HP)Tel: ([phone]) [phone]: (wp) [phone] 05/13/2018 [facility]: Insurance:MedicarePolGreene County General HospitalB: Hospitals cy Number: [id number] [address]ository [address] [id number] [facility] [address] [place] [address] Date:Plan Name:[address] [id number]: [phone]: (HP) (HP) 05/13/2018 Secondary [facility] Insurance:MedicareSelect Medical Cleveland Clinic Rehabilitation Hospital, Edwin ShawB: Hospitals cy Number: [id number] Repository [id number] [facility] Date:Plan Name:[facility] B [address] [place] [address] [id number]: (HP) 05/13/2018 Tertiary [facility] Insurance:ChoiceStraith Hospital for Special SurgeryB: [facility] Number: [id number] Repository [id number] [facility] Date:Plan Name:Health [address] [place] [address] [id number]: (HP) 05/13/2018 [facility]: Insurance:MedicareSelect Medical [facility] Clinic Rehabilitation Hospital, Edwin ShawB: Hospitals cy Number: [id number] [address] [id number] [facility] [address] [place] [address] Date:Plan Name:[facility] A [address] [place] [address] [id number]: [id number]: (HP) (HP) 05/13/2018 Secondary [facility] Insurance:MedicarePoli [facility]: Hospitals cy Number: [id number] Repository [id number] [facility] Date:Plan Name:[facility] Centershikha Porter [address] [place] [address] [id number]: (HP) 05/13/2018 [facility] Insurance:ChoiceStraith Hospital for Special SurgeryB: Hospitals HumanClinch Valley Medical Center Number: [id number] Repository [id number] [facility] Date:Plan Name:Health [address] [place] [address] [id number]: (HP) 05/11/2018 RICHARD Abarca Primary RICHARD Abarca [facility]: Insurance:MedicarePoli HAMILTONDOB: [facility] cy Number: Effective [id number] System [address] Date:2018-05-11 - [facility] Repository [address] [place] [address] 5962-39-51Ardu [address] [place] [address]Yst: Name:CD:[id number] [address] [address]Bzr: [id number], [place] (HP) [phone]: (800) (HP) [phone] (WP) 05/11/2018 Secondary RICHARD Robledo Insurance:[facility] HospitalB: [facility] Number: Effective [id number] System Date:2018-05-11 - [address] Repository [id number] [address] [place] [address] Name:CD:[id number] [address] [address]Gpf: [address] [place] [address] [phone]: ([phone]) (HP) [phone] (WP) 05/11/2018 L Primary [facility]B: Insurance:MedicareSelect Medical Cleveland Clinic Rehabilitation Hospital, Edwin ShawB: [facility] cy Number: [id number] [id number] [facility] [address] [place] [address] Date:Plan Name:[facility] Centershikha Castellon [address] [place] [address] [id number]: [id number]: (HP) (HP) 05/11/2018 Secondary RICHARD Barboza Insurance:MedicarePoli [facility]: Hospitals cy Number: [id number] Repository [id number] [facility] Date:Plan Name:[facility] Centerre [address] [id number]: (HP) 05/11/2018 Tertiary RICHARD Abarca Ruth Insurance:ChoiceCare [facility]B: [facility] HumanUtah State Hospitalicy Number: [id number] Repository [id number] [facility] Date:Plan Name:[address] [id number]: (HP) 04/29/2018 RICHARD Abarca Primary Insurance:1500 RICHARD Robledo [facility]B: MEDICARE PRIMARYPolicy HAMILTONDOB: [facility] [id number] Number: Effective [id number] System [facility] Date:2018-04-29 - [facility] Repository [address] [place] [address] 7730-79-95Fljo[address] [address]Fhu: Name:CD:[id number] O [address]Ihj: [address] [place] [address] (HP) [address]TY: (686) (HP) 000-0000 (WP) 04/29/2018 Secondary RICHADR Robledo Insurance:[address] [place], [place] [address]B: [facility] Number: [id number] System Effective [facility] Repository Date:2018-04-29 - [address] [place] [address] 5963-78-14Kpuf [address]Ylx: Name:CD:[id number] O [address] [place] [address] ()Tel: (319) [phone]: (WP) [phone] 04/29/2018 RICHARD Abarca Primary Insurance:1500 RICHARD Robledo [facility]: MEDICARE PRIMARYPolicy HAMILTONDOB: [facility] [id number] Number: Effective [id number] System [address] Date:2017-10-25 - [address] Repository [address] [place] [address] 9282-07-43Lizb [address] [place] [address]Xfx: Name:CD:[id number] O [address]Gsm: [address]JKCNYCABX, [place] (HP) [address]CK: (866) (HP) 000-0000 (WP) 04/29/2018 Secondary L Mandaeism Insurance:1500 [facility]: [facility] Number: [id number] System Effective [address] Repository Date:2017-10-25 - [address] [place] [address] [id number] [address]Eda: Name:CD:[id number] O [address] [place] [address] ()Tel: ([phone]) [phone]: (WP) [phone] 04/24/2018 L Primary Insurance:1500 L Mandaeism [facility]: MEDICARE PR[facility]Ind[facility] Number: Effective [id number] System [facility] Date:2018-04-24 - [address] Repository [address] [place] [address] [id number] [address] [place] [address]Wyb: Name:CD:[id number] O [address]Hcr: [address] (HP) [address]OV: (866) (HP) 000-0000 (WP) 04/24/2018 Secondary L Mandaeism Insurance:1500 [facility]: [facility] Number: [id number] System Effective [address] Repository Date:2018-04-24 - [address] [place] [address] 4889-00-55Yozw [address]Nmi: Name:CD:[id number] [address] [place] [address] (HP)Tel: [phone]) [phone]: (WP) [phone] 04/02/2018 L Primary [facility]: Insurance:MedicareSelect Medical Cleveland Clinic Rehabilitation Hospital, Edwin ShawB: [facility] cy Number: Effective [id number] Date:2018-04-02 - [facility] Repository [address] [place] [address] 0957-55-32[place] [address]Tel: Name:CD:[id number] [address] [address]Gzz: [id number], [place] (HP) [phone]: (800) (HP) 000-0000 (WP) 04/02/2018 Secondary RICHARD Abarca Mandaeism Insurance:[facility]Mohansic [facility]: [facility] Number: Effective [id number] System Date:2018-04-02 - [facility] Repository [id number] [address] [place] [address] Name:CD:[id number] [address] [address]Hze: [address] [place] [address] [phone]: (800) (HP) 000-0000 (WP) 04/02/2018 [facility]: Insurance:MedicarePoli HAMILTONDOB: [facility] cy Number: [id number] Repository [facility] [id number] [facility] [address] [place] [address] Date:Plan Name:[facility] A [address] [place] [address] [id number]: [id number]: (HP) (HP) 04/02/2018 Secondary [facility] Insurance:MedicarePolCleveland Clinic [facility]: Hospitals cy Number: [id number] Repository [id number] [place] [address] Date:Plan Name:[facility] B [address] [place] [address] [id number]: (HP) 04/02/2018 [facility] Insurance:ChoiceCare [facility]: [facility] Number: [id number] Repository [id number] [facility] Date:Plan Name:[address] [id number]: (HP) 02/28/2018 RICHARD Abarca Primary Insurance:1500 RICHARD Abarca Mandaeism [facility]B: MEDICARE PRIMARYPhoenix Indian Medical Centericy [facility]B: [facility] Number: Effective [id number] [address] Date:2018-02-28 - [address] Repository [address] [place] [address] [id number] [address] [place] [address]Ytd: Name:CD:[id number] O [address]Ccb: [address] (HP) [address]XF: ([phone]) () [phone] (WP) 02/28/2018 Secondary RICHARD Abarca Mandaeism Insurance:1500 [facility]: [facility] Number: [id number] System Effective [facility] Repository Date:2018-02-28 - [address] [place] [address] 7575-56-82Wvnh [address]Cxt: Name:CD:[id number] [address] [place] [address] ()Tel: (088) [phone]: (WP) [phone] 02/13/2018 RICHARD Abarca Primary Insurance:1500 RICHARD Robledo [facility]B: MEDICARE PRIMARYAmerican Academic Health Systemy [facility]B: [facility] [id number] Number: Effective [id number] [address] Date:2017-08-03 - [address] Repository [address] [place] [address] 6067-70-67Zeif [address] [place] [address]Prr: Name:CD:[id number] O [address]Aac: [address] [address]IIEYPLCED, [place] (HP) [address]VX: (866) (HP) 000-0000 (WP) 02/13/2018 Secondary RICHARD Robledo Insurance:[address] [place] [address]: [facility] HUMANAPoly Number: [id number] System Effective [facility] Repository Date:2017-08-03 - [address] [place] [address] 4870-29-95Vdxz [address]Xhw: Name:CD:[id number] [address] [place] [address] (HP)Tel: 000) [address]WP: (WP) [phone] 01/16/2018 [facility]: Insurance:MedicarePoli HAMILTONDOB: [facility] cy Number: Effective [id number] Date:2018-01-03 - [facility] Repository [address] [place] [address] 4929-51-17Wxkm [address] [place] [address]Tel: Name:CD:[id number] [address] [address]Mye: [id number], [place] (HP) [phone]: (267) (HP) 000-0000 (WP) 01/16/2018 Secondary RICHARD Robledo Insurance:HUMANSt. Peter's HospitalB: [facility] Number: Effective [id number] System Date:2018-01-03 - [facility] Repository [id number] Name:CD:[id number] [address] [address]Fbr: [address] [place] [address] [phone]: (419) (HP) 000-0000 (WP) 01/16/2018 [facility]: Insurance:[facility]: [facility] ChoicePolicy Number: [id number] Repository [facility] [id number] [facility] [address] [place] [address] Date:Plan Name:[address] [id number]: [id number]: (HP) (HP) 01/16/2018 [facility] Insurance:MedicarePoli [facility] Hospitals cy Number: [id number] Repository [id number] [address] Date:Plan Name:[facility] A [address] [place] [address] [phone]: (HP) 01/16/2018 [facility] Insurance:MedicarePoli [place]: Hospitals cy Number: [id number] Repository [id number] [address] Date:Plan Name:[facility] B [address] [place] [address] [phone]: (HP) 01/16/2018 [facility] Hospitals [facility] Number: [id number] Repository [id number] [address] Date:Plan Name:[address] [phone]: (HP) 01/05/2018 L Primary RICHARD Robledo [facility]: [facility]: [facility] [id number] cy Number: Effective [id number] System [address] Date:2018-01-05 - [facility] Repository [address] [place] [address] [id number] [address] [place] [id number]: Name:CD:[id number] [id number]: [id number], [place] (HP) [phone]: (800) (HP) 000-0000 () 01/05/2018 Secondary RICHARD Robledo [facility] Number: Effective [id number] System Date:2018-01-05 - [address] Repository [id number] [address] [place] [address] Name:CD:[id number] [address]Gvx: [id number], [place] [id number]: (272) (HP) 000-0000 (WP) 01/05/2018 [facility] ChoicePolicy Number: [id number] Repository [address] [id number] [address] [place] [address] Date:Plan Name:[address] [id number]: [phone]: (HP) (HP) 01/05/2018 Secondary [facility] [facility] Insurance:MedicarePolGreene County General HospitalB: Hospitals cy Number: [id number] Repository [id number] [facility] [address] Date:Plan [facility] A [address] [place] [address] [phone]: (HP) 01/05/2018 [facility] Insurance:MedicarePolGreene County General HospitalB: Hospitals cy Number: [id number] Repository [id number] [facility] [address] Date:Plan Name:[facility] B [address] [place] [address] [phone]: (HP) 01/05/2018 [facility] Insurance:ChoiceCare [facility]: [facility] Number: [id number] Repository [id number] [facility] [address] Date:Plan Name:[address] [phone]: (HP) 01/03/2018 Primary Insurance:[facility] HospitalB: MEDICARE PRIMARYPolicy [facility]: [facility] Number: Effective [id number] [address] Date:2018-01-01 - [facility] Repository [address] [place] [address] 4659-06-56Svtp [address] [place] [address]Awv: Name:CD:[id number] O [address]Wtn: MELLISA Massey34957NWIXMEQYM, [place] (HP) [phone]: (726) (HP) 000-0000 (WP) 01/03/2018 Secondary RICHARD Robledo Insurance:1500 [facility]: [facility] HUMANAPolicy Number: [id number] System Effective [address] Repository Date:2018-01-01 - [address] [place] [address] 8797-84-20Magp [address]Jmz: Name:CD:[id number] [address] [place] [address] (HP)Tel: (050) [phone]: (WP) [phone] 11/28/2017 L Primary RICHARD Abarca [facility]: Insurance:MEDICARESelect Medical [facility] Clinic Rehabilitation Hospital, Edwin ShawB: Three Repository cy Number: [id number] [facility] [address] [id number] [facility] [address] [place] [address] Date:2866-07-18LDS[address] [address]Tdf: (963) PART A CLAIMS [address] [address]Jok: (HP) [address]CAIDRRAPX, [place] 281184 (HP) [phone]: 11/28/2017 Secondary RICHARD Abarca [facility] Insurance:HUMANAPolicy [facility]: Three Repository Number: [id number] [facility] [address] Date:8767-59-46CI [address] [place] [address] 39692Nge: ([phone]) [phone]: (HP) [phone] 11/26/2017 L Primary Insurance:1500 RICHARD Abarca [facility]: MEDICARE PRIMARYPhoenix Indian Medical Centericy [facility]: [facility] [id number] Number: Effective [id number] System [address] Date:2017-10-05 - [address] Repository [address] [place] [address] 5616-75-88Kzwd [address] [place] [address]Knz: Name:CD:[id number] [address]Mqe: [address]SLHDDLWNQ, [place] (HP) [phone]: (866) (HP) 000-0000 (WP) 11/26/2017 Secondary RICHARD Robledo Insurance:[address] [place], [place] [address]B: [facility] Number: [id number] System Effective [facility] [address] Repository Date:2017-10-[address] [place] [address] 5230-14-79Kaov [address]Zjg: Name:CD:[id number] [address] [place] [address] (HP)Tel: 000) [phone]: (WP) [phone] 11/17/2017 RICHARD Abarca [facility] RICHARD Abarca MandaeismUniversity Hospitals Lake West Medical CenterB: Insurance:MedicarePoli HAMILTONDOB: [facility] cy Number: Effective [id number] [address] Date:2017-11-17 - [facility] Repository [address] [place] [address] 7415-50-05Ezib [address] [place] [address]Uql: Name:CD:[id number] [address] [address]Toz: [address] [place] [address] (HP) [phone]: (800) (HP) 000-0000 (WP) 11/17/2017 Secondary RICHARD Fuaritan Insurance:[facility]: [facility] Number: Effective [id number] System Date:2017-11-17 - [facility] Repository [id number] Name:CD:[id number] [address] [address]Buz: [address] [place] [address] [phone]: (800) (HP) 000-0000 (WP) 11/17/2017 [facility] Insurance:MedicarePoli HAMILTONDOB: [facility] cy Number: [id number] Repository [address] [id number] [facility] [place] [address] Date:Plan Name[facility] A [address] [place] [address] [id number]: [phone]: (HP) (HP) 11/17/2017 Secondary [facility] University Insurance:MedicarePoli HAMILTONDOB: Hospitals cy Number: [id number] Repository [id number] [facility] [address] Date:Plan Name:[facility] B [address] [place] [address] [phone]: (HP) 11/17/2017 Tertiary [facility] Insurance:ChoiceCare HAMILTONDOB: [facility] HumanaPolicy Number: [id number] Repository [id number] [address] Date:Plan Name:[address] [phone]: (HP) 10/31/2017 L Primary L [place] [id number] TR Insurance:MEDICARE [facility]B: [address] PART A BPolicy Number: [id number] Hospital 33584Jrq: (944) [id number] Repository -[phone] (HP) Date:2017-10-31 10/31/2017 Secondary L Randee Insurance:HUMANA CHICAGODOB: [facility] COMM[facility]CIALPaoli Hospital [id number] Hospital Number: Repository [id number] Date:7739-60-45EY[address] [address]WS: 10/31/2017 Tertiary NOT GIVENUNK Randee Insurance:SELF PAY [facility] INS[facility]ANCEPa[facility] Hospital Number: Effective Repository Date:2017-10-31 10/25/2017 L Primary Insurance:1500 L Mandaeism CHICAGODOB: MEDICARE PRIMARYPolicy CHICAGODOB: [facility] Number: Effective [id number] System [facility] [address] Date:2017-10-11 - [facility] Repository [address] [place] [address] 5861-37-70Yhil [address] [place] [address]Rrb: Name:CD:[id number] [address]Syh: [address] [place] [address] [place] (HP) [phone]: (866) (HP) 000-0000 (WP) 10/25/2017 Secondary RICHARD Madrigaltan Insurance:1500 [facility]: [facility] Number: [id number] System Effective [facility] [address] Repository Date:2017-10-[address] [place] [address] 3502-70-73Rdso [address]Asw: Name:CD:[id number] O [address] [place] [address] ()Tel: ([phone]) [phone]: (WP) [phone] 10/11/2017 L Primary Insurance:1500 RICHARD Robledo [facility]: MEDICARE PRIMARYPolicy HAMILTONDOB: [facility] Number: Effective [id number] Date:2017-05-17 - [address] Repository [address] [place] [address] [id number] [place], [place] [id number]: Name:CD:[id number] O [address]Cpm: [address] [place] [address] [place] (HP) [phone]: (866) (HP) 000-0000 (WP) 10/11/2017 Secondary RICHARD Fuaritan Insurance:1500 [facility]: [facility] Number: [id number] System Effective [facility] Repository Date:2017-05-17 - [address] [place] [address] 2153-15-54Pafj [address]Hso: Name:CD:[id number] O [address] [place] [address] ()Tel: ([phone]) [phone]: (WP) [phone] 09/20/2017 L Primary Insurance:1500 RICHARD Robledo [facility]: MEDICARE [facility]: [facility] Number: Effective [id number] System [facility] [address] Date:2017-09-20 - [address] Repository [address] [place] [address] 8636-56-37Vboo [address] [place] [address]Bar: Name:CD:[id number] [address]Awg: [address] [address]AFOOWPATX, [place] (HP) [phone]: (866) (HP) 000-0000 (WP) 09/20/2017 Secondary L Mandaeism Insurance:1500 [facility]: [facility]Car[facility] Number: [id number] System Effective [facility] [address] Repository Date:2017-09-20 - [address] [place] [address] 5424-25-23Qgkc [address]Kcd: Name:CD:[id number] [address] [place] [address] (HP)Tel: 000) [phone]: (WP) [phone] 09/17/2017 L Primary L Mandaeism [facility]: Insurance:MedicarePolGreene County General HospitalB: [facility] cy Number: Effective [id number] System [facility] Date:2017-09-17 - [facility] Repository [address] [place] [address] 2077-26-36Cxmk [address] [place] [address]Lwh: Name:CD:[id number] [address] [address]Wdf: 539862IJGFSYAEGX, [place] (HP) [phone]: (800) (HP) 000-0000 (WP) 09/17/2017 Secondary L Mandaeism Insurance:HUMANMary [facility] Healthcarey [facility]: [facility] Number: Effective [id number] System Date:2017-09-17 - [address] Repository 0431-41-14Jbui [address] [place] [address] Name:CD:[id number] [address] [address]Jsv: [address] [place] [address] [phone]: (800) (HP) 000-0000 (WP) 09/10/2017 RICHARD Abarca Primary Insurance:1500 RICHARD Robledo [facility]: [facility]ARE [facility]St[facility]: [facility] Number: Effective [id number] System [facility] Date:2017-09-10 - [facility] Repository [address] [place] [address] 7244-80-97Bgwn [address] [place] [address]Xyh: Name:CD:[id number] O [address]Jbk: [address] [address]SNBITTQTG, [place] (HP) [address]XU: (031) (HP) 000-0000 (WP) 09/10/2017 Secondary RICHARD Madrigaltan Insurance:1500 [facility]: [facility] Number: [id number] System Effective [facility] Repository Date:2017-09-10 - [address] [place] [address] 4406-45-23Wonr [address]Hzp: Name:CD:[id number] O [address] [place] [address] ()Tel: (697) [phone]: (WP) [phone] 09/03/2017 L Primary Insurance:1500 RICHARD Robledo [facility]: MEDICARE PRIMARYPolicy HAMILTONDOB: [facility] Number: Effective [id number] System [facility] Date:2017-09-03 - [facility] Repository [address] [place] [address] 4784-15-71Oeds [address] [place] [address]Xdm: Name:CD:[id number] O [address]Tlk: [address] (HP) [phone]: (446) (HP) 000-0000 (WP) 09/03/2017 Secondary L Mandaeism Insurance:1500 [facility]: [facility] Number: [id number] System Effective [address] Repository Date:2017-09-03 - [address] [place] [address] 8240-22-30Zwio [address]Qcw: Name:CD:[id number] O [address] [place] [address] (HP)Tel: ([phone]) [phone]: (WP) [phone] 08/28/2017 L Primary Insurance:1500 L Mandaeism [facility]: MEDICARE PRIMARYPolicy [facility]: [facility] Number: Effective [id number] [address] Date:2017-08-28 - [address] Repository [address] [place] [address] 9248-82-00Ygrd [address] [place] [address]Kgn: Name:CD:[id number] O [address]Hdi: [address] [place] [address] (HP) [phone]: (778) (HP) 000-0000 (WP) 08/28/2017 Secondary RICHARD Robledo Insurance:1500 [facility]: [facility] Number: [id number] System Effective [address] Repository Date:2017-08-28 - [address] [place] [address] 1300-65-68Jkxk [address]Hkm: Name:CD:[id number] [address] [place] [address] (HP)Tel: (596) [phone]: (WP) [phone] 08/27/2017 L Primary RICHARD Robledo [facility]: Insurance:MedicareWVUMedicine [facility]: [facility] cy Number: Effective [id number] Date:2017-08-27 - [address] Repository [address] [place] [address] 0522-51-04Qpsm [address] [place] [address], [place] [address]Iiy: Name:CD:[id number] [address] [address]Hib: [address] [place] [address] (HP) [phone]: (800) (HP) 000-0000 (WP) 08/27/2017 Secondary RICHARD Robledo Insurance:HUMANOrem Community Hospitalicy [facility]: [facility] Health Number: Effective [id number] System Date:2017-08-27 - [facility] Repository 6500-34-80Hhqa[address] [place] [address] Name:CD:[id number] [address] [address]Ssr: [address] [place] [address] [phone]: (800) (HP) [phone] (WP) 08/22/2017 L Primary RICHARD Robledo [facility]: Insurance:MedicarePoli HAMILTONDOB: [facility] cy Number: Effective [id number] System [facility] Date:2017-08-22 - [facility] Repository [address] [place] [address] 7072-70-03Ocxc[address] [place], [place] [address]Tel: Name:CD:[id number] [address] [address]Glc: [id number] [place] [address] (HP) [phone]: (800) (HP) 000-0000 (WP) 08/22/2017 Secondary RICHARD Robledo Insurance:HUMANMary [facility] Healthcarey [facility]: [facility] Number: Effective [id number] System Date:2017-08-22 - [facility] Repository 7753-90-67Geoq[address] [place] [address] Name:CD:[id number] [address] [address]Rim: [address] [place] [address] [phone]: (419) (HP) 000-0000 (WP) 08/11/2017 L Primary RICHARD Robledo [facility]: Insurance:MedicarePoli HAMILTONDOB: [facility] cy Number: Effective [id number] System [facility] Date:2017-08-11 - [facility] Repository [address] [place] [address] 3789-86-45Vgir [address] [place] [address]Qje: Name:CD:[id number] [address] [address]Qjo: [id number], [place] (HP) [phone]: (800) (HP) 000-0000 (WP) 08/11/2017 Secondary RICHARD Robledo [facility]: [facility] Number: Effective [id number] System Date:2017-08-11 - [facility] Repository 4536-99-52Bnxb [address] [place] [address] Name:CD:[id number] [address] [address]Dgg: [address] [place] [address] [phone]: (043) (HP) 000-0000 (WP) 08/06/2017 L Primary RICHARD Denton CHICAGODOB: Insurance:MEDICAREPoli [facility] cy Number: Repository [facility] [id number]: (419) Date:6797-96-74KN [address] (HP) 251067Plyxhzed, [place] [address]OC: 08/06/2017 Secondary RICHARD Denton Insurance:[facility] Number: Repository [id number] Date:2017-07-25 08/03/2017 L Primary Insurance:1500 L Mandaeism HAMILTONDOB: MEDICARE PRIMARYPolicy HAMILTONDOB: [facility] Number: Effective [id number] System [facility] Date:2017-01-24 - [facility] Repository [address] [place] [address] 9104-59-47Eoof [address] [place] [address]Mst: Name:CD:[id number] [address]Yja: [address] [address]MRZWEFWHI, [place] (HP) [phone]: (866) (HP) 000-0000 (WP) 08/03/2017 Secondary RICHARD Robledo Insurance:[address] [place] [address]: [facility] Number: [id number] System Effective [facility] Repository Date:2017-01-24 - [address] [place] [address] 2421-06-70Zydz [address]Tib: Name:CD:[id number] [address] [place] [address] (HP)Tel: 000) [address]WP: (WP) [phone] 07/26/2017 L Primary RICHARD Robledo [facility]: Insurance:MedicarePoli HAMILTONDOB: [facility] cy Number: Effective [id number] System [facility] Date:2017-07-26 - [facility] Repository [address] [place] [address] 2070-95-41Hkcb [address] [place], [place] [address]Tel: Name:CD:[id number] [address] [address]Zip: [id number] [place] [address] (HP) [phone]: (800) (HP) 000-0000 (WP) 07/26/2017 Secondary RICHARD Robledo Insurance:[facility]: [facility] Number: Effective [id number] System Date:2017-07-26 - [facility] Repository 3851-26-33Ybtm [address] [place] [address] Name:CD:[id number] [address] [address]Qcg: [address] [place] [address] [phone]: (800) (HP) 000-0000 (WP) 07/25/2017 L Primary L Vicente Denton [facility]: Insurance:MEDICAREPoli [facility] cy Number: Repository [facility] 1253Tel: [id number] Date:5789-83-29PV Box (HP) 208215Czjxwiwy, [place] [address]AZ: 07/25/2017 Secondary RICHARD Denton Insurance:[facility] Number: Repository [id number] Date:2017-07-18 07/13/2017 L Primary RICHARD Abarca MandaeismUniversity Hospitals Lake West Medical CenterB: Insurance:MedicarePoli HAMILTONDOB: [facility] cy Number: Effective [id number] System [facility] Date:2017-07-13 - [facility] Repository [address] [place] [address] 9089-11-03Kehv [address] [place] [address] [id number]: Name:CD:[id number] [id number]: 621263GJWZEHOVYT, [place] (HP) [phone]: (800) (HP) [phone] (WP) 07/13/2017 Secondary RICHARD Robledo Insurance:[facility]: [facility] Number: Effective [id number] System Date:2017-07-13 - [facility] Repository Cqjj [address] [place] [address] Name:CD:[id number] [id number]: [address] [place] [address] [phone]: (800) (HP) 000-0000 (WP) 07/04/2017 L Primary RICHARD Abarca [facility]: Insurance:MEDICAREPoli HAMILTONDOB: Three Repository [id number] cy Number: [id number] [facility] [address] [id number] [facility] [address] [place] [address] Date:2377-52-25EMS J15 [address] [place] [address] 71600Wwt: (419) PART A CLAIMSPO [address] [address]Poj: (HP) [address]OEGFVEDBV, [place] [phone] (HP) [address]KC: 07/04/2017 Secondary L [facility] Insurance:[facility]: Three Repository Number: [id number] [facility] Date:4552-01-51OM [address] [place] [id number] [place] [address]Mzx: (268) [phone]: (HP) [phone] 07/04/2017 L Primary L MandaeismUniversity Hospitals Lake West Medical CenterB: Insurance:MedicareWVUMedicine [facility]: [facility] [id number] cy Number: Effective [id number] System [facility] Date:2017-06-29 - [facility] Repository [address] [place] [address] 6702-83-02Fowj [address] [place] [address] [id number]: Name:CD:[id number] [facility] [id number]: [id number], [place] (HP) [phone]: (800) (HP) 000-0000 (WP) 07/04/2017 Secondary RICHARD Fuaritan Insurance:[facility]Mohansic State Hospital: [facility] Number: Effective [id number] System Date:2017-06-29 - [facility] Repository 3687-19-55Dvyz [address] [place] [address] Name:CD:[id number] [id number]: [address] [place] [address] [id number]: (419) (HP) [phone] (WP)
== END ==
PROVIDERS: Family Provider Family Medicine; PCP Family Medicine; Referring Provider Internal Medicine Rheumatology; Visit Provider Internal Medicine Rheumatology
DX: M06.4 Inflammatory polyarthropathy (principal); R76.8 Other specified abnormal immunological findings in serum; K21.9 Gastro-esophageal reflux disease without esophagitis; M51.37 Other intervertebral disc degeneration, lumbosacral region; I10 Essential (primary) hypertension; E78.5 Hyperlipidemia, unspecified; I25.10 Atherosclerotic heart disease of native coronary artery without angina pectoris; C61 Malignant neoplasm of prostate; N40.1 Benign prostatic hyperplasia with lower urinary tract symptoms; Z79.899 Other long term (current) drug therapy
CPT/HCPCS: 36415; 80053; 85025

== ENCOUNTER → 2018-07-02 15:50 | Outpatient (CLI) | payer MEDICARE, OTHER, SELFPAY ==
[2018-07-02 16:28] LABS: Pathologist Comment May follow
[2018-07-02 16:52] LABS: RBC /Synovial Fluid 0.002 10^6/uL (0); Synovial Fld Mononuclear WBC % 57.3 %; Synovial Fld Polynuclear WBC # 0.056 10^3/ul; Synovial Fld Polynuclear WBC % 42.7 %
[2018-07-02 18:23] LABS: AUTO B FLUID DILUENT BKGD CT WBC <0.1 RBC <0.01 (W<.1,R<.01)
[2018-07-02 18:24] LABS: Appearance /Synovial Fluid Clear (CLEAR); Color / Synovial Fluid Yellow (Pale Yellow); Source / Synovial Fluid LEFT KNEE; Source- Body Fluid SYNOVIAL
[2018-07-02 18:25] LABS: Body Fluid QC Type(s) BF1Q,BF2Q
[2018-07-02 19:02] LABS: Lymph 75 %; Monocyte /Synovial Fluid 22 %; Neutrophil 3 % (0-25)
[2018-07-03 14:12] LABS: Pathologist Review Reviewed
== END ==
PROVIDERS: Family Provider Family Medicine; PCP Family Medicine; Referring Provider Internal Medicine Rheumatology; Visit Provider Internal Medicine Rheumatology
DX: M06.4 Inflammatory polyarthropathy (principal); R76.8 Other specified abnormal immunological findings in serum; Z79.899 Other long term (current) drug therapy
CPT/HCPCS: 87070; 87075; 87205; 89050; 89051; 89060